=== PATIENT | male | born 1960 | race Caucasian/White ===

== ENCOUNTER 2016-10-20 13:59 | Inpatient (IN) | payer OTHER ==
[~2016-10-20 13:59] MED LIST: ONDANSETRON 4 MG/2 ML VIAL IVP PRN
--- NOTE | 2016-10-20 14:33 | EDPHY ---
H & P Time Seen by Provider: 10/20/16 14:32 HPI/ROS: CHIEF COMPLAINT: Bloating HISTORY OF PRESENT ILLNESS: This 56-year-old man has a long history of alcoholism , he tells me that his last drink was around Thanksgiving. The patient tried to lose weight at that time and lost about 30 lb. However since then he has had decreased oral intake and for the last 2 weeks more significant abdominal bloating. Not associated with diarrhea or melena or red blood per rectum. Not associated with nausea or vomiting but is associated with eating any feels worse if he tries to eat or drink anything. He also has noticed that he has become yellow or jaundiced. Symptoms are moderate. REVIEW OF SYSTEMS: Eye: no change in vision ENT: no sore throat Cardiac: no chest pain or syncope Pulmonary: no cough or SOB Abdomen: See HPI. Musculoskeletal: no back pain Skin: Jaundice. Neuro: no headache Constitutional: no fever : no urinary symptoms A comprehensive 10 point review of systems is otherwise negative aside from elements mentioned in the history of present illness. PAST MEDICAL HISTORY: Alcoholism but negative for surgical or other history. Social history: Alcoholic but last drink Thanksgiving. General Appearance: Alert and conversant, cooperative. Eyes: Scleral icterus. ENT, Mouth: Normal mucous membranes. Respiratory: Normal respiratory effort, breath sounds equal, lungs are clear to auscultation. Cardiovascular: Regular rate and rhythm. Gastrointestinal: Markedly distended but no rebound or guarding, soft periumbilical hernia. Neurological: Alert and oriented x3. Normally conversant. Face symmetric, normal movement and sensation in all extremities. No asterixis. Skin: Jaundice Musculoskeletal: No peripheral edema and no joint swelling. Psychiatric: Not agitated. Emergency Department course/MDM: Heart rate noted to be 120. Plan for EKG i-STAT and labs to include liver function tests and protime. CT scan, ultrasound, admission with GI consultation. 1632: Results discussed in detail with patient and his . Smoking Status: Never smoked Constitutional: Initial Vital Signs Temperature (C) 36.9 C 10/20/16 14:13 Heart Rate 120 H 10/20/16 14:13 Respiratory Rate 20 10/20/16 14:13 Blood Pressure 148/93 H 10/20/16 14:13 O2 Sat (%) 95 10/20/16 14:13 O2 Delivery Mode Room Air Allergies/Adverse Reactions: No Known Allergies Allergy (Unverified 10/20/16 14:13) Home Medications: Medication Instructions Recorded NK [No Known Home Meds] 10/20/16 Medical Decision Making - Diagnostics EKG Interpretation: 12-lead EKG interpreted by me; official reading is in trace master. My interpretation is sinus tachycardia with nonspecific diffuse T-wave abnormalities. Imaging: CT scan interpreted by myself and Dr. Villagomez radiologist report reviewed. Probable distal esophageal cancer with hepatic metastases. Consult/Admit Bed Type: [facility] 1642, [facility] 1645 - Data Points Laboratory Results: Laboratory Results 10/20/16 14:52 10/20/16 14:52 10/20/16 10/20/16 14:52 14:51 WBC 10.13 H 10^3/uL (3.80-9.50) RBC 3.38 L 10^6/uL (4.40-6.38) Hgb 9.6 L g/dL (13.7-17.5) POC Hgb 12.2 L gm/dL (14.5-17.3) Hct 28.4 L % (40.0-51.0) POC Hct 36 L % (42.8-50.6) MCV 84.0 fL (81.5-99.8) MCH 28.4 pg (27.9-34.1) MCHC 33.8 g/dL (32.4-36.7) RDW 19.3 H % (11.5-15.2) Plt Count 400 10^3/uL (150-400) MPV 10.3 fL (8.7-11.7) Neut % (Auto) 71.8 % (39.3-74.2) Lymph % (Auto) 17.9 % (15.0-45.0) [place] % (Auto) 7.6 % (4.5-13.0) Eos % (Auto) 1.3 % (0.6-7.6) Baso % (Auto) 0.5 % (0.3-1.7) Nucleat RBC Rel Count 0.0 % (0.0-0.2) Absolute Neuts (auto) 7.28 H 10^3/uL (1.70-6.50) Absolute Lymphs (auto) 1.81 10^3/uL (1.00-3.00) Absolute Monos (auto) 0.77 10^3/uL (0.30-0.80) Absolute Eos (auto) 0.13 10^3/uL (0.03-0.40) Absolute Basos (auto) 0.05 10^3/uL (0.02-0.10) Absolute Nucleated RBC 0.00 10^3/uL (0-0.01) Immature Gran % 0.9 % (0.0-1.1) Immature Gran # 0.09 10^3/uL (0.00-0.10) PT 13.8 SEC (12.0-15.0) INR 1.07 (0.83-1.16) APTT 21.2 L SEC (23.0-38.0) POC Sodium 132 L mEq/L (134-144) Sodium 130 L mEq/L (134-144) POC Potassium 3.9 mEq/L (3.3-5.0) Potassium 4.2 mEq/L (3.5-5.2) POC Chloride 91 L mEq/L (96-108) Chloride 92 L mEq/L (97-110) Carbon Dioxide 28 mEq/l (22-31) Anion Gap 10 mEq/L (8-16) POC BUN 23 mg/dL (7-23) BUN 23 mg/dL (7-23) Creatinine 1.0 mg/dL (0.7-1.3) POC Creatinine 1.0 mg/dL (0.8-1.5) Estimated GFR > 60 Glucose 91 mg/dL (70-100) POC Glucose 94 mg/dL (70-100) Calcium 8.3 L mg/dL (8.5-10.4) Total Bilirubin 5.7 H mg/dL (0.1-1.4) Conjugated Bilirubin 4.8 H mg/dL (0.0-0.5) Unconjugated Bilirubin 0.9 mg/dL (0.0-1.1) AST 746 H IU/L (17-59) ALT 247 H IU/L (21-72) Alkaline Phosphatase 796 H IU/L (38-126) Total Protein 6.2 L g/dL (6.3-8.2) Albumin 2.7 L g/dL (3.5-5.0) Lipase 412.0 H IU/L (23-300) Medications Given: Discontinued Medications Sodium Chloride (Ns) 1,000 mls @ 0 mls/hr IV ONCE ONE PRN Reason: Wide Open Stop: 10/20/16 14:46 Last Admin: 10/20/16 15:01 Dose: 1,000 mls Point of Care Test Results: 10/20/16 14:51 POC Sodium 132 L POC Potassium 3.9 POC Chloride 91 L POC BUN 23 POC Creatinine 1.0 POC Glucose 94 Departure - Departure Disposition: [facility] Inpatient Acute Clinical Impression: esophageal cancer, probable Condition: Fair Referrals: NONE *PRIMARY CARE P,. [Primary Care Provider] - As per Instructions
[2016-10-20] MEDS ORDERED: NS 1,000 ML IV ONE (14:45)
--- NOTE | 2016-10-20 14:59 | CPEKG ---
Heart Rate: 112 RR Interval: 536 P-R Interval: 140 QRSD Interval: 82 QT Interval: 296 QTC Interval: 404 P [place]: 39 QRS [place]: 69 EKG Severity - ABNORMAL ECG - EKG Impression: SINUS TACHYCARDIA EKG Impression: NONSPECIFIC T ABNORMALITIES, DIFFUSE LEADS Electronically Signed By: Barrera Acosta 20-Oct-2016 15:12:02
[2016-10-20 15:02] LABS: % IMMATURE GRANULYOCYTES 0.9 % (0.0-1.1); ABSOLUTE IMMATURE GRANULOCYTES 0.09 10^3/uL (0.00-0.10); ADD DIFF? NO; ADD MORPH? NO; ADD SCAN? NO; ATYPICAL LYMPHOCYTE FLAG 0 (0-99); FRAGMENT RBC FLAG 20 (0-99); HEMATOCRIT 28.4 % (40.0-51.0); HEMOGLOBIN 9.6 g/dL (13.7-17.5); LEFT SHIFT FLG 0 (0-99); LIPEMIA HEMOLYSIS FLAG 90 (0-99); MEAN CELL HEMOGLOBIN 28.4 pg (27.9-34.1); MEAN CELL HEMOGLOBIN CONCENTR. 33.8 g/dL (32.4-36.7); MEAN PLATELET VOLUME 10.3 fL (8.7-11.7); PLATELET CLUMPS FLAG 0 (0-99); PLATELET COUNT 400 10^3/uL (150-400); RED BLOOD CELL COUNT 3.38 10^6/uL (4.40-6.38); RED CELL DISTRIBUTION WIDTH 19.3 % (11.5-15.2)
[2016-10-20 15:11] LABS: INR 1.07 (0.83-1.16); PROTIME(PATIENT) 13.8 SEC (12.0-15.0)
[2016-10-20] MEDS ORDERED: IOPAMIDOL (ISOVUE-300) 100 ML BTL IV ONE (15:12)
[2016-10-20 15:17] LABS: APTT 21.2 SEC (23.0-38.0)
[2016-10-20 15:23] LABS: ALANINE AMINOTRANSFERASE 247 IU/L (21-72); ALBUMIN 2.7 g/dL (3.5-5.0); ALKALINE PHOSPHATASE 796 IU/L (38-126); ANION GAP 10 mEq/L (8-16); ASPARTATE AMINOTRANSFERASE 746 IU/L (17-59); BILIRUBIN,TOTAL 5.7 mg/dL (0.1-1.4); BILIRUBIN-CONJUGATED 4.8 mg/dL (0.0-0.5); BILIRUBIN-UNCONJUGATED 0.9 mg/dL (0.0-1.1); CALCIUM 8.3 mg/dL (8.5-10.4); CARBON DIOXIDE 28 mEq/l (22-31); CHLORIDE 92 mEq/L (97-110); GLOMERULAR FILTRATION RATE > 60; GLUCOSE 91 mg/dL (70-100); POTASSIUM 4.2 mEq/L (3.5-5.2); SODIUM 130 mEq/L (134-144); TOTAL PROTEIN 6.2 g/dL (6.3-8.2)
--- NOTE | 2016-10-20 16:18 | CT ---
CT Abdomen And Pelvis With Contrast Multiphase History: Worsening abdominal distention, painless jaundice, bloating and difficulty eating since Octo alejandro, history of EtOH abuse and appendectomy Technique: All images were obtained utilizing the [address] in a single breath-hold. Intra venous injection of 110 mL of [id number]-300 nonionic contrast utilizing a power injector without complic ation. Images are obtained through the abdomen and pelvis during the portal venous phase and then rep eated through the abdomen after a 5 minute delay to evaluate the excretory phase. Dose reduction tech niques were utilized. Findings: There is severe circumferential thickening of the distal esophagus (2.8 cm mural thickness) with an air-fluid level in the esophagus immediately above this area. This abnormality extends over a 10 cm length. In toto it measures 7 cm in width and 6.4 cm AP. There is an enlarged lymph node inf erior to the esophagogastric junction measuring 2.1 x 2.1 cm. There is a 6 mm noncalcified subpleural pulmonary nodule at the left lung base (image 22 series 3). There is some linear scarring in the rig ht middle lobe. There is no pleural fluid. Heart size is normal without pericardial fluid. There is d ense atherosclerotic coronary artery disease. The liver is enlarged measuring 23.5 cm in length. There is diffuse hepatic metastatic disease. The a nterior liver capsule has a micronodular contour suggesting underlying cirrhosis. The gallbladder is contracted. There is no intra or extrahepatic biliary dilatation. There is shotty retroperitoneal gaby nopathy. There is a large amount of ascites. The pancreas and spleen appear normal. The adrenal gland s and kidneys look normal. There is no renal obstruction on the delayed sequence. There is ascites in the pelvis. There is upper sigmoid diverticulosis without evidence of diverticuli tis. Skeleton: There is a small benign bone island in the left L3 vertebral body. There is no evidence for bony metastatic disease. Impression: 1. Distal esophageal cancer with diffuse hepatic metastatic disease and likely malignant ascites. 2. Indeterminate left lung base pulmonary nodule. 3. Coronary artery disease. Results called to Dr. Acosta. General information for patients regarding this examination can be found at [email or web address]. If you have questions or comments about this report, please contact me at [phone] (hospital) or [phone] (cell).
[2016-10-20 18:28] LABS: COLOR AMBER; LEUKOCYTE ESTERASE,URINE NEGATIVE (NEGATIVE); NITRITE,URINE NEGATIVE (NEGATIVE)
[2016-10-20] MEDS ORDERED: ACETAMINOPHEN 325 MG TAB PO PRN (18:32)
[2016-10-20] MEDS ORDERED: PROMETHAZINE HCL 25 MG/ML INJ IVP PRN (18:32)
[2016-10-20] MEDS ORDERED: LORazepam 0.5 MG TAB PO PRN (18:32)
[2016-10-20] MEDS ORDERED: HYDROmorphONE/DILAUDID 1 MG/ML SYR IVP PRN (18:32)
[2016-10-20] MEDS ORDERED: ONDANSETRON DISINTEGRATING 4 MG TAB PO PRN (18:32)
[2016-10-20] MEDS ORDERED: ONDANSETRON 4 MG/2 ML VIAL IVP PRN (18:32)
--- NOTE | 2016-10-20 19:20 | US ---
Ultrasound Venous Duplex/Doppler Right Leg History: Pain and swelling. Findings: Ultrasound venous duplex and Doppler imaging of the common femoral vein, femoral vein, pop liteal vein, calf veins, greater saphenous vein origin, and contralateral common femoral vein demonst rates normal compressibility, color flow, and Doppler flow without deep venous thrombosis. Impression: No deep venous thrombosis right leg.
--- NOTE | 2016-10-20 22:38 | PDGENHP ---
History and Physical - Chief Complaint abdominal distension/early satiety - History of Present Illness 56 yo M with hx of heavy etoh use until May of this year, presenting with complaints of abdominal distension, early satiety and yellowing of his skin. He notes that he quit drinking in May with a goal of losing weight, he had been drinking 4-6 beers per night prior to that. He states that over the last several months he did lose weight, and lost even more than he intended to. He attributes this to the fact that he developed fairly severe abdominal distension and bloating to the point where he was only able to eat a few bites of food at a time. This has progressed to where he feels he is not eating enough to sustain himself. He lost weight everywhere except his abdomen which was swelling, and his legs, which are also swelling. He also notes his skin yellowing in the last several days. He has never had similar issues in the past. He has not seen a doctor about this prior to coming here. History Information - Allergies/Home Medication List Allergies/Adverse Reactions: No Known Allergies Allergy (Unverified 10/20/16 14:13) Home Medications: NK [No Known Home Meds] 10/20/16 [Last Taken Unknown] I have personally reviewed and updated: family history, medical history, social history, surgical history - Past Medical History no pertinent PMH - Surgical History Reports: no pertinent surgical hx - Social History Smoking Status: Never smoked Alcohol Use: Sober (quit drinking in june of this year) Drug Use: None Review of Systems ROS: 10pt was reviewed & negative except for what was stated in HPI & below Physical Exam Temp Pulse Resp BP Pulse Ox 36.8 C 112 H 17 129/83 H 92 10/20/16 19:29 10/20/16 19:29 10/20/16 19:29 10/20/16 19:29 10/20/16 19:29 Constitutional: chronically ill appearing, uncomfortable Eyes: icteric sclera Ears, Nose, Mouth, Throat: moist mucous membranes, hearing normal, poor dentition Cardiovascular: regular rate and rhythym, no murmur, rub, or gallop Respiratory: no respiratory distress, no rales or rhonchi, reduced air movement (at bases) Gastrointestinal: tenderness, ascites, distension Skin: warm, No normal color Musculoskeletal: full muscle strength, asymmetric calves, muscular tenderness Neurologic: AAOx3, sensation intact bilaterally, No asterixes Psychiatric: interacting appropriately, not anxious, not encephalopathic Lab Data & Imaging Review 10/20/16 14:52 10/20/16 14:52 WBC 10.13 10^3/uL (3.80-9.50) H 10/20/16 14:52 RBC 3.38 10^6/uL (4.40-6.38) L 10/20/16 14:52 Hgb 9.6 g/dL (13.7-17.5) L 10/20/16 14:52 POC Hgb 12.2 gm/dL (14.5-17.3) L 10/20/16 14:51 Hct 28.4 % (40.0-51.0) L 10/20/16 14:52 POC Hct 36 % (42.8-50.6) L 10/20/16 14:51 MCV 84.0 fL (81.5-99.8) 10/20/16 14:52 MCH 28.4 pg (27.9-34.1) 10/20/16 14:52 MCHC 33.8 g/dL (32.4-36.7) 10/20/16 14:52 RDW 19.3 % (11.5-15.2) H 10/20/16 14:52 Plt Count 400 10^3/uL (150-400) 10/20/16 14:52 MPV 10.3 fL (8.7-11.7) 10/20/16 14:52 Neut % (Auto) 71.8 % (39.3-74.2) 10/20/16 14:52 Lymph % (Auto) 17.9 % (15.0-45.0) 10/20/16 14:52 [place] % (Auto) 7.6 % (4.5-13.0) 10/20/16 14:52 Eos % (Auto) 1.3 % (0.6-7.6) 10/20/16 14:52 Baso % (Auto) 0.5 % (0.3-1.7) 10/20/16 14:52 Nucleat RBC Rel Count 0.0 % (0.0-0.2) 10/20/16 14:52 Absolute Neuts (auto) 7.28 10^3/uL (1.70-6.50) H 10/20/16 14:52 Absolute Lymphs (auto) 1.81 10^3/uL (1.00-3.00) 10/20/16 14:52 Absolute Monos (auto) 0.77 10^3/uL (0.30-0.80) 10/20/16 14:52 Absolute Eos (auto) 0.13 10^3/uL (0.03-0.40) 10/20/16 14:52 Absolute Basos (auto) 0.05 10^3/uL (0.02-0.10) 10/20/16 14:52 Absolute Nucleated RBC 0.00 10^3/uL (0-0.01) 10/20/16 14:52 Immature Gran % 0.9 % (0.0-1.1) 10/20/16 14:52 Immature Gran # 0.09 10^3/uL (0.00-0.10) 10/20/16 14:52 PT 13.8 SEC (12.0-15.0) 10/20/16 14:52 INR 1.07 (0.83-1.16) 10/20/16 14:52 APTT 21.2 SEC (23.0-38.0) L 10/20/16 14:52 POC Sodium 132 mEq/L (134-144) L 10/20/16 14:51 Sodium 130 mEq/L (134-144) L 10/20/16 14:52 POC Potassium 3.9 mEq/L (3.3-5.0) 10/20/16 14:51 Potassium 4.2 mEq/L (3.5-5.2) 10/20/16 14:52 POC Chloride 91 mEq/L (96-108) L 10/20/16 14:51 Chloride 92 mEq/L (97-110) L 10/20/16 14:52 Carbon Dioxide 28 mEq/l (22-31) 10/20/16 14:52 Anion Gap 10 mEq/L (8-16) 10/20/16 14:52 POC BUN 23 mg/dL (7-23) 10/20/16 14:51 BUN 23 mg/dL (7-23) 10/20/16 14:52 Creatinine 1.0 mg/dL (0.7-1.3) 10/20/16 14:52 POC Creatinine 1.0 mg/dL (0.8-1.5) 10/20/16 14:51 Estimated GFR > 60 10/20/16 14:52 Glucose 91 mg/dL (70-100) 10/20/16 14:52 POC Glucose 94 mg/dL (70-100) 10/20/16 14:51 Calcium 8.3 mg/dL (8.5-10.4) L 10/20/16 14:52 Total Bilirubin 5.7 mg/dL (0.1-1.4) H 10/20/16 14:52 Conjugated Bilirubin 4.8 mg/dL (0.0-0.5) H 10/20/16 14:52 Unconjugated Bilirubin 0.9 mg/dL (0.0-1.1) 10/20/16 14:52 AST 746 IU/L (17-59) H 10/20/16 14:52 ALT 247 IU/L (21-72) H 10/20/16 14:52 Alkaline Phosphatase 796 IU/L (38-126) H 10/20/16 14:52 Total Protein 6.2 g/dL (6.3-8.2) L 10/20/16 14:52 Albumin 2.7 g/dL (3.5-5.0) L 10/20/16 14:52 Lipase 412.0 IU/L (23-300) H 10/20/16 14:52 Urine Color TRUDY 10/20/16 18:00 Urine Appearance CLEAR 10/20/16 18:00 Urine pH 5.0 (5.0-7.5) 10/20/16 18:00 Ur Specific [place] 1.033 (1.002-1.030) H 10/20/16 18:00 Urine Protein NEGATIVE (NEGATIVE) 10/20/16 18:00 Urine Ketones NEGATIVE (NEGATIVE) 10/20/16 18:00 Urine Blood NEGATIVE (NEGATIVE) 10/20/16 18:00 Urine Nitrate NEGATIVE (NEGATIVE) 10/20/16 18:00 Urine Bilirubin NEGATIVE (NEGATIVE) 10/20/16 18:00 Urine Urobilinogen 4.0 EU (0.2-1.0) H 10/20/16 18:00 Ur Leukocyte Esterase NEGATIVE (NEGATIVE) 10/20/16 18:00 Urine Glucose NEGATIVE (NEGATIVE) 10/20/16 18:00 Visualized and Interpreted imaging results: Yes Interpretation: abd ct with distal esophageal mass and hepatic masses Visualized and Interpreted EKG results: Yes EKG Interpretation: Positive for: normal sinsus rhythm Assessment & Plan Assessment: 56 yo M with pmh of heavy etoh abuse presenting with ascites, jaundice and esophageal mass # jaundice/ascites: with e/o hepatic masses as well as likely underlying cirrhosis. Does have a hx of heavy etoh use but quit several months ago per his report, AST : ALT ratio would be c/w etoh related liver disease however. Will trend LFTs. Given tense ascites with associated early satiety and sob will get paracentesis in am, both therapeutic and diagnostic. # esophageal mass: what appears c/w esophageal cancer and liver mets noted on abdominal imaging, does have difficulty eating as per hpi. GI consulted with plans for egd w/biopsy in am. # hyponatremia: hypervolemic hyponatremia in setting of hepatitis as above, will monitor # anasarca: as problem 1, no diuretics for now given that patient is likely intravascularly dry # etoh abuse: in remission, with likely underlying etoh related cirrhosis as above # IP status, will need > 48 hours stay for eval/mgmt of above Patient new to my care. Old records reviewed and summarized as above. Care plan reviewed with ER doctor and GI including plan for EGD in am. Further hx obtained from patients present at bedside.
[2016-10-21 03:38] LABS: % IMMATURE GRANULYOCYTES 0.6 % (0.0-1.1); ABSOLUTE IMMATURE GRANULOCYTES 0.06 10^3/uL (0.00-0.10); ADD DIFF? NO; ADD MORPH? NO; ADD SCAN? NO; ATYPICAL LYMPHOCYTE FLAG 0 (0-99); FRAGMENT RBC FLAG 20 (0-99); HEMOGLOBIN 8.4 g/dL (13.7-17.5); LEFT SHIFT FLG 10 (0-99); LIPEMIA HEMOLYSIS FLAG 80 (0-99); MEAN CELL HEMOGLOBIN CONCENTR. 33.6 g/dL (32.4-36.7); MEAN CELL VOLUME 86.2 fL (81.5-99.8); MEAN PLATELET VOLUME 10.2 fL (8.7-11.7); PLATELET CLUMPS FLAG 0 (0-99); PLATELET COUNT 307 10^3/uL (150-400); RED CELL DISTRIBUTION WIDTH 19.3 % (11.5-15.2)
[2016-10-21 04:00] LABS: ALANINE AMINOTRANSFERASE 220 IU/L (21-72); ALBUMIN 2.3 g/dL (3.5-5.0); ALKALINE PHOSPHATASE 665 IU/L (38-126); ANION GAP 9 mEq/L (8-16); ASPARTATE AMINOTRANSFERASE 714 IU/L (17-59); BILIRUBIN,TOTAL 5.7 mg/dL (0.1-1.4); CALCIUM 8.1 mg/dL (8.5-10.4); CARBON DIOXIDE 29 mEq/l (22-31); CHLORIDE 94 mEq/L (97-110); GLOMERULAR FILTRATION RATE > 60; GLUCOSE 77 mg/dL (70-100); MAGNESIUM 2.1 mg/dL (1.6-2.3); POTASSIUM 4.7 mEq/L (3.5-5.2); SODIUM 132 mEq/L (134-144); TOTAL PROTEIN 5.6 g/dL (6.3-8.2)
[2016-10-21 04:08] LABS: BILIRUBIN-CONJUGATED 4.8 mg/dL (0.0-0.5); BILIRUBIN-UNCONJUGATED 0.9 mg/dL (0.0-1.1)
[2016-10-21] MEDS ORDERED: ALBUMIN 25% 200 ML IV ONE (07:00)
--- NOTE | 2016-10-21 09:49 | HOSPPROG ---
Hospitalist Progress Note Assessment/Plan: DIAGNOSIS: # SEVERE DYSPHASIA # ESOPHAGEAL MASS, SUSPECT CARCINOMA # METASTATIC DISEASE WITH EXTENSIVE, MULTIPLE LIVER LESIONS # ASCITES IS LIKELY MALIGNANT BUT COULD BE DUE TO PORTAL HYPERTENSION WELL # HYPONATREMIA; SUSPECT THAT THIS IS MORE HYPOVOLEMIC AND LOW BODY SODIUM CONTENT, HOWEVER PRESENCE OF ASCITES SHOULD BE CONSIDERED IT IS POSSIBLE THERE IS SOME HYPERVOLEMIA # ALCOHOL ABUSE PLANS: -EGD is planned for biopsy -Ultrasound-guided paracentesis for cytology will be performed as well -oncology and gastroenterology consults are pending -continue hydration intravenously for the moment SUBJECTIVE: A little bit less bloating in less pain today now that he is not eating No fever symptoms OBJECTIVE Vitals reviewed: Less tachycardic, otherwise stable without fever Exam: alert oriented skin warm dry color ok resps not labored lungs clear BSs heart regular abd distended and tense, nontender, bowel sounds present limbs warm, with pitting edema from the knees down to the feet bilaterally iv site ok Laboratory data: Liver enzymes and bilirubin approximately stable. Objective: Vital Signs Temp Pulse Resp BP Pulse Ox 36.6 C 101 H 16 118/80 96 10/21/16 08:46 10/21/16 08:46 10/21/16 08:46 10/21/16 08:46 10/21/16 08:46 Laboratory Results 10/21/16 03:26 10/21/16 03:26 10/20/16 10/21/16 10/22/16 06:59 06:59 06:59 Intake Total 1400 Balance 1400 PT 13.8 SEC (12.0-15.0) 10/20/16 14:52 INR 1.07 (0.83-1.16) 10/20/16 14:52 ICD10 Worksheet Patient Problems: Problems Problem Status Diagnosed Esophageal mass Acute
--- NOTE | 2016-10-21 11:04 | GCON ---
[f rep st] CONSULTATION ONCOLOGY CONSULTATION. REASON FOR CONSULTATION: Probable metastatic esophageal carcinoma. HISTORY OF PRESENT ILLNESS: The patient is a 56-year-old male who presented to the emergency room yesterday with a new onset ascites and several month history of difficulty swallowing. The patient has not really received any prior medical treatment and does not have a primary care physician. He reports in May he decided to stop drinking and lost 35 pounds by Thanksgiving. He reports that for approximately 3 years, he was drinking on average 6-8 beers a day and drank less heavily 4 years prior to that. He started having abdominal distention a few weeks ago and noted new onset of jaundice in the last few days. The patient also reports increased difficulty swallowing starting in August. He has had to be careful with what he eats. His current diet consists primarily of soft foods such as eggs, soups. He has not had any obvious GI bleeding. He reports some mid epigastric discomfort. Also he notes that he had bilateral lower extremity edema develop about 3 days ago. PAST MEDICAL HISTORY: Unremarkable other than HPI. PAST SURGICAL HISTORY: Prior appendectomy. SOCIAL HISTORY: The patient is . He lives in [place] [place] [facility]. He does not have any children. 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 FAMILY HISTORY: Notable for his mother dying of Maximino-Crutchfeld disease. There is no history of any malignancy. REVIEW OF SYSTEMS: Ten point of review of systems is negative other than per HPI. PHYSICAL EXAMINATION: GENERAL: He is alert, comfortable appearing male with obvious ascites, sitting on the edge of the bed. VITAL SIGNS: Blood pressure 118/80, heart rate 101, O2 sat 96% on 2 L, respiratory rate 16. HEENT: Pupils are equal. Sclerae are icteric. LUNGS: Decreased breaths sounds at the base, but otherwise clear. HEART: Regular rate. ABDOMEN: Tense ascites. EXTREMITIES: Two plus bilateral lower extremity edema. LABORATORY DATA: White count 9.6, hematocrit 25, MCV 86, platelets are 307. Sodium 132, albumin 2.3, alkaline phosphatase 665, ALT 220, AST 714. Total bili 5.7. Abdominal CT shows a circumferential mass with an air fluid level in the distal esophagus, extending over a 10 cm length, and in total 7 cm in width. There is enlarged esophagogastric node measuring 2.1 cm with a 6 mm noncalcified pulmonary nodule. The liver demonstrates marked diffuse hepatic metastatic disease with the contour suggesting underlying micronodular cirrhosis. There is a large amount of ascites. The pancreas appears normal. No evidence of bony metastatic disease. IMPRESSION: This is a 56-year-old male who has not previously had regular medical followup, who now presents with what appears to be widely metastatic esophageal carcinoma. The patient has tense ascites and will be going for a paracentesis today. Fluid will be sent for cytology. He is experiencing dysphagia and will have an EGD today and I suspect this will confirm a diagnosis of esophageal carcinoma. The patient has significant liver dysfunction and any type of systemic treatment would be considered palliative. There will be some limitations in terms of what drugs he may be able to receive based on impaired hepatic clearance. Dysphagia is limiting his po intake. He is not a candidate for a g tube, given the ascites. An esophageal stent would be a consideration. Will continue to follow along with you. /[id number]/MODL MTDD
[2016-10-21] MEDS ORDERED: PROPOFOL/EMULSION 500 MG/50 ML BOTTLE IV ONE (11:32)
--- NOTE | 2016-10-21 11:34 | GCON ---
[f rep st] CONSULTATION DATE OF CONSULTATION: 10/21/2016 CHIEF COMPLAINT: Early satiety. HISTORY OF PRESENT ILLNESS: I am asked to see this patient in consultation by Dr. Gonzalez for the chief complain of early satiety and abnormal CT scan. This patient is a pleasant 56-year-old who in May decided to stop drinking alcohol in order to lose weight. Previously, he had been drinking 4-6 beers a night. He did lose 35 pounds, and around he thought that he was losing too much weight but then started to notice onset of dysphagia. He said on he had difficult y eating the mashed potatoes and Orwell and then this progressed. Sometimes he would have to regurgi brand up food, sometimes he could force it down, and had progressive weight loss. In the last 24-48 h ours, he noted a change in the color of his skin and abdominal distention with difficulty with exerti on. He has never had a history of hepatitis, no issues with alcoholic liver disease that he is aware of. He has had some constipation initially, but now that is improving. He states no blood in his s tools but has noted some dark stools but unsure if this is from his beet supplement. He has never lala d a colonoscopy. There is no family history for esophageal cancer or liver disease. ALLERGIES: No reported allergies. CURRENT MEDICATIONS: The patient reports no home medications. PAST MEDICAL HISTORY: Otherwise negative. REVIEW OF SYSTEM: Review of 10 systems, including general, psych, HEENT, cardiovascular, pulmonary, renal, hematologic, musculoskeletal, derm, and neurologic discussed and otherwise negative except as noted above. PHYSICAL EXAM: VITAL SIGNS: Currently afebrile at 36.6, BP 118/80, pulse 101. HEENT: PERRLA. He does have scleral icterus. Oropharynx is normal. NECK: Supple without lymphadenopathy. No thyrome haley. CARDIAC: Somewhat tachycardiac but no murmurs. PMI in normal location. CHEST: Clear to aus cultation bilaterally. No chest excursion. ABDOMEN: Distended and firm but no rebound. I cannot a ssess for hepatosplenomegaly. EXTREMITIES: Pedal edema. NEUROLOGIC: Nonfocal with no asterixis. There is no spider angiomata noted on the skin. LABORATORY DATA: Hematocrit on admission was 36 and this morning is 25.0 with a hemoglobin of 8.4, w abraham count 9.62, platelets 307. Pro time is normal at 13.8 with an of INR 1.07. Chemistry shows a s odium of 132 with potassium 4.7. BUN and creatinine are 23 and 1.0. Total bilirubin is elevated at 5.7, AST 714, ALT 220, alk phos 665. Albumin low at 2.3. CT scan of the abdomen obtained 10/20/2016 shows a distal esophageal mass with diffuse hepatic metast atic disease, multiple lesions within the liver, concerning for metastatic disease and ascites. Ther e is a left lung base pulmonary nodule. Coronary artery disease is noted. ASSESSMENT: 1. Early satiety with weight loss. 2. Abnormal CT scan with abnormality in the esophagus, concerning for esophageal cancer, with multip le lesions in the liver worrisome for metastatic disease with ascites. The patient does have a histo ry of alcohol use but otherwise does not have stigmata of cirrhosis, including normal pro time and no spider angiomata. I think that most likely his ascites is from tumor burden. PLAN: Recommend upper endoscopy today with biopsy. The patient may be a candidate for an esophageal stent. Further recommendations to follow. Thank you for this consult. /[id number]/MODL
[2016-10-21] MEDS ORDERED: MIDAZOLAM 2 MG/2 ML VIAL ONE (11:47)
--- NOTE | 2016-10-21 12:34 | GPN ---
[f rep st] PROCEDURE NOTE PREPROCEDURE DIAGNOSES: Dysphagia and suspected metastatic esophageal cancer. POSTPROCEDURE DIAGNOSES: Dysphagia and suspected metastatic esophageal cancer. PROCEDURE: Esophagogastroduodenoscopy with biopsies. MEDICATIONS: Monitored anesthesia care. INDICATIONS: Estuardo Queen is a 56-year-old gentleman with history of dysphagia and a new diagnosis of suspected metastatic esophageal cancer. He is here today for upper endoscopy. The risks and benefi ts of the procedure were discussed with the patient. Consent was obtained. Risks include, but are n ot limited to, bleeding, perforation, missed lesions, and sedation. The patient is ASA class 3. DESCRIPTION OF PROCEDURE: The end-viewing endoscope was inserted in the esophagus, into the stomach, and down to the second portion of the duodenum. The esophagus shows a circumferential, ulcerated, f ungating mass extending from 30 cm to 40 cm from the incisors. The mass is oozing blood. The mass e xtends across the GE junction approximately 1 cm. The stomach shows blood secondary to the bleeding esophageal tumor, but otherwise is normal. The duodenum and second portion were normal. Biopsies we re taken of the esophageal mass using cold biopsy forceps and sent to Pathology. IMPRESSION: Circumferential extensive esophageal mass with ulceration and oozing of blood, status po st biopsies. RECOMMENDATIONS: 1. Follow up on the final biopsy results. 2. Discussion with Medical Oncology and with the family to decide next steps regarding care. 3. Consider placement of esophageal stent if desired by the patient and family. 4. Further recommendations per the inpatient team. Thank you for allowing me to participate in the care of your patient. Please do not hesitate to call with questions. /[id number]/MODL
[2016-10-21] MEDS ORDERED: NA BICARBONATE 50 MEQ/50 ML VIAL ONE (14:17)
[2016-10-21] MEDS ORDERED: LIDOCAINE 1% 30 ML SDV ONE (14:17)
--- NOTE | 2016-10-21 16:40 | US ---
Ultrasound-Guided Paracentesis History: Ascites. Crosscutting Measure #226: Current tobacco user: no. Informed consent was obtained. The possibility of infection, bleeding, and bowel injury were discusse d. Technique: A dominant pocket of ascitic fluid was localized in the right lower quadrant. The skin wa s then prepped and draped in sterile fashion. Local and deep anesthesia was applied with 1% lidocaine . A small skin dominique was applied through which the paracentesis catheter was inserted into the ascitic fluid. 6400 mL of fluid were removed using vacuum technique. The fluid was serous. At the end of the procedure, the catheter was removed, a sterile bandage applied, and the patient discharged from the department. A specimen was sent to the Laboratory for requested studies. Impression: Successful 6400 mL paracentesis with ultrasound guidance.
[2016-10-21 17:23] LABS: GLUCOSE, PERITONEAL FLUID 74 mg/dL (55-113)
[2016-10-22 05:26] LABS: % IMMATURE GRANULYOCYTES 0.5 % (0.0-1.1); ABSOLUTE IMMATURE GRANULOCYTES 0.05 10^3/uL (0.00-0.10); ADD DIFF? NO; ADD MORPH? NO; ADD SCAN? NO; ATYPICAL LYMPHOCYTE FLAG 0 (0-99); FRAGMENT RBC FLAG 20 (0-99); HEMATOCRIT 24.6 % (40.0-51.0); HEMOGLOBIN 8.4 g/dL (13.7-17.5); LEFT SHIFT FLG 0 (0-99); LIPEMIA HEMOLYSIS FLAG 90 (0-99); MEAN CELL HEMOGLOBIN 29.5 pg (27.9-34.1); MEAN CELL HEMOGLOBIN CONCENTR. 34.1 g/dL (32.4-36.7); MEAN CELL VOLUME 86.3 fL (81.5-99.8); MEAN PLATELET VOLUME 10.4 fL (8.7-11.7); PLATELET CLUMPS FLAG 0 (0-99); PLATELET COUNT 305 10^3/uL (150-400); RED BLOOD CELL COUNT 2.85 10^6/uL (4.40-6.38)
[2016-10-22 05:41] LABS: ALANINE AMINOTRANSFERASE 190 IU/L (21-72); ALBUMIN 2.6 g/dL (3.5-5.0); ALKALINE PHOSPHATASE 630 IU/L (38-126); ANION GAP 9 mEq/L (8-16); ASPARTATE AMINOTRANSFERASE 610 IU/L (17-59); BILIRUBIN,TOTAL 7.5 mg/dL (0.1-1.4); CALCIUM 8.3 mg/dL (8.5-10.4); CARBON DIOXIDE 28 mEq/l (22-31); CHLORIDE 94 mEq/L (97-110); CREATININE 0.9 mg/dL (0.7-1.3); GLOMERULAR FILTRATION RATE > 60; GLUCOSE 97 mg/dL (70-100); SODIUM 131 mEq/L (134-144); TOTAL PROTEIN 5.8 g/dL (6.3-8.2)
[2016-10-22 06:21] LABS: BILIRUBIN-CONJUGATED 6.5 mg/dL (0.0-0.5)
--- NOTE | 2016-10-22 11:51 | SOAPPROG ---
SOAP Progress Note Assessment/Plan: Assessment: Esophageal cancer with long esophageal tumor path pending. Tolerating liquids Liver mets with ascites s/p tap Plan: Await path from EGD Await path from ascites to assess for malignant vs portal hypertension Candidate for esophageal stent if patient desires Will follow from a distance until path back. Please call if patient desires stent to help arrange 10/22/16 11:47 Subjective: CC dysphagia Tolerating liquids Objective: Vital Signs Temp Pulse Resp BP Pulse Ox 36.8 C 100 16 116/72 98 10/22/16 08:40 10/22/16 08:40 10/22/16 08:40 10/22/16 08:40 10/22/16 08:40 Laboratory Results 10/22/16 05:00 10/22/16 05:00 10/21/16 10/22/16 10/23/16 05:59 05:59 05:59 Intake Total 1400 1400 Balance 1400 1400 PT 13.8 SEC (12.0-15.0) 10/20/16 14:52 INR 1.07 (0.83-1.16) 10/20/16 14:52 Physical Exam - Physical Exam General Appearance: alert, no apparent distress Respiratory: lungs clear, normal breath sounds Cardiac/Chest: regular rate, rhythm, No diastolic murmur Abdomen: non-tender, soft, ascites ICD10 Worksheet Patient Problems: Problems Problem Status Diagnosed Esophageal mass Acute
[2016-10-22] MEDS: PANTOPRAZOLE SODIUM 40 MG TAB PO SCH ×2 (12:05→21:51)
--- NOTE | 2016-10-22 16:23 | CPEKG ---
Heart Rate: 144 RR Interval: 417 QRSD Interval: 86 QT Interval: 296 QTC Interval: 458 QRS [place]: 82 T Wave [place]: -86 EKG Severity - ABNORMAL ECG - EKG Impression: TACHYCARDIA CANNOT RULE OUT AVNRT CONSIDER ADENOSINE FOR DIAGNOSTIC AND EKG Impression: THERAPEUTIC TRIAL Electronically Signed By: Ishaan Nash 23-Oct-2016 19:33:29
--- NOTE | 2016-10-22 17:36 | HOSPPROG ---
Hospitalist Progress Note Assessment/Plan: DIAGNOSIS: # SEVERE DYSPHASIA # ESOPHAGEAL MASS, SUSPECT CARCINOMA, with partial obstruction # METASTATIC DISEASE WITH EXTENSIVE, MULTIPLE LIVER LESIONS # ASCITES IS LIKELY MALIGNANT BUT COULD BE DUE TO PORTAL HYPERTENSION WELL # HYPONATREMIA; SUSPECT THAT THIS IS MORE HYPOVOLEMIC AND LOW BODY SODIUM CONTENT, HOWEVER PRESENCE OF ASCITES SHOULD BE CONSIDERED IT IS POSSIBLE THERE IS SOME HYPERVOLEMIA # SVT # ALCOHOL ABUSE PLANS: -await pathology reports -I met at the bedside with the patient and Dr. Evelia Bryant today and reviewed the patient's diagnoses, differential diagnoses, symptoms and functional abnormalities. It is very likely that a stent would help this patient in order to maintain the ability to eat and drink which would be much more comfortable as well as making it easier to try and diurese him as I suspect some of his ascites is from portal hypertension. -For now symptomatic management here with general supportive care SUBJECTIVE: Feels better today after paracentesis No fever symptoms OBJECTIVE Vitals reviewed: Overall normal without fever, however he did have 1 episode of SVT in the 150s today that were able to break with Valsalva maneuver. Exam: alert oriented skin warm dry color ok resps not labored lungs clear BSs heart regular abd distended and tense, nontender, bowel sounds present limbs warm, with pitting edema from the knees down to the feet bilaterally iv site ok Laboratory data: Liver enzymes and bilirubin approximately stable. Objective: Vital Signs Temp Pulse Resp BP Pulse Ox 36.6 C 156 H 18 103/69 95 10/22/16 16:08 10/22/16 16:08 10/22/16 16:08 10/22/16 16:08 10/22/16 16:08 Laboratory Results 10/22/16 05:00 10/22/16 05:00 10/21/16 10/22/16 10/23/16 06:59 06:59 06:59 Intake Total 1400 1400 1450 Balance 1400 1400 1450 PT 13.8 SEC (12.0-15.0) 10/20/16 14:52 INR 1.07 (0.83-1.16) 10/20/16 14:52 ICD10 Worksheet Patient Problems: Problems Problem Status Diagnosed Esophageal mass Acute
--- NOTE | 2016-10-22 18:40 | SOAPPROG ---
SOAP Progress Note Assessment/Plan: A/P: * Probable metastatic esophageal cancer: path pending. We discussed that tx is palliative in the metastatic setting and not curative. Likely 5FU/fort mcdermitt. No taxane given bili. * Dysphagia: stent vs. chemoRT. I would favor initial stent as he needs systemic chemotherapy (rather than weekly chemo with RT) given the burden of metastatic disease. Can reserve palliative esophageal radiation if stent not helpful, progressive sxs. * Hepatic metastases. * Ascites: may need repeat paracentesis. 10/22/16 18:41 Subjective: S: Feels ascites is reaccumulating. Restless sleep. Pain control not an issue. O: VS reviewed. Gen: jaundiced, NAD, A&O. Lungs: breathing comfortably. Abd: distended. Laboratory Tests 10/22/16 05:00 WBC 9.54 H Hgb 8.4 L Plt Count 305 Sodium 131 L Potassium 4.0 Creatinine 0.9 Total Bilirubin 7.5 H Conjugated Bilirubin 6.5 H Unconjugated Bilirubin 1.0 AST 610 H ALT 190 H Alkaline Phosphatase 630 H Path pending. Objective: Vital Signs Temp Pulse Resp BP Pulse Ox 36.6 C 156 H 18 103/69 95 10/22/16 16:08 10/22/16 16:08 10/22/16 16:08 10/22/16 16:08 10/22/16 16:08 Laboratory Results 10/22/16 05:00 10/22/16 05:00 10/21/16 10/22/16 10/23/16 05:59 05:59 05:59 Intake Total 1400 1400 1450 Balance 1400 1400 1450 PT 13.8 SEC (12.0-15.0) 10/20/16 14:52 INR 1.07 (0.83-1.16) 10/20/16 14:52 ICD10 Worksheet Patient Problems: Problems Problem Status Diagnosed Esophageal mass Acute
[2016-10-23 06:09] LABS: % IMMATURE GRANULYOCYTES 0.5 % (0.0-1.1); ABSOLUTE IMMATURE GRANULOCYTES 0.05 10^3/uL (0.00-0.10); ADD DIFF? NO; ADD MORPH? YES; ADD SCAN? NO; ATYPICAL LYMPHOCYTE FLAG 10 (0-99); FRAGMENT RBC FLAG 20 (0-99); HEMATOCRIT 24.3 % (40.0-51.0); HEMOGLOBIN 8.3 g/dL (13.7-17.5); LEFT SHIFT FLG 0 (0-99); LIPEMIA HEMOLYSIS FLAG 90 (0-99); MEAN CELL HEMOGLOBIN CONCENTR. 34.2 g/dL (32.4-36.7); MEAN PLATELET VOLUME 10.4 fL (8.7-11.7); PLATELET CLUMPS FLAG 0 (0-99); PLATELET COUNT 279 10^3/uL (150-400); RED BLOOD CELL COUNT 2.86 10^6/uL (4.40-6.38)
[2016-10-23 06:13] LABS: RED CELL DISTRIBUTION WIDTH 20.2 % (11.5-15.2)
[2016-10-23 06:34] LABS: HYPOCHROMIA 1+; POLYCHROMASIA 1+
[2016-10-23 06:35] LABS: PLATELET ESTIMATE ADEQUATE (ADEQ); TARGET CELLS 1+
[2016-10-23 06:48] LABS: ALANINE AMINOTRANSFERASE 183 IU/L (21-72); ALBUMIN 2.2 g/dL (3.5-5.0); ALKALINE PHOSPHATASE 582 IU/L (38-126); ANION GAP 6 mEq/L (8-16); ASPARTATE AMINOTRANSFERASE 573 IU/L (17-59); BILIRUBIN,TOTAL 6.7 mg/dL (0.1-1.4); CALCIUM 7.7 mg/dL (8.5-10.4); CARBON DIOXIDE 28 mEq/l (22-31); CHLORIDE 95 mEq/L (97-110); GLOMERULAR FILTRATION RATE > 60; GLUCOSE 81 mg/dL (70-100); POTASSIUM 4.2 mEq/L (3.5-5.2); SODIUM 129 mEq/L (134-144); TOTAL PROTEIN 5.1 g/dL (6.3-8.2)
[2016-10-23 06:54] LABS: BILIRUBIN-CONJUGATED 5.6 mg/dL (0.0-0.5); BILIRUBIN-UNCONJUGATED 1.1 mg/dL (0.0-1.1)
[2016-10-23] MEDS: PANTOPRAZOLE SODIUM 40 MG TAB PO SCH ×2 (09:17→21:28)
--- NOTE | 2016-10-23 10:30 | HOSPPROG ---
Hospitalist Progress Note Assessment/Plan: DIAGNOSIS: # SEVERE DYSPHASIA # ESOPHAGEAL MASS, SUSPECT CARCINOMA, with partial obstruction # METASTATIC DISEASE WITH EXTENSIVE, MULTIPLE LIVER LESIONS # ASCITES IS LIKELY MALIGNANT BUT COULD BE DUE TO PORTAL HYPERTENSION WELL # HYPONATREMIA; SUSPECT THAT THIS IS MORE HYPOVOLEMIC AND LOW BODY SODIUM CONTENT, HOWEVER PRESENCE OF ASCITES SHOULD BE CONSIDERED IT IS POSSIBLE THERE IS SOME HYPERVOLEMIA # SVT # ALCOHOL ABUSE PLANS: -await pathology reports -at this point clearly not tolerating solid foods even as soft as noodles so will change to a full liquid diet and add Ensure and protein shakes -For now symptomatic management here with general supportive care -he does not sound very committal about a stent but will continue discussion with him -will start some diuretic if he keeps fluids in well today Leonel stockings SUBJECTIVE: A bit more Right lower quadrant bloating and discomfort today, suggesting possibly recurrent ascites Did not tolerate eating noodles yesterday but did get clear liquids in [place] No nausea or vomiting OBJECTIVE Vitals reviewed: Normal without fever; no recurrence of SVT so far today Exam: alert oriented skin warm dry mild jaundice resps not labored lungs clear BSs heart regular abd distended and tense, nontender, bowel sounds present limbs warm, with pitting edema from the knees down to the feet bilaterally iv site ok Laboratory data: Hemoglobin stable, liver numbers minimally improved today Pathology report still pending Objective: Vital Signs Temp Pulse Resp BP Pulse Ox 36.7 C 92 16 116/71 94 10/23/16 08:29 10/23/16 08:29 10/23/16 08:29 10/23/16 08:29 10/23/16 08:29 Laboratory Results 10/23/16 05:29 10/23/16 05:29 10/22/16 10/23/16 10/24/16 06:59 06:59 06:59 Intake Total 1400 1900 Balance 1400 1900 PT 13.8 SEC (12.0-15.0) 10/20/16 14:52 INR 1.07 (0.83-1.16) 10/20/16 14:52 ICD10 Worksheet Patient Problems: Problems Problem Status Diagnosed Esophageal mass Acute
[2016-10-23 13:34] LABS: % SATURATION 12 % (20-55); TOTAL IRON BINDING CAPACITY 296 ug/dL (260-490)
--- NOTE | 2016-10-23 16:53 | SOAPPROG ---
SOAP Progress Note Assessment/Plan: Assessment: SOAP Progress Note Assessment/Plan: A/P: * Metastatic esophageal cancer/dysphagia/Extensive liver mets: Path shows moderately differentiated adenocarcinoma. Only able to take liquids. Will discuss stent with GI, but patient leaning strongly against it. Radiation likely most effective for local control, but would delay full dose chemotherapy. I believe his liver disease is life threatening within weeks, if not turned around. * Nutrition-not a candidate for g-tube. Able to take liquids now. Encouraging ensure. ? TPN for a few weeks until response to chemo. Patient not inclined to do esophageal stent. * Ascites: cytology negative, likely secondary to liver dysfunction. Plan: * Needs mediport-Dr. Maciel to see. * Had lengthy discussion with patient, discussing extent of disease, palliative nature of chemo +/- RT. His wasn't present. * I anticipate starting chemo as soon as port is placed. Probably FOLFOX, will clarify with pharmacy if any issues with hepatic clearance. * Her2 pending, if positive, would add herceptin. * Will check hep serologies, but suspect liver dysfunction is related to tumor. 10/23/16 17:02 10/23/16 17:13 Subjective: jaundiced, feels ascites is reaccumulating. Objective: Vital Signs Temp Pulse Resp BP Pulse Ox 36.8 C 100 16 106/65 94 10/23/16 15:17 10/23/16 15:17 10/23/16 15:17 10/23/16 15:17 10/23/16 15:17 Laboratory Results 10/23/16 05:29 10/23/16 05:29 10/22/16 10/23/16 10/24/16 05:59 05:59 05:59 Intake Total 1400 1900 Balance 1400 1900 PT 13.8 SEC (12.0-15.0) 10/20/16 14:52 INR 1.07 (0.83-1.16) 10/20/16 14:52 Physical Exam - Physical Exam General Appearance: alert, no apparent distress Respiratory: lungs clear Cardiac/Chest: regular rate, rhythm Abdomen: non-tender, ascites ICD10 Worksheet Patient Problems: Problems Problem Status Diagnosed Esophageal mass Acute
--- NOTE | 2016-10-23 21:23 | SOAPPROG ---
[facility] Progress Note Assessment/Plan: Assessment: 56MALE WITH METASTATIC ESOPHAGEAL CANCER IN NEED OF PORT FOR CHEMO RISKS AND OPTIONS FULLY DISCUSSED Plan: PORT IN AM 10/23/16 21:21 Objective: Vital Signs Temp Pulse Resp BP Pulse Ox 36.7 C 94 16 96/66 L 94 10/23/16 19:15 10/23/16 19:15 10/23/16 19:15 10/23/16 19:15 10/23/16 19:15 Laboratory Results 10/23/16 05:29 10/23/16 05:29 10/22/16 10/23/16 10/24/16 05:59 05:59 05:59 Intake Total 1400 1900 750 Balance 1400 1900 750 PT 13.8 SEC (12.0-15.0) 10/20/16 14:52 INR 1.07 (0.83-1.16) 10/20/16 14:52 ICD10 Worksheet Patient Problems: Problems Problem Status Diagnosed Esophageal mass Acute
[2016-10-24] MEDS ORDERED: ceFAZolin 2 GM/DEXTROSE 100 ML IV ONE (07:34)
[2016-10-24] MEDS ORDERED: ceFAZolin 2 GM in D5W 100 ML IV ONE (08:00)
[2016-10-24] MEDS: PANTOPRAZOLE SODIUM 40 MG TAB PO SCH ×2 (09:07→20:03)
--- NOTE | 2016-10-24 10:55 | HOSPPROG ---
Hospitalist Progress Note Assessment/Plan: DIAGNOSIS: # SEVERE DYSPHAGIA # ESOPHAGEAL MASS, ADENOCARCINOMA, with partial obstruction # METASTATIC DISEASE WITH EXTENSIVE, MULTIPLE LIVER LESIONS # ASCITES IS LIKELY MALIGNANT BUT COULD BE DUE TO PORTAL HYPERTENSION FROM HUGE TUMOR MASSES WELL, # LIVER DYSFUNCTION FROM MASSIVE TUMOR REPLACEMENT OF LIVER, WITH ELEVATED BILIRUBIN # HYPONATREMIA; SUSPECT THAT THIS IS MORE HYPOVOLEMIC WITH LOW BODY SODIUM CONTENT DUE TO POOR INTAKE OPPOSED TO HYPERVOLEMIA WITH ASCITES, HOWEVER HE DOES HAVE ASCITES AND PERIPHERAL EDEMA FROM PROBABLE PORTAL HYPERTENSION AND THE SODIUM MAY BE HYPERVOLEMIC # SVT # ALCOHOL ABUSE, NO SIGNS OF WITHDRAWAL PLANS: -today he will have a port placed in begin FolFox therapy -continue full liquid diet as he is unable to tolerate any solids -For now symptomatic management here with general supportive care -the Oncology service is looking into whether stents could be used in the setting of potential future radiation therapy -will start some diuretic if he keeps fluids in well -Leonel stockings I reviewed his condition and management in detail today with Dr. Nish Gambino and with our clinical pharmacist SUBJECTIVE: Less pain overall today Tolerating full liquid diet okay No nausea or vomiting OBJECTIVE Vitals reviewed: Normal without fever; no recurrence of SVT Exam: alert oriented skin warm dry mild jaundice resps not labored lungs clear BSs heart regular abd distended and tense, nontender, bowel sounds present limbs warm, with pitting edema from the knees down to the feet bilaterally iv site ok Laboratory data: Ferritin is normal in mid range, with low iron saturation. Suspect his anemia is not iron deficient and is due to cancer and inflammatory disease Pathology report showing adenocarcinoma Objective: Vital Signs Temp Pulse Resp BP Pulse Ox 36.7 C 94 14 109/67 93 10/24/16 07:51 10/24/16 07:51 10/24/16 07:51 10/24/16 05:00 10/24/16 07:51 Laboratory Results 10/23/16 05:29 10/23/16 05:29 10/23/16 10/24/16 10/25/16 06:59 06:59 06:59 Intake Total 1900 1250 Balance 1900 1250 PT 13.8 SEC (12.0-15.0) 10/20/16 14:52 INR 1.07 (0.83-1.16) 10/20/16 14:52 ICD10 Worksheet Patient Problems: Problems Problem Status Diagnosed Esophageal mass Acute
[2016-10-24] MEDS ORDERED: CEFAZOLIN 2 GM/DEXTROSE/100 ML BAG IV ONE (11:53)
[2016-10-24] MEDS ORDERED: LIDOCAINE 1% 5 ML SDV ONE (12:42)
[2016-10-24] MEDS ORDERED: LIDO/EPI 1% **for epidural** 30 ML SDV ONE (12:50)
[2016-10-24] MEDS ORDERED: LIDOCAINE 1% 30 ML SDV ONE (12:50)
[2016-10-24] MEDS ORDERED: BUPIVACAINE 0.5% 30 ML SDV ONE (12:52)
[2016-10-24] MEDS ORDERED: SODIUM BICARBONATE 10 MEQ/10 ML SYR IVP ONE (12:52)
[2016-10-24] MEDS ORDERED: MIDAZOLAM 2 MG/2 ML VIAL ONE (13:06)
--- NOTE | 2016-10-24 13:07 | SOAPPROG ---
SOAP Progress Note Assessment/Plan: A/P: * Metastatic esophageal cancer: moderately differentiated with extensive liver metastases. Plan initiation of systemic tx with FOLFOX (HER2 pending) today due to burden of hepatic mets. If dysphagia worsens, then RT. Oxaliplatin does not require dose reduction, but there is no standard for 5-FU dose reduction in the setting of his degree of hyperbilirubinemia. Will omit bolus and dose at 75% dose reduction. Reviewed chemo, schedule, side effects. He has had chemo teaching with pharmacy. * Hepatic metastases. * Ascites: may need repeat paracentesis. 10/24/16 13:04 Subjective: S: No new complaints. Feels abd distention is unchanged. O: VS reviewed. Gen: jaundiced, NAD. Lungs: CTA. CV: 2+ bilat edema. Laboratory Tests 10/23/16 05:29 WBC 9.18 Hgb 8.3 L Plt Count 279 Creatinine 1.0 Total Bilirubin 6.7 H Conjugated Bilirubin 5.6 H AST 573 H ALT 183 H Alkaline Phosphatase 582 H Objective: Vital Signs Temp Pulse Resp BP Pulse Ox 36.7 C 94 14 104/72 93 10/24/16 07:51 10/24/16 07:51 10/24/16 07:51 10/24/16 07:52 10/24/16 07:51 Laboratory Results 10/23/16 05:29 10/23/16 05:29 10/23/16 10/24/16 10/25/16 05:59 05:59 05:59 Intake Total 1900 1250 Balance 1900 1250 PT 13.8 SEC (12.0-15.0) 10/20/16 14:52 INR 1.07 (0.83-1.16) 10/20/16 14:52 ICD10 Worksheet Patient Problems: Problems Problem Status Diagnosed Esophageal mass Acute
[2016-10-24] MEDS ORDERED: PROPOFOL 200 MG/20 ML VIAL ONE ×2 (13:15→13:30)
[2016-10-24] MEDS ORDERED: fentaNYL 100 MCG/2 ML INJ ONE (13:15)
[2016-10-24] MEDS ORDERED: SKIN ADHESIVE (DERMABOND) 1 EACH TP ONE (14:04)
--- NOTE | 2016-10-24 15:04 | DX ---
Portable Chest 14:33 p.m. History: Port placement, painless jaundice, likely esophageal cancer Comparison: None Findings: A left chest wall implanted port is present with tip of its catheter in the superior vena c harshil. There is no pneumothorax or pleural fluid. There is a thin plate of atelectasis or scar in the r ight lower lung. A rounded soft tissue density in the low posterior mediastinum is likely related to the primary esophageal mass. Impression: Excellent port placement without pneumothorax.
[2016-10-24] MEDS ORDERED: DEXAMETHASONE SOD PHOSPHATE 10 MG in NS 50 ML IV SCH (16:30)
[2016-10-24] MEDS ORDERED: PALONOSETRON HCL 0.25 MG/5 ML VIAL IVP SCH (16:30)
--- NOTE | 2016-10-24 16:33 | DX ---
Fluoroscopy Provided for Port Placement at 1357 Hours Indication: Port placement. Fluoroscopy time: 21 seconds. Dose: 5.47 mGy. Technique: Single intraoperative spot film. Findings: AP spot film of the superior mediastinum reveals a radiopaque line traversing midline and c oursing inferiorly overlying the superior vena cava. Impression: Fluoroscopy provided for port placement.
[2016-10-24] MEDS ORDERED: D5W IV SCH ×3 (17:00→19:00)
[2016-10-24] MEDS ORDERED: OXALIPLATIN IV SCH (17:00)
[2016-10-24] MEDS ORDERED: LEUCOVORIN CALCIUM IV SCH (17:00)
--- NOTE | 2016-10-24 18:24 | SOAPPROG ---
[facility] Progress Note Assessment/Plan: Assessment: 56MALE WITH METASTATIC ESOPHAGEAL CANCER IN NEED OF PORT FOR CHEMO RISKS AND OPTIONS FULLY DISCUSSED Plan: PORT IN AM 10/23/16 21:21 10/24/16 18:24 RISKS AND OPTIONS FULLY DISCUSSED/ PLAN PORT Objective: Vital Signs Temp Pulse Resp BP Pulse Ox 36.6 C 94 14 106/73 94 10/24/16 16:00 10/24/16 16:00 10/24/16 16:00 10/24/16 16:00 10/24/16 16:00 Laboratory Results 10/23/16 05:29 10/23/16 05:29 10/23/16 10/24/16 10/25/16 05:59 05:59 05:59 Intake Total 1900 1250 655 Output Total 15 Balance 1900 1250 640 PT 13.8 SEC (12.0-15.0) 10/20/16 14:52 INR 1.07 (0.83-1.16) 10/20/16 14:52 ICD10 Worksheet Patient Problems: Problems Problem Status Diagnosed Esophageal mass Acute
--- NOTE | 2016-10-24 18:26 | POSTOPPROG ---
Post Op Note Date of Operation: 10/24/16 Surgeon: Foster Maciel Anesthesiologist: ROSA Anesthesia: IV Sedation Pre-op Diagnosis: ESOPHAGEAL CANCER Post-op Diagnosis: SAME Indication: CHEMO ACCESS Procedure: LEFT SUBCLAVIAN PORT WITH FLOURO Findings: GOOD POSITION AND FLOW Inf/Abcess present in the surg proc area at time of surgery?: No Depth: Deep Incisional (Fascial) EBL: Minimal Complications: 0
[2016-10-24] MEDS ORDERED: FLUOROURACIL IV SCH (19:00)
[2016-10-25 05:41] LABS: % IMMATURE GRANULYOCYTES 0.7 % (0.0-1.1); ABSOLUTE IMMATURE GRANULOCYTES 0.08 10^3/uL (0.00-0.10); ADD DIFF? NO; ADD MORPH? YES; ADD SCAN? NO; ATYPICAL LYMPHOCYTE FLAG 0 (0-99); FRAGMENT RBC FLAG 20 (0-99); HEMATOCRIT 26.2 % (40.0-51.0); HEMOGLOBIN 8.9 g/dL (13.7-17.5); LEFT SHIFT FLG 10 (0-99); LIPEMIA HEMOLYSIS FLAG 90 (0-99); MEAN CELL HEMOGLOBIN 28.6 pg (27.9-34.1); MEAN CELL VOLUME 84.2 fL (81.5-99.8); MEAN PLATELET VOLUME 10.7 fL (8.7-11.7); PLATELET CLUMPS FLAG 0 (0-99); PLATELET COUNT 279 10^3/uL (150-400); RED BLOOD CELL COUNT 3.11 10^6/uL (4.40-6.38)
[2016-10-25 05:47] LABS: ANION GAP 9 mEq/L (8-16); CALCIUM 8.3 mg/dL (8.5-10.4); CARBON DIOXIDE 24 mEq/l (22-31); CHLORIDE 96 mEq/L (97-110); CREATININE 1.1 mg/dL (0.7-1.3); GLOMERULAR FILTRATION RATE > 60; GLUCOSE 135 mg/dL (70-100); POTASSIUM 4.8 mEq/L (3.5-5.2); SODIUM 129 mEq/L (134-144)
[2016-10-25 05:58] LABS: RED CELL DISTRIBUTION WIDTH 20.6 % (11.5-15.2)
[2016-10-25 06:23] LABS: HYPOCHROMIA 1+; MICROCYTES 2+; PLATELET ESTIMATE ADEQUATE (ADEQ); POLYCHROMASIA 1+; TARGET CELLS 1+
[2016-10-25] MEDS: ENOXAPARIN 40 MG/0.4 ML SYR SC SCH (10:07)
[2016-10-25] MEDS: PANTOPRAZOLE SODIUM 40 MG TAB PO SCH ×2 (10:07→19:39)
--- NOTE | 2016-10-25 11:54 | SOAPPROG ---
SOAP Progress Note Assessment/Plan: Assessment/Plan: 56 yo gentleman w stage IV moderately differentiated esophageal adenoca admitted w dysphagia and ascites/edema 1. Esophageal ca - CEA >13,000; HER2 pending; C1D2 dose reduced FOLFOX due to hepatic burden of disease. If dysphagia worsens, plan XRT. So far, tolerating regimen well. 2. Liver dysfunction 2/2 Hepatic mets - watching bilirubin, consider checking INR 3. Ascites/edema - due to #2, s/p paracentesis w 6L removed; recommend cautious diuretic to help improve edema; may need repeat paracentesis 4. HypoNa - hypervolemic 2/2 #2; diuretics may help 10/25/16 11:54 Subjective: Reports slight tingling in fingertips Otherwise doing ok w liquids Denies new pain Objective: Vital Signs Temp Pulse Resp BP Pulse Ox 36.2 C 89 18 106/71 96 10/25/16 10:04 10/25/16 10:04 10/25/16 10:04 10/25/16 10:04 10/25/16 10:04 Laboratory Results 10/25/16 04:40 10/25/16 04:40 10/24/16 10/25/16 10/26/16 05:59 05:59 05:59 Intake Total 1250 2459 Output Total 815 Balance 1250 1644 PT 13.8 SEC (12.0-15.0) 10/20/16 14:52 INR 1.07 (0.83-1.16) 10/20/16 14:52 Gen - jaundice, NAD CV - RRR Lungs - CTAB Abd - +ascites Ext - 3+ bilateral LE edema Neuro - nonfocal ICD10 Worksheet Patient Problems: Problems Problem Status Diagnosed Esophageal mass Acute
--- NOTE | 2016-10-25 12:53 | HOSPPROG ---
Hospitalist Progress Note Assessment/Plan: DIAGNOSIS: # SEVERE DYSPHAGIA # ESOPHAGEAL MASS, ADENOCARCINOMA, with partial obstruction # METASTATIC DISEASE WITH EXTENSIVE, MULTIPLE LIVER LESIONS # ASCITES IS LIKELY MALIGNANT BUT COULD BE DUE TO PORTAL HYPERTENSION FROM HUGE TUMOR MASSES WELL, S/P PARACENTESIS # LIVER DYSFUNCTION FROM MASSIVE TUMOR REPLACEMENT OF LIVER, WITH ELEVATED BILIRUBIN, SUSPECT SIGNIFICANT PORTAL HYPERTENSION WELL # HYPONATREMIA, At this point appears in related to hypervolemia from liver issues # SVT # ALCOHOL ABUSE, NO SIGNS OF WITHDRAWAL PLANS: -CONTINUE CHEMOTHERAPY -continue full liquid diet as he is unable to tolerate any solids - will begin low-dose diuretic therapy for his edema and ascites and see how he tolerates this. He has not tolerated Leonel stockings so far -For now symptomatic management here with general supportive care -the Oncology service is looking into whether stents could be used in the setting of potential future radiation therapy -will start some diuretic if he keeps fluids in well -Leonel stockings I reviewed his condition and management in detail today with Dr. Case SUBJECTIVE: little pain overall today Tolerating full liquid diet okay No nausea or vomiting no other chemo side effects noted OBJECTIVE Vitals reviewed: Normal without fever; no recurrence of SVT Exam: alert oriented skin warm dry mild jaundice resps not labored lungs clear BSs heart regular abd distended and tense, nontender, bowel sounds present limbs warm, with pitting edema from the knees down to the feet bilaterally iv site ok Laboratory data: Sodium remains slightly low, in setting of hypervolemia Ferritin is normal in mid range, with low iron saturation. Suspect his anemia is not iron deficient and is due to cancer and inflammatory disease Objective: Vital Signs Temp Pulse Resp BP Pulse Ox 36.2 C 89 18 106/71 96 10/25/16 10:04 10/25/16 10:04 10/25/16 10:04 10/25/16 10:04 10/25/16 10:04 Laboratory Results 10/25/16 04:40 10/25/16 04:40 10/24/16 10/25/16 10/26/16 06:59 06:59 06:59 Intake Total 1250 2459 Output Total 815 Balance 1250 1644 PT 13.8 SEC (12.0-15.0) 10/20/16 14:52 INR 1.07 (0.83-1.16) 10/20/16 14:52 ICD10 Worksheet Patient Problems: Problems Problem Status Diagnosed Esophageal mass Acute
[2016-10-25 15:12] LABS: HEPATITIS Bs Ab QUANT <5.0 mIU/mL (())
[2016-10-25] MEDS ORDERED: D5W IV SCH (18:00)
[2016-10-25] MEDS ORDERED: FLUOROURACIL IV SCH (18:00)
[2016-10-26 05:57] LABS: % IMMATURE GRANULYOCYTES 0.9 % (0.0-1.1); ABSOLUTE IMMATURE GRANULOCYTES 0.14 10^3/uL (0.00-0.10); ADD DIFF? NO; ADD MORPH? YES; ADD SCAN? NO; ATYPICAL LYMPHOCYTE FLAG 0 (0-99); FRAGMENT RBC FLAG 20 (0-99); HEMATOCRIT 25.4 % (40.0-51.0); HEMOGLOBIN 8.9 g/dL (13.7-17.5); LEFT SHIFT FLG 10 (0-99); LIPEMIA HEMOLYSIS FLAG 90 (0-99); MEAN CELL HEMOGLOBIN 29.9 pg (27.9-34.1); MEAN CELL VOLUME 85.2 fL (81.5-99.8); MEAN PLATELET VOLUME 10.8 fL (8.7-11.7); PLATELET CLUMPS FLAG 0 (0-99); PLATELET COUNT 249 10^3/uL (150-400); RED BLOOD CELL COUNT 2.98 10^6/uL (4.40-6.38)
[2016-10-26 06:10] LABS: RED CELL DISTRIBUTION WIDTH 20.6 % (11.5-15.2)
[2016-10-26 06:14] LABS: ANION GAP 7 mEq/L (8-16); CALCIUM 7.7 mg/dL (8.5-10.4); CARBON DIOXIDE 27 mEq/l (22-31); CHLORIDE 93 mEq/L (97-110); GLOMERULAR FILTRATION RATE > 60; GLUCOSE 103 mg/dL (70-100); POTASSIUM 4.6 mEq/L (3.5-5.2); SODIUM 127 mEq/L (134-144)
[2016-10-26 07:25] LABS: PLATELET ESTIMATE ADEQUATE (ADEQ)
[2016-10-26 07:27] LABS: HYPOCHROMIA 1+; MICROCYTES 1+; POLYCHROMASIA 1+; TARGET CELLS 1+
[2016-10-26] MEDS: ENOXAPARIN 40 MG/0.4 ML SYR SC SCH (08:42)
[2016-10-26] MEDS: PANTOPRAZOLE SODIUM 40 MG TAB PO SCH ×2 (08:42→20:16)
--- NOTE | 2016-10-26 10:29 | SOAPPROG ---
SOAP Progress Note Assessment/Plan: Assessment/Plan: 56 yo gentleman w stage IV moderately differentiated esophageal adenoca admitted w dysphagia and ascites/edema 1. Esophageal ca - CEA >13,000; HER2 pending; C1D3 dose reduced FOLFOX due to hepatic burden of disease. If dysphagia worsens, plan XRT. So far, tolerating regimen well. 2. Liver dysfunction 2/2 Hepatic mets - watching bilirubin, consider checking INR will add full liver panel to tomorrow's labs 3. Ascites/edema - due to #2, s/p paracentesis w 6L removed; recommend cautious diuretic to help improve edema; may need repeat paracentesis; will add low dose of lasix today 4. HypoNa - hypervolemic 2/2 #2; diuretics may help 10/26/16 10:25 Subjective: No acute events Does report increase abdominal bloating after water intake and lying down ?abd fluid filling up again Objective: Vital Signs Temp Pulse Resp BP Pulse Ox 36.4 C 87 16 111/74 94 10/26/16 08:33 10/26/16 08:33 10/26/16 08:33 10/26/16 08:33 10/26/16 08:33 Laboratory Results 10/26/16 04:36 10/26/16 04:36 10/25/16 10/26/16 10/27/16 05:59 05:59 05:59 Intake Total 2459 2604 Output Total 815 1025 Balance 1644 1579 PT 13.8 SEC (12.0-15.0) 10/20/16 14:52 INR 1.07 (0.83-1.16) 10/20/16 14:52 Gen - NAD HEENT - mild icterus CV - RRR Chest - CTA Abd - soft but ascited present, BS+ Ext - 3+ edema ICD10 Worksheet Patient Problems: Problems Problem Status Diagnosed Esophageal mass Acute
[2016-10-26] MEDS: FUROSEMIDE 20 MG TAB PO SCH (11:17)
[2016-10-26] MEDS ORDERED: ONDANSETRON DISINTEGRATING 4 MG TAB PO PRN (16:00)
--- NOTE | 2016-10-26 16:53 | HOSPPROG ---
Hospitalist Progress Note Assessment/Plan: This patient is come into the hospital with new diagnosis of distal esophageal adenocarcinoma, presenting with dysphagia. He is started on full Gambino chemotherapy and is tolerating that well. He has extensive liver metastases, and what appears to be probably portal hypertension leading to ascites and peripheral edema has result. DIAGNOSIS: # SEVERE DYSPHAGIA # ESOPHAGEAL MASS, ADENOCARCINOMA, with partial obstruction # METASTATIC DISEASE WITH EXTENSIVE, MULTIPLE LIVER LESIONS # ASCITES IS LIKELY MALIGNANT BUT COULD BE DUE TO PORTAL HYPERTENSION FROM HUGE TUMOR MASSES WELL, S/P PARACENTESIS # LIVER DYSFUNCTION FROM MASSIVE TUMOR REPLACEMENT OF LIVER, WITH ELEVATED BILIRUBIN, SUSPECT SIGNIFICANT PORTAL HYPERTENSION WELL # HYPONATREMIA, At this point appears related to hypervolemia from liver issues # NORMOCYTIC ANEMIA WITH NORMAL FERRITIN, SUSPECT THIS IS DUE TO HIS CANCER BUT NOT LIKELY IRON DEFICIENCY # SVT # ALCOHOL ABUSE, NO SIGNS OF WITHDRAWAL PLANS: -CONTINUE CHEMOTHERAPY Which will finish late tonight -continue full liquid diet as he is unable to tolerate any solids -will begin low-dose diuretic therapy for his edema and ascites and see how he tolerates this. He has not tolerated Leonel stockings so far but using Tomasz wraps -the Oncology service is looking into whether stents could be used in the setting of potential future radiation therapy I reviewed his condition and management in detail today with Dr. Case SUBJECTIVE: little pain overall today; some minor paresthesias in his fingers Tolerating full liquid diet okay No nausea or vomiting no other chemo side effects noted OBJECTIVE Vitals reviewed: Normal without fever; no recurrence of SVT Exam: alert oriented skin warm dry mild jaundice resps not labored lungs clear BSs heart regular abd distended and tense, nontender, bowel sounds present limbs warm, with pitting edema from the knees down to the feet bilaterally iv site ok Objective: Vital Signs Temp Pulse Resp BP Pulse Ox 36.4 C 96 16 103/67 96 10/26/16 11:19 10/26/16 11:19 10/26/16 11:19 10/26/16 11:19 10/26/16 11:19 Laboratory Results 10/26/16 04:36 10/26/16 04:36 10/25/16 10/26/16 10/27/16 06:59 06:59 06:59 Intake Total 2459 2604 500 Output Total 815 1025 Balance 1644 1579 500 PT 13.8 SEC (12.0-15.0) 10/20/16 14:52 INR 1.07 (0.83-1.16) 10/20/16 14:52 ICD10 Worksheet Patient Problems: Problems Problem Status Diagnosed Esophageal mass Acute
[2016-10-27 06:16] LABS: % IMMATURE GRANULYOCYTES 0.6 % (0.0-1.1); ABSOLUTE IMMATURE GRANULOCYTES 0.06 10^3/uL (0.00-0.10); ADD DIFF? NO; ADD MORPH? YES; ADD SCAN? NO; ATYPICAL LYMPHOCYTE FLAG 0 (0-99); FRAGMENT RBC FLAG 20 (0-99); HEMATOCRIT 25.8 % (40.0-51.0); HEMOGLOBIN 8.6 g/dL (13.7-17.5); LEFT SHIFT FLG 10 (0-99); LIPEMIA HEMOLYSIS FLAG 80 (0-99); MEAN CELL HEMOGLOBIN 29.2 pg (27.9-34.1); MEAN CELL HEMOGLOBIN CONCENTR. 33.3 g/dL (32.4-36.7); MEAN CELL VOLUME 87.5 fL (81.5-99.8); PLATELET CLUMPS FLAG 0 (0-99); PLATELET COUNT 240 10^3/uL (150-400); RED BLOOD CELL COUNT 2.95 10^6/uL (4.40-6.38)
[2016-10-27 06:31] LABS: ALANINE AMINOTRANSFERASE 214 IU/L (21-72); ALBUMIN 2.5 g/dL (3.5-5.0); ALKALINE PHOSPHATASE 706 IU/L (38-126); ANION GAP 3 mEq/L (8-16); ASPARTATE AMINOTRANSFERASE 711 IU/L (17-59); BILIRUBIN,TOTAL 7.1 mg/dL (0.1-1.4); CALCIUM 7.9 mg/dL (8.5-10.4); CARBON DIOXIDE 29 mEq/l (22-31); CHLORIDE 94 mEq/L (97-110); GLOMERULAR FILTRATION RATE > 60; GLUCOSE 91 mg/dL (70-100); POTASSIUM 4.8 mEq/L (3.5-5.2); SODIUM 126 mEq/L (134-144); TOTAL PROTEIN 5.8 g/dL (6.3-8.2)
[2016-10-27 06:44] LABS: BILIRUBIN-CONJUGATED 6.1 mg/dL (0.0-0.5)
[2016-10-27 06:58] LABS: MICROCYTES 1+; PLATELET ESTIMATE ADEQUATE (ADEQ); TARGET CELLS 1+
[2016-10-27 06:59] LABS: HYPOCHROMIA 1+
[2016-10-27] MEDS: ENOXAPARIN 40 MG/0.4 ML SYR SC SCH (09:33)
[2016-10-27] MEDS: PANTOPRAZOLE SODIUM 40 MG TAB PO SCH ×2 (09:34→20:04)
[2016-10-27] MEDS: FUROSEMIDE 20 MG TAB PO SCH (09:35)
--- NOTE | 2016-10-27 10:27 | SOAPPROG ---
STEPH Progress Note Assessment/Plan: Assessment: 1) Metastatic esophageal cancer 2) Diffuse liver metastasis with hepatic compromise 3) Malignant ascites 4) Dysphagia secondary to #1 5) Protein calorie malnutrition 6) Anasarca secondary to #5 Plan: Mr. Queen has received his first cycle of palliative FOLFOX chemotherapy with a significant reduction in the 5 FU dose due to hepatic compromise. Thus far he had no adverse treatment effects. His ascites has reaccumulated. We discussed the option of a repeat palliative paracentesis. He would like to do this. I have ordered it for today. I ordered a PT and PTT for the procedure. He would be due for his second cycle of FOLFOX in about 2 weeks. Ideally this would be done as an outpatient. Her 2 nina result will be available by that time , and if positive, Herceptin will be added. If he feels well after paracentesis, and his LFT's remain stable, he could potentially be discharged later this week with outpatient Oncology follow up. He has continued dysphagia to solids, but is still able to take a liquid diet. Ensure shakes have been added. Lasix started yesterday to help with the anasarca. I reviewed the plan with him. His questions were answered. 10/27/16 10:19 Subjective: Patient completed first cycle of palliative FOLFOX. Denies N/V, diarrhea His ascites is reaccumulating Objective: Vital Signs Temp Pulse Resp BP Pulse Ox 36.4 C 102 H 14 104/69 95 10/27/16 03:59 10/27/16 03:59 10/27/16 03:59 10/27/16 03:59 10/27/16 03:59 Laboratory Results 10/27/16 06:00 10/27/16 06:00 10/26/16 10/27/16 10/28/16 05:59 05:59 05:59 Intake Total 2604 2590 Output Total 1025 380 Balance 1579 2210 PT 13.8 SEC (12.0-15.0) 10/20/16 14:52 INR 1.07 (0.83-1.16) 10/20/16 14:52 - Time Spent With Patient Time Spent With Patient: 35 minutes Physical Exam - Physical Exam General Appearance: alert, no apparent distress EENT: other (positive scleral icterus) Abdomen: soft, other (minimal RUQ tenderness. No gaurding or rebound. Moderate ascites) Extremities: other (2 plus lower extremity edema bilaterally) Neuro/Psych: alert, normal mood/affect ICD10 Worksheet Patient Problems: Problems Problem Status Diagnosed Esophageal mass Acute
--- NOTE | 2016-10-27 10:41 | HOSPPROG ---
Hospitalist Progress Note Assessment/Plan: 56 y/o male with newly diagnosed esophageal cancer with liver mets and cirrhosis # SEVERE DYSPHAGIA secondary to esophageal mass # METASTATIC DISEASE WITH EXTENSIVE, MULTIPLE LIVER LESIONS and cirrhosis # ASCITES IS LIKELY MALIGNANT BUT COULD BE DUE TO PORTAL HYPERTENSION FROM HUGE TUMOR MASSES WELL, S/P PARACENTESIS # HYPONATREMIa (worsening) # NORMOCYTIC ANEMIA WITH NORMAL FERRITIN, SUSPECT THIS IS DUE TO HIS CANCER BUT NOT LIKELY IRON DEFICIENCY # SVT # ALCOHOL ABUSE, NO SIGNS OF WITHDRAWAL # Severe protein calorie malnutrition PLANS: -s/p first cycle of FOLFOX -low salt diet -add Aldactone and increase lasix -repeat paracentesis ordered by onc I reviewed his condition and management in detail today with Dr. Ruth as as well as his previous notes from this hospital stay Subjective: reports abd pain. legs continue to swell. not able to tolerate solids Objective: Vital Signs Temp Pulse Resp BP Pulse Ox 36.4 C 102 H 14 104/69 95 10/27/16 03:59 10/27/16 03:59 10/27/16 03:59 10/27/16 03:59 10/27/16 03:59 Laboratory Results 10/27/16 06:00 10/27/16 06:00 10/26/16 10/27/16 10/28/16 05:59 05:59 05:59 Intake Total 2604 2590 Output Total 1025 380 Balance 1579 2210 PT 13.8 SEC (12.0-15.0) 10/20/16 14:52 INR 1.07 (0.83-1.16) 10/20/16 14:52 - Physical Exam Constitutional: no apparent distress, appears nourished, not in pain Eyes: icteric sclera Cardiovascular: regular rate and rhythym, no murmur, rub, or gallop Respiratory: no respiratory distress, no rales or rhonchi, clear to auscultation Gastrointestinal: normoactive bowel sounds, ascites, distension, No guarding, No rebound Genitourinary: no bladder fullness, no bladder tenderness, no renal bruits Skin: no rashes or abrasions, no fluctuance, no induration Neurologic: AAOx3, sensation intact bilaterally Psychiatric: interacting appropriately, not anxious, not encephalopathic, thought process linear ICD10 Worksheet Patient Problems: Problems Problem Status Diagnosed Esophageal mass Acute
[2016-10-27] MEDS: SPIRONOLACTONE 100 MG TAB PO SCH (12:06)
[2016-10-27] MEDS: FUROSEMIDE 40 MG TAB PO SCH (12:06)
[2016-10-27 14:39] LABS: HER2 MANUAL ACCESSION NUMBER HR17-4295 (()); HER2MAN INTERPRETATION See Comments (())
--- NOTE | 2016-10-27 15:54 | US ---
Abdomen Limited Indication: Patient had paracentesis of 6 liters on October 21, 2016. Repeat paracentesis requested. Technique: Limited four quadrant ultrasound was performed. Findings: There is a very little fluid seen on the 4 quadrant ultrasound, much less compared to what was previously seen on the . No paracentesis was done today. I would estimate about 2 liters in t he abdomen today at most. Impression: Much less fluid today, estimating 2 liters at most. No paracentesis was done today.
[2016-10-27 15:59] LABS: INR 1.11 (0.83-1.16); PROTIME(PATIENT) 14.2 SEC (12.0-15.0)
[2016-10-27 16:00] LABS: APTT 27.1 SEC (23.0-38.0)
[2016-10-28 05:14] LABS: % IMMATURE GRANULYOCYTES 0.6 % (0.0-1.1); ABSOLUTE IMMATURE GRANULOCYTES 0.05 10^3/uL (0.00-0.10); ADD DIFF? NO; ADD MORPH? YES; ADD SCAN? NO; ATYPICAL LYMPHOCYTE FLAG 0 (0-99); FRAGMENT RBC FLAG 20 (0-99); HEMATOCRIT 23.9 % (40.0-51.0); HEMOGLOBIN 8.1 g/dL (13.7-17.5); LEFT SHIFT FLG 0 (0-99); LIPEMIA HEMOLYSIS FLAG 90 (0-99); MEAN CELL HEMOGLOBIN CONCENTR. 33.9 g/dL (32.4-36.7); MEAN CELL VOLUME 85.7 fL (81.5-99.8); MEAN PLATELET VOLUME 11.2 fL (8.7-11.7); PLATELET CLUMPS FLAG 0 (0-99); PLATELET COUNT 211 10^3/uL (150-400); RED BLOOD CELL COUNT 2.79 10^6/uL (4.40-6.38)
[2016-10-28 05:18] LABS: ALANINE AMINOTRANSFERASE 186 IU/L (21-72); ALBUMIN 2.1 g/dL (3.5-5.0); ALKALINE PHOSPHATASE 655 IU/L (38-126); ANION GAP 3 mEq/L (8-16); ASPARTATE AMINOTRANSFERASE 519 IU/L (17-59); BILIRUBIN,TOTAL 6.8 mg/dL (0.1-1.4); CALCIUM 7.4 mg/dL (8.5-10.4); CARBON DIOXIDE 30 mEq/l (22-31); CHLORIDE 95 mEq/L (97-110); CREATININE 0.8 mg/dL (0.7-1.3); GLOMERULAR FILTRATION RATE > 60; GLUCOSE 87 mg/dL (70-100); POTASSIUM 4.4 mEq/L (3.5-5.2); SODIUM 128 mEq/L (134-144); TOTAL PROTEIN 5.4 g/dL (6.3-8.2)
[2016-10-28 05:24] LABS: BILIRUBIN-CONJUGATED 5.8 mg/dL (0.0-0.5)
[2016-10-28 05:25] LABS: RED CELL DISTRIBUTION WIDTH 20.5 % (11.5-15.2)
[2016-10-28 06:12] LABS: HYPOCHROMIA 1+; MICROCYTES 1+; PLATELET ESTIMATE ADEQUATE (ADEQ); POLYCHROMASIA 1+; TARGET CELLS 1+
[2016-10-28] MEDS: SPIRONOLACTONE 100 MG TAB PO SCH (08:52)
[2016-10-28] MEDS: FUROSEMIDE 40 MG TAB PO SCH (08:53)
[2016-10-28] MEDS: PANTOPRAZOLE SODIUM 40 MG TAB PO SCH ×2 (08:53→20:15)
[2016-10-28] MEDS: oxyCODONE IR 5 MG TAB PO PRN ×2 (08:53→17:59)
[2016-10-28] MEDS: ENOXAPARIN 40 MG/0.4 ML SYR SC SCH (12:26)
--- NOTE | 2016-10-28 13:39 | SOAPPROG ---
STEPH Progress Note Assessment/Plan: Assessment: 1) Metastatic esophageal cancer 2) Diffuse liver metastasis with hepatic compromise 3) Malignant ascites 4) Dysphagia secondary to #1 5) Protein calorie malnutrition 6) Anasarca secondary to #5 Plan: Mr. Queen has received his first cycle of palliative FOLFOX chemotherapy with a significant reduction in the 5 FU dose due to hepatic compromise. Thus far he had no adverse treatment effects. His LFT's are better suggesting treatment response. I referred him for palliative paracentesis yesterday. There was not enough fluid to tap....so it was not done. He would be due for his second cycle of FOLFOX in about 2 weeks. Ideally this would be done as an outpatient. Her 2 nina result will be available by that time , and if positive, Herceptin will be added. He has continued dysphagia to solids, but is still able to take a liquid diet. Ensure shakes have been added. Lasix and Aldactone started to help with the anasarca. He will likely be discharged tomorrow. Will contact Dr. Angeles to coordinate outpatient Oncology follow up. I reviewed the plan with him. His questions were answered. 10/27/16 10:19 10/28/16 13:35 Subjective: Minimal abdominal pain. Denies nausea Objective: Vital Signs Temp Pulse Resp BP Pulse Ox 36.4 C 99 18 102/64 94 10/28/16 12:33 10/28/16 12:33 10/28/16 12:33 10/28/16 12:33 10/28/16 12:33 Laboratory Results 10/28/16 05:00 10/28/16 05:00 10/27/16 10/28/16 10/29/16 05:59 05:59 05:59 Intake Total 2590 1690 Output Total 380 250 Balance 2210 1440 PT 14.2 SEC (12.0-15.0) 10/27/16 15:30 INR 1.11 (0.83-1.16) 10/27/16 15:30 - Time Spent With Patient Time Spent With Patient: 25 minutes Physical Exam - Physical Exam General Appearance: alert, no apparent distress EENT: normal ENT inspection Respiratory: lungs clear Abdomen: other (moderate distension. Mild RUQ tenderness. No gaurding or rebound ) Neuro/Psych: normal mood/affect ICD10 Worksheet Patient Problems: Problems Problem Status Diagnosed Esophageal mass Acute
--- NOTE | 2016-10-28 13:59 | HOSPPROG ---
Hospitalist Progress Note Assessment/Plan: 56 y/o male with newly diagnosed esophageal cancer with liver mets and cirrhosis # SEVERE DYSPHAGIA secondary to esophageal mass # METASTATIC DISEASE WITH EXTENSIVE, MULTIPLE LIVER LESIONS and cirrhosis # ASCITES IS LIKELY MALIGNANT BUT COULD BE DUE TO PORTAL HYPERTENSION FROM HUGE TUMOR MASSES WELL, S/P PARACENTESIS # HYPONATREMIa (worsening) # NORMOCYTIC ANEMIA WITH NORMAL FERRITIN, SUSPECT THIS IS DUE TO HIS CANCER BUT NOT LIKELY IRON DEFICIENCY # SVT # ALCOHOL ABUSE, NO SIGNS OF WITHDRAWAL # Severe protein calorie malnutrition PLANS: -s/p first cycle of FOLFOX -low salt diet -cont Aldactone and lasix dispo: possible dc 10/29/16 if continues to improve Subjective: continues to have abd pain and bloating. no fever or chills. tolerating liquid diet Objective: Vital Signs Temp Pulse Resp BP Pulse Ox 36.4 C 99 18 102/64 94 10/28/16 12:33 10/28/16 12:33 10/28/16 12:33 10/28/16 12:33 10/28/16 12:33 Laboratory Results 10/28/16 05:00 10/28/16 05:00 10/27/16 10/28/16 10/29/16 05:59 05:59 05:59 Intake Total 2590 1690 Output Total 380 250 Balance 2210 1440 PT 14.2 SEC (12.0-15.0) 10/27/16 15:30 INR 1.11 (0.83-1.16) 10/27/16 15:30 - Physical Exam Constitutional: no apparent distress, appears nourished, not in pain Cardiovascular: regular rate and rhythym, no murmur, rub, or gallop Respiratory: no respiratory distress, no rales or rhonchi, clear to auscultation Gastrointestinal: normoactive bowel sounds, ascites, distension, No guarding, No rebound ICD10 Worksheet Patient Problems: Problems Problem Status Diagnosed Esophageal mass Acute
[2016-10-29] MEDS: oxyCODONE IR 5 MG TAB PO PRN (03:10)
[2016-10-29 06:05] LABS: % IMMATURE GRANULYOCYTES 0.4 % (0.0-1.1); ABSOLUTE IMMATURE GRANULOCYTES 0.04 10^3/uL (0.00-0.10); ABSOLUTE NRBC COUNT 0.03 10^3/uL (0-0.01); ADD DIFF? NO; ADD MORPH? YES; ADD SCAN? NO; ATYPICAL LYMPHOCYTE FLAG 0 (0-99); FRAGMENT RBC FLAG 20 (0-99); HEMATOCRIT 22.2 % (40.0-51.0); HEMOGLOBIN 7.8 g/dL (13.7-17.5); LEFT SHIFT FLG 0 (0-99); LIPEMIA HEMOLYSIS FLAG 90 (0-99); MEAN CELL HEMOGLOBIN 29.7 pg (27.9-34.1); MEAN CELL HEMOGLOBIN CONCENTR. 35.1 g/dL (32.4-36.7); MEAN CELL VOLUME 84.4 fL (81.5-99.8); MEAN PLATELET VOLUME 10.7 fL (8.7-11.7); NRBC-AUTO% 0.3 % (0.0-0.2); PLATELET CLUMPS FLAG 0 (0-99); PLATELET COUNT 195 10^3/uL (150-400); RED BLOOD CELL COUNT 2.63 10^6/uL (4.40-6.38)
[2016-10-29 06:27] LABS: ALANINE AMINOTRANSFERASE 156 IU/L (21-72); ALKALINE PHOSPHATASE 601 IU/L (38-126); ANION GAP 3 mEq/L (8-16); ASPARTATE AMINOTRANSFERASE 409 IU/L (17-59); BILIRUBIN,TOTAL 7.2 mg/dL (0.1-1.4); CALCIUM 7.4 mg/dL (8.5-10.4); CARBON DIOXIDE 32 mEq/l (22-31); CHLORIDE 94 mEq/L (97-110); CREATININE 0.8 mg/dL (0.7-1.3); GLOMERULAR FILTRATION RATE > 60; GLUCOSE 79 mg/dL (70-100); POTASSIUM 4.7 mEq/L (3.5-5.2); SODIUM 129 mEq/L (134-144); TOTAL PROTEIN 5.1 g/dL (6.3-8.2)
[2016-10-29 06:34] LABS: BILIRUBIN-CONJUGATED 6.1 mg/dL (0.0-0.5); BILIRUBIN-UNCONJUGATED 1.1 mg/dL (0.0-1.1)
[2016-10-29 06:40] LABS: MICROCYTES 1+; TARGET CELLS 1+
[2016-10-29 06:41] LABS: PLATELET ESTIMATE ADEQUATE (ADEQ); STOMATOCYTES 1+
[2016-10-29 08:16] VITALS: RESP 16; O2SAT 92
[2016-10-29] MEDS: FUROSEMIDE 40 MG TAB PO SCH (08:36)
[2016-10-29] MEDS: PANTOPRAZOLE SODIUM 40 MG TAB PO SCH (08:36)
[2016-10-29] MEDS: SPIRONOLACTONE 100 MG TAB PO SCH (08:36)
[2016-10-29] MEDS: ENOXAPARIN 40 MG/0.4 ML SYR SC SCH (08:41)
[2016-10-29] MEDS ORDERED: LIDOCAINE 1% 30 ML SDV ONE (09:21)
[2016-10-29] MEDS ORDERED: NA BICARBONATE 50 MEQ/50 ML VIAL ONE (09:21)
[2016-10-29] MEDS ORDERED: oxyCODONE IR 5 MG TAB PO PRN (11:40)
[2016-10-29 12:20] VITALS: BP 103/65; PULSE 91; TEMP 98.8
--- NOTE | 2016-10-29 13:14 | US ---
Ultrasound-guided paracentesis Indication: Patient just had 6 liters removed a week ago. Patient is about to be discharged, and ther e is already some filling of the ascites. Paracentesis requested prior to discharge. Informed consent: Obtained from the patient. Risks and benefits were discussed. Crosscutting Measure: Patient's current list of medications including all known prescriptions, over- the-counters, herbals, and vitamin/mineral/dietary supplements are reviewed. Medications' name, dosa ge, frequency, and route of administration are confirmed. The patient is a non-smoker. Prophylactic Antibiotic: Cefazolin was not ordered and administered for antimicrobial prophylaxis be cause it was not medically necessary. VTE Prophylaxis: There is not an order for VTE prophylaxis to be given within 24 hours of the proced ure end time. VTE prophylaxis was not given because it was not medically necessary. Technique: Patient was placed in supine position. A "timeout" procedure was performed to identify t he correct patient and the correct procedure. 1% Xylocaine was used for local anesthetic. All [place] ents of maximal sterile barrier technique including cap, mask, sterile gown, sterile gloves, large st erile sheet, hand hygiene, and 2% chlorhexidine for cutaneous antisepsis, followed. Ultrasound evaluation of potential access site was performed. A permanent recording was created for t he patient's record. When ultrasound is used, sterile gel and probe covers are used. There are fluid pockets that are the largest at the perihepatic and the deep right lower quadrant. I chose the perihepatic route because it has less amount of tissue that needs to be traversed. 6-E[place] Yueh needle was inserted into the ascites under ultrasound guidance. A total of 3190 mL of t ranslucent, yellowish ascitic fluid were removed. Patient tolerated the procedure well. There is very little amount of fluid remaining in the deep right lower pelvic quadrant at the end of the case. No residual fluid in all other quadrants. Impression: Right upper quadrant paracentesis performed, removing 3190 mL. Incidentally noted are multiple hepatic masses consistent with metastatic disease.
--- NOTE | 2016-10-29 14:13 | SOAPPROG ---
STEPH Progress Note Assessment/Plan: Assessment: 1) Metastatic esophageal cancer 2) Diffuse liver metastasis with hepatic compromise 3) Malignant ascites 4) Dysphagia secondary to #1 5) Protein calorie malnutrition 6) Anasarca secondary to #5 Plan: Mr. Queen has received his first cycle of palliative FOLFOX chemotherapy with a significant reduction in the 5 FU dose due to hepatic compromise. Thus far he had no adverse treatment effects. His LFT's are better suggesting treatment response. He is due for his second cycle of FOLFOX in about 2 weeks. Ideally this would be done as an outpatient. Her 2 nina result will be available by that time, and if positive, Herceptin will be added. I have communicated with Dr. Angeles who will see Don in the office on Thursday of this week ([facility]). He has continued dysphagia to solids, but is still able to take a liquid diet. Ensure shakes have been added. Lasix and Aldactone started to help with the anasarca. He had a 3L paracentesis earlier today. He feels better and wants to go home. Plan for discharge today. We discussed his anemia. It is minimally symptomaric, and thus, no transfusion planned. I reviewed the plan with him. His questions were answered. Case d/w Dr. Choi. Subjective: Patient had 3 L paracentesis today. He wants to go home. Objective: Vital Signs Temp Pulse Resp BP Pulse Ox 37.1 C 91 16 103/65 92 10/29/16 12:18 10/29/16 12:18 10/29/16 12:18 10/29/16 12:18 10/29/16 12:18 Laboratory Results 10/29/16 05:55 10/29/16 05:55 10/28/16 10/29/16 10/30/16 05:59 05:59 05:59 Intake Total 1690 870 Output Total 250 250 Balance 1440 620 PT 14.2 SEC (12.0-15.0) 10/27/16 15:30 INR 1.11 (0.83-1.16) 10/27/16 15:30 - Time Spent With Patient Time Spent With Patient: 25 minutes Physical Exam - Physical Exam General Appearance: alert, no apparent distress EENT: other (Mild icterus) Abdomen: non-tender, soft, other (moderate distension) Extremities: pedal edema Neuro/Psych: alert, normal mood/affect ICD10 Worksheet Patient Problems: Problems Problem Status Diagnosed Esophageal mass Acute
--- NOTE | 2016-10-29 15:19 | GDS ---
[f rep st] DISCHARGE SUMMARY DISCHARGE DIAGNOSES: 1. Esophageal cancer with liver metastases and cirrhosis. 2. Severe dysphagia secondary to above. 3. Ascites, likely malignant. 4. Improving hyponatremia. 5. Stable normocytic anemia. 6. History of supraventricular tachycardia. 7. History of alcohol abuse without signs of withdrawal. 8. Severe protein-calorie malnutrition. CONSULTANTS: 1. [facility]. 2. [facility], Dr. Mir Carlos. HOSPITAL COURSE BY PROBLEM: Esophageal cancer: The patient was admitted to the hospital on 10/20/19 17 reporting abdominal distention and early satiety. The patient was taken for upper endoscopy by Dr Yuridia Carlos on 10/21/2016, at which time he was found to have suspected metastatic esophageal cancer. Biopsy results from the EGD were consistent with adenocarcinoma that was moderately differentiated an d invasive. The patient was seen by Oncology who started him on a course of FOLFOX chemotherapy which the patient completed on 10/27/2016. Since finishing his first cycle of chemotherapy, the patient has been tolerating a liquid diet. He h as had significant swelling with ascites. He has undergone 2 paracentesis procedures, the last of wh ich was done on the day of discharge where 3.5 L of ascites were removed. The patient has also been started on high-dose diuretic therapy with 100 mg of Aldactone and 40 mg of Lasix per day. On day of discharge, the patient states he feels well, would like to go home. He has been seen by On cology who are supportive of this decision. DISCHARGE PHYSICAL EXAM: VITAL SIGNS: Blood pressure 103/65, pulse of 91, respiratory rate 16, O2 s aturation 92% on room air, temperature afebrile. GENERAL: In no acute distress. HEART: S1, S2. L UNGS: Clear. ABDOMEN: Distended with ascites. There is no guarding or rebound tenderness. PROCEDURES DONE: 1. Esophagogastroduodenoscopy with biopsy done 10/21/2016. 2. Paracentesis done 10/21/2016 and 10/29/2016. DISCHARGE MEDICATIONS: Please refer to discharge medication reconciliation in [facility] for full deta ils. Below is a preliminary list. New medications on hospital discharge: Lasix 40 mg daily, Aldactone 100 mg daily, Pantoprazole 40 mg p.o. b.i.d. DISCHARGE INSTRUCTIONS: 1. The patient will be discharged from the hospital where he plans to follow up at [facility] next week to further evaluate and plan for further chemotherapy. 2. He should have a repeat metabolic panel done next week to ensure he is tolerating diuretics. TIME SPENT: Greater than 30 minutes were spent on the discharge of this patient. /[id number]/MODL
--- NOTE | 2016-11-12 20:42 | GOP ---
[f rep st] OPERATIVE REPORT DATE OF OPERATION: SURGEON: Foster Maciel MD ANESTHESIA: IV sedation. ANESTHESIOLOGIST: Dr. Diallo PREOPERATIVE DIAGNOSIS: Esophageal cancer. POSTOPERATIVE DIAGNOSIS: Esophageal cancer. PROCEDURE PERFORMED: Left subclavian port placement with fluoroscopic guidance for chemotherapy acc ess. FINDINGS: ESTIMATED BLOOD LOSS: Less than 5 cc. DESCRIPTION OF PROCEDURE: Patient was taken to the operating room, where he received satisfactory I V sedation by Dr. Diallo. He was placed in the supine position, and prepped and draped in the usual sterile fashion. A single stick was made into the left subclavian vein using 1% local Xylocaine local infiltration. A guidewire was passed into the atrium, and position was confirmed with fluoroscopy. A subcu pocket was made at the 2nd intercostal space. Port tubing was passed from that pocket to the subclavian i nsertion site and trimmed to the appropriate length. Using fluoroscopic guidance, it was then intro duced via the introducer sheath into the right atrium. Good backflow was demonstrated. The cathete r was flushed with heparin and saline. The port was secured to the fascia with 3-0 Vicryl interrupted sutures. The pocket was closed with 3-0 Vicryl for the subcu and a 4-0 Prolene subcuticular stitch for the skin. The entrance site was closed with a Prolene mattress suture. All layers were infiltrated with 0.5% Marcaine. The patient was taken out of Trendelenburg. He tolerated the procedure well. There were no complications. Bj kenrick to the recovery room in good condition. /[id number]/MODL
== END 2016-10-29 15:58 | disposition home or self-care (01) | DRG 374 ==
LOC: F1N 17:20
PROVIDERS: ADMIT Internal Medicine; ATTEND Internal Medicine
DX: C15.9 Malignant neoplasm of esophagus, unspecified (principal); E43 Unspecified severe protein-calorie malnutrition; C78.7 Secondary malignant neoplasm of liver and intrahepatic bile duct; R18.8 Other ascites; E87.1 Hypo-osmolality and hyponatremia; I47.1 Supraventricular tachycardia; D64.9 Anemia, unspecified; K74.69 Other cirrhosis of liver
CPT/HCPCS: 82947-QW; C1788; G0472; J0640; J0690; J1650; J2250; J2469; J2704; J3010; J9190; J9263; P9047; Q9967

== ENCOUNTER 2016-12-09 22:21 | Inpatient (IN) | payer OTHER ==
--- NOTE | 2016-12-09 22:34 | CPEKG ---
Heart Rate: 141 RR Interval: 426 QRSD Interval: 110 QT Interval: 336 QTC Interval: 515 QRS [place]: 95 T Wave [place]: -62 EKG Severity - ABNORMAL ECG - EKG Impression: JUNCTIONAL TACHYCARDIA EKG Impression: NONSPECIFIC INTRAVENTRICULAR CONDUCTION DELAY EKG Impression: ST DEPRESSION, CONSIDER ISCHEMIA, ANT-LAT LDS Electronically Signed By: Ronald Watkins 10-Dec-2016 00:15:43
[2016-12-09] MEDS ORDERED: NS 1,000 ML IV ONE ×2 (22:44→22:49)
--- NOTE | 2016-12-09 22:48 | EDPHY ---
H & P Time Seen by Provider: 12/09/16 22:24 HPI/ROS: Chief complaint. Syncope HPI. 56-year-old male with history of esophageal cancer presents by EMS after for syncopal episodes at home. He just finished home chemotherapy 2 days ago. He was feeling generally weak which was typical as this is his 4th round of chemotherapy. This evening he became lightheaded and felt that he was going to pass out. He did pass out and was aroused by his and then when he tried to sit up passed out again and passed out 4 times per . Denies chest pain, shortness of breath, abdominal pain, vomiting or diarrhea, no blood in stool or black tarry stools. His only past medical history is esophageal cancer ROS Constitutional. no fever/chills, no weakness Eyes. no problems with vision ENT. no sore throat, no nasal drainage Cardiovascular. no chest pain Respiratory. no shortness of breath, no cough Abdominal. no abdominal pain, no nausea/vomiting, no diarrhea . no problems urinating MS. no calf pain/swelling, no neck/back pain, no joint pain Skin. no rash Lymph. no swollen glands Neuro. Syncope Past Medical/Surgical History: Esophageal cancer Social History: , nonsmoker, no alcohol Smoking Status: Never smoked Physical Exam: General Appearance: Alert well-developed male pale in appearance moderate distress vital signs show a heart rate of about 140 and initial blood pressure about 75/50 Eyes: Pupils equal and round no pallor or injection. ENT, Mouth: Mucous membranes are moist. Respiratory: There are no retractions, lungs are clear to auscultation. Cardiovascular: Regular rate and rhythm. Tachycardia Gastrointestinal: Abdomen is soft and nontender, no masses, bowel sounds normal. Neurological: Awake and alert, sensory and motor exams grossly normal. Skin: Pale Musculoskeletal: Neck is supple nontender. Extremities symmetrical, full range of motion. Psychiatric: Patient is oriented X 3, there is no agitation. Constitutional: Initial Vital Signs Temperature (C) 36.4 C 12/09/16 22:21 Heart Rate 144 H 12/09/16 22:21 Respiratory Rate 20 12/09/16 22:21 Blood Pressure 72/50 L 12/09/16 22:21 O2 Sat (%) 89 L 12/09/16 22:21 O2 Delivery Mode Nasal Cannula O2 (L/minute) 2 Allergies/Adverse Reactions: No Known Allergies Allergy (Unverified 12/09/16 23:08) Home Medications: Medication Instructions Recorded Furosemide [Lasix 40 MG (*)] 40 mg PO DAILY #30 tab 10/29/16 Pantoprazole Sodium [Protonix 40mg 40 mg PO BID #60 tab 10/29/16 (*)] Spironolactone [Aldactone 100 MG 100 mg PO DAILY #30 tab 10/29/16 (*)] oxyCODONE IR [Oxycodone Ir (*)] 5 - 10 mg PO Q3HRS PRN #14 tab 10/29/16 Medical Decision Making - Diagnostics EKG Interpretation: EKG interpreted by me shows junctional tachycardia with normal axis. There is diffuse ST depression. No arrhythmia. The rate is 141 Imaging: Chest x-ray interpreted by me shows left lower lobe pneumonia Procedures: 2 IVs are established patient is given 2 L of saline initially. I-STAT is obtained and significant only for hematocrit to be 33 ED Course/Re-evaluation: Patient is given been given 3 L of saline and still remains hypotensive in the upper 7 days and tachycardic at about 140. He is moved to resuscitation area and he is given 6 mg of adenosine IV and then 12 mg of adenosine which blocks him down and slows the heart rate to approximately 112. Patient is still hypotensive but improved I have consulted and discussed case with Dr. Chavez who sees the patient in the emergency Sepsis workup is performed. Lactate is elevated. He has had 30 milliliters/ kilogram of saline and his blood pressure systolic is 89. Septic shock is declared. He is started on Zosyn and Levophed. Differential Diagnosis: Consider arrhythmia of unclear etiology initially I thought this might be atrial fibrillation. It does appear to be a junctional tachycardia. Somewhat amenable to adenosine. He remains hypotensive. Initial I-STAT was showing hematocrit 33 and now given the patient 3 L of saline will repeat hematocrit as we draw blood cultures and serum lactate. Considered sepsis and acute coronary syndrome. Patient is neutropenic following chemotherapy. I think he has pneumonia and is septic and that this is septic shock Critical Care Time: Critical care time exclusive procedures 45 minutes - Data Points Laboratory Results: Laboratory Results 12/09/16 22:15 12/09/16 22:15 12/09/16 12/09/16 12/09/16 23:45 22:29 22:15 WBC RBC Hgb POC Hgb 11.2 gm/dL L gm/dL (14.5-17.3) Hct POC Hct 33 % L % (42.8-50.6) MCV MCH MCHC RDW Plt Count MPV Neut % (Auto) Lymph % (Auto) [place] % (Auto) Eos % (Auto) Baso % (Auto) Nucleat RBC Rel Count Absolute Neuts (auto) Absolute Lymphs (auto) Absolute Monos (auto) Absolute Eos (auto) Absolute Basos (auto) Absolute Nucleated RBC Immature Gran % Immature Gran # PT INR APTT VBG Lactic Acid 3.6 mmol/L H mmol/L (0.7-2.1) POC Sodium 139 mEq/L mEq/L (134-144) Sodium POC Potassium 3.9 mEq/L mEq/L (3.3-5.0) Potassium POC Chloride 103 mEq/L mEq/L (96-108) Chloride Carbon Dioxide Anion Gap POC BUN 17 mg/dL mg/dL (7-23) BUN Creatinine POC Creatinine 0.7 mg/dL L mg/dL (0.8-1.5) Estimated GFR Glucose POC Glucose 104 mg/dL H mg/dL (70-100) Calcium Magnesium Total Bilirubin Conjugated Bilirubin Unconjugated Bilirubin AST ALT Alkaline Phosphatase Troponin I NT-Pro-B Natriuret Pep Pending Total Protein Albumin Patient ABO/Rh Antibody Screen 12/09/16 12/09/16 12/09/16 22:15 22:15 22:15 WBC RBC Hgb POC Hgb Hct POC Hct MCV MCH MCHC RDW Plt Count MPV Neut % (Auto) Lymph % (Auto) [place] % (Auto) Eos % (Auto) Baso % (Auto) Nucleat RBC Rel Count Absolute Neuts (auto) Absolute Lymphs (auto) Absolute Monos (auto) Absolute Eos (auto) Absolute Basos (auto) Absolute Nucleated RBC Immature Gran % Immature Gran # PT 14.0 SEC SEC (12.0-15.0) INR 1.09 (0.83-1.16) APTT 24.4 SEC SEC (23.0-38.0) VBG Lactic Acid POC Sodium Sodium 137 mEq/L mEq/L (134-144) POC Potassium Potassium 4.2 mEq/L mEq/L (3.5-5.2) POC Chloride Chloride 102 mEq/L mEq/L (97-110) Carbon Dioxide 21 mEq/l L mEq/l (22-31) Anion Gap 14 mEq/L mEq/L (8-16) POC BUN BUN 17 mg/dL mg/dL (7-23) Creatinine 0.8 mg/dL mg/dL (0.7-1.3) POC Creatinine Estimated GFR > 60 Glucose 103 mg/dL H mg/dL (70-100) POC Glucose Calcium 9.1 mg/dL mg/dL (8.5-10.4) Magnesium 2.1 mg/dL mg/dL (1.6-2.3) Total Bilirubin 1.5 mg/dL H mg/dL (0.1-1.4) Conjugated Bilirubin 1.1 mg/dL H mg/dL (0.0-0.5) Unconjugated Bilirubin 0.4 mg/dL mg/dL (0.0-1.1) AST 79 IU/L H IU/L (17-59) ALT 75 IU/L H IU/L (21-72) Alkaline Phosphatase 186 IU/L H IU/L (38-126) Troponin I 0.013 ng/mL ng/mL (0-0.034) NT-Pro-B Natriuret Pep Total Protein 7.1 g/dL g/dL (6.3-8.2) Albumin 3.5 g/dL g/dL (3.5-5.0) Patient ABO/Rh A POSITIVE Antibody Screen NEGATIVE 12/09/16 22:15 WBC 4.15 10^3/uL 10^3/uL (3.80-9.50) RBC 3.56 10^6/uL L 10^6/uL (4.40-6.38) Hgb 9.9 g/dL L g/dL (13.7-17.5) POC Hgb Hct 31.5 % L % (40.0-51.0) POC Hct MCV 88.5 fL fL (81.5-99.8) MCH 27.8 pg L pg (27.9-34.1) MCHC 31.4 g/dL L g/dL (32.4-36.7) RDW 18.7 % H % (11.5-15.2) Plt Count 149 10^3/uL L 10^3/uL (150-400) MPV 11.1 fL fL (8.7-11.7) Neut % (Auto) 40.8 % % (39.3-74.2) Lymph % (Auto) 49.6 % H % (15.0-45.0) Johnson % (Auto) 7.0 % % (4.5-13.0) Eos % (Auto) 1.9 % % (0.6-7.6) Baso % (Auto) 0.5 % % (0.3-1.7) Nucleat RBC Rel Count 0.0 % % (0.0-0.2) Absolute Neuts (auto) 1.69 10^3/uL L 10^3/uL (1.70-6.50) Absolute Lymphs (auto) 2.06 10^3/uL 10^3/uL (1.00-3.00) Absolute Monos (auto) 0.29 10^3/uL L 10^3/uL (0.30-0.80) Absolute Eos (auto) 0.08 10^3/uL 10^3/uL (0.03-0.40) Absolute Basos (auto) 0.02 10^3/uL 10^3/uL (0.02-0.10) Absolute Nucleated RBC 0.00 10^3/uL 10^3/uL (0-0.01) Immature Gran % 0.2 % % (0.0-1.1) Immature Gran # 0.01 10^3/uL 10^3/uL (0.00-0.10) PT INR APTT VBG Lactic Acid POC Sodium Sodium POC Potassium Potassium POC Chloride Chloride Carbon Dioxide Anion Gap POC BUN BUN Creatinine POC Creatinine Estimated GFR Glucose POC Glucose Calcium Magnesium Total Bilirubin Conjugated Bilirubin Unconjugated Bilirubin AST ALT Alkaline Phosphatase Troponin I NT-Pro-B Natriuret Pep Total Protein Albumin Patient ABO/Rh Antibody Screen Medications Given: Discontinued Medications Sodium Chloride (Ns) 1,000 mls @ 0 mls/hr IV ONCE ONE PRN Reason: Wide Open Stop: 12/09/16 22:45 Last Admin: 12/09/16 22:25 Dose: 1,000 mls Sodium Chloride (Ns) 1,000 mls @ 0 mls/hr IV ONCE ONE PRN Reason: Wide Open Stop: 12/09/16 22:50 Last Admin: 12/09/16 22:45 Dose: 1,000 mls Sodium Chloride (Ns) 1,000 mls @ 0 mls/hr IV ONCE ONE PRN Reason: Wide Open Stop: 12/10/16 00:01 Last Admin: 12/09/16 23:30 Dose: 1,000 mls Point of Care Test Results: 12/09/16 22:29 POC Sodium 139 POC Potassium 3.9 POC Chloride 103 POC BUN 17 POC Creatinine 0.7 L POC Glucose 104 H Departure - Departure Disposition: [facility] Inpatient Acute Clinical Impression: Syncope Qualifiers: Syncope type: unspecified Qualified Code(s): R55 - Syncope and collapse Hypotension Qualifiers: Hypotension type: unspecified hypotension type Qualified Code(s): I95.9 - Hypotension, unspecified Sepsis Qualifiers: Sepsis type: sepsis due to unspecified organism Qualified Code(s): A41.9 - Sepsis, unspecified organism Condition: Fair Referrals: Patient,NotPresent [Unknown] - As per Instructions
[2016-12-09 22:54] LABS: % IMMATURE GRANULYOCYTES 0.2 % (0.0-1.1); ABSOLUTE IMMATURE GRANULOCYTES 0.01 10^3/uL (0.00-0.10); ADD DIFF? NO; ADD MORPH? NO; ADD SCAN? NO; ATYPICAL LYMPHOCYTE FLAG 0 (0-99); FRAGMENT RBC FLAG 20 (0-99); HEMATOCRIT 31.5 % (40.0-51.0); HEMOGLOBIN 9.9 g/dL (13.7-17.5); LEFT SHIFT FLG 0 (0-99); LIPEMIA HEMOLYSIS FLAG 80 (0-99); MEAN CELL HEMOGLOBIN 27.8 pg (27.9-34.1); MEAN CELL HEMOGLOBIN CONCENTR. 31.4 g/dL (32.4-36.7); MEAN CELL VOLUME 88.5 fL (81.5-99.8); MEAN PLATELET VOLUME 11.1 fL (8.7-11.7); PLATELET CLUMPS FLAG 20 (0-99); PLATELET COUNT 149 10^3/uL (150-400); RED BLOOD CELL COUNT 3.56 10^6/uL (4.40-6.38); RED CELL DISTRIBUTION WIDTH 18.7 % (11.5-15.2)
[2016-12-09 23:00] LABS: ANION GAP 14 mEq/L (8-16); CALCIUM 9.1 mg/dL (8.5-10.4); CARBON DIOXIDE 21 mEq/l (22-31); CHLORIDE 102 mEq/L (97-110); CREATININE 0.8 mg/dL (0.7-1.3); GLOMERULAR FILTRATION RATE > 60; GLUCOSE 103 mg/dL (70-100); POTASSIUM 4.2 mEq/L (3.5-5.2); SODIUM 137 mEq/L (134-144)
[2016-12-09 23:10] LABS: APTT 24.4 SEC (23.0-38.0); INR 1.09 (0.83-1.16)
[2016-12-09 23:11] LABS: TROPONIN I 0.013 ng/mL (0-0.034)
[2016-12-09 23:19] LABS: BILIRUBIN,TOTAL 1.5 mg/dL (0.1-1.4)
[2016-12-09] MEDS ORDERED: ADENOSINE 6 MG/2 ML VIAL ONE (23:24)
[2016-12-09] MEDS ORDERED: ADENOSINE 6 MG/2 ML VIAL IVP ONE ×2 (23:30→23:40)
[2016-12-09 23:32] LABS: ALANINE AMINOTRANSFERASE 75 IU/L (21-72); ALBUMIN 3.5 g/dL (3.5-5.0); ALKALINE PHOSPHATASE 186 IU/L (38-126); ASPARTATE AMINOTRANSFERASE 79 IU/L (17-59); BILIRUBIN-CONJUGATED 1.1 mg/dL (0.0-0.5); BILIRUBIN-UNCONJUGATED 0.4 mg/dL (0.0-1.1); MAGNESIUM 2.1 mg/dL (1.6-2.3); TOTAL PROTEIN 7.1 g/dL (6.3-8.2)
[2016-12-09] MEDS ORDERED: ETOMIDATE 40 MG/20 ML INJ ONE (23:33)
[2016-12-09] MEDS ORDERED: ONDANSETRON 4 MG/2 ML VIAL IVP PRN (23:44)
[2016-12-09] MEDS ORDERED: ACETAMINOPHEN 325 MG TAB PO PRN (23:44)
[2016-12-09] MEDS ORDERED: ONDANSETRON DISINTEGRATING 4 MG TAB PO PRN (23:44)
--- NOTE | 2016-12-09 23:45 | CPEKG ---
Heart Rate: 113 RR Interval: 531 P-R Interval: 140 QRSD Interval: 102 QT Interval: 364 QTC Interval: 500 P [place]: 73 QRS [place]: 94 T Wave [place]: -27 EKG Severity - ABNORMAL ECG - EKG Impression: SINUS TACHYCARDIA EKG Impression: MULTIPLE VENTRICULAR PREMATURE COMPLEXES EKG Impression: BORDERLINE RIGHT AXIS DEVIATION EKG Impression: BORDERLINE T ABNORMALITIES, INFERIOR LEADS EKG Impression: BORDERLINE PROLONGED QT INTERVAL Electronically Signed By: Ronald Watkins 10-Dec-2016 00:15:00
[2016-12-10] MEDS ORDERED: PIPERACILLIN/TAZO 4.5 GM/DEX 100 ML IV ONE
[2016-12-10] MEDS ORDERED: NOREPINEPHRINE BITARTRATE 4 MG in D5W 500 ML IV ONE
[2016-12-10] MEDS ORDERED: NS 1,000 ML BAG *FOR SEPSIS ORDER SET ONLY IV ONE
[2016-12-10] MEDS ORDERED: NS 1,000 ML IV ONE
[2016-12-10] MEDS ORDERED: NOREPINEPHRINE BITARTRATE 4 MG in D5W 500 ML IV SCH (00:30)
[2016-12-10 00:51] LABS: LACGHOST ORDER
[2016-12-10 00:52] LABS: % IMMATURE GRANULYOCYTES 0.4 % (0.0-1.1); ABSOLUTE IMMATURE GRANULOCYTES 0.02 10^3/uL (0.00-0.10); ADD DIFF? NO; ADD MORPH? NO; ADD SCAN? NO; ATYPICAL LYMPHOCYTE FLAG 0 (0-99); FRAGMENT RBC FLAG 20 (0-99); HEMATOCRIT 27.4 % (40.0-51.0); HEMOGLOBIN 8.6 g/dL (13.7-17.5); LEFT SHIFT FLG 10 (0-99); LIPEMIA HEMOLYSIS FLAG 80 (0-99); MEAN CELL HEMOGLOBIN 28.6 pg (27.9-34.1); MEAN CELL HEMOGLOBIN CONCENTR. 31.4 g/dL (32.4-36.7); MEAN PLATELET VOLUME 11.2 fL (8.7-11.7); PLATELET CLUMPS FLAG 0 (0-99); PLATELET COUNT 120 10^3/uL (150-400); RED BLOOD CELL COUNT 3.01 10^6/uL (4.40-6.38)
[2016-12-10] MEDS ORDERED: IOPAMIDOL (ISOVUE-300) 100 ML BTL IV ONE ×2 (02:19→05:47)
--- NOTE | 2016-12-10 02:24 | PDGENHP ---
History and Physical - Chief Complaint dizzy, palpitations, syncope - History of Present Illness Patient is a 56-year-old male with a history of metastatic esophageal cancer, diagnosed in 09/2016 admission to [facility], initiated on FOLFOX chemo regimen on 10/27, is currently s/p 4th cycle completed 12/07. Since his chemotherapy, reports feeling generally weak which is typical after his infusions. However this evening after dinner while sitting in bed he felt sudden onset palpitations, associated with significant dizziness and briefly lost consciousness. He aroused spontaneously within seconds with full cognition , but he tried to sit up he again briefly blacked out. This occurred 2 additional times, all witnessed by his . She reports no obvious jerking movements, gaze preference or incontinence and he regained full cognition with each episode. EMS was then called and he was transported to the [facility] ED for further evaluation. Patient denies any recent fevers, chills, headache, cough, chest pain, shortness of breath, nausea, vomiting, diarrhea or urinary symptoms. On arrival to the ED, patient was noted to be tachycardic to the 140 range and hypotensive to sbp 70s. EKG revealed SVT. Labs revealed no leukocytosis, normal coags, normal BMP and Mg and LFTs at his previous baseline. Lactic acid was noted to be elevated. For his SVT with associated hypotension, vagal maneuvers were attempted without success, so he was given Adenosine 6 mg then 12 mg with conversion to sinus tachycardia in the 110 range. However, he continued to be hypotensive despite receiving > 3L NS boluses. CXR was then obtained and revealed possible early LLL infiltrate, so he was declared to be in septic shock, was cultured, started on broad spectrum antibiotics and initiated on pressor support via his Mediport. BP stabilized with levophed and patient was admitted to the hospitalist service for further management. CT angio was then obtained to evaluate for pulmonary embolism. This revealed no pneumonia/infiltrate, but bilateral extensive PE with R main PA involvement. He was initiated on a heparin drip, stat TTE was ordered and IR was consulted regarding evaluation for catheter-directed lysis of clot. History Information - Allergies/Home Medication List Allergies/Adverse Reactions: No Known Allergies Allergy (Unverified 12/09/16 23:08) I have personally reviewed and updated: family history, medical history, social history, surgical history - Past Medical History Additional medical history: metastatic esophageal cancer (dx 09/2016, s/p 4th cycle of FOLFOX 12/07/2016). h/o ETOH abuse - Surgical History Reports: no pertinent surgical hx - Family History Positive for: non-pertinent - Social History Smoking Status: Never smoked Alcohol Use: Sober (stopped in 06/2016) Drug Use: None Additional social history: Lives with , independent in ADLs. Review of Systems ROS: 10pt was reviewed & negative except for what was stated in HPI & below Physical Exam Temp Pulse Resp BP Pulse Ox 36.8 C 115 H 18 100/76 94 12/10/16 02:00 12/10/16 02:00 12/10/16 02:00 12/10/16 02:00 12/10/16 02:00 O2 (L/minute) 3 Constitutional: uncomfortable, other (pale) Eyes: PERRL, anicteric sclera, EOMI Ears, Nose, Mouth, Throat: moist mucous membranes, hearing normal, ears appear normal, no oral mucosal ulcers Cardiovascular: no murmur, rub, or gallop, tachycardia, No JVD, No edema Peripheral Pulses: 2+: dorsalis-pedis (R), dorsalis-pedis (L) Respiratory: no respiratory distress, no rales or rhonchi, clear to auscultation Gastrointestinal: normoactive bowel sounds, soft, non-tender abdomen, no palpable masses, No guarding, No rebound, No distension Genitourinary: no bladder fullness, no bladder tenderness Skin: warm, normal color, no rashes or abrasions, no fluctuance, No mottled Musculoskeletal: full muscle strength, no muscle tenderness, normal joint ROM, no joint effusions Neurologic: AAOx3, sensation intact bilaterally, CN II-XII Intact, No weakness, No numbness, No facial droop Psychiatric: interacting appropriately, not anxious, not encephalopathic, thought process linear Lab Data & Imaging Review 12/09/16 23:45 12/09/16 22:15 WBC 4.88 10^3/uL (3.80-9.50) 12/09/16 23:45 RBC 3.01 10^6/uL (4.40-6.38) L 12/09/16 23:45 Hgb 8.6 g/dL (13.7-17.5) L 12/09/16 23:45 POC Hgb 8.8 gm/dL (14.5-17.3) L 12/09/16 23:57 Hct 27.4 % (40.0-51.0) L 12/09/16 23:45 POC Hct 26 % (42.8-50.6) L 12/09/16 23:57 MCV 91.0 fL (81.5-99.8) 12/09/16 23:45 MCH 28.6 pg (27.9-34.1) 12/09/16 23:45 MCHC 31.4 g/dL (32.4-36.7) L 12/09/16 23:45 RDW 19.0 % (11.5-15.2) H 12/09/16 23:45 Plt Count 120 10^3/uL (150-400) L 12/09/16 23:45 MPV 11.2 fL (8.7-11.7) 12/09/16 23:45 Neut % (Auto) 69.1 % (39.3-74.2) 12/09/16 23:45 Lymph % (Auto) 24.6 % (15.0-45.0) 12/09/16 23:45 [place] % (Auto) 4.7 % (4.5-13.0) 12/09/16 23:45 Eos % (Auto) 0.8 % (0.6-7.6) 12/09/16 23:45 Baso % (Auto) 0.4 % (0.3-1.7) 12/09/16 23:45 Nucleat RBC Rel Count 0.0 % (0.0-0.2) 12/09/16 23:45 Absolute Neuts (auto) 3.37 10^3/uL (1.70-6.50) 12/09/16 23:45 Absolute Lymphs (auto) 1.20 10^3/uL (1.00-3.00) 12/09/16 23:45 Absolute Monos (auto) 0.23 10^3/uL (0.30-0.80) L 12/09/16 23:45 Absolute Eos (auto) 0.04 10^3/uL (0.03-0.40) 12/09/16 23:45 Absolute Basos (auto) 0.02 10^3/uL (0.02-0.10) 12/09/16 23:45 Absolute Nucleated RBC 0.00 10^3/uL (0-0.01) 12/09/16 23:45 Immature Gran % 0.4 % (0.0-1.1) 12/09/16 23:45 Immature Gran # 0.02 10^3/uL (0.00-0.10) 12/09/16 23:45 PT 14.0 SEC (12.0-15.0) 12/09/16 22:15 INR 1.09 (0.83-1.16) 12/09/16 22:15 APTT 24.4 SEC (23.0-38.0) 12/09/16 22:15 D-Dimer > 20.00 ug/mLFEU (0.00-0.50) H 12/09/16 22:15 VBG Lactic Acid 3.6 mmol/L (0.7-2.1) H 12/10/16 00:00 POC Sodium 139 mEq/L (134-144) 12/09/16 23:57 Sodium 137 mEq/L (134-144) 12/09/16 22:15 POC Potassium 4.3 mEq/L (3.3-5.0) 12/09/16 23:57 Potassium 4.2 mEq/L (3.5-5.2) 12/09/16 22:15 POC Chloride 107 mEq/L (96-108) 12/09/16 23:57 Chloride 102 mEq/L (97-110) 12/09/16 22:15 Carbon Dioxide 21 mEq/l (22-31) L 12/09/16 22:15 Anion Gap 14 mEq/L (8-16) 12/09/16 22:15 POC BUN 18 mg/dL (7-23) 12/09/16 23:57 BUN 17 mg/dL (7-23) 12/09/16 22:15 Creatinine 0.8 mg/dL (0.7-1.3) 12/09/16 22:15 POC Creatinine 0.7 mg/dL (0.8-1.5) L 12/09/16 23:57 Estimated GFR > 60 12/09/16 22:15 Glucose 103 mg/dL (70-100) H 12/09/16 22:15 POC Glucose 106 mg/dL (70-100) H 12/09/16 23:57 Calcium 9.1 mg/dL (8.5-10.4) 12/09/16 22:15 Magnesium 2.1 mg/dL (1.6-2.3) 12/09/16 22:15 Total Bilirubin 1.5 mg/dL (0.1-1.4) H 12/09/16 22:15 Conjugated Bilirubin 1.1 mg/dL (0.0-0.5) H 12/09/16 22:15 Unconjugated Bilirubin 0.4 mg/dL (0.0-1.1) 12/09/16 22:15 AST 79 IU/L (17-59) H 12/09/16 22:15 ALT 75 IU/L (21-72) H 12/09/16 22:15 Alkaline Phosphatase 186 IU/L (38-126) H 12/09/16 22:15 Troponin I 0.013 ng/mL (0-0.034) 12/09/16 22:15 NT-Pro-B Natriuret Pep 191 pg/mL (0-125) H 12/09/16 22:15 Total Protein 7.1 g/dL (6.3-8.2) 12/09/16 22:15 Albumin 3.5 g/dL (3.5-5.0) 12/09/16 22:15 Patient ABO/Rh A POSITIVE 12/09/16 22:15 Antibody Screen NEGATIVE 12/09/16 22:15 Visualized and Interpreted Chest x-ray results: Yes Chest X-Ray results: other (streaky LLL infiltrate) Visualized and Interpreted imaging results: Yes Interpretation: CT angio chest: acute bilateral pulmonary emboli, R main pulm a , lower left lobes; no infiltrate or effusion. RV dilation Visualized and Interpreted EKG results: Yes EKG additional interpertation: regular narrow complex tachycardia with ST depressions in V4-V6. repeat: sinus tachycardia, normalization of ST depressions Assessment & Plan Assessment: Patient is a 56/M with recently diagnosed esophageal ca currently s/p 4 cycles of FOLFOX who presents to the ED with palpitations and syncope. ED evaluation revealed tachycardia, hypotension, elevated lactic acid. CT angio has revealed massive bilateral pulmonary embolism. Plan: # shock On presentation, patient was tachycardic, hypotensive and had elevated lactic acid. He did not have leukocytosis or fever, however, given immunocompromised state and ? infiltrate on CXR, initial concern was for septic shock. BP did not respond to appropriate fluid bolus and he was initiated on pressor support via his mediport. In addition to sepsis, differential includes hypovolemic or cardiogenic (arrhythmia or PE) etiology of shock. D-dimer was checked, was markedly positive so CT chest was obtained. CT revealed acute bilateral PE with significant clot burden bilaterally and R main PA - cont pressor support with levophed, add epi if needed - f/u TTE report - trend lactic acid # massive pulm embolism Patient is at high risk given his underlying malignancy. CT reveals significant clot burden and enlarged RV. TTE pending. IR consulted for evaluation for catheter-directed clot retrieval vs lysis. Heparin drip initiated. Will also check lower extremity dopplers. - f/u IR recommendations # acute hypoxic respiratory failure Due to above. Saturating well on nasal cannula. Cont to monitor # SVT Initial EKG does show SVT, which responded to adenosine and converted to sinus tachycardia. Will cont to monitor HR and serial EKGs. SVT likely provoked by massive pe. Will also trend troponins and f/u TTE. # metastatic esophageal ca Stable, LFTs appear improved from previous levels. # dispo: admit to ICU # gen: NPO DVT Ppx: on heparin gtt Full code
[2016-12-10] MEDS ORDERED: HEPARIN 10,000 UNIT/10 ML MDV IVP ONE (02:36)
[2016-12-10] MEDS ORDERED: HEPARIN 10,000 UNIT/10 ML MDV IVP PRN (02:36)
[2016-12-10] MEDS ORDERED: HEPARIN/DEXTROSE 25,000 UNIT/500 ML BAG IV ONE (02:41)
[2016-12-10] MEDS ORDERED: HEPARIN 10,000 UNIT/10 ML MDV ONE (02:42)
[2016-12-10] MEDS ORDERED: HEPARIN/DEXTROSE 500 ML IV SCH ×2 (03:00→07:30)
[2016-12-10 03:34] LABS: COLOR YELLOW; LEUKOCYTE ESTERASE,URINE NEGATIVE (NEGATIVE); NITRITE,URINE NEGATIVE (NEGATIVE)
[2016-12-10 03:36] LABS: BACTERIA TRACE /hpf (NONE SEEN); MUCUS TRACE /lpf (NONE-1+)
[2016-12-10] MEDS ORDERED: NS 500 ML IV ONE (04:18)
--- NOTE | 2016-12-10 05:16 | CPEKG ---
Heart Rate: 136 RR Interval: 441 QRSD Interval: 98 QT Interval: 320 QTC Interval: 482 QRS [place]: 87 T Wave [place]: -35 EKG Severity - ABNORMAL ECG - EKG Impression: JUNCTIONAL TACHYCARDIA EKG Impression: BORDERLINE PROLONGED QT INTERVAL EKG Impression: QRS MORPHOLOGY IS VERY SIMILAR TO PRIOR ECG (WITH "P" WAVES NOTED). Electronically Signed By: Nish Ramsey 12-Dec-2016 09:08:25
[2016-12-10 05:44] LABS: % IMMATURE GRANULYOCYTES 0.2 % (0.0-1.1); ABSOLUTE IMMATURE GRANULOCYTES 0.01 10^3/uL (0.00-0.10); ABSOLUTE NRBC COUNT 0.02 10^3/uL (0-0.01); ADD DIFF? NO; ADD MORPH? NO; ADD SCAN? NO; ATYPICAL LYMPHOCYTE FLAG 0 (0-99); FRAGMENT RBC FLAG 0 (0-99); LEFT SHIFT FLG 0 (0-99); LIPEMIA HEMOLYSIS FLAG 80 (0-99); MEAN CELL HEMOGLOBIN 28.1 pg (27.9-34.1); MEAN CELL VOLUME 90.6 fL (81.5-99.8); MEAN PLATELET VOLUME 10.5 fL (8.7-11.7); NRBC-AUTO% 0.4 % (0.0-0.2); PLATELET CLUMPS FLAG 0 (0-99); PLATELET COUNT 157 10^3/uL (150-400); RED CELL DISTRIBUTION WIDTH 19.1 % (11.5-15.2)
[2016-12-10] MEDS ORDERED: fentaNYL 100 MCG/2 ML INJ ONE (05:53)
[2016-12-10] MEDS ORDERED: MIDAZOLAM 2 MG/2 ML VIAL ONE (05:53)
[2016-12-10 05:54] LABS: INR 1.25 (0.83-1.16); PROTIME(PATIENT) 15.7 SEC (12.0-15.0)
[2016-12-10 05:56] LABS: APTT 100.6 SEC (23.0-38.0)
[2016-12-10] MEDS ORDERED: PIPERACILLIN/TAZO 4.5 GM/DEX 100 ML IV SCH (06:00)
[2016-12-10 06:07] LABS: ALANINE AMINOTRANSFERASE 79 IU/L (21-72); ALKALINE PHOSPHATASE 188 IU/L (38-126); ANION GAP 10 mEq/L (8-16); ASPARTATE AMINOTRANSFERASE 91 IU/L (17-59); CALCIUM 8.7 mg/dL (8.5-10.4); CARBON DIOXIDE 20 mEq/l (22-31); CHLORIDE 108 mEq/L (97-110); CREATININE 0.8 mg/dL (0.7-1.3); GLOMERULAR FILTRATION RATE > 60; GLUCOSE 159 mg/dL (70-100); MAGNESIUM 1.9 mg/dL (1.6-2.3); POTASSIUM 5.1 mEq/L (3.5-5.2); SODIUM 138 mEq/L (134-144); TOTAL PROTEIN 6.4 g/dL (6.3-8.2)
[2016-12-10 06:12] LABS: BILIRUBIN,TOTAL 1.5 mg/dL (0.1-1.4)
--- NOTE | 2016-12-10 07:23 | POSTOPPROG ---
Post Op Note Date of Operation: 12/10/16 Surgeon: Foster Michelle Anesthesia: Other (Specify) (IV fentanyl.) Pre-op Diagnosis: Pulmonary embolism. DVT right leg Post-op Diagnosis: Same Indication: Tachycardia, hypotension Procedure: Catheter directed pulmonary arterial thrombolysis Findings: Selective infusion of large right PE begun using EKOS device. Inf/Abcess present in the surg proc area at time of surgery?: No EBL: 50-100 Complications: 0
[2016-12-10] MEDS ORDERED: LORazepam 1 MG TAB PO PRN (07:29)
[2016-12-10] MEDS ORDERED: ALTEPLASE 5 MG in NS 100 ML IVP SCH (07:30)
[2016-12-10] MEDS ORDERED: ENOXAPARIN 40 MG/0.4 ML SYR SC SCH (09:00)
--- NOTE | 2016-12-10 09:23 | ECHO ---
[id number] + + [address] : : [place] [address] : : [phone] + + Adult Echocardiographic Report + ----+ :Name: SHAI SERRANO Date: 12/10/2016 03:45 AM : : Hospital Admission Number: [id number] Location: ER3: :: 1960 Gender: Male Height: 71 in : :Age: 56 yrs Race: WH Weight: 200 lb : :Reason For Study: Eval RV Fx : : BSA: 2.1 meters2 : :History: PE : + ----+ MMode/2D Measurements \T\ Calculations IVSd: 0.90 cm RVDd: 4.9 cm FS: 32.1 % Ao root diam: 3.0 cm LVPWd: 0.96 cm LVIDd: 3.0 cm EDV(Teich): 33.9 ml ACS: 1.6 cm LVIDs: 2.0 cm ESV(Teich): 12.9 ml EF(Teich): 61.9 % Normal Measurement Values: + + :LVIDd (3.5-5.7cm) IVSd (0.6-1.1cm) LVPWd (0.6-1.1cm) Aortic Root (2.0-3.7cm)Left Atrium (1.5-4.0cm): :LV Vol(d) (76-115ml) LV Vol(s) (29-48ml) Ejec Fraction (50-65%)PV Wing (0.6- 1.2m/s) TV Wing (0.4-1.0m/s) : :MV E Wing (0.8-1.0m/s)MV A Wing (0.3-1.0m/s)LVOT Wing (0.7-1.2m/s) Asc Ao Wing ( 0.9-1.8m/s) : + + Doppler Measurements \T\ Calculations MV E max wing: Ao V2 max: LV V1 max: TR max wing: 65.6 cm/sec 110.0 cm/sec 85.4 cm/sec 293.0 cm/sec Ao max PG: LV V1 max PG: TR max P.8 mmHg 2.9 mmHg 34.3 mmHg RAP systole: 5.0 mmHg RVSP(TR): 39.3 mmHg Left Ventricle The left ventricle is normal in size. There is normal left ventricular wall thickness. The left ventricular ejection fraction is normal. The left ventricle is hyperdynamic. Tachycardia. The left ventricular wall motion is normal. Right Ventricle The right ventricle is severely dilated. The right ventricular systolic function is severely reduced. Atria The left atrial size is normal. Right atrial size is normal. Mitral Valve The mitral valve is normal in structure and function. There is no evidence of mitral valve prolapse. There is no mitral valve stenosis. There is no mitral regurgitation noted. Tricuspid Valve There is mild tricuspid regurgitation. Right ventricular systolic pressure is normal. RVSP most likely underestimated due to poor RV function and tachycardia. Aortic Valve The aortic valve opens well. There is no aortic stenosis. Pulmonic Valve The pulmonic valve is normal in structure and function. Great Vessels The aortic root is normal size. Pericardium/Pleural There is no pericardial effusion. Conclusion A complete two-dimensional transthoracic echocardiogram was performed (2D, M-mode, Doppler and color flow Doppler). The left ventricular ejection fraction is normal. The left ventricle is hyperdynamic. Tachycardia The left ventricular wall motion is normal. The right ventricle is severely dilated. The mitral valve is normal in structure and function. There is mild tricuspid regurgitation. Right ventricular systolic pressure is normal. RVSP most likely underestimated due to poor RV function and tachycardia. The aortic valve opens well. The pulmonic valve is normal in structure and function. There is no pericardial effusion. Final Reading Physician: Debbie Abernathy signed on 12/10/2016 09:22 AM Ordering Physician: Greta Chavez Performed By: Sunny Briggs, CS
--- NOTE | 2016-12-10 09:49 | GCON ---
[f rep st] CONSULTATION DIRECTOR MEETINGS CONSULTATION. REASON FOR ADMISSION: Extensive pulmonary embolus, shock, esophageal cancer. HISTORY OF PRESENT ILLNESS: The patient is an unfortunate 56-year-old white male with a history of metastatic esophageal cancer for which he has been undergoing chemotherapy. He presented to the [facility] room feeling unwell. He was complaining of palpitations, as well as dizziness, and had a diane ef loss of consciousness. He was brought to the emergency room and was in SVT at that time. He was also found to be markedly hypotensive. CT angiogram of the chest was performed which showed extens manas pulmonary embolus. IR was consulted and the patient was given catheter-directed tPA. He was adm itted to the intensive care unit. Currently, he is complaining of some nausea. There is no chest p ain, pleuritic-type chest pain, or angina equivalent. No fever or night sweats. Although sepsis wa s entertained upon admission, he does not appear to be septic at this time. He is currently on supp lemental oxygen. PAST MEDICAL HISTORY: Significant for metastatic esophageal cancer. Also history of alcohol abuse. ALLERGIES: No known allergies to medications. SOCIAL HISTORY: No history of tobacco use. Previous heavy alcohol use. No drug use. He lives wit h his and has excellent family support. PHYSICAL EXAM: VITAL SIGNS: Blood pressure is 89/72, pulse 136, respirations 20, temperature is af ebrile. Oxygen saturation 92% on room air. GENERAL: He is a well-developed 56-year-old white male who is currently complaining of nausea. HEENT: Eyes: PERRL. EOMI. Throat shows no erythema or tonsillar hypertrophy. NECK: Supple. No cervical adenopathy. HEART: Regular rate and rhythm wit hout murmurs, rubs, or gallops. LUNGS: Clear to auscultation. No wheeze or rhonchi. ABDOMEN: So ft, nontender. Bowel sounds are present in all 4 quadrants. EXTREMITIES: There is no clubbing, cy anosis, or edema. LABORATORY DATA: White count 5.4, hemoglobin 9, hematocrit 29, platelet count 157, INR is 1.25, sod ium 138, potassium 5.1, chloride 108, CO2 is 20, BUN 18, creatinine 0.8, glucose is 159. Troponins are elevated. ALT is elevated at 91, AST at 79. Urinalysis is negative. IMAGING: CT angiogram of the chest shows extensive pulmonary embolism involving the right main pulm onary artery. He has thickening of the distal esophagus. Hilum and mediastinum appear normal. Duplex ultrasound of the lower extremities showed a deep venous thrombosis in the right leg. IMPRESSION: 1. Extensive pulmonary embolism, currently on EKOS catheter-directed tPA system. 2. Extensive deep venous thrombosis. 3. History of metastatic esophageal cancer. 4. Nausea and vomiting. 5. Pain, currently well controlled. RECOMMENDATIONS: 1. We will continue EKOS for now. 2. Continue IV fluids. 3. Continue IV pressors. 4. Adequate pain control. /[id number]/MODL
--- NOTE | 2016-12-10 12:11 | GCON ---
[f rep st] CONSULTATION REFERRING PHYSICIAN: Charles Cortes DO REASON FOR CONSULTATION: Patient well known to Dr. Mirna Angeles. Has a history of stage IV metastatic esophageal cancer on chemotherapy. HISTORY OF PRESENT ILLNESS: The patient is a 56-year-old gentleman with a history of metastatic esophageal cancer diagnosed 09/2016, who came in with dizziness and syncope. The patient has been on FOLFOX therapy (HER2-) and recently completed 4 cycles of full-dose FOLFOX on 12/07/2016. He has been tolerating chemotherapy relatively well and, per tumor markers, has had a good response. He has also been swallowing and eating better. He has not had restaging scans. Yesterday evening he felt sudden onset of palpitations associated with significant dizziness and brief loss of consciousness. EMS was called. He was transferred to [facility] ED for evaluation. He denies any recent fevers, chills, headache, cough, chest pain, shortness of breath, nausea, vomiting, diarrhea, or urinary symptoms. On arrival to the ED, he was tachycardic and hypotensive. He was discovered to have a large PE by CT angiogram with right main pulmonary artery involvement and RV strain. He was initiated on a heparin drip. TTE was ordered and IR was consulted. They do not do thrombolysis but local therapy directed tPA. The patient currently remains in the ICU still tachycardic and hypotensive regarding pressures. He continues to be nauseous and feeling somewhat dizzy but his shortness of breath has slightly improved. REVIEW OF SYSTEMS: As per HPI. Otherwise, 14-point review of systems is negative. PAST MEDICAL HISTORY: Esophageal cancer, status post 4 cycles FOLFOX 2016. No history of alcohol abuse. No other significant medical history. FAMILY HISTORY: Not pertinent. SOCIAL HISTORY: Nonsmoking. No current alcohol use. No drug abuse. Lives with . Independent ADLs. PHYSICAL EXAM: VITAL SIGNS: Blood pressure of 89/72, pulse of 136, respiration rate 20, O2 sat 93% on 3 L nasal cannula. GENERAL: Middle-aged gentleman. Alert and oriented but in moderate distress due to nausea and tachycardia. HEENT: Anicteric sclera. HEART: Tachycardia. LUNGS: Clear anteriorly. ABDOMEN: Soft. Bowel sounds positive. EXTREMITIES: He has right lower extremity venous stasis changes and mild edema bilaterally. His extremities are somewhat cold and clammy. LABORATORY DATA: Labs today show a white blood cell count of 5.4, hemoglobin 9 , hematocrit 29, platelet count of 157. INR 1.25. Fibrinogen 409. Lactic acid 3.7, sodium 138, potassium 5.1, carbon dioxide 20, anion gap 10, creatinine 0.8, glucose 159, calcium 8.7, phos 3.4, magnesium 1.9. Total bili 1.5. AST 91, ALT 79, alk phos 188. Notably, these have remarkably improved since his initial presentation. Troponin has gone from 0.013 to 1.7 to 2.43. Albumin is 3.0. UA showed 1+ protein and trace bacteria. His echocardiogram today showed LV ejection fraction normal. Tachycardia. Mild tricuspid regurg. Right ventricular systolic pressure with normal RVSP, most likely underestimated due to poor RV function and tachycardia. No pericardial effusions. CTA of chest shows extensive pulmonary embolic disease, predominantly involving right side with significant decrease in pulmonary artery flow to the right lung. No enlarged lymph nodes were seen. No pulmonary nodules were identified. CURRENT MEDICATIONS: Include heparin and tPA as well as vasopressin and p.r.n. Zofran. IMPRESSION: 56-year-old gentleman with metastatic esophageal cancer, currently on palliative treatment, who presents with massive pulmonary embolism and cardiovascular compromise. 1. Massive pulmonary embolism, high risk given underlying malignancy. CT revealed significant clot burden, enlarged right ventricular. TTE did not show any atrial thrombus. It showed some right ventricular strain but difficult to interpret given tachycardia. IR performed local tPA but not thrombolysis. He is on a heparin drip. Notably, lower extremity venous Dopplers showed deep venous thromboses in right leg, presumably the source of demonstrated pulmonary embolism. Patient remains cardiovascularly tenuous at this time with hypotension on pressors. He is uncomfortable and does not wish to discuss intubation or resuscitation wishes at this time due to anxiety. Appreciate associate principal and recommendations. 2. Metastatic esophageal cancer. HER2 negative, and has been responding well to FOLFOX, status post cycle 4, 3 days ago. Apparently his tumor markers have been dropping, and he is pending restaging scans. He has not required local radiation. 3. Nausea and vomiting due to extensive pulmonary embolisms as well as medication effect. Trial of antiemetics. Will continue to monitor this patient along with you. More than 30 minutes was spent with the patient, more than 50% of the time counseling and coordinating care. /[id number]/MODL MTDD
[2016-12-10] MEDS ORDERED: PROCHLORPERAZINE MALEATE 25 MG SUPPR PR PRN (13:27)
--- NOTE | 2016-12-10 16:09 | SOAPPROG ---
SOAP Progress Note Assessment/Plan: Assessment: Slight improvement in symptoms and signs of severe pulmonary embolism. Plan: Portable CXR to check catheter position before continuing infusion overnight. We are not planning to place IVC filter at this time. Reviewed with Dr. Cortes. 12/10/16 16:05 12/10/16 16:09 Subjective: Breathing easier. Nauseous. No oral intake. Objective: Tachycardia improved from 136 down to 111 currently. Lungs clear to auscultation. No murmur. Right groin dry; no hematoma. Catheters appear unchanged, externally. Vital Signs Temp Pulse Resp BP Pulse Ox 36.8 C 113 H 21 H 88/61 L 96 12/10/16 02:00 12/10/16 15:00 12/10/16 15:00 12/10/16 15:00 12/10/16 15:00 Laboratory Results 12/10/16 05:32 12/10/16 05:32 12/09/16 12/10/16 12/11/16 05:59 05:59 05:59 Intake Total 3500 Output Total 100 250 Balance 3400 -250 PT 15.7 SEC (12.0-15.0) H 12/10/16 05:32 INR 1.25 (0.83-1.16) H 12/10/16 05:32 ICD10 Worksheet Patient Problems: Problems Problem Status Onset Hypotension Acute Sepsis Acute Syncope Acute Esophageal mass Acute
--- NOTE | 2016-12-10 17:16 | HOSPPROG ---
Hospitalist Progress Note Assessment/Plan: 56 yo M admitted with shock in setting of massive PE # shock--likely cardiogenic in setting of massive PE as next, continued on pressors # massive pulm embolism Patient is at high risk given his underlying malignancy. CT reveals significant clot burden and enlarged RV. IR performed catheter-directed clot retrieval # acute hypoxic respiratory failure Due to above. Saturating well on nasal cannula. Cont to monitor # SVT Initial EKG does show SVT, which responded to adenosine and converted to sinus tachycardia. Remains in ST # metastatic esophageal ca Stable, LFTs appear improved from previous levels. Onc consulted # dispo: admit to ICU # gen: NPO DVT Ppx: on heparin gtt Full code Objective: Vital Signs Temp Pulse Resp BP Pulse Ox 36.8 C 109 H 19 94/73 L 95 12/10/16 02:00 12/10/16 16:00 12/10/16 16:00 12/10/16 16:00 12/10/16 16:00 Laboratory Results 12/10/16 05:32 12/10/16 05:32 12/09/16 12/10/16 12/11/16 05:59 05:59 05:59 Intake Total 3500 Output Total 100 250 Balance 3400 -250 PT 15.7 SEC (12.0-15.0) H 12/10/16 05:32 INR 1.25 (0.83-1.16) H 12/10/16 05:32 ICD10 Worksheet Patient Problems: Problems Problem Status Onset Esophageal mass Acute Syncope Acute Hypotension Acute Sepsis Acute
[2016-12-10 20:17] LABS: APTT 42.3 SEC (23.0-38.0)
[2016-12-10] MEDS: ALTEPLASE 5 MG in NS 100 ML IV SCH (21:07)
[2016-12-11 03:08] LABS: % IMMATURE GRANULYOCYTES 0.6 % (0.0-1.1); ABSOLUTE IMMATURE GRANULOCYTES 0.03 10^3/uL (0.00-0.10); ABSOLUTE NRBC COUNT 0.03 10^3/uL (0-0.01); ADD DIFF? NO; ADD MORPH? NO; ADD SCAN? NO; ATYPICAL LYMPHOCYTE FLAG 0 (0-99); FRAGMENT RBC FLAG 20 (0-99); HEMATOCRIT 25.3 % (40.0-51.0); LEFT SHIFT FLG 0 (0-99); LIPEMIA HEMOLYSIS FLAG 80 (0-99); MEAN CELL HEMOGLOBIN CONCENTR. 31.6 g/dL (32.4-36.7); MEAN CELL VOLUME 88.5 fL (81.5-99.8); MEAN PLATELET VOLUME 10.6 fL (8.7-11.7); NRBC-AUTO% 0.6 % (0.0-0.2); PLATELET CLUMPS FLAG 0 (0-99); PLATELET COUNT 99 10^3/uL (150-400); RED BLOOD CELL COUNT 2.86 10^6/uL (4.40-6.38); RED CELL DISTRIBUTION WIDTH 19.2 % (11.5-15.2)
[2016-12-11 03:16] LABS: APTT 38.5 SEC (23.0-38.0)
[2016-12-11 03:22] LABS: ALANINE AMINOTRANSFERASE 860 IU/L (21-72); ALBUMIN 2.9 g/dL (3.5-5.0); ALKALINE PHOSPHATASE 173 IU/L (38-126); ANION GAP 8 mEq/L (8-16); BILIRUBIN,TOTAL 1.6 mg/dL (0.1-1.4); CALCIUM 8.3 mg/dL (8.5-10.4); CARBON DIOXIDE 18 mEq/l (22-31); CHLORIDE 108 mEq/L (97-110); CREATININE 0.7 mg/dL (0.7-1.3); GLOMERULAR FILTRATION RATE > 60; GLUCOSE 111 mg/dL (70-100); POTASSIUM 4.9 mEq/L (3.5-5.2); SODIUM 134 mEq/L (134-144); TOTAL PROTEIN 6.3 g/dL (6.3-8.2)
[2016-12-11 03:33] LABS: ASPARTATE AMINOTRANSFERASE 1114 IU/L (17-59)
[2016-12-11] MEDS: ALTEPLASE 5 MG in NS 100 ML IV SCH (06:17)
--- NOTE | 2016-12-11 08:49 | PDINTPN ---
Railroad Repairer Progress Note Assessment/Plan: Assessment: * Large volume PE * S/P EKOS * DVT * Metastatic esophageal CA * Shock-improved Plan: BALANCE TRUING INSPECTOR Subjective: Awake and alert. Comfortable. Objective: Vital Signs Temp Pulse Resp BP Pulse Ox 36.4 C 98 15 94/67 L 95 12/10/16 20:00 12/11/16 06:00 12/11/16 06:00 12/11/16 06:00 12/11/16 06:00 Laboratory Results 12/11/16 02:40 12/11/16 02:40 12/10/16 12/11/16 12/12/16 05:59 05:59 05:59 Intake Total 3500 3752.2 Output Total 100 820 Balance 3400 2932.2 PT 15.7 SEC (12.0-15.0) H 12/10/16 05:32 INR 1.25 (0.83-1.16) H 12/10/16 05:32 Laboratory Results 12/11/16 02:40 12/11/16 02:40 12/11/16 12/11/16 12/11/16 07:30 02:40 02:40 APTT 39.8 SEC H SEC (23.0 - 38.0) Fibrinogen 346 mg/dL mg/dL (214 - 456) Calcium 8.3 mg/dL L mg/dL (8.5 - 10.4) Phosphorus 2.5 mg/dL D mg/dL (2.5 - 4.5) Magnesium 2.0 mg/dL mg/dL (1.6 - 2.3) Total Bilirubin 1.6 mg/dL H mg/dL (0.1 - 1.4) AST 1114 IU/L H IU/L (17 - 59) ALT 860 IU/L H IU/L (21 - 72) Alkaline Phosphatase 173 IU/L H IU/L (38 - 126) Total Protein 6.3 g/dL g/dL (6.3 - 8.2) Albumin 2.9 g/dL L g/dL (3.5 - 5.0) Physical Exam - Physical Exam General Appearance: WD/WN, alert, no apparent distress EENT: PERRL/EOMI, normal ENT inspection Neck: non-tender, full range of motion, supple Respiratory: chest non-tender, lungs clear, normal breath sounds Peripheral Pulses: 2+: carotid (R), carotid (L), femoral (R), femoral (L), dorsalis-pedis (R), dorsalis-pedis (L) Abdomen: normal bowel sounds, non-tender, soft Male Genitalia: deferred Rectal: deferred Skin: normal color, warm/dry Extremities: normal range of motion, non-tender, normal inspection, normal capillary refill ICD10 Worksheet Patient Problems: Problems Problem Status Onset Hypotension Acute Sepsis Acute Syncope Acute Esophageal mass Acute
--- NOTE | 2016-12-11 10:37 | SOAPPROG ---
SOAP Progress Note Assessment/Plan: Assessment: Improvement after 26 hours of selective catheter directed TPA. Infusion ceased, catheter and sheath removed. Plan: Systemic anticoagulation. 12/10/16 16:05 12/10/16 16:09 12/11/16 10:32 12/11/16 10:37 Subjective: Nausea gone. Drinking fluids OK. No dyspnea, no chest pain. Objective: Tachycardia resolved. Systolic BP up to 100. Right groin dry; no hematoma. I removed transfemoral infusion catheter and sheath without incident. Vital Signs Temp Pulse Resp BP Pulse Ox 36.4 C 98 16 94/66 L 93 12/10/16 20:00 12/11/16 08:00 12/11/16 08:00 12/11/16 08:00 12/11/16 08:00 Laboratory Results 12/11/16 02:40 12/11/16 02:40 12/10/16 12/11/16 12/12/16 05:59 05:59 05:59 Intake Total 3500 3752.2 Output Total 100 820 Balance 3400 2932.2 PT 15.7 SEC (12.0-15.0) H 12/10/16 05:32 INR 1.25 (0.83-1.16) H 12/10/16 05:32 ICD10 Worksheet Patient Problems: Problems Problem Status Onset Hypotension Acute Sepsis Acute Syncope Acute Esophageal mass Acute
--- NOTE | 2016-12-11 13:23 | SOAPPROG ---
SOAP Progress Note Assessment/Plan: Assessment/Plan: 56 yo man w Stage IV esophageal ca who p/w massive PE/cardiovascular collapse 1. PE - s/p tPA but no direct thrombolysis Pt now on heparin Still on pressors but heart rate improved and feeling better RLE US w DVT and pt hign risk for clot given malignancy Echo noted 2. Stage IV esophageal ca - completed 4 cycles of FOLFOX Tumor markers falling Due for re-staging scans soon No dysphagia 3. Thrombocytopenia - likely consumptive and can see mild drop w heparin/tPA will monitor Will follow along 12/11/16 13:20 Subjective: No acute events Feeling better but still on pressors Lying flat Objective: Vital Signs Temp Pulse Resp BP Pulse Ox 36.4 C 92 13 101/67 97 12/10/16 20:00 12/11/16 11:33 12/11/16 11:33 12/11/16 11:33 12/11/16 11:33 Laboratory Results 12/11/16 02:40 12/11/16 02:40 12/10/16 12/11/16 12/12/16 05:59 05:59 05:59 Intake Total 3500 3752.2 Output Total 100 820 Balance 3400 2932.2 PT 15.7 SEC (12.0-15.0) H 12/10/16 05:32 INR 1.25 (0.83-1.16) H 12/10/16 05:32 Gen - NAD HEENT - anicteric CV -RRR Chest - CTA bilat Abd - soft, BS+ Ext - RLE edema no bleeding from cath site ICD10 Worksheet Patient Problems: Problems Problem Status Onset Hypotension Acute Sepsis Acute Syncope Acute Esophageal mass Acute
--- NOTE | 2016-12-11 15:05 | HOSPPROG ---
Hospitalist Progress Note Assessment/Plan: 56 yo M admitted with shock in setting of massive PE with underlying metastatic esophageal cancer # shock--likely cardiogenic in setting of massive PE as next, continued on pressors, weaning as above # massive pulm embolism Patient is at high risk given his underlying malignancy. Now s/p IR EKOS which he appears to have tolerated well. # transaminitis: LFTs significantly elevated overnight, does have known diffuse metastasis to the liver and LFTs chronically mildly elevated. ? a component of shock liver given above, he has a prior hx of heavy etoh use but states he has been sober for nearly 1 year. Continue to trend. Will get RUQ US with dopplers given overnight jump in TA level # acute hypoxic respiratory failure Due to above. Saturating well on nasal cannula. Cont to monitor # SVT Initial EKG does show SVT, which responded to adenosine and converted to sinus tachycardia. On personal review of tele now in SR # anemia/thrombocytopenia: both trended slightly down since admission but likely in part dilutional and not far from usual baseline, continue to trend on hep gt # metastatic esophageal ca with significant hepatic mets and LFTs now increased as above, onc following, he is s/p 4 cycles of FOLFOX with improved tumor markers. # dispo: continue ICU Advancing diet DVT Ppx: on heparin gtt Full code Subjective: no significant overnight events, patient is feeling a bit better today, he is sleepy, no abd pain, slight nausea on occasion Objective: Vital Signs Temp Pulse Resp BP Pulse Ox 36.4 C 95 15 96/70 L 95 12/10/16 20:00 12/11/16 14:00 12/11/16 14:00 12/11/16 14:00 12/11/16 14:00 Laboratory Results 12/11/16 02:40 12/11/16 02:40 12/10/16 12/11/16 12/12/16 05:59 05:59 05:59 Intake Total 3500 3752.2 Output Total 100 820 Balance 3400 2932.2 PT 15.7 SEC (12.0-15.0) H 12/10/16 05:32 INR 1.25 (0.83-1.16) H 12/10/16 05:32 awake alert anicteric op clear rrr no mrg cta b to ant exam obese soft nt nd trace ble edema warm pale well perfused oriented appropriate ICD10 Worksheet Patient Problems: Problems Problem Status Onset Hypotension Acute Sepsis Acute Syncope Acute Esophageal mass Acute
[2016-12-11] MEDS ORDERED: NS 1,000 ML IV SCH (18:00)
[2016-12-11] MEDS ORDERED: NS 500 ML IV ONE (18:00)
[2016-12-11] MEDS ORDERED: HEPARIN 10,000 UNIT/10 ML MDV ONE (18:26)
[2016-12-12 01:40] LABS: ALANINE AMINOTRANSFERASE 895 IU/L (21-72); ALKALINE PHOSPHATASE 163 IU/L (38-126); ANION GAP 5 mEq/L (8-16); BILIRUBIN,TOTAL 1.5 mg/dL (0.1-1.4); BILIRUBIN-UNCONJUGATED 0.5 mg/dL (0.0-1.1); CALCIUM 8.4 mg/dL (8.5-10.4); CARBON DIOXIDE 23 mEq/l (22-31); CHLORIDE 105 mEq/L (97-110); CREATININE 0.5 mg/dL (0.7-1.3); GLOMERULAR FILTRATION RATE > 60; GLUCOSE 91 mg/dL (70-100); POTASSIUM 4.3 mEq/L (3.5-5.2); SODIUM 133 mEq/L (134-144); TOTAL PROTEIN 6.2 g/dL (6.3-8.2)
[2016-12-12 01:48] LABS: ASPARTATE AMINOTRANSFERASE 1015 IU/L (17-59)
[2016-12-12 05:07] LABS: % IMMATURE GRANULYOCYTES 0.2 % (0.0-1.1); ABSOLUTE IMMATURE GRANULOCYTES 0.01 10^3/uL (0.00-0.10); ABSOLUTE NRBC COUNT 0.02 10^3/uL (0-0.01); ADD DIFF? NO; ADD MORPH? NO; ADD SCAN? NO; ATYPICAL LYMPHOCYTE FLAG 0 (0-99); FRAGMENT RBC FLAG 70 (0-99); HEMATOCRIT 24.4 % (40.0-51.0); HEMOGLOBIN 7.7 g/dL (13.7-17.5); LEFT SHIFT FLG 0 (0-99); LIPEMIA HEMOLYSIS FLAG 80 (0-99); MEAN CELL HEMOGLOBIN 28.6 pg (27.9-34.1); MEAN CELL HEMOGLOBIN CONCENTR. 31.6 g/dL (32.4-36.7); MEAN CELL VOLUME 90.7 fL (81.5-99.8); MEAN PLATELET VOLUME 11.6 fL (8.7-11.7); NRBC-AUTO% 0.4 % (0.0-0.2); PLATELET CLUMPS FLAG 10 (0-99); PLATELET COUNT 91 10^3/uL (150-400); RED BLOOD CELL COUNT 2.69 10^6/uL (4.40-6.38); RED CELL DISTRIBUTION WIDTH 19.5 % (11.5-15.2)
[2016-12-12] MEDS ORDERED: ALBUMIN 25% 100 ML IV ONE (09:13)
--- NOTE | 2016-12-12 09:13 | PDINTPN ---
C S S Representative Progress Note Assessment/Plan: Assessment: * Large volume PE * S/P EKOS * DVT * Metastatic esophageal CA * Shock-improved, but still on low dose pressor Plan: add albumin wean pressors Subjective: Comfortable. Objective: Vital Signs Temp Pulse Resp BP Pulse Ox 36.4 C 98 15 97/66 L 97 12/12/16 08:00 12/12/16 08:00 12/12/16 08:00 12/12/16 09:00 12/12/16 08:00 Laboratory Results 12/12/16 04:45 12/12/16 01:15 12/11/16 12/12/16 12/13/16 05:59 05:59 05:59 Intake Total 3752.2 5485 Output Total 820 650 Balance 2932.2 4835 PT 15.7 SEC (12.0-15.0) H 12/10/16 05:32 INR 1.25 (0.83-1.16) H 12/10/16 05:32 Physical Exam - Physical Exam General Appearance: alert, no apparent distress EENT: PERRL/EOMI, normal ENT inspection, pharynx normal, TMs normal Neck: non-tender Respiratory: chest non-tender, lungs clear, normal breath sounds Cardiac/Chest: normal peripheral pulses, regular rate, rhythm Peripheral Pulses: 2+: carotid (R), carotid (L), femoral (R), femoral (L), dorsalis-pedis (R), dorsalis-pedis (L) Abdomen: normal bowel sounds, non-tender, soft Male Genitalia: deferred Rectal: deferred Skin: normal color, warm/dry Extremities: normal range of motion, non-tender, normal inspection, normal capillary refill ICD10 Worksheet Patient Problems: Problems Problem Status Onset Hypotension Acute Sepsis Acute Syncope Acute Esophageal mass Acute
--- NOTE | 2016-12-12 16:25 | HOSPPROG ---
Hospitalist Progress Note Assessment/Plan: 56 yo M admitted with shock in setting of massive PE with underlying metastatic esophageal cancer # shock--likely cardiogenic in setting of massive PE as next, continued on pressors, weaning as we are able # massive pulm embolism Patient is at high risk given his underlying malignancy. Now s/p IR EKOS which he appears to have tolerated well. Heparin gtt for now. # transaminitis: LFTs significantly elevated in last couple of days, has chronically elevated lfts but now slightly higher than baseline, is in the setting of known liver mets and now shock liver. No abdominal pain, continue monitoring. # acute hypoxic respiratory failure Due to above. Saturating well on nasal cannula. Cont to monitor # SVT Initial EKG does show SVT, which responded to adenosine and converted to sinus tachycardia. On personal review of tele now with sinus tach # anemia/thrombocytopenia: both trended slightly down since admission but likely in part dilutional and not far from usual baseline, continue to trend on hep gt # metastatic esophageal ca with significant hepatic mets and LFTs now increased as above, onc following, he is s/p 4 cycles of FOLFOX with improved tumor markers. # dispo: continue ICU Advancing diet DVT Ppx: on heparin gtt Full code Subjective: no significant overnight events, patient feeling a bit better though still somnolent Objective: Vital Signs Temp Pulse Resp BP Pulse Ox 36.6 C 107 H 16 96/64 L 98 12/12/16 16:00 12/12/16 16:00 12/12/16 16:00 12/12/16 16:00 12/12/16 16:00 Laboratory Results 12/12/16 04:45 12/12/16 01:15 12/11/16 12/12/16 12/13/16 05:59 05:59 05:59 Intake Total 3752.2 5485 Output Total 820 650 Balance 2932.2 4835 PT 15.7 SEC (12.0-15.0) H 12/10/16 05:32 INR 1.25 (0.83-1.16) H 12/10/16 05:32 awake alert anicteric op clear rrr no mrg cta b to ant exam obese soft nt nd trace ble edema warm pale well perfused oriented appropriate ICD10 Worksheet Patient Problems: Problems Problem Status Onset Hypotension Acute Sepsis Acute Syncope Acute Esophageal mass Acute
[2016-12-12] MEDS: PANTOPRAZOLE SODIUM 40 MG TAB PO SCH (17:15)
[2016-12-13] MEDS ORDERED: SODIUM CL NASAL 45 ML BTL EACHNARE PRN (03:45)
[2016-12-13 05:22] LABS: % IMMATURE GRANULYOCYTES 0.4 % (0.0-1.1); ABSOLUTE IMMATURE GRANULOCYTES 0.02 10^3/uL (0.00-0.10); ABSOLUTE NRBC COUNT 0.06 10^3/uL (0-0.01); ADD DIFF? NO; ADD MORPH? YES; ADD SCAN? NO; ATYPICAL LYMPHOCYTE FLAG 0 (0-99); FRAGMENT RBC FLAG 20 (0-99); HEMATOCRIT 22.2 % (40.0-51.0); LEFT SHIFT FLG 0 (0-99); LIPEMIA HEMOLYSIS FLAG 80 (0-99); MEAN CELL HEMOGLOBIN 27.9 pg (27.9-34.1); MEAN CELL HEMOGLOBIN CONCENTR. 31.5 g/dL (32.4-36.7); MEAN CELL VOLUME 88.4 fL (81.5-99.8); MEAN PLATELET VOLUME 10.7 fL (8.7-11.7); PLATELET CLUMPS FLAG 0 (0-99); PLATELET COUNT 73 10^3/uL (150-400); RED BLOOD CELL COUNT 2.51 10^6/uL (4.40-6.38); RED CELL DISTRIBUTION WIDTH 19.7 % (11.5-15.2)
[2016-12-13 05:24] LABS: NRBC-AUTO% 1.1 % (0.0-0.2)
[2016-12-13 05:44] LABS: HYPOCHROMIA 1+; MACROCYTES 1+; MICROCYTES 1+; PLATELET ESTIMATE DECREASED (ADEQ); POLYCHROMASIA 1+
[2016-12-13 05:45] LABS: ALANINE AMINOTRANSFERASE 825 IU/L (21-72); ALBUMIN 2.6 g/dL (3.5-5.0); ALKALINE PHOSPHATASE 175 IU/L (38-126); ANION GAP 9 mEq/L (8-16); BILIRUBIN,TOTAL 1.4 mg/dL (0.1-1.4); BILIRUBIN-CONJUGATED 1.1 mg/dL (0.0-0.5); BILIRUBIN-UNCONJUGATED 0.3 mg/dL (0.0-1.1); CALCIUM 8.2 mg/dL (8.5-10.4); CARBON DIOXIDE 18 mEq/l (22-31); CHLORIDE 107 mEq/L (97-110); CREATININE 0.5 mg/dL (0.7-1.3); GLOMERULAR FILTRATION RATE > 60; GLUCOSE 98 mg/dL (70-100); POTASSIUM 4.4 mEq/L (3.5-5.2); SODIUM 134 mEq/L (134-144); TOTAL PROTEIN 5.8 g/dL (6.3-8.2)
[2016-12-13 05:55] LABS: ASPARTATE AMINOTRANSFERASE 801 IU/L (17-59)
[2016-12-13] MEDS: PANTOPRAZOLE SODIUM 40 MG TAB PO SCH (08:25)
--- NOTE | 2016-12-13 08:39 | PDINTPN ---
Wrapping Machine Operator Progress Note Assessment/Plan: Assessment/Plan: * Large volume PE * S/P EKOS * DVT * Metastatic esophageal CA * Shock-resolved. Off pressors * Anemia-drop in H/H over last several days -check stools -transfuse * Dispo-to floor today Subjective: Looks and feels much better. Objective: Vital Signs Temp Pulse Resp BP Pulse Ox 36.7 C 119 H 20 97/59 L 90 L 12/13/16 08:00 12/13/16 08:00 12/13/16 08:00 12/13/16 08:00 12/13/16 08:00 Laboratory Results 12/13/16 04:50 12/13/16 04:50 12/12/16 12/13/16 12/14/16 05:59 05:59 05:59 Intake Total 5485 4596 Output Total 650 600 Balance 4835 3996 PT 15.7 SEC (12.0-15.0) H 12/10/16 05:32 INR 1.25 (0.83-1.16) H 12/10/16 05:32 Physical Exam - Physical Exam General Appearance: alert, no apparent distress EENT: PERRL/EOMI, normal ENT inspection, pharynx normal, TMs normal Neck: non-tender, full range of motion, supple, normal inspection Respiratory: chest non-tender, lungs clear, normal breath sounds Cardiac/Chest: normal peripheral pulses, regular rate, rhythm Peripheral Pulses: 2+: carotid (R), carotid (L), femoral (R), femoral (L), dorsalis-pedis (R), dorsalis-pedis (L) Abdomen: normal bowel sounds, non-tender, soft Male Genitalia: deferred Rectal: deferred Skin: normal color, warm/dry Extremities: normal range of motion, non-tender, normal inspection, normal capillary refill Neuro/Psych: no motor/sensory deficits, alert, normal mood/affect, oriented x 3 ICD10 Worksheet Patient Problems: Problems Problem Status Onset Hypotension Acute Sepsis Acute Syncope Acute Esophageal mass Acute
[2016-12-13] MEDS ORDERED: ENOXAPARIN 100 MG/ML SYR SC SCH (10:30)
[2016-12-13] MEDS: ENOXAPARIN 100 MG/ML SYR SC SCH ×2 (11:35→20:57)
--- NOTE | 2016-12-13 13:30 | HOSPPROG ---
Hospitalist Progress Note Assessment/Plan: 56 yo M admitted with shock in setting of massive PE with underlying metastatic esophageal cancer # shock--likely cardiogenic in setting of massive PE as next, off pressors now and doing well # massive pulm embolism: Patient is at high risk given his underlying malignancy. Now s/p IR EKOS which he appears to have tolerated well. Transitioned to lovenox # transaminitis: LFTs significantly elevated in last couple of days, has chronically elevated lfts but now slightly higher than baseline, is in the setting of known liver mets and now shock liver. No abdominal pain, continue monitoring. # acute hypoxic respiratory failure: now resolved and doing well on room air # SVT: Initial EKG does show SVT, which responded to adenosine and converted to sinus tachycardia. On personal review of tele now with sinus tach # anemia/thrombocytopenia: both have continued to trend down and transfusing 2 units prbcs today # metastatic esophageal ca: with significant hepatic mets and LFTs now increased as above, onc following, he is s/p 4 cycles of FOLFOX with improved tumor markers. # dispo: continue ICU Advancing diet DVT Ppx: tx dose heparin and coumadin Full code Subjective: no significant overnight events, doing well now off of pressors, on RA, eating, sitting up, getting PRBCs Objective: Vital Signs Temp Pulse Resp BP Pulse Ox 36.4 C 113 H 25 H 91/55 L 96 12/13/16 12:00 12/13/16 12:00 12/13/16 12:00 12/13/16 12:00 12/13/16 12:00 Laboratory Results 12/13/16 04:50 12/13/16 04:50 12/12/16 12/13/16 12/14/16 05:59 05:59 05:59 Intake Total 5485 4596 1097 Output Total 650 600 Balance 4835 3996 1097 PT 15.7 SEC (12.0-15.0) H 12/10/16 05:32 INR 1.25 (0.83-1.16) H 12/10/16 05:32 awake alert anicteric op clear rrr no mrg cta b to ant exam obese soft nt nd trace ble edema warm pale well perfused oriented appropriate ICD10 Worksheet Patient Problems: Problems Problem Status Onset Hypotension Acute Sepsis Acute Syncope Acute Esophageal mass Acute
--- NOTE | 2016-12-13 14:02 | SOAPPROG ---
SOAP Progress Note Assessment/Plan: A/P: * Massive PE with shock: improved after catheter-directed tPA. Moving to floor today. Given erratic liver function, would not initiate Coumadin but tx with Lovenox. Dr. Angeles will follow and change to an oral agent if appropriate. * Abnormal LFTs: had been improving with chemotherapy (liver mets), now increased due to right heart dysfunction. * Anemia: being transfused. * Thrombocytopenia: chemo, consumption. * St. IV esophageal cancer: s/p 4 cycles FOLFOX (C4 12/05/16). Evidence of response by LFTs and CEA. 12/13/16 14:02 Subjective: Still very fatigued, but has been walking around the room. PE: VS reviewed. Gen: pale, fatigued. Lungs: breathing comfortably. CV: bilat LE edema, hyperpigmentation. Laboratory Tests 12/13/16 12/13/16 12/13/16 04:50 04:50 04:50 WBC 5.23 Hgb 7.0 L Plt Count 73 L Heparin Anti-Xa, Unfract 0.40 Sodium 134 Potassium 4.4 Chloride 107 Carbon Dioxide 18 L BUN 14 Glucose 98 Total Bilirubin 1.4 Conjugated Bilirubin 1.1 H Unconjugated Bilirubin 0.3 AST 801 H ALT 825 H Alkaline Phosphatase 175 H Objective: Vital Signs Temp Pulse Resp BP Pulse Ox 36.4 C 113 H 25 H 91/55 L 96 12/13/16 12:00 12/13/16 12:00 12/13/16 12:00 12/13/16 12:00 12/13/16 12:00 Laboratory Results 12/13/16 04:50 12/13/16 04:50 12/12/16 12/13/16 12/14/16 05:59 05:59 05:59 Intake Total 5468 4596 1853 Output Total 650 600 Balance 4835 3996 1853 PT 15.7 SEC (12.0-15.0) H 12/10/16 05:32 INR 1.25 (0.83-1.16) H 12/10/16 05:32 ICD10 Worksheet Patient Problems: Problems Problem Status Onset Hypotension Acute Sepsis Acute Syncope Acute Esophageal mass Acute
[2016-12-13] MEDS ORDERED: WARFARIN SODIUM 5 MG TAB PO SCH (16:00)
[2016-12-14 06:10] LABS: % IMMATURE GRANULYOCYTES 0.3 % (0.0-1.1); ABSOLUTE IMMATURE GRANULOCYTES 0.02 10^3/uL (0.00-0.10); ABSOLUTE NRBC COUNT 0.08 10^3/uL (0-0.01); ADD DIFF? NO; ADD MORPH? YES; ADD SCAN? NO; ATYPICAL LYMPHOCYTE FLAG 0 (0-99); FRAGMENT RBC FLAG 20 (0-99); HEMATOCRIT 27.6 % (40.0-51.0); HEMOGLOBIN 9.2 g/dL (13.7-17.5); LEFT SHIFT FLG 0 (0-99); LIPEMIA HEMOLYSIS FLAG 80 (0-99); MEAN CELL HEMOGLOBIN 29.3 pg (27.9-34.1); MEAN CELL HEMOGLOBIN CONCENTR. 33.3 g/dL (32.4-36.7); MEAN CELL VOLUME 87.9 fL (81.5-99.8); MEAN PLATELET VOLUME 11.7 fL (8.7-11.7); PLATELET CLUMPS FLAG 0 (0-99); PLATELET COUNT 97 10^3/uL (150-400); RED BLOOD CELL COUNT 3.14 10^6/uL (4.40-6.38); RED CELL DISTRIBUTION WIDTH 19.5 % (11.5-15.2)
[2016-12-14 06:17] LABS: INR 1.21 (0.83-1.16); PROTIME(PATIENT) 15.3 SEC (12.0-15.0)
[2016-12-14 06:23] LABS: ALBUMIN 2.8 g/dL (3.5-5.0); BILIRUBIN,TOTAL 2.1 mg/dL (0.1-1.4); BILIRUBIN-CONJUGATED 1.4 mg/dL (0.0-0.5); BILIRUBIN-UNCONJUGATED 0.7 mg/dL (0.0-1.1)
[2016-12-14 06:25] LABS: NRBC-AUTO% 1.2 % (0.0-0.2)
[2016-12-14 06:55] LABS: HYPOCHROMIA 1+; MACROCYTES 1+; MICROCYTES 1+; POLYCHROMASIA 2+
[2016-12-14 06:56] LABS: PLATELET ESTIMATE DECREASED (ADEQ)
[2016-12-14] MEDS: PANTOPRAZOLE SODIUM 40 MG TAB PO SCH (08:34)
[2016-12-14] MEDS: ENOXAPARIN 100 MG/ML SYR SC SCH ×2 (08:35→21:16)
--- NOTE | 2016-12-14 10:47 | SOAPPROG ---
SOAP Progress Note Assessment/Plan: A/P: * Massive PE with shock: improved after catheter-directed tPA. Given erratic liver function, would not initiate Coumadin but tx with Lovenox. Dr. Angeles will follow and change to an oral agent if appropriate. * Abnormal LFTs: had been improving with chemotherapy (liver mets), now increased due to right heart dysfunction but improving. * Anemia: transfused yesterday. * Thrombocytopenia: chemo, consumption. * St. IV esophageal cancer: s/p 4 cycles FOLFOX (C4 12/05/16). Evidence of response by LFTs and CEA. 12/14/16 10:46 Subjective: present. Fatigue. Improving. PE: BP improved, still mild tachycardia, on RA. Gen: pale, NAD. Lungs: breathing comfortably. Laboratory Tests 12/14/16 12/14/16 05:55 05:55 WBC 6.56 Hgb 9.2 L Plt Count 97 L Total Bilirubin 2.1 H Conjugated Bilirubin 1.4 H AST 617 H ALT 735 H Alkaline Phosphatase 200 H Objective: Vital Signs Temp Pulse Resp BP Pulse Ox 36.2 C 115 H 16 102/65 92 12/14/16 08:55 12/14/16 08:55 12/14/16 08:55 12/14/16 08:55 12/14/16 08:55 Laboratory Results 12/14/16 05:55 12/13/16 04:50 12/13/16 12/14/16 12/15/16 05:59 05:59 05:59 Intake Total 4596 2553 Output Total 600 Balance 3996 2553 PT 15.3 SEC (12.0-15.0) H 12/14/16 05:55 INR 1.21 (0.83-1.16) H 12/14/16 05:55 ICD10 Worksheet Patient Problems: Problems Problem Status Onset Hypotension Acute Sepsis Acute Syncope Acute Esophageal mass Acute
--- NOTE | 2016-12-14 12:12 | HOSPPROG ---
Hospitalist Progress Note Assessment/Plan: 56 yo M admitted with shock in setting of massive PE with underlying metastatic esophageal cancer # shock--likely cardiogenic in setting of massive PE as next, off pressors now and doing well # massive pulm embolism: Patient is at high risk given his underlying malignancy. Now s/p IR EKOS which he appears to have tolerated well. Transitioned to lovenox and will dc home on lovenox # transaminitis: LFTs significantly elevated in last couple of days, has chronically elevated lfts but now slightly higher than baseline, is in the setting of known liver mets and now shock liver as well as congestion/right sided heart failure from above. # acute hypoxic respiratory failure: now resolved and doing well on room air # SVT: in setting of PE, now resolved though still with ST when abmulating # anemia/thrombocytopenia: both have continued to trend down and transfusing 2 units prbcs today # metastatic esophageal ca: with significant hepatic mets and LFTs now increased as above, onc following, he is s/p 4 cycles of FOLFOX with improved tumor markers. # diarrhea: began overnight, RF for c diff given hospitalization etc and will check, if no c diff will start immodium # dispo: likely dc in next 1-2 days if continues to get stronger and diarrhea resolving Reviewed care plan with Dr. Gambino and Sebastian as well as patient's present at bedside DVT Ppx: Tx dose lovenox Full code Subjective: no significant overnight events, has been having copious BM in the last 24 hours, still quite weak and sob with ambulation Objective: Vital Signs Temp Pulse Resp BP Pulse Ox 36.5 C 109 H 17 110/77 91 L 12/14/16 11:44 12/14/16 11:44 12/14/16 11:44 12/14/16 11:44 12/14/16 11:44 Laboratory Results 12/14/16 05:55 12/13/16 04:50 12/13/16 12/14/16 12/15/16 05:59 05:59 05:59 Intake Total 4596 2553 Output Total 600 Balance 3996 2553 PT 15.3 SEC (12.0-15.0) H 12/14/16 05:55 INR 1.21 (0.83-1.16) H 12/14/16 05:55 awake alert anicteric op clear rrr no mrg cta b to ant exam obese soft nt nd trace ble edema warm pale well perfused oriented appropriate - Time Spent With Patient Time Spent with Patient: greater than 35 minutes Time Spent with Patient: Greater than 35 minutes spent on this patients care, greater than 50% of time spent counseling, educating, and coordinating care regarding the above mentioned plan. ICD10 Worksheet Patient Problems: Problems Problem Status Onset Hypotension Acute Sepsis Acute Syncope Acute Esophageal mass Acute
--- NOTE | 2016-12-14 12:31 | PDINTPN ---
Chro Progress Note Assessment/Plan: Assessment/Plan: * Large volume PE-on lovenox * S/P EKOS * DVT * Metastatic esophageal CA * Shock-resolved. Off pressors * Anemia-stable * Dispo-home soon Subjective: Comfortable. Objective: Vital Signs Temp Pulse Resp BP Pulse Ox 36.5 C 109 H 17 110/77 91 L 12/14/16 11:44 12/14/16 11:44 12/14/16 11:44 12/14/16 11:44 12/14/16 11:44 Laboratory Results 12/14/16 05:55 12/13/16 04:50 12/13/16 12/14/16 12/15/16 05:59 05:59 05:59 Intake Total 4596 2553 Output Total 600 Balance 3996 2553 PT 15.3 SEC (12.0-15.0) H 12/14/16 05:55 INR 1.21 (0.83-1.16) H 12/14/16 05:55 Physical Exam - Physical Exam General Appearance: alert, no apparent distress EENT: PERRL/EOMI, normal ENT inspection Neck: non-tender, full range of motion, supple, normal inspection Respiratory: chest non-tender, lungs clear, normal breath sounds Cardiac/Chest: normal peripheral pulses, regular rate, rhythm Peripheral Pulses: 2+: carotid (R), carotid (L), femoral (R), femoral (L), dorsalis-pedis (R), dorsalis-pedis (L) Abdomen: normal bowel sounds, non-tender, soft Male Genitalia: deferred Rectal: deferred ICD10 Worksheet Patient Problems: Problems Problem Status Onset Hypotension Acute Sepsis Acute Syncope Acute Esophageal mass Acute
[2016-12-15] MEDS: ENOXAPARIN 100 MG/ML SYR SC SCH ×2 (08:23→20:33)
[2016-12-15] MEDS: PANTOPRAZOLE SODIUM 40 MG TAB PO SCH ×2 (08:23→08:53)
[2016-12-15] MEDS ORDERED: FUROSEMIDE 20 MG/2 ML VIAL IVP ONE ×2 (09:01→15:22)
[2016-12-15 09:36] LABS: % IMMATURE GRANULYOCYTES 0.3 % (0.0-1.1); ABSOLUTE IMMATURE GRANULOCYTES 0.02 10^3/uL (0.00-0.10); ABSOLUTE NRBC COUNT 0.02 10^3/uL (0-0.01); ADD DIFF? NO; ADD MORPH? NO; ADD SCAN? NO; ATYPICAL LYMPHOCYTE FLAG 50 (0-99); FRAGMENT RBC FLAG 20 (0-99); HEMATOCRIT 26.5 % (40.0-51.0); HEMOGLOBIN 8.6 g/dL (13.7-17.5); LEFT SHIFT FLG 0 (0-99); LIPEMIA HEMOLYSIS FLAG 80 (0-99); MEAN CELL HEMOGLOBIN 28.6 pg (27.9-34.1); MEAN CELL HEMOGLOBIN CONCENTR. 32.5 g/dL (32.4-36.7); MEAN PLATELET VOLUME 12.2 fL (8.7-11.7); NRBC-AUTO% 0.3 % (0.0-0.2); PLATELET CLUMPS FLAG 10 (0-99); PLATELET COUNT 87 10^3/uL (150-400); RED BLOOD CELL COUNT 3.01 10^6/uL (4.40-6.38); RED CELL DISTRIBUTION WIDTH 19.8 % (11.5-15.2)
[2016-12-15 09:53] LABS: ALANINE AMINOTRANSFERASE 533 IU/L (21-72); ALBUMIN 2.7 g/dL (3.5-5.0); ALKALINE PHOSPHATASE 167 IU/L (38-126); ANION GAP 9 mEq/L (8-16); ASPARTATE AMINOTRANSFERASE 339 IU/L (17-59); BILIRUBIN,TOTAL 2.1 mg/dL (0.1-1.4); BILIRUBIN-CONJUGATED 1.2 mg/dL (0.0-0.5); BILIRUBIN-UNCONJUGATED 0.9 mg/dL (0.0-1.1); CALCIUM 8.1 mg/dL (8.5-10.4); CARBON DIOXIDE 18 mEq/l (22-31); CHLORIDE 106 mEq/L (97-110); CREATININE 0.6 mg/dL (0.7-1.3); GLOMERULAR FILTRATION RATE > 60; GLUCOSE 102 mg/dL (70-100); POTASSIUM 4.2 mEq/L (3.5-5.2); SODIUM 133 mEq/L (134-144); TOTAL PROTEIN 5.9 g/dL (6.3-8.2)
[2016-12-15 10:00] LABS: TROPONIN I 0.124 ng/mL (0-0.034)
--- NOTE | 2016-12-15 15:19 | HOSPPROG ---
Hospitalist Progress Note Assessment/Plan: * Massive PE with hemodynamic instability s/p catheter directed tpa/lytics -discharge on Lovenox given variable hepatic function * Cardiogenic shock due to massive PE s/p pressors -blood pressure low but stable * Right heart failure with volume overload -tolerated low dose IV lasix this am -try to resume diuretics and monitor * Acute respiratory failure - improved * Metastatic esophageal cancer with extensive liver mets * Increased LFT - liver mets + shock liver + hepatic congestion * SVT - tachycardia improving * Anemia/thrombocytopenia - follow closely Subjective: Getting more swollen every day. Otherwise feeling pretty good. Objective: Vital Signs Temp Pulse Resp BP Pulse Ox 36.3 C 98 20 100/67 95 12/15/16 12:00 12/15/16 12:00 12/15/16 12:00 12/15/16 12:00 12/15/16 12:00 Microbiology 12/09/16 23:55 Blood Culture - Final Blood 12/09/16 23:45 Blood Culture - Final Blood Laboratory Results 12/15/16 09:15 12/15/16 09:15 12/14/16 12/15/16 12/16/16 05:59 05:59 05:59 Intake Total 2553 1650 350 Output Total 1575 Balance 2553 1650 -1225 PT 15.3 SEC (12.0-15.0) H 12/14/16 05:55 INR 1.21 (0.83-1.16) H 12/14/16 05:55 tele reviewed: mild sinus tachy - Physical Exam Constitutional: no apparent distress, appears nourished, not in pain Cardiovascular: regular rate and rhythym, no murmur, rub, or gallop, edema (4+) Respiratory: no respiratory distress, no rales or rhonchi, clear to auscultation Gastrointestinal: normoactive bowel sounds, soft, non-tender abdomen, no palpable masses Skin: no rashes or abrasions, no fluctuance, no induration Neurologic: AAOx3, sensation intact bilaterally Psychiatric: interacting appropriately, not anxious, not encephalopathic, thought process linear ICD10 Worksheet Patient Problems: Problems Problem Status Onset Hypotension Acute Sepsis Acute Syncope Acute Esophageal mass Acute
[2016-12-15] MEDS: FLUTICASONE NASAL 120 SPRAYS/16 GM MDI EACHNARE SCH (16:08)
[2016-12-16 05:23] LABS: % IMMATURE GRANULYOCYTES 0.2 % (0.0-1.1); ABSOLUTE IMMATURE GRANULOCYTES 0.01 10^3/uL (0.00-0.10); ABSOLUTE NRBC COUNT 0.02 10^3/uL (0-0.01); ADD DIFF? NO; ADD MORPH? NO; ADD SCAN? NO; ATYPICAL LYMPHOCYTE FLAG 60 (0-99); FRAGMENT RBC FLAG 0 (0-99); HEMATOCRIT 27.1 % (40.0-51.0); HEMOGLOBIN 9.2 g/dL (13.7-17.5); LEFT SHIFT FLG 0 (0-99); LIPEMIA HEMOLYSIS FLAG 90 (0-99); MEAN CELL HEMOGLOBIN 29.5 pg (27.9-34.1); MEAN CELL HEMOGLOBIN CONCENTR. 33.9 g/dL (32.4-36.7); MEAN CELL VOLUME 86.9 fL (81.5-99.8); MEAN PLATELET VOLUME 11.2 fL (8.7-11.7); NRBC-AUTO% 0.3 % (0.0-0.2); PLATELET CLUMPS FLAG 10 (0-99); PLATELET COUNT 79 10^3/uL (150-400); RED BLOOD CELL COUNT 3.12 10^6/uL (4.40-6.38); RED CELL DISTRIBUTION WIDTH 19.4 % (11.5-15.2)
[2016-12-16 05:36] LABS: ALANINE AMINOTRANSFERASE 417 IU/L (21-72); ALBUMIN 2.6 g/dL (3.5-5.0); ALKALINE PHOSPHATASE 164 IU/L (38-126); ANION GAP 6 mEq/L (8-16); ASPARTATE AMINOTRANSFERASE 220 IU/L (17-59); BILIRUBIN,TOTAL 2.1 mg/dL (0.1-1.4); BILIRUBIN-CONJUGATED 1.2 mg/dL (0.0-0.5); BILIRUBIN-UNCONJUGATED 0.9 mg/dL (0.0-1.1); CARBON DIOXIDE 22 mEq/l (22-31); CHLORIDE 105 mEq/L (97-110); CREATININE 0.6 mg/dL (0.7-1.3); GLOMERULAR FILTRATION RATE > 60; GLUCOSE 74 mg/dL (70-100); POTASSIUM 4.2 mEq/L (3.5-5.2); SODIUM 133 mEq/L (134-144); TOTAL PROTEIN 5.6 g/dL (6.3-8.2)
[2016-12-16] MEDS ORDERED: FUROSEMIDE 20 MG TAB PO SCH (09:00)
[2016-12-16] MEDS: FUROSEMIDE 20 MG/2 ML VIAL IVP SCH ×2 (09:33→15:01)
[2016-12-16] MEDS: SPIRONOLACTONE 25 MG TAB PO SCH (09:33)
[2016-12-16] MEDS: ENOXAPARIN 100 MG/ML SYR SC SCH ×2 (09:33→21:22)
[2016-12-16] MEDS: FLUTICASONE NASAL 120 SPRAYS/16 GM MDI EACHNARE SCH (09:33)
[2016-12-16] MEDS: PANTOPRAZOLE SODIUM 40 MG TAB PO SCH (09:33)
--- NOTE | 2016-12-16 13:39 | SOAPPROG ---
SOAP Progress Note Assessment/Plan: Assessment: 1) Stage 4 colon cancer with hepatic metastasis. Responding to FOLFOX. S/P 4 cycles. 2) Massive bilateral PE 3) Transaminitis secondary to Right heart strain from #2 (improving) 4) LE edema and ascites Plan: Overall doing well. He will continue on Lovenox indefinitely. LFT's are improving. He has been started on diuretic therapy for the edema. Possible d/c tomorrow. He will go home on Lovenox 100 mg BID. He has a f/u appt. at [facility] Thursday, and will likely proceed with 5th cycle of FOLFOX at that time. Patient's questions answered. 12/16/16 13:34 Subjective: Patient has been started on Lasix for increased LE edema. Denies CP or dyspnea. Ambulated in hallway today. Objective: Vital Signs Temp Pulse Resp BP Pulse Ox 36.6 C 102 H 20 112/68 96 12/16/16 11:33 12/16/16 11:33 12/16/16 11:33 12/16/16 11:33 12/16/16 11:33 Laboratory Results 12/16/16 05:05 12/16/16 05:05 12/15/16 12/16/16 12/17/16 05:59 05:59 05:59 Intake Total 1650 800 350 Output Total 3000 975 Balance 1650 -2200 -625 PT 15.3 SEC (12.0-15.0) H 12/14/16 05:55 INR 1.21 (0.83-1.16) H 12/14/16 05:55 - Time Spent With Patient Time Spent With Patient: 25 minutes Physical Exam - Physical Exam General Appearance: alert, no apparent distress Respiratory: lungs clear Cardiac/Chest: regular rate, rhythm Abdomen: other (Mild to moderate ascites. No tenderness) Extremities: other (2 plus LE edema bilaterally.) Neuro/Psych: normal mood/affect ICD10 Worksheet Patient Problems: Problems Problem Status Onset Hypotension Acute Sepsis Acute Syncope Acute Esophageal mass Acute
--- NOTE | 2016-12-16 19:12 | HOSPPROG ---
Hospitalist Progress Note Assessment/Plan: * Massive PE with hemodynamic instability s/p catheter directed tpa/lytics -discharge on Lovenox given variable hepatic function * Cardiogenic shock due to massive PE s/p pressors -blood pressure low but stable * Right heart failure with volume overload -continue IV lasix * Acute respiratory failure - improved * Metastatic esophageal cancer with extensive liver mets * Increased LFT - liver mets + shock liver + hepatic congestion * SVT - tachycardia improving * Anemia/thrombocytopenia - follow closely Subjective: good output with urine yesterday. no low BP, feeling well Objective: Vital Signs Temp Pulse Resp BP Pulse Ox 36.6 C 90 20 98/70 L 95 12/16/16 15:56 12/16/16 15:56 12/16/16 15:56 12/16/16 15:56 12/16/16 15:56 Laboratory Results 12/16/16 05:05 12/16/16 05:05 12/15/16 12/16/16 12/17/16 05:59 05:59 05:59 Intake Total 4247 469 2532 Output Total 3000 2925 Balance 1650 -2200 -1625 PT 15.3 SEC (12.0-15.0) H 12/14/16 05:55 INR 1.21 (0.83-1.16) H 12/14/16 05:55 - Physical Exam Constitutional: no apparent distress, appears nourished, not in pain Cardiovascular: regular rate and rhythym, no murmur, rub, or gallop, edema (3+) Respiratory: no respiratory distress, no rales or rhonchi, clear to auscultation Gastrointestinal: normoactive bowel sounds, soft, non-tender abdomen, no palpable masses Skin: no rashes or abrasions, no fluctuance, no induration Neurologic: AAOx3, sensation intact bilaterally Psychiatric: interacting appropriately, not anxious, not encephalopathic, thought process linear ICD10 Worksheet Patient Problems: Problems Problem Status Onset Hypotension Acute Sepsis Acute Syncope Acute Esophageal mass Acute
[2016-12-16 23:40] VITALS: O2SAT 91
[2016-12-17 06:14] LABS: % IMMATURE GRANULYOCYTES 0.5 % (0.0-1.1); ABSOLUTE IMMATURE GRANULOCYTES 0.03 10^3/uL (0.00-0.10); ADD DIFF? NO; ADD MORPH? NO; ADD SCAN? NO; ATYPICAL LYMPHOCYTE FLAG 50 (0-99); FRAGMENT RBC FLAG 0 (0-99); HEMATOCRIT 26.1 % (40.0-51.0); HEMOGLOBIN 8.9 g/dL (13.7-17.5); LEFT SHIFT FLG 0 (0-99); LIPEMIA HEMOLYSIS FLAG 90 (0-99); MEAN CELL HEMOGLOBIN 29.2 pg (27.9-34.1); MEAN CELL HEMOGLOBIN CONCENTR. 34.1 g/dL (32.4-36.7); MEAN CELL VOLUME 85.6 fL (81.5-99.8); MEAN PLATELET VOLUME 11.4 fL (8.7-11.7); PLATELET CLUMPS FLAG 0 (0-99); PLATELET COUNT 88 10^3/uL (150-400); RED BLOOD CELL COUNT 3.05 10^6/uL (4.40-6.38); RED CELL DISTRIBUTION WIDTH 19.3 % (11.5-15.2)
[2016-12-17 06:42] LABS: ANION GAP 9 mEq/L (8-16); CALCIUM 7.8 mg/dL (8.5-10.4); CARBON DIOXIDE 20 mEq/l (22-31); CHLORIDE 103 mEq/L (97-110); CREATININE 0.5 mg/dL (0.7-1.3); GLOMERULAR FILTRATION RATE > 60; GLUCOSE 104 mg/dL (70-100); SODIUM 132 mEq/L (134-144)
[2016-12-17 08:43] VITALS: RESP 16
[2016-12-17] MEDS: SPIRONOLACTONE 25 MG TAB PO SCH (08:45)
[2016-12-17] MEDS: PANTOPRAZOLE SODIUM 40 MG TAB PO SCH (08:45)
[2016-12-17] MEDS: ENOXAPARIN 100 MG/ML SYR SC SCH (08:48)
[2016-12-17] MEDS: FLUTICASONE NASAL 120 SPRAYS/16 GM MDI EACHNARE SCH (08:50)
[2016-12-17] MEDS: FUROSEMIDE 20 MG/2 ML VIAL IVP SCH (09:00)
[2016-12-17] MEDS ORDERED: FUROSEMIDE 20 MG TAB PO ONE (09:41)
--- NOTE | 2016-12-17 09:45 | PDIAF ---
- Diagnosis Diagnosis: acute massive PE Code Status: Full Code - Medication Management Discharge Medications: Medications to Continue on Transfer Furosemide [Lasix 20 MG (*)] 20 mg PO DAILY 12/10/16 [Last Taken 12/10/16] Pantoprazole Sodium [Protonix 40mg (*)] 40 mg PO DAILY 12/10/16 [Last Taken ] Spironolactone [Aldactone 25 MG (*)] 50 mg PO DAILY 12/10/16 [Last Taken ] Enoxaparin [Lovenox 100 MG (*)] 100 mg SC BID #28 syr 12/17/16 [Last Taken Unknown] Discharge Medications: Refer to the Discharge Home Medication list for PRN reason. - Orders Services needed: Home Care, Physical Therapy, Occupational Therapy Home Care Face to Face: I certify that this patient was under my care and that I had the required [id number] encounter meeting the encounter requirements on the discharge day. My findings support the fact that the patient is homebound as defined in CMS Chapter 7 Medicare Benefits Manual 30.1.1, The condition of the patient is such that there exists a normal inability to leave home and consequently, leaving home would require a considerable and taxing effort. Diet Recommendation: no restrictions on diet Weigh Patient: daily - Labs/Radiology BMP Date: 12/19/16 CBC Date: 12/19/16 - Follow Up Care Current Providers and Referrals: Patient,NotPresent [Unknown] - As per Instructions
[2016-12-17 11:48] VITALS: BP 97/64; TEMP 97.8
--- NOTE | 2016-12-17 17:21 | GDS ---
[f rep st] DISCHARGE SUMMARY DISCHARGE DIAGNOSES: 1. Massive pulmonary embolus with hemodynamic instability status post catheter directed tPA and lyt ics. 2. Cardiogenic shock due to massive pulmonary embolus requiring pressors. 3. Right heart failure with volume overload. 4. Acute respiratory failure. 5. Metastatic esophageal cancer with extensive liver metastases. 6. Increased LFTs due to liver metastases, shock liver and hepatic congestion. 7. Supraventricular tachycardia. 8. Anemia and thrombocytopenia. HISTORY: The patient is a 56-year-old male, with known esophageal cancer and liver metastases. He presented with a massive pulmonary embolus and was hemodynamically unstable and in cardiogenic shock requiring pressors in the ICU. He went to IR and had catheter-directed tPA with lytics. After suzan t he was started on Lovenox. His LFTs were very high, probably due to a combination of shock liver and hepatic congestion on top of liver metastases. Given his variable hepatic function, Oncology re commended indefinite Lovenox. They felt this was okay despite his low platelets as it was felt to b e consumptive and hopefully will improve. He did not have any bleeding complications. His echo ryan wed right heart failure, and he became massively volume overloaded. Initially, he was too hypotensi ve to do anything about that but as he did stabilize, we did initiate a little bit of IV Lasix and h e got a good diuresis prior to discharge. He was weaned off oxygen. Blood pressure was stable at d ischarge. His tachycardia was improved. LFTs are improving. He continues to have significant thro mbocytopenia with discharge platelets of 88, and this should be followed closely as an outpatient. DISCHARGE MEDICATIONS: Please see computer record for full detailed list. New medications: Loveno x 100 mg subcu b.i.d. ADDITIONAL DISCHARGE INSTRUCTIONS: 1. Repeat CBC and basic metabolic panel on ThursdayDecember 19. 2. Appointment at [facility] scheduled on that day. 3. Home health PT/OT arranged. Greater than 30 minutes' time was spent arranging this discharge. Patient seen and examined by me randee tran the day of discharge. /[id number]/MODL
[2016-12-17 19:16] VITALS: PULSE 100
== END 2016-12-17 14:05 | disposition home health service (06) | DRG 175 ==
LOC: EDUNIT# → F2N 12-10 08:37 → F2W 12-13 13:45
PROVIDERS: ADMIT Internal Medicine; ATTEND Internal Medicine
PROC: 02H Heart and Great Vessels, Insertion (ICD-10-PCS; principal; 2016-12-10)
PROC: 3E06317 Introduction of Other Thrombolytic into Central Artery, Percutaneous Approach (ICD-10-PCS; principal; 2016-12-10)
PROC: B31S1ZZ Fluoroscopy of Right Pulmonary Artery using Low Osmolar Contrast (ICD-10-PCS; principal; 2016-12-10)
PROC: 30243N1 Transfusion of Nonautologous Red Blood Cells into Central Vein, Percutaneous Approach (ICD-10-PCS; 2016-12-13)
DX: I26.99 Other pulmonary embolism without acute cor pulmonale (principal); R57.0 Cardiogenic shock; J96.01 Acute respiratory failure with hypoxia; K72.00 Acute and subacute hepatic failure without coma; I82.411 Acute embolism and thrombosis of right femoral vein; I82.431 Acute embolism and thrombosis of right popliteal vein; I82.441 Acute embolism and thrombosis of right tibial vein; I82.491 Acute embolism and thrombosis of other specified deep vein of right lower extremity; C15.9 Malignant neoplasm of esophagus, unspecified; C78.7 Secondary malignant neoplasm of liver and intrahepatic bile duct; I47.1 Supraventricular tachycardia; R18.8 Other ascites; D69.6 Thrombocytopenia, unspecified; D64.9 Anemia, unspecified; R19.7 Diarrhea, unspecified; I50.9 Heart failure, unspecified
CPT/HCPCS: 82947-QW; 85520-90; 96374; 97110-GP; 97116-GP; 97161-GP; 97166-GO; 97530-GO; 97535-GO; C1757; C1769; C1892; J0153; J1644; J1650; J2250; J2405; J2543; J2997; J3010; P9016; P9047; Q9967

== ENCOUNTER 2017-04-17 06:45 | Day surgery (SDC) | payer OTHER ==
[2017-04-17] MEDS ORDERED: ceFAZolin 2 GM/DEXTROSE 100 ML IV ONE (06:57)
--- NOTE | 2017-04-17 07:00 | PDHPUP ---
History & Physical Update H&P update statement: This history and physical update is based on an assessment of the patient which was completed after admission or registration (within 24 hours), but prior to the surgery/procedure. H&P update: H&P reviewed & patient examined, no change in patient's condition since H&P completed
[2017-04-17] MEDS ORDERED: LIDOCAINE 1% 2 ML INJ ID PRN (07:05)
[2017-04-17] MEDS ORDERED: LR 1,000 ML IV ONE (07:05)
[2017-04-17] MEDS ORDERED: BUPIVACAINE 0.5% 30 ML SDV ONE (07:45)
--- NOTE | 2017-04-17 08:05 | PDANEPAE ---
ANE History of Present Illness umb hernia ANE Past Medical History - Cardiovascular History Hx Hypertension: No Hx Arrhythmias: Yes Hx Chest Pain: No Hx Coronary Artery / Peripheral Vascular Disease: No Hx CHF / Valvular Disease: Yes Hx Palpitations: No Cardiovascular History Comment: CHF 11/2016. RARE IRREGULAR HEART BEAT - Pulmonary History Hx COPD: No Hx Asthma/Reactive Airway Disease: No Hx Recent Upper Respiratory Infection: No Hx Oxygen in Use at Home: No Hx Sleep Apnea: No Sleep Apnea Screening Result - Last Documented: Negative Pulmonary History Comment: PULMONARY EMBOLI - 11/2016 - Neurologic History Hx Cerebrovascular Accident: No Hx Seizures: No Hx Dementia: No - Endocrine History Hx Diabetes: No - Renal History Hx Renal Disorders: No - Liver History Hx Hepatic Disorders: Yes Hepatic History Comment: ESOPHAGEAL CA W/. METASTISIS TO LIVER - Neurological & Psychiatric Hx Hx Neurological and Psychiatric Disorders: No - Cancer History Hx Cancer: Yes Cancer History Comment: ESOPHAGEAL W/METS TO LIVER - Congenital Disorder History Hx Congenital Disorders: No - GI History Hx Gastrointestinal Disorders: Yes Gastrointestinal History Comment: TAKES PANTOPRAZOLE TO SETTLE STOMACH - Other Health History Other Health History: CHEMOTHERAPY TX 04/03/2017 - Chronic Pain History Chronic Pain: No - Surgical History Prior Surgeries: APPENDECTOMY. PORT PLACEMENT 09/2016. BX ESOPHAGEAL TUMOR ANE Review of Systems - Exercise capacity METS (RN): 4 METS ANE Patient History - Allergies Allergies/Adverse Reactions: No Known Allergies Allergy (Unverified 12/09/16 23:08) - Home Medications Home Medications: Pantoprazole Sodium [Protonix 40mg (*)] 40 mg PO DAILY 12/10/16 [Last Taken 05:00] Herbals/Supplements -Info Only 04/16/17 [Last Taken 04/16/17 06:00] - NPO status NPO Since - Liquids (Date): 04/16/17 NPO Since - Liquids (Time): 22:30 NPO Since - Solids (Date): 04/16/17 NPO Since - Solids (Time): 22:30 - Anes Hx Anes Hx: no prior problems - Smoking Hx Smoking Status: Never smoked ANE Labs/Vital Signs - Vital Signs Blood Pressure: 113/77 Heart Rate: 90 Respiratory Rate: 20 O2 Sat (%): 94 Height: 180.34 cm Weight: 99.79 kg ANE Physical Exam - Airway Mallampati Score: Class 2 Mouth exam: normal dental/mouth exam - Pulmonary Pulmonary: no respiratory distress - Cardiovascular Cardiovascular: regular rate and rhythym - ASA Status ASA Status: II ANE Anesthesia Plan Anesthesia Plan: GA w LMA
[2017-04-17] MEDS ORDERED: MIDAZOLAM 2 MG/2 ML VIAL IVP ONE (08:06)
[2017-04-17] MEDS ORDERED: ONDANSETRON 4 MG/2 ML VIAL ONE (08:10)
[2017-04-17] MEDS ORDERED: KETOROLAC 30 MG/1 ML SDV ONE (08:10)
[2017-04-17] MEDS ORDERED: fentaNYL 100 MCG/2 ML INJ ONE (08:10)
[2017-04-17] MEDS ORDERED: DEXAMETHASONE 4 MG/ML VIAL ONE (08:10)
[2017-04-17] MEDS ORDERED: PROPOFOL 200 MG/20 ML VIAL ONE (08:11)
[2017-04-17] MEDS ORDERED: LIDOCAINE 2% 5 ML SDV ONE (08:11)
[2017-04-17] MEDS ORDERED: fentaNYL 100 MCG/2 ML INJ IVP PRN (08:33)
[2017-04-17] MEDS ORDERED: MEPERIDINE 25 MG/ML SYR IVP PRN (08:33)
[2017-04-17] MEDS ORDERED: ONDANSETRON 4 MG/2 ML VIAL IVP PRN (08:33)
[2017-04-17] MEDS ORDERED: NALOXONE HCL 0.4 MG/ML INJ IVP PRN (08:33)
[2017-04-17] MEDS ORDERED: LR 500 ML IV PRN (08:33)
[2017-04-17] MEDS ORDERED: HYDROmorphONE/DILAUDID 1 MG/ML SYR IVP PRN (08:33)
--- NOTE | 2017-04-17 09:05 | POSTANESTH ---
Post Anesthetic Evaluation Cardiovascular Status: Normal, Stable Respiratory Status: Normal, Stable Level of Consciousness/Mental Status: Can Participate in Eval Pain Control: Adequate, Prn Tx Ordered Nausea/Vomiting Control: Adequate, Prn Tx Ordered Complications Possibly Related to Anesthesia: None Noted
--- NOTE | 2017-04-17 09:09 | POSTOPPROG ---
Post Op Note Date of Operation: 04/17/17 Surgeon: Alanna Rojo Bevel Gear Generator Operator: mayank Anesthesiologist: latesha Anesthesia: GET(General Endotracheal) Pre-op Diagnosis: umbilical hernia Post-op Diagnosis: same Indication: 56yo M with symptomatic umbilical hernia Procedure: open umbilical hernia repair with mesh Findings: omentum-containing umbilical hernia Inf/Abcess present in the surg proc area at time of surgery?: No Depth: Deep Incisional (Fascial) EBL: Minimal Complications: none immediately postoperatively Specimen(s): hernia sac
[2017-04-17] MEDS ORDERED: HYDROCODONE/APAP 5/325 TAB PO ONE ×2 (09:39→11:01)
[2017-04-17 09:43] VITALS: PULSE 75; RESP 16
[2017-04-17 11:14] VITALS: BP 120/74; TEMP 97.9; O2SAT 94
--- NOTE | 2017-04-17 19:12 | GOP ---
[f rep st] OPERATIVE REPORT DATE OF OPERATION: SURGEON: Foster Maciel MD CHRONOGRAPH OPERATOR: Alanna Rojo PA-C ANESTHESIOLOGIST: Romero Lanza MD PREOPERATIVE DIAGNOSIS: Symptomatic umbilical hernia. POSTOPERATIVE DIAGNOSIS: Symptomatic umbilical hernia. PROCEDURE PERFORMED: UMBILICAL HERNIA REPAIR WITH MESH FINDINGS: Patient was found to have a 3 cm umbilical defect. DESCRIPTION OF PROCEDURE: Patient was taken to the operating room where he received satisfactory general endotracheal anesthesia by Dr. Lanza. He was placed in supine position and prepped and draped in the usual sterile fashion. A periumbilical incision was made and carried down to the fascia. Umbilical hernia was dissected free from surrounding subcutaneous tissue. The sac was opened, and its contents were reduced. The sac was suture ligated and amputated. A subfascial tunnel was created and a Marlex mesh patch was placed subfascially and anchored with 0 Ethibond mattress sutures. The wound was then closed directly with 0 Ethibond [id number] sutures. The wound was infiltrated with % Marcaine. Subcu was closed with 3-0 Vicryl and skin was closed with 4-0 Monocryl subcuticular stitch. He tolerated procedure well and taken to recovery room in good condition. PROCEDURE: Umbilical hernia repair with mesh. COMPLICATIONS: None. /[id number]/MODL MTDD
== END 2017-04-17 11:17 | disposition home or self-care (01) ==
LOC: FSGY 06:45
PROVIDERS: ATTEND Surgery
PROC: 0WUF0JZ Supplement Abdominal Wall with Synthetic Substitute, Open Approach (ICD-10-PCS; principal; 2017-04-17 08:45)
DX: K42.9 Umbilical hernia without obstruction or gangrene (principal); C15.9 Malignant neoplasm of esophagus, unspecified; I50.9 Heart failure, unspecified; Z86.711 Personal history of pulmonary embolism
CPT/HCPCS: C1781; J0690; J1100; J1885; J2250; J2405; J2704; J3010

== ENCOUNTER 2017-06-22 00:24 | Inpatient (IN) | payer OTHER ==
--- NOTE | 2017-06-22 00:30 | EDPHY ---
H & P Time Seen by Provider: 06/22/17 00:29 HPI/ROS: Chief Complaint: Syncope HPI: 56-year-old male with a history of metastatic esophageal cancer and pulmonary embolus, currently on Lovenox twice a day woke up tonight and set up at the edge of his bed to go to the bathroom get a drink. After sitting up, before standing, he became lightheaded and had a syncopal episode, falling back onto the bed. Did not hit his head or sustain any other injuries. His fall woke his up. She states that he was unresponsive for a few seconds. Patient denies any new chest pain or shortness of breath. He is currently on chemotherapy and had 5 FU 8 days ago. He was noted to be thrombocytopenic at that time. Denies any cough. No urinary symptoms. No fevers or chills. Patient denies any melena or hematochezia. ROS: 10 point Review of Systems is negative except as noted in the HPI. PMH: Metastatic esophageal cancer, PE Social History: No smoking, no alcohol, no recreational drug use Family History: non-contributory Physical Exam: Gen: Awake, Alert, No Distress HEENT: Nose: no rhinorrhea Eyes: PERRLA, EOMI Mouth: Moist mucosa Neck: Supple, no JVD Chest: nontender, lungs clear to auscultation Heart: S1, S2 normal, no murmur Abd: Soft, non-tender, no guarding Back: no CVA tenderness, no midline tenderness Ext: no edema, non-tender Skin: no rash Neuro: CN II-XII intact, Sensation grossly intact, Strength 5/5 in bilateral upper and lower extremities - Medical/Surgical History Hx Asthma: No Hx Chronic Respiratory Disease: No Hx Diabetes: No Hx Cardiac Disease: No Hx Renal Disease: No Hx Cirrhosis: No Hx Alcoholism: No Hx HIV/AIDS: No Hx Splenectomy or Spleen Trauma: No Other PMH: APPY 35 YEARS AGO, esophageal CA - Social History Smoking Status: Never smoked Constitutional: Initial Vital Signs Temperature (C) 37.1 C 06/22/17 00:24 Heart Rate 98 06/22/17 00:24 Respiratory Rate 13 06/22/17 00:24 Blood Pressure 114/78 06/22/17 00:24 O2 Sat (%) 98 06/22/17 00:24 O2 Delivery Mode Room Air Allergies/Adverse Reactions: No Known Allergies Allergy (Verified 06/22/17 00:34) Home Medications: Medication Instructions Recorded Pantoprazole Sodium [Protonix 40mg 40 mg PO DAILY 12/10/16 (*)] Enoxaparin [Lovenox 100 MG (*)] 100 mg SC BID #28 syr 12/17/16 Herbals/Supplements -Info Only 04/16/17 Medical Decision Making - Diagnostics EKG Interpretation: ECG time 12:29 zero twenty nine a.m.. Sinus rhythm with a rate of 95, normal axis, normal intervals, nonspecific T-wave abnormalities the inferior leads. Imaging Results: Chest x-ray: No acute abnormalities per my interpretation. Imaging: I viewed and interpreted images myself ED Course/Re-evaluation: 56-year-old male with a history of PEs and esophageal cancer with metastasis had a syncopal episode tonight. He is compliant with his Lovenox in anticoagulated. His not hypotensive. He is mildly tachycardic here. He is somewhat clinically dehydrated. ECG shows no acute ischemia. CBC shows some mild pancytopenia which would be expected post chemo. He is not febrile. Urine is concentrated. Chest x-ray is negative. I have ordered IV fluids for him here. Given his multiple risk factors who will continue the monitored. I have discussed with Dr. mckenna, hospitalist. Will admit to the PCU for further care. - Data Points Laboratory Results: Laboratory Results 06/22/17 00:30 06/22/17 00:30 06/22/17 06/22/17 06/22/17 01:52 00:30 00:30 WBC 3.25 10^3/uL L 10^3/uL (3.80-9.50) RBC 3.14 10^6/uL L 10^6/uL (4.40-6.38) Hgb 10.4 g/dL L g/dL (13.7-17.5) Hct 30.8 % L % (40.0-51.0) MCV 98.1 fL fL (81.5-99.8) MCH 33.1 pg pg (27.9-34.1) MCHC 33.8 g/dL g/dL (32.4-36.7) RDW 14.7 % % (11.5-15.2) Plt Count 92 10^3/uL L 10^3/uL (150-400) MPV 10.7 fL fL (8.7-11.7) Neut % (Auto) 64.5 % % (39.3-74.2) Lymph % (Auto) 18.2 % % (15.0-45.0) [place] % (Auto) 14.2 % H % (4.5-13.0) Eos % (Auto) 2.2 % % (0.6-7.6) Baso % (Auto) 0.6 % % (0.3-1.7) Nucleat RBC Rel Count 0.0 % % (0.0-0.2) Absolute Neuts (auto) 2.10 10^3/uL 10^3/uL (1.70-6.50) Absolute Lymphs (auto) 0.59 10^3/uL L 10^3/uL (1.00-3.00) Absolute Monos (auto) 0.46 10^3/uL 10^3/uL (0.30-0.80) Absolute Eos (auto) 0.07 10^3/uL 10^3/uL (0.03-0.40) Absolute Basos (auto) 0.02 10^3/uL 10^3/uL (0.02-0.10) Absolute Nucleated RBC 0.00 10^3/uL 10^3/uL (0-0.01) Immature Gran % 0.3 % % (0.0-1.1) Immature Gran # 0.01 10^3/uL 10^3/uL (0.00-0.10) Sodium 138 mEq/L mEq/L (134-144) Potassium 4.0 mEq/L mEq/L (3.5-5.2) Chloride 106 mEq/L mEq/L (97-110) Carbon Dioxide 23 mEq/l mEq/l (22-31) Anion Gap 9 mEq/L mEq/L (8-16) BUN 15 mg/dL mg/dL (7-23) Creatinine 0.8 mg/dL mg/dL (0.7-1.3) Estimated GFR > 60 Glucose 96 mg/dL mg/dL (70-100) Calcium 8.9 mg/dL mg/dL (8.5-10.4) Troponin I < 0.012 ng/mL ng/mL (0.000-0.034) Urine Color Pending Urine Appearance Pending Urine pH Pending Ur Specific [place] Pending Urine Protein Pending Urine Ketones Pending Urine Blood Pending Urine Nitrate Pending Urine Bilirubin Pending Urine Urobilinogen Pending Ur Leukocyte Esterase Pending Urine Glucose Pending Medications Given: Discontinued Medications Sodium Chloride (Ns) 1,000 mls @ 0 mls/hr IV ONCE ONE PRN Reason: Wide Open Stop: 06/22/17 02:02 Last Admin: 06/22/17 02:02 Dose: 1,000 mls Departure - Departure Disposition: [facility] Inpatient Acute Clinical Impression: Syncope, Dehydration Condition: Fair Referrals: Patient,NotPresent [Unknown] - As per Instructions
--- NOTE | 2017-06-22 00:30 | CPEKG ---
Heart Rate: 95 RR Interval: 632 P-R Interval: 160 QRSD Interval: 84 QT Interval: 352 QTC Interval: 443 P Art: 13 QRS Art: 76 T Wave Art: -12 EKG Severity - BORDERLINE ECG - EKG Impression: SINUS RHYTHM EKG Impression: CONSIDER RVH OR POSTERIOR INFARCT EKG Impression: BORDERLINE T ABNORMALITIES, INFERIOR LEADS Electronically Signed By: Jonny Snell 23-Jun-2017 05:39:08
[2017-06-22 00:51] LABS: % IMMATURE GRANULYOCYTES 0.3 % (0.0-1.1); ABSOLUTE IMMATURE GRANULOCYTES 0.01 10^3/uL (0.00-0.10); ADD DIFF? NO; ADD MORPH? NO; ADD SCAN? NO; ATYPICAL LYMPHOCYTE FLAG 20 (0-99); FRAGMENT RBC FLAG 0 (0-99); HEMATOCRIT 30.8 % (40.0-51.0); HEMOGLOBIN 10.4 g/dL (13.7-17.5); LEFT SHIFT FLG 0 (0-99); LIPEMIA HEMOLYSIS FLAG 90 (0-99); MEAN CELL HEMOGLOBIN 33.1 pg (27.9-34.1); MEAN CELL HEMOGLOBIN CONCENTR. 33.8 g/dL (32.4-36.7); MEAN CELL VOLUME 98.1 fL (81.5-99.8); MEAN PLATELET VOLUME 10.7 fL (8.7-11.7); PLATELET CLUMPS FLAG 0 (0-99); PLATELET COUNT 92 10^3/uL (150-400); RED BLOOD CELL COUNT 3.14 10^6/uL (4.40-6.38); RED CELL DISTRIBUTION WIDTH 14.7 % (11.5-15.2)
[2017-06-22 00:55] LABS: ANION GAP 9 mEq/L (8-16); CALCIUM 8.9 mg/dL (8.5-10.4); CARBON DIOXIDE 23 mEq/l (22-31); CHLORIDE 106 mEq/L (97-110); CREATININE 0.8 mg/dL (0.7-1.3); GLOMERULAR FILTRATION RATE > 60; GLUCOSE 96 mg/dL (70-100); SODIUM 138 mEq/L (134-144)
[2017-06-22 01:14] LABS: TROPONIN I < 0.012 ng/mL (0.000-0.034)
[2017-06-22] MEDS ORDERED: NS 1,000 ML IV ONE ×3 (02:01→13:51)
[2017-06-22 02:04] LABS: COLOR YELLOW; LEUKOCYTE ESTERASE,URINE NEGATIVE (NEGATIVE); NITRITE,URINE NEGATIVE (NEGATIVE)
[2017-06-22] MEDS ORDERED: ONDANSETRON 4 MG/2 ML VIAL IVP PRN (04:06)
[2017-06-22] MEDS ORDERED: ONDANSETRON DISINTEGRATING 4 MG TAB PO PRN (04:06)
[2017-06-22] MEDS ORDERED: ACETAMINOPHEN 325 MG TAB PO PRN (04:06)
[2017-06-22] MEDS: NS 1,000 ML IV SCH ×2 (04:22→06:40)
[2017-06-22] MEDS ORDERED: NS 500 ML IV ONE (04:39)
--- NOTE | 2017-06-22 04:48 | PDGENHP ---
History and Physical - Chief Complaint syncope - History of Present Illness 56 yo male with h/o metastatic esophageal cancer diagnosed in 09/2016 and massive PE in 11/2016 requiring intra-arterial thrombolytics presents to ED with syncope. He reports lying in bed last night. He sat up in bed to get out of bed, but he lost consciousness while sitting up. He endorsed pre-syncopal lightheadedness. He notes he occasionally notes feeling lightheaded or dizzy at work. He drinks 1-2 cups of coffee in the morning and usually a couple glasses of water during the day. He tolerates a full diet. He denies fevers/ chills, CP or SOB. He notes peripheral neuropathy has been a side effect of chemotherapy, in addition to low blood counts. He is followed by Dr. Angeles for his cancer and his last dose of 5-FU was 8 days ago. In November of this year, he presented with hypotension and SVT and was diagnosed with massive PE at that time. He has been compliant with his twice daily Lovenox doses. He has had no further palpitations or SVT. In the ED, he was orthostatic by heart rate and noted feeling dizzy during the test. He received 1 L NS and is admitted to the hospital for further management. History Information - Allergies/Home Medication List Allergies/Adverse Reactions: No Known Allergies Allergy (Verified 06/22/17 00:34) Home Medications: Pantoprazole Sodium [Protonix 40mg (*)] 40 mg PO DAILY 12/10/16 [Last Taken 05:00] Herbals/Supplements -Info Only 04/16/17 [Last Taken 04/16/17 06:00] I have personally reviewed and updated: family history, medical history, social history, surgical history - Past Medical History no pertinent PMH Additional medical history: metastatic esophageal cancer (dx 09/2016, s/p FOLFOX , now on 5-FU). h/o ETOH abuse, massive PE 11/2016 requiring intra-arterial thrombolytics - Surgical History Reports: no pertinent surgical hx - Family History Positive for: non-pertinent - Social History Smoking Status: Never smoked Additional social history: Lives with , independent in [place]. Review of Systems Review of Systems: ROS: 10pt was reviewed & negative except for what was stated in HPI & below Physical Exam Physical Exam: Temp Pulse Resp BP Pulse Ox 36.8 C 102 H 13 104/68 93 06/22/17 02:53 06/22/17 02:53 06/22/17 02:53 06/22/17 02:53 06/22/17 02:53 Constitutional: no apparent distress Eyes: PERRL Ears, Nose, Mouth, Throat: dry mucous membranes Cardiovascular: regular rate and rhythym, no murmur, rub, or gallop Respiratory: no respiratory distress, clear to auscultation Gastrointestinal: normoactive bowel sounds, soft, non-tender abdomen Skin: warm, other (delayed cap refill) Musculoskeletal: full muscle strength Neurologic: AAOx3 Psychiatric: interacting appropriately Lab Data & Imaging Review 06/22/17 00:30 06/22/17 00:30 WBC 3.25 10^3/uL (3.80-9.50) L 06/22/17 00:30 RBC 3.14 10^6/uL (4.40-6.38) L 06/22/17 00:30 Hgb 10.4 g/dL (13.7-17.5) L 06/22/17 00:30 Hct 30.8 % (40.0-51.0) L 06/22/17 00:30 MCV 98.1 fL (81.5-99.8) 06/22/17 00:30 MCH 33.1 pg (27.9-34.1) 06/22/17 00:30 MCHC 33.8 g/dL (32.4-36.7) 06/22/17 00:30 RDW 14.7 % (11.5-15.2) 06/22/17 00:30 Plt Count 92 10^3/uL (150-400) L 06/22/17 00:30 MPV 10.7 fL (8.7-11.7) 06/22/17 00:30 Neut % (Auto) 64.5 % (39.3-74.2) 06/22/17 00:30 Lymph % (Auto) 18.2 % (15.0-45.0) 06/22/17 00:30 [place] % (Auto) 14.2 % (4.5-13.0) H 06/22/17 00:30 Eos % (Auto) 2.2 % (0.6-7.6) 06/22/17 00:30 Baso % (Auto) 0.6 % (0.3-1.7) 06/22/17 00:30 Nucleat RBC Rel Count 0.0 % (0.0-0.2) 06/22/17 00:30 Absolute Neuts (auto) 2.10 10^3/uL (1.70-6.50) 06/22/17 00:30 Absolute Lymphs (auto) 0.59 10^3/uL (1.00-3.00) L 06/22/17 00:30 Absolute Monos (auto) 0.46 10^3/uL (0.30-0.80) 06/22/17 00:30 Absolute Eos (auto) 0.07 10^3/uL (0.03-0.40) 06/22/17 00:30 Absolute Basos (auto) 0.02 10^3/uL (0.02-0.10) 06/22/17 00:30 Absolute Nucleated RBC 0.00 10^3/uL (0-0.01) 06/22/17 00:30 Immature Gran % 0.3 % (0.0-1.1) 06/22/17 00:30 Immature Gran # 0.01 10^3/uL (0.00-0.10) 06/22/17 00:30 Sodium 138 mEq/L (134-144) 06/22/17 00:30 Potassium 4.0 mEq/L (3.5-5.2) 06/22/17 00:30 Chloride 106 mEq/L (97-110) 06/22/17 00:30 Carbon Dioxide 23 mEq/l (22-31) 06/22/17 00:30 Anion Gap 9 mEq/L (8-16) 06/22/17 00:30 BUN 15 mg/dL (7-23) 06/22/17 00:30 Creatinine 0.8 mg/dL (0.7-1.3) 06/22/17 00:30 Estimated GFR > 60 06/22/17 00:30 Glucose 96 mg/dL (70-100) 06/22/17 00:30 Calcium 8.9 mg/dL (8.5-10.4) 06/22/17 00:30 Troponin I < 0.012 ng/mL (0.000-0.034) 06/22/17 00:30 Urine Color YELLOW 06/22/17 01:52 Urine Appearance HAZY 06/22/17 01:52 Urine pH 6.0 (5.0-7.5) 06/22/17 01:52 Ur Specific [place] 1.020 (1.002-1.030) 06/22/17 01:52 Urine Protein NEGATIVE (NEGATIVE) 06/22/17 01:52 Urine Ketones NEGATIVE (NEGATIVE) 06/22/17 01:52 Urine Blood NEGATIVE (NEGATIVE) 06/22/17 01:52 Urine Nitrate NEGATIVE (NEGATIVE) 06/22/17 01:52 Urine Bilirubin NEGATIVE (NEGATIVE) 06/22/17 01:52 Urine Urobilinogen 4.0 EU (0.2-1.0) H 06/22/17 01:52 Ur Leukocyte Esterase NEGATIVE (NEGATIVE) 06/22/17 01:52 Urine Glucose NEGATIVE (NEGATIVE) 06/22/17 01:52 Visualized and Interpreted Chest x-ray results: Yes Chest X-Ray results: no infiltrate Visualized and Interpreted EKG results: Yes EKG Interpretation: Positive for: normal sinsus rhythm Assessment & Plan Assessment: Syncope - likely secondary to orthostasis. He has received 1 L NS bolus in ED, will repeat 1L bolus now and continue maintenance fluids. Recheck orthostatics in am. Monitor on telemetry given h/o SVT. Pt encouraged to increased liquid intake. Metastatic esophageal cancer - Followed by Dr. Angeles at [facility]. Last dose of 5- FU was 8 days ago. Will notify [facility] of his admission. PE - required intra-arterial thrombolytics due to profound hypotension and SVT on presentation. Continue Lovenox 100 mg BID. Full code Dispo - obs
[2017-06-22 08:30] LABS: ANION GAP 7 mEq/L (8-16); CARBON DIOXIDE 21 mEq/l (22-31); CHLORIDE 110 mEq/L (97-110); CREATININE 0.6 mg/dL (0.7-1.3); GLOMERULAR FILTRATION RATE > 60; GLUCOSE 93 mg/dL (70-100); POTASSIUM 4.4 mEq/L (3.5-5.2); SODIUM 138 mEq/L (134-144)
[2017-06-22] MEDS: ENOXAPARIN 100 MG/ML SYR SC SCH (08:58)
[2017-06-22] MEDS ORDERED: COSYNTROPIN 0.25 MG/2 ML SYRINGE IVP ONE ×2 (09:07→10:45)
--- NOTE | 2017-06-22 14:34 | ASMTCMCOM ---
CM Note CM Note Notes: 06/22/2017 Case management Note; Met w/pt. Patient works at [employer]. He reports strong social supports especially his . Pt recieves chemo and radiation through [facility] cancer center. Pt was active prior to admission for syncope. No case management d/c needs identified. Pt in agreement. Case Management d/c poc: Home independent w/ support of family when medically stable. Case Management available if needs change. Date Signed: 06/22/2017 02:33 PM Electronically Signed By:Marcie Carey RN
[2017-06-22 14:38] LABS: % IMMATURE GRANULYOCYTES 0.5 % (0.0-1.1); ABSOLUTE IMMATURE GRANULOCYTES 0.02 10^3/uL (0.00-0.10); ADD DIFF? NO; ADD MORPH? NO; ADD SCAN? NO; ATYPICAL LYMPHOCYTE FLAG 20 (0-99); FRAGMENT RBC FLAG 0 (0-99); HEMATOCRIT 23.1 % (40.0-51.0); HEMOGLOBIN 7.7 g/dL (13.7-17.5); LEFT SHIFT FLG 0 (0-99); LIPEMIA HEMOLYSIS FLAG 80 (0-99); MEAN CELL HEMOGLOBIN CONCENTR. 33.3 g/dL (32.4-36.7); MEAN CELL VOLUME 99.1 fL (81.5-99.8); MEAN PLATELET VOLUME 10.5 fL (8.7-11.7); PLATELET CLUMPS FLAG 0 (0-99); PLATELET COUNT 91 10^3/uL (150-400); RED BLOOD CELL COUNT 2.33 10^6/uL (4.40-6.38); RED CELL DISTRIBUTION WIDTH 15.1 % (11.5-15.2)
[2017-06-22 14:50] LABS: ALANINE AMINOTRANSFERASE 50 IU/L (21-72); ALBUMIN 2.6 g/dL (3.5-5.0); ALKALINE PHOSPHATASE 60 IU/L (38-126); ANION GAP 8 mEq/L (8-16); ASPARTATE AMINOTRANSFERASE 41 IU/L (17-59); BILIRUBIN,TOTAL 0.4 mg/dL (0.1-1.4); CALCIUM 7.9 mg/dL (8.5-10.4); CARBON DIOXIDE 20 mEq/l (22-31); CHLORIDE 110 mEq/L (97-110); CREATININE 0.6 mg/dL (0.7-1.3); GLOMERULAR FILTRATION RATE > 60; GLUCOSE 96 mg/dL (70-100); POTASSIUM 4.1 mEq/L (3.5-5.2); SODIUM 138 mEq/L (134-144); TOTAL PROTEIN 5.5 g/dL (6.3-8.2)
--- NOTE | 2017-06-22 16:52 | HOSPPROG ---
Hospitalist Progress Note Assessment/Plan: Prolonged service in addition to the history and physical originally performed by Dr. Sheri gonzalez, direct patient care, [id number] with patient at bedside , from 1:25 p.m. until 2:00 p.m. (35 mins), addressing the following: -persistently positive orthostatic vital signs, symptomatic, patient vomited blood -physical exam demonstrates mild midepigastric tenderness to palpation, tachycardia with a regular rhythm, lungs clear to auscultation bilaterally, alert awake oriented x3 -hemoglobin rechecked and has fallen from 10.4-7.7, give 1 unit PRBC stat -discussed with Dr. Evelia Bryant, will make the patient NPO at this time, potential upper endoscopy -discussed with Dr. Kathleen Gambino, the 5 FU is unlikely to be a cause of orthostatic hypotension, and is more likely to be secondary to upper GI bleed -repeat hemoglobin level at 8:00 p.m., monitor serially thereafter if declining -cosyntropin stim test results pending, TSH normal -patient's systemic anticoagulation still active in his system, holding tonight' s dose, will be at risk for recurrent PE -Echo results pending Objective: Vital Signs Temp Pulse Resp BP Pulse Ox 37.0 C 108 H 16 99/63 L 93 06/22/17 15:27 06/22/17 15:27 06/22/17 15:27 06/22/17 15:27 06/22/17 15:27 Laboratory Results 06/22/17 14:00 06/22/17 14:00 06/21/17 06/22/17 06/23/17 05:59 05:59 05:59 Intake Total 1500 1400 Output Total 300 Balance 1500 1100 ICD10 Worksheet Patient Problems: Problems Problem Status Onset Esophageal mass Acute Syncope Acute Hypotension Acute Sepsis Acute Dehydration Acute
[2017-06-22] MEDS: PANTOPRAZOLE SODIUM 40 MG in NS 100 ML IV SCH (21:13)
[2017-06-22 22:18] LABS: HEMATOCRIT 22.5 % (40.0-51.0); HEMOGLOBIN 7.5 g/dL (13.7-17.5)
--- NOTE | 2017-06-22 22:21 | GCON ---
[f rep st] CONSULTATION DATE OF CONSULTATION: 06/22/2017 CHIEF COMPLAINT: Hematemesis. HISTORY OF PRESENT ILLNESS: I am asked to see this patient by Dr. Forman for chief complaint of whit temesis. Patient is a pleasant 56-year-old, who was diagnosed with esophageal cancer in September of t his year, underwent an upper endoscopy with Dr. Carlos that showed circumferential mass. Biopsy ryan wed adenocarcinoma. He had metastatic disease and underwent therapy with radiation and chemotherapy with good response to shrinking of his tumors. Unfortunately, in November he developed a pulmonary embo lism requiring anticoagulation and has been maintained on Lovenox. Was well, able to take p.o.'s wit h need to be cautious of chewing, but generally doing fairly well until last night when he had some e pigastric bloaty-type pain. Pound like he had eaten too much. At midnight got up to go the bathroom and had a syncopal episode. Came to the emergency room, was admitted, and found to have a decrease i n his hematocrit, and during hospitalization this afternoon, had 1 episode of bright red blood emesis . Previously, he has had no hematemesis. No history of GI bleeding. No history of peptic ulcer dis ease. Has had normal bowel movements without any melena as of yet. No bright red blood in his stool s. He did have a little recurrent abdominal pain this morning but is now resolved. ALLERGIES: No known allergies. HOME MEDICATIONS: Lovenox, which he takes subcu twice daily, and pantoprazole. He has been getting recently 5-FU infusions for chemotherapy. PAST MEDICAL HISTORY: Notable for metastatic esophageal cancer, pulmonary embolism. SOCIAL HISTORY: Patient does not smoke or use alcohol. FAMILY HISTORY: No family history for esophageal cancer. REVIEW OF SYSTEMS: I reviewed a complete review of systems, which is negative except for the pertine nt positives and negatives as noted in the HPI. PHYSICAL EXAMINATION: VITAL SIGNS: Afebrile at 37 degrees, BP 99/63, pulse 108. CONSTITUTIONAL: H garry is alert and oriented, in no apparent distress. HEENT: Eyes are without scleral icterus. No oral lesions. CARDIOVASCULAR: Regular rate and rhythm. CHEST: Clear to auscultation bilaterally. ABD OMEN: Slightly distended and tympanic but soft. No hepatosplenomegaly. No rebound. NEUROLOGIC: N onfocal, gross. SKIN: No lesions. LABORATORY DATA: Shows a BUN of 23.6. Hemoglobin was 10.6 on admission and 7.7 this afternoon. Hem atocrit went from 30.8 to 23.1. White count 4. ASSESSMENT: Acute upper gastrointestinal bleed, hemodynamically significant with presyncopal symptom s and tachycardia. Patient with a significant decline in his H and H. Worrisome that this is most l ikely bleeding from his tumor, which is problematic as these are very notorious to be very difficult to treat endoscopically and generally not amenable to endoscopic treatment in general. However, it i s possible he may have other source of bleeding. This is also complicated by his anticoagulation wit h Lovenox. I had a thorough discussion with patient about the risks and benefits of an upper endosco py, including the less likely possibility that we would be able to offer endoscopic therapy. The dee fisher is still interested in pursuing for a chance that we may be able to treat something and for diag nostic purposes. Overall, he would be high risk for endoscopy because of his anticoagulation, but I think this could be done safely withholding his Lovenox and careful sedation. PLAN: Patient is to hold his Lovenox tonight. Will keep him n.p.o. Agree with blood transfusion. Plan for upper endoscopy in the morning. Thanks for this consult. /[id number]/MODL
--- NOTE | 2017-06-23 03:27 | GCON ---
[f rep st] CONSULTATION ONCOLOGY CONSULTATION REASON FOR CONSULTATION: Esophageal cancer. HISTORY OF PRESENT ILLNESS: The patient is a 56-year-old man, who was diagnosed with stage IV esophageal cancer (adenocarcinoma grade 2) in September of 2016, when he presented with dysphagia, jaundice, and ascites. He had diffuse hepatic metastatic disease at presentation, and a circumferential ulcerated mass extending from 30 cm to 40 cm from the incisors, HER2 negative ( IHC 0). He had significant LFT abnormalities on presentation. He began chemotherapy with FOLFOX with dose reduction of 5-FU given a degree of hepatic failure beginning 10/24/2016. He had a dramatic response in terms of resolution of ascites and near normalization of his hepatic panel. He received 13 cycles (04/24/2017) with overall partial response. He changed to 5-FU/ leucovorin at that time due to a possible infusion reaction to the oxaliplatin. Most recent chemotherapy (cycle 14) was 06/12/2017. He received 5-FU but had an infusion reaction with the leucovorin, which was stopped early and not completed. This responded quickly to Benadryl. He received palliative radiation to the esophagus 05/12/2017-05/25/2017 (3000 cGy in 10 fractions). He reports having some radiation esophagitis that bothered him with eating but that has been entirely resolved for a few weeks. He was admitted early this morning after a syncopal event. He describes having upper abdominal fullness, feeling like he needed to belch, last evening after having a root beer float. He woke up at about midnight with that same sensation , went to get out of bed but became dizzy, and had a syncopal event while sitting. He had no other acute symptoms. He was able to walk without symptoms upon admission and earlier today. Earlier this afternoon, he had similar symptoms of upper abdominal fullness and dizziness, and then vomited, which he describes as bloody emesis, no coffee grounds. He typically has regular bowel movements but had been a little bit constipated recently. No melena, hematochezia. No chest pain, shortness of breath. No other bleeding or bruising. He self administered his last dose of Lovenox this morning at approximately 6:30 by his report, although the nurses have it documented at 8: 58. On admission, early this morning, hemoglobin 10.4 and on repeat at 1400, 7.7. His hemoglobin 06/12/2017 was 11.5, which has been about his baseline over the last 2 months. PAST MEDICAL HISTORY: 1. Esophageal cancer, as above. 2. Large volume PE, 11/2016, presenting with syncope. He underwent directed thrombolysis and was in the ICU for approximately 1 week on vasopressors. He has been on therapeutic Lovenox 100 mg b.i.d. since that time. PAST SURGICAL HISTORY: 1. Appendectomy. 2. Hernia repair. MEDICATIONS: Reviewed in Symptom[employer]ly. SOCIAL HISTORY: He is to [place] and lives in [place]. 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 No children. FAMILY HISTORY: No history of malignancy. His mother of Maximino- Creutzfeldt disease. REVIEW OF SYSTEMS: CONSTITUTIONAL: No fevers, chills, or night sweats. GI: Per HPI. RESPIRATORY: No pleurisy, cough, dyspnea. CARDIOVASCULAR: No chest pain, palpitations, PND, orthopnea, or lower extremity edema. HEMATOLOGIC: No other bleeding or bruising. NEUROLOGIC: Chemotherapy-induced peripheral neuropathy persists but is overall improved. PHYSICAL EXAMINATION: VITAL SIGNS: Blood pressure 99/63, pulse 108, respirations 16, 93% on room air, afebrile. Earlier this morning supine blood pressure 110/62, heart rate 99; sitting 105/69, heart rate 111; standing 99/77, heart rate 135. GENERAL: A very pleasant gentleman in no acute distress. He is pale. HEENT: No scleral icterus. CARDIOVASCULAR: Regular rate and rhythm , no pretibial edema. LUNGS: Clear to auscultation bilaterally. ABDOMEN: Positive bowel sounds, soft, nontender, nondistended. Well healed periumbilical incision. Aging ecchymosis and palpable hematomas at prior Lovenox injection sites. SKIN: Left upper chest port in place without complications. No petechia or ecchymosis. NEUROLOGIC: Grossly nonfocal. LABORATORY DATA: On admission: WBC 3.25, hemoglobin 10.4, MCV 98.1, platelets 92,000. Platelet count 72,000, 06/12/2017, and has ranged from 87-124 over the last 2 months. CMP today remarkable for BUN 23, creatinine 0.6. Normal electrolytes. Normal LFTs. Venous lactate normal at 1.1. IMPRESSION: 1. Upper gastrointestinal bleed: He had hematemesis today with a significant drop in his hemoglobin. The BUN is not elevated and he has not had melena but I suspect that will develop. Gastroenterology has been consulted. This may be radiation induced esophagitis from his recent therapy versus esophageal ulceration, peptic ulcer disease, progression of disease, etc. Progression of disease would be unlikely given recent completion of radiation therapy. 2. Orthostasis: Secondary to number 1. 3. Large volume pulmonary embolus, 11/2016: Further Lovenox will be held until gastroenterology evaluation and endoscopy. Depending on the findings, he may need a temporary inferior vena cava filter if anticoagulation needs to be held for any significant duration. 4. Metastatic esophageal cancer: Day 10 of chemotherapy (5-FU/leucovorin). 5. Chemotherapy induced neuropathy. /[id number]/MODL MTDD
[2017-06-23 05:35] LABS: % IMMATURE GRANULYOCYTES 0.5 % (0.0-1.1); ABSOLUTE IMMATURE GRANULOCYTES 0.02 10^3/uL (0.00-0.10); ADD DIFF? NO; ADD MORPH? NO; ADD SCAN? NO; ATYPICAL LYMPHOCYTE FLAG 50 (0-99); FRAGMENT RBC FLAG 0 (0-99); HEMATOCRIT 22.2 % (40.0-51.0); HEMOGLOBIN 7.4 g/dL (13.7-17.5); LEFT SHIFT FLG 10 (0-99); LIPEMIA HEMOLYSIS FLAG 80 (0-99); MEAN CELL HEMOGLOBIN 32.3 pg (27.9-34.1); MEAN CELL HEMOGLOBIN CONCENTR. 33.3 g/dL (32.4-36.7); MEAN CELL VOLUME 96.9 fL (81.5-99.8); MEAN PLATELET VOLUME 10.4 fL (8.7-11.7); PLATELET CLUMPS FLAG 0 (0-99); PLATELET COUNT 77 10^3/uL (150-400); RED BLOOD CELL COUNT 2.29 10^6/uL (4.40-6.38); RED CELL DISTRIBUTION WIDTH 17.5 % (11.5-15.2)
[2017-06-23 07:23] LABS: ALANINE AMINOTRANSFERASE 49 IU/L (21-72); ALBUMIN 2.4 g/dL (3.5-5.0); ALKALINE PHOSPHATASE 55 IU/L (38-126); ANION GAP 5 mEq/L (8-16); ASPARTATE AMINOTRANSFERASE 40 IU/L (17-59); BILIRUBIN,TOTAL 0.4 mg/dL (0.1-1.4); CALCIUM 8.3 mg/dL (8.5-10.4); CARBON DIOXIDE 21 mEq/l (22-31); CHLORIDE 111 mEq/L (97-110); CREATININE 0.6 mg/dL (0.7-1.3); GLOMERULAR FILTRATION RATE > 60; GLUCOSE 86 mg/dL (70-100); POTASSIUM 4.4 mEq/L (3.5-5.2); SODIUM 137 mEq/L (134-144); TOTAL PROTEIN 5.3 g/dL (6.3-8.2)
[2017-06-23] MEDS ORDERED: PANTOPRAZOLE SODIUM 40 MG TAB PO SCH (09:00)
--- NOTE | 2017-06-23 09:19 | ECHO ---
[email or web address] [address] Main: [phone] Fax: Transthoracic Echocardiogram Name: SHAI SERRANO MR#: [id number] Study Date: 06/22/2017 Study Time: 09:21 AM Date of : 1960 Age: 56 year(s) Height: 182.9 cm (72 in.) Weight: 97.52 kg (215 lb.) BSA: 2.2 m2 Gender: Male Examination: Echo Indication: Eval for syncope/History of PE and esophageal CA Image Quality: Contrast: Requested by: Nish Forman BP: 99 mmHg/77 mmHg Heart Rate: Rhythm: Indication: Eval for syncope/History of PE and esophageal CA Procedure Staff Ordering Physician: COURTNEY Fur Trimming Machine Operator: Citlalli Hearn Reading Physician: Pedro Le Conclusions: Normal size left ventricle. Global hypercontractility of the left ventricle (EF 72 %). Trivial mitral valve regurgitation. Mild aortic valve regurgitation is present. No pericardial effusion. There are no significant valvular abnormalities. Measurements: Chambers Valvular Assessment AV/MV Valvular Assessment TV/PV Normal Normal Normal Name Value Range Name Value Range Name Value Range Ao Zahraa (MM): 4.2 cm (2.2 cm-3.7 AV meanP mmHg ( - ) TR Vmax: 2.17 mm/s ( - ) cm) MV E Vmax: 0.64 cm/s ( - ) TR PGmax: 19 mmHg ( - ) IVSd (2D): 0.9 cm (0.6 cm-1.1 MV A Vmax: 1.08 cm/s ( - ) syst. PAP: 24 mmHg ( - ) cm) MV E/A: 0.59 ( - ) LVDd (2D): 4.8 cm (4.2 cm-5.9 cm) LVDs (2D): 2.8 cm (2.1 cm-4 cm) LVPWd (2D): 0.8 cm (0.6 cm-1 cm) LVEF (MOD4): 72 % (>=55 %) Continued Measurements: Chambers Valvular Assessment AV/MV Valvular Assessment TV/PV Name Value Name Value Name Value LA Area: 25.4 cm2 MV E' Septal: 0.07 m/s CVP (est.): 5 LA Volume: 81 ml MV E/E' Septal: 9.30 Patient: SHAI SERRANO Study Date: 06/22/2017 Page 1 of 2 09:21 AM LA Volume Index: 36.8 ml/m2 MV E/E' Lateral: 4.40 Additional Vessels Name Value Ao Ascendin.0 cm Findings: Left Ventricle: Normal size left ventricle. Global hypercontractility of the left ventricle (EF 72 %). All scored wall segments are normal. Right Ventricle: Normal size right ventricle. Left Atrium: The left atirum is borderline dilated. Right Atrium: The right atrium is normal in size. Chemo port visualized. Mitral Valve: The mitral valve is normal in appearance. Trivial mitral valve regurgitation. Aortic Valve: The aortic valve is tri-leaflet and functions normally. Mild aortic valve regurgitation is present. Tricuspid Valve: The tricuspid valve appears normal. Mild tricuspid regurgitation is present. The pulmonary artery pressure is normal. Pulmonic Valve: Pulmonary valve not well visualized. Great Vessels: Pericardium: No pericardial effusion. (No Signature Object) Wall Motion Scores Patient: SHAI SERRANO Study Date: 06/22/2017 Page 2 of 2 09:21 AM [id number]
[2017-06-23] MEDS ORDERED: LR 1,000 ML IV ONE (10:03)
--- NOTE | 2017-06-23 10:12 | PDANEPAE ---
ANE History of Present Illness 56 yo with esophageal cancer on chemo. ANE Past Medical History - Cardiovascular History Hx Hypertension: No Hx Arrhythmias: Yes Hx Chest Pain: No Hx Coronary Artery / Peripheral Vascular Disease: No Hx CHF / Valvular Disease: Yes Hx Palpitations: No Cardiovascular History Comment: CHF 11/2016. RARE IRREGULAR HEART BEAT - Pulmonary History Hx COPD: No Hx Asthma/Reactive Airway Disease: No Hx Recent Upper Respiratory Infection: No Hx Oxygen in Use at Home: No Hx Sleep Apnea: No Sleep Apnea Screening Result - Last Documented: Negative Pulmonary History Comment: PULMONARY EMBOLI - 11/2016 - Neurologic History Hx Cerebrovascular Accident: No Hx Seizures: No Hx Dementia: No - Endocrine History Hx Diabetes: No - Renal History Hx Renal Disorders: No - Liver History Hx Hepatic Disorders: Yes Hepatic History Comment: ESOPHAGEAL CA W/. METASTISIS TO LIVER - Neurological & Psychiatric Hx Hx Neurological and Psychiatric Disorders: No - Cancer History Hx Cancer: Yes Cancer History Comment: ESOPHAGEAL W/METS TO LIVER - Congenital Disorder History Hx Congenital Disorders: No - GI History Hx Gastrointestinal Disorders: Yes Gastrointestinal History Comment: TAKES PANTOPRAZOLE TO SETTLE STOMACH - Other Health History Other Health History: CHEMOTHERAPY TX 04/03/2017 - Chronic Pain History Chronic Pain: No - Surgical History Prior Surgeries: APPENDECTOMY. PORT PLACEMENT 09/2016. BX ESOPHAGEAL TUMOR ANE Review of Systems Review of Systems: ANE Patient History - Allergies Allergies/Adverse Reactions: No Known Allergies Allergy (Verified 06/22/17 00:34) - Home Medications Home medications: home medication list seen and reviewed Home Medications: Enoxaparin [Lovenox 100 MG (*)] 100 mg SQ BID 06/22/17 [Last Taken 06/22/17 06: 30] Pantoprazole Sodium [Protonix 40mg (*)] 40 mg PO DAILY 06/22/17 [Last Taken ] - NPO status NPO Status: no food or drink >8 hours NPO Since - Liquids (Date): 06/23/17 NPO Since - Liquids (Time): 00:00 - Anes Hx Anes Hx: no prior problems - Smoking Hx Smoking Status: Never smoked ANE Labs/Vital Signs - Labs Result Diagrams: 06/23/17 05:00 06/23/17 05:00 - Labs - CBC WBC: receiving transfusion in OCC - Vital Signs Blood Pressure: 90/60 Heart Rate: 98 Respiratory Rate: 12 O2 Sat (%): 93 Height: 182.88 cm Weight: 97.613 kg ANE Physical Exam - Airway Mallampati Score: Class 3 Mouth exam: normal dental/mouth exam - Cardiovascular Cardiovascular: regular rate and rhythym ANE Anesthesia Plan Anesthesia Plan: GA with mask Total IV Anesthesia: Yes
--- NOTE | 2017-06-23 10:47 | PDGENHP ---
History & Physical Chief Complaint: Hematemesis Relevant Physical Exam: GEN: NAD. Cardiac: RRR. Lungs: CTA B. Abd: Soft, nt, nd
[2017-06-23] MEDS ORDERED: PROPOFOL 200 MG/20 ML VIAL ONE ×2 (10:55→11:09)
[2017-06-23] MEDS ORDERED: EPINEPHrine 1 MG/10 ML SYR IVP ONE (11:10)
[2017-06-23] MEDS ORDERED: PROPOFOL/EMULSION 500 MG/50 ML BOTTLE IV ONE (11:10)
[2017-06-23] MEDS ORDERED: ALBUMIN 5% 250 ML BOTTLE IV ONE (11:24)
[2017-06-23] MEDS ORDERED: fentaNYL 100 MCG/2 ML INJ ONE (11:32)
[2017-06-23] MEDS ORDERED: SUCCINYLCHOLINE CHLORIDE*ANESTHESIA ONLY*200 MG/10 ML SYR IVP ONE (11:33)
[2017-06-23] MEDS ORDERED: PHENYLEPHRINE HCL 100 MCG/ML SYR ONE ×2 (11:33)
[2017-06-23] MEDS ORDERED: NOREPINEPHRINE/NS 4 MG/500 ML BAG IV ONE (11:43)
[2017-06-23] MEDS ORDERED: PROPOFOL/EMULSION 1,000 MG/100 ML BOTTLE IV ONE (11:51)
[2017-06-23] MEDS ORDERED: fentaNYL 100 MCG/2 ML INJ IVP PRN ×2 (12:14→17:07)
[2017-06-23] MEDS ORDERED: LR 500 ML IV PRN (12:14)
[2017-06-23] MEDS ORDERED: NALOXONE HCL 0.4 MG/ML INJ IVP PRN (12:14)
[2017-06-23 12:15] LABS: % IMMATURE GRANULYOCYTES 0.6 % (0.0-1.1); ABSOLUTE IMMATURE GRANULOCYTES 0.04 10^3/uL (0.00-0.10); ADD DIFF? NO; ADD MORPH? NO; ADD SCAN? NO; ATYPICAL LYMPHOCYTE FLAG 20 (0-99); FRAGMENT RBC FLAG 0 (0-99); HEMATOCRIT 23.5 % (40.0-51.0); HEMOGLOBIN 7.8 g/dL (13.7-17.5); LEFT SHIFT FLG 0 (0-99); LIPEMIA HEMOLYSIS FLAG 80 (0-99); MEAN CELL HEMOGLOBIN 32.1 pg (27.9-34.1); MEAN CELL HEMOGLOBIN CONCENTR. 33.2 g/dL (32.4-36.7); MEAN CELL VOLUME 96.7 fL (81.5-99.8); MEAN PLATELET VOLUME 10.3 fL (8.7-11.7); PLATELET CLUMPS FLAG 0 (0-99); PLATELET COUNT 106 10^3/uL (150-400); RED BLOOD CELL COUNT 2.43 10^6/uL (4.40-6.38); RED CELL DISTRIBUTION WIDTH 18.1 % (11.5-15.2)
--- NOTE | 2017-06-23 12:16 | POSTANESTH ---
Post Anesthetic Evaluation Cardiovascular Status: Tx Hyper/Hypo-tension (Hypovolemia secondary to bleeding , and sedation. Treated with colloids/pRBC/phenylephrine en route to ICU.), Tx Over/Under Hydration Respiratory Status: Other, See Comment (Pt intubated to isolate lungs from esophageal bleed. Pt had some blood aspiration during case prior to intubation.) Level of Consciousness/Mental Status: Moderately Sleepy Complications Possibly Related to Anesthesia: Other, See Comments Notes: Unable to assess pain and N/V secondary to sedation and intubation.
[2017-06-23 12:22] LABS: INR 1.08 (0.83-1.16); PROTIME(PATIENT) 13.9 SEC (12.0-15.0)
[2017-06-23 12:23] LABS: APTT 21.4 SEC (23.0-38.0)
[2017-06-23 12:29] LABS: ALANINE AMINOTRANSFERASE 49 IU/L (21-72); ALBUMIN 2.8 g/dL (3.5-5.0); ALKALINE PHOSPHATASE 58 IU/L (38-126); ANION GAP 9 mEq/L (8-16); ASPARTATE AMINOTRANSFERASE 41 IU/L (17-59); BILIRUBIN,TOTAL 0.5 mg/dL (0.1-1.4); CALCIUM 8.2 mg/dL (8.5-10.4); CARBON DIOXIDE 19 mEq/l (22-31); CHLORIDE 114 mEq/L (97-110); CREATININE 0.6 mg/dL (0.7-1.3); GLOMERULAR FILTRATION RATE > 60; GLUCOSE 91 mg/dL (70-100); POTASSIUM 4.4 mEq/L (3.5-5.2); SODIUM 142 mEq/L (134-144); TOTAL PROTEIN 5.7 g/dL (6.3-8.2)
[2017-06-23] MEDS: PANTOPRAZOLE SODIUM 40 MG in NS 100 ML IV SCH ×2 (12:56→20:45)
[2017-06-23] MEDS: PROPOFOL/EMULSION 100 ML IV SCH ×2 (12:57→20:27)
[2017-06-23] MEDS: NOREPINEPHRINE/NS 500 ML IV SCH ×2 (12:58→23:42)
--- NOTE | 2017-06-23 13:25 | GCON ---
[f rep st] CONSULTATION CRITICAL CARE CONSULT DATE OF CONSULTATION: 06/23/2017 HISTORY OF PRESENT ILLNESS: This patient is a 56-year-old male with a history of known esophageal ca ncer, stage IV, who has been actively getting chemotherapy, who developed a large-volume pulmonary em bolism in November of 2016 requiring lytic therapy. He was on pressors for about a week during that aurea e, but eventually was discharged home on Lovenox. He was admitted on with a syncopal event as well as hematemesis and drop in his hematocrit thought to be due to likely bleeding from his tumor. He was evaluated by GI, and an EGD was planned with general anesthesia. He was in the endoscopy laurel te, and the scope revealed friable mucosa and no active bleeding. There were some areas that looked like clipping might be useful to prevent further bleeding, but this was very difficult, and the clips did not take very well, and he subsequently had a large amount of bleeding with aspiration and airwa y compromise. He was subsequently intubated by Anesthesia without difficulty, and once his airway wa s secured, repeat endoscopy found the area of bleeding, and topical epinephrine was applied, and the bleeding seemed to be controlled. During the intubation, his blood pressure did drop. He received 1 dose of phenylephrine, and his blood pressure had normalized by the time he got to the intensive car e unit. In the ICU, he was awake but not combative and was relatively hemodynamically stable with minimal oxy gen requirements. Because of the propensity for rebleeding in this area, we elected to leave him int ubated for at least today. REVIEW OF SYSTEMS: Otherwise negative. PAST MEDICAL HISTORY: 1. Esophageal cancer as described above. 2. Pulmonary embolism in November 2016. 3. History of alcoholism. PAST SURGICAL HISTORY: Includes an appendectomy and a hernia repair. SOCIAL HISTORY: The details of his alcohol history are unknown to me at this time, but he is a nonsm oker. FAMILY HISTORY: Includes no malignancy that I am aware of. MEDICATIONS: Included Lovenox up until yesterday, fentanyl, Zofran, pantoprazole. PHYSICAL EXAMINATION: VITAL SIGNS: In the ICU, his blood pressure was 129/80, heart rate of 75, oxy gen saturation was 100%. GENERAL: He was mildly sedated on a ventilator. There was obvious blood i n the ET tube, which apparently had become substantially less since he received the topical epinephri ne. HEENT: His pupils were equally round, reactive to light. Nonicteric and noninjected. NECK: S upple without adenopathy or jugular vein distention. LUNGS: Breath sounds were somewhat coarse but mostly clear to auscultation without wheezing. HEART: Regular rate and rhythm without murmurs, rubs , gallops. ABDOMEN: Soft, nontender, nondistended with normoactive bowel tones. EXTREMITIES: No c lubbing, cyanosis, or edema. NEUROLOGIC: Grossly intact though suboptimal. SKIN: Warm and dry wit hout rash. OBJECTIVE DATA: Labs from early this morning with a white count of 3.8, hematocrit 22, platelets of 77, which had been falling. Basic metabolic panel was fairly unremarkable. Albumin was 2.4. Chest x-ray is pending at this time. ASSESSMENT AND PLAN: 1. Acute respiratory failure. Likely related to gastrointestinal bleeding with possible aspiration. I do not think that antibiotics are required at this time. A chest x-ray is pending, and depending on the results, we may do bronchoscopy. I think keeping his airway protected for the next 24 hours makes the most sense and will use normal sedation such as propofol for this purpose and titrate his v entilator as tolerated. My hope is to be able to extubate him first thing in the morning. 2. Anemia. It is unclear to me exactly how much blood was lost but will look at a repeat CBC, so we can evaluate his hemoglobin, hematocrit, and platelet count. In addition, will look at his coagulat ion factors to make sure those have normalized. 3. Hypotension. May have been just related to the intubation. He seems to be relatively stable at this time. Will have to watch this very closely. 4. Recent pulmonary embolism with an active malignancy. Clearly his risk for repeat pulmonary embol ism is quite high, and we will have to reintroduce anticoagulation at some point in the near future. I will discuss this more with Hematology/Oncology and Gastroenterology as soon as possible. A total of about 45 minutes of critical care time was required for this patient, who is critically il l. /[id number]/MODL
--- NOTE | 2017-06-23 14:47 | HOSPPROG ---
Hospitalist Progress Note Assessment/Plan: Assessment: 56-year-old male presents with acute upper gastrointestinal hemorrhage resulting in acute blood loss anemia, caused by bleeding vessel in his esophageal tumor Plan: 1. Upper gastrointestinal hemorrhage. Acute, secondary to a bleeding vessel in his esophageal cancer, has resulted in hemodynamic compromise including hypotension and anemia -discussed with Dr. Mir Carlos, he reports that he has clipped and injected epinephrine in the bleeding vessel, it appeared to have stopped bleeding, patient was transferred to the ICU and kept on ventilatory support in case he begins bleeding again and requires airway protection -continue IV PPI twice daily -continue holding systemic anti coagulation -I will discuss with Interventional Radiology, make them aware of the patient, and if he experiences recurrent bleeding, will recommend IR embolization 2. Acute blood loss anemia. Received 1 unit PRBC yesterday, received a 2nd unit PRBC today, repeat hemoglobin level stable at 7.8, repeat q.6 hours hemoglobin levels beginning at 6:00 p.m. and transfuse for levels less than 7 or recurrent episodes of active bleeding 3. Esophageal cancer, stage IV. Patient has undergone chemo and radiation treatment for esophageal malignancy at his gastroesophageal junction -per discussion with Dr. Mir Carlos, the patient's liver metastases have responded well to chemotherapy -the tumor has visibly shrunk from previous upper endoscopy -interventionally, they are very limited options for bleeding vessels in tumors , and the next option would be for interventional radiology embolization -discussed with Dr. Evelia Bryant, she has updated the patient's regarding his current situation -I have updated patient's primary oncologist Dr. Mirna Angeles -recommend palliative goals of care discussion with the patient and his family tomorrow once he has been safely extubated, order placed 4. Pulmonary embolism. Patient experienced massive pulmonary embolism earlier this year, required lytics and has been on systemic anticoagulation thereafter -the patient will most likely require IVC filter placement and this can be discussed with the patient tomorrow after he has been extubated, we address his goals of care -continue holding systemic anticoagulation 5. Orthostatic hypotension. The patient's initial presentation was for syncope secondary to orthostatic hypotension, secondary to the conditions outlined above -additional workup was performed which ruled out adrenal insufficiency, thyroid abnormality, established that the patient was not volume responsive to normal saline alone, as he was persistently orthostatic prior to declaring himself with the overt hematemesis experienced yesterday Diet. NPO Prophylaxis. High risk patient, SCDs Code. Full code at present Disposition. Anticipated discharge uncertain this time, upgraded to inpatient admission status for reasonable medical necessity including hemodynamically compromising upper gastrointestinal hemorrhage the setting of stage IV esophageal cancer. 45 minutes of critical care time spent with this patient, after mentioned consulting providers, addressing the issues as outlined above. Patient remains critically ill with high risk of worsening morbidity and/or mortality. Subjective: patient reports that back of throat uncomfortable, feels like he needs to gag on ET Objective: Vital Signs Temp Pulse Resp BP Pulse Ox 36.8 C 85 14 104/68 100 06/23/17 12:14 06/23/17 14:00 06/23/17 14:00 06/23/17 14:00 06/23/17 14:00 Laboratory Results 06/23/17 11:50 06/23/17 11:50 06/22/17 06/23/17 06/24/17 05:59 05:59 05:59 Intake Total 1500 4300 Output Total 300 Balance 1500 4000 PT 13.9 SEC (12.0-15.0) 06/23/17 11:50 INR 1.08 (0.83-1.16) 06/23/17 11:50 - Physical Exam Constitutional: no apparent distress, not in pain, uncomfortable Ears, Nose, Mouth, Throat: other (ET in place) Cardiovascular: tachycardia, No systolic murmur, No edema Respiratory: no respiratory distress, no rales or rhonchi, clear to auscultation , other (coughed up bloodied secretions) Gastrointestinal: normoactive bowel sounds, soft, non-tender abdomen, no palpable masses, No distension Neurologic: other (responding to verbal stimuli) Psychiatric: not anxious, No agitated ICD10 Worksheet Patient Problems: Problems Problem Status Onset Esophageal mass Acute Syncope Acute Hypotension Acute Sepsis Acute Dehydration Acute
[2017-06-23 17:45] LABS: HEMATOCRIT 22.4 % (40.0-51.0); HEMOGLOBIN 7.5 g/dL (13.7-17.5)
--- NOTE | 2017-06-23 18:46 | SOAPPROG ---
SOAP Progress Note Assessment/Plan: Assessment: * UGI bleed secondary to bleeding vessel in distal esophageal malignancy-EGD today reportedly identified bleeding vessel that was injected with epi. [place] to be at high risk of rebleed in the immediate future. 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 Patient completed palliative course of radiation to the distal esophagus approximately one month ago. * PE with syncope-in november. Has been on therapeutic lovenox. Currently being held in light of recent GI bleed. May need IVC filter. Plan: * Serial Hcts * Anticipate extubation tomorrow if stable. * Will discuss with GI in terms of safety of resuming anticoagulation at some point. 06/23/17 18:41 06/23/17 18:47 Subjective: awake, intubated. alert Objective: Vital Signs Temp Pulse Resp BP Pulse Ox 36.8 C 84 38 H 102/61 100 06/23/17 12:14 06/23/17 18:00 06/23/17 18:00 06/23/17 17:00 06/23/17 18:00 Laboratory Results 06/23/17 17:07 06/22/17 06/23/17 06/24/17 05:59 05:59 05:59 Intake Total 1366.2 Output Total 300 Balance 1066.2 PT 13.9 SEC (12.0-15.0) 06/23/17 11:50 INR 1.08 (0.83-1.16) 06/23/17 11:50 Physical Exam - Physical Exam General Appearance: WD/WN, alert Respiratory: lungs clear Abdomen: non-tender, soft Neuro/Psych: alert ICD10 Worksheet Patient Problems: Problems Problem Status Onset Dehydration Acute Syncope Acute Esophageal mass Acute Hypotension Acute Sepsis Acute
[2017-06-23] MEDS: NS 1,000 ML IV SCH (23:42)
[2017-06-24 00:38] LABS: HEMATOCRIT 25.4 % (40.0-51.0); HEMOGLOBIN 8.7 g/dL (13.7-17.5)
[2017-06-24] MEDS: PROPOFOL/EMULSION 100 ML IV SCH (02:45)
[2017-06-24 06:02] LABS: HEMATOCRIT 25.5 % (40.0-51.0); HEMOGLOBIN 8.8 g/dL (13.7-17.5)
[2017-06-24 06:30] LABS: ANION GAP 6 mEq/L (8-16); CALCIUM 8.2 mg/dL (8.5-10.4); CARBON DIOXIDE 21 mEq/l (22-31); CHLORIDE 115 mEq/L (97-110); CREATININE 0.6 mg/dL (0.7-1.3); GLOMERULAR FILTRATION RATE > 60; GLUCOSE 105 mg/dL (70-100); POTASSIUM 3.6 mEq/L (3.5-5.2); SODIUM 142 mEq/L (134-144)
[2017-06-24] MEDS: NS 1,000 ML IV SCH (08:35)
[2017-06-24] MEDS: NOREPINEPHRINE/NS 500 ML IV SCH (08:35)
[2017-06-24] MEDS: PANTOPRAZOLE SODIUM 40 MG in NS 100 ML IV SCH ×2 (08:35→21:30)
[2017-06-24] MEDS: ENOXAPARIN 100 MG/ML SYR SC SCH (11:34)
--- NOTE | 2017-06-24 11:40 | HOSPPROG ---
Hospitalist Progress Note Assessment/Plan: # UGIB d/t esophageal tumor - s/p EGD, epi injected - IR embolization if rebleeds - cont protonix # ABLA s/p 1U PRBC # metastatic esophageal cancer s/p chemo and XRT # PE 11/2016 requiring IA thrombolysis; I am concerned clinically for a RLE DVT - i think he will need an IVCF - I have placed a call to Dr Angeles to discuss ; will also d/w GI Subjective: s/p EGD where epi was injected into esophageal mass; left intubated overnight for airway protection, extubated this am; no pain Objective: Vital Signs Temp Pulse Resp BP Pulse Ox 37.6 C 77 9 L 128/73 H 99 06/23/17 20:45 06/24/17 08:05 06/24/17 08:00 06/24/17 08:00 06/24/17 08:05 Laboratory Results 06/24/17 05:50 06/24/17 05:50 06/23/17 06/24/17 06/25/17 05:59 05:59 05:59 Intake Total 4367.2 Output Total 1200 Balance 3167.2 PT 13.9 SEC (12.0-15.0) 06/23/17 11:50 INR 1.08 (0.83-1.16) 06/23/17 11:50 - Physical Exam Constitutional: no apparent distress, appears nourished Cardiovascular: regular rate and rhythym, no murmur, rub, or gallop Respiratory: no respiratory distress, no rales or rhonchi, clear to auscultation Gastrointestinal: normoactive bowel sounds, soft, non-tender abdomen, no palpable masses Musculoskeletal: other (RLE with 1+ edema, warm) ICD10 Worksheet Patient Problems: Problems Problem Status Onset Esophageal mass Acute Syncope Acute Hypotension Acute Sepsis Acute Dehydration Acute
--- NOTE | 2017-06-24 14:09 | SOAPPROG ---
SOASHVIN Progress Note Assessment/Plan: Assessment: Esophageal cancer with bleed from vessel in tumor. Difficult to treat endoscopically but bleeding eventually controlled with injection therapy. Overall high risk for rebleeding at some point so would favor no anticoagulation. This would not be amenable to further endoscopic treatment. Plan: Recommend no anticoagulation and placemetn of IVC filter to reduce risk of PE Consider IR for embolization if rebleeds and patient desires to continue aggressive therapy. 06/24/17 14:06 Subjective: CC hematemesis Extubated no n/v Objective: Vital Signs Temp Pulse Resp BP Pulse Ox 37.2 C 90 12 115/66 98 06/24/17 11:00 06/24/17 13:00 06/24/17 13:00 06/24/17 13:00 06/24/17 13:00 Laboratory Results 06/24/17 05:50 06/24/17 05:50 06/23/17 06/24/17 06/25/17 05:59 05:59 05:59 Intake Total 4367.2 Output Total 1200 300 Balance 3167.2 -300 PT 13.9 SEC (12.0-15.0) 06/23/17 11:50 INR 1.08 (0.83-1.16) 06/23/17 11:50 Physical Exam - Physical Exam General Appearance: no apparent distress Respiratory: lungs clear Cardiac/Chest: regular rate, rhythm Abdomen: non-tender ICD10 Worksheet Patient Problems: Problems Problem Status Onset Dehydration Acute Syncope Acute Esophageal mass Acute Hypotension Acute Sepsis Acute
--- NOTE | 2017-06-24 14:11 | PDINTPN ---
Selling Manager Progress Note Assessment/Plan: Assessment/plan: 56 M with known esophageal cancer admitted 06/21 with GIB and syncope. He was stabilized overnight and underwent EGD 06/23 where a bleeding site was noted on his tumor. Attempts were made to clip this site, but was unsuccessful and complicated by brisk additional bleeding requiring of procedure and emergent intubation for airway protection. Once the airway was secure, the scope was re-introduced and epinephrine was injected into the bleeding site. He was then transferred to the ICU where a transient decrease in BP resolved. * UGIB related to tumor burden. Hemodynamically stable at the moment but at high risk for rebleed. Have discussed with GI and in that event would be candidate for IR embolization and not likely amenable to further endoscopic intervention. * Acute respiratory failure with hypoxia- stable overnight and easily extubated this am. No evidence for aspiration pneumonia at this time. * Esophageal cancer- defer to oncology for further management. * Pulmonary embolism 11/2016- will need eventual anticoagulation. Would favor IVC filter at this time since his VTE risk is quite high. Subjective: stable overnight on vent Objective: Vital Signs Temp Pulse Resp BP Pulse Ox 37.2 C 90 12 115/66 98 06/24/17 11:00 06/24/17 13:00 06/24/17 13:00 06/24/17 13:00 06/24/17 13:00 Laboratory Results 06/24/17 05:50 06/24/17 05:50 06/23/17 06/24/17 06/25/17 05:59 05:59 05:59 Intake Total 4367.2 Output Total 1200 300 Balance 3167.2 -300 PT 13.9 SEC (12.0-15.0) 06/23/17 11:50 INR 1.08 (0.83-1.16) 06/23/17 11:50 Physical Exam - Physical Exam General Appearance: alert, no apparent distress EENT: PERRL/EOMI Neck: supple Respiratory: lungs clear, normal breath sounds, No respiratory distress Cardiac/Chest: regular rate, rhythm Abdomen: non-tender, soft, No distended Skin: normal color, warm/dry Lymphatic: no adenopathy Extremities: non-tender Neuro/Psych: alert, normal mood/affect ICD10 Worksheet Patient Problems: Problems Problem Status Onset Dehydration Acute Syncope Acute Esophageal mass Acute Hypotension Acute Sepsis Acute
[2017-06-24 15:32] LABS: HEMATOCRIT 26.8 % (40.0-51.0)
[2017-06-24] MEDS ORDERED: fentaNYL 100 MCG/2 ML INJ ONE (15:56)
[2017-06-24] MEDS ORDERED: MIDAZOLAM 2 MG/2 ML VIAL ONE (15:57)
--- NOTE | 2017-06-24 15:58 | SOAPPROG ---
STEPH Progress Note Assessment/Plan: Assessment: * UGI bleed secondary to bleeding vessel in distal esophageal malignancy-. [place] to be at high risk of rebleed in the immediate future. IVC filter to be placed. Will discuss with IR regarding possibility of embolization. Patient finished XRT to distal esophagus approx 4 weeks ago. ? if additional healing would decrease bleeding risk. 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 Patient completed palliative course of radiation to the distal esophagus approximately one month ago. * PE with syncope-in november. IVC filter. Will continue to be at high risk of thrombosis if not anticoagulated. Subjective: awake alert, tired. Objective: Vital Signs Temp Pulse Resp BP Pulse Ox 37.2 C 90 12 115/66 90 L 06/24/17 11:00 06/24/17 13:00 06/24/17 13:00 06/24/17 13:00 06/24/17 14:49 Laboratory Results 06/24/17 15:25 06/24/17 05:50 06/23/17 06/24/17 06/25/17 05:59 05:59 05:59 Intake Total 4367.2 Output Total 1200 300 Balance 3167.2 -300 PT 13.9 SEC (12.0-15.0) 06/23/17 11:50 INR 1.08 (0.83-1.16) 06/23/17 11:50 Physical Exam - Physical Exam General Appearance: other (fatigued) Respiratory: lungs clear Abdomen: non-tender, soft ICD10 Worksheet Patient Problems: Problems Problem Status Onset Dehydration Acute Syncope Acute Esophageal mass Acute Hypotension Acute Sepsis Acute
--- NOTE | 2017-06-24 16:14 | POSTOPPROG ---
Post Op Note Date of Operation: 06/24/17 Surgeon: Tianna Mayo Anesthesia: IV Sedation (fentanyl and versed) Pre-op Diagnosis: PE and GIB Post-op Diagnosis: same Indication: contraindication to anticoagulation Procedure: filter placement Findings: see report Inf/Abcess present in the surg proc area at time of surgery?: No Depth: Superfical (Skin SQ) Complications: none
[2017-06-24] MEDS ORDERED: IOPAMIDOL (ISOVUE-300) 100 ML BTL ONE (16:21)
--- NOTE | 2017-06-24 20:29 | GIREPORT ---
[facility] Surgical [facility] - Endoscopy Department Patient Name: Estuardo Queen Procedure Date: 06/23/2017 10:55 AM Patient Type: Inpatient Attending MD/ ER Physician: Mir Carlos MD Procedure: Upper GI endoscopy Indications: Hematemesis. Providers: Mir Carlos MD Medicines: General Anesthesia Complications: No immediate complications. Description of Procedure: After obtaining informed consent, the endoscope was passed under direct vision. Throughout the procedure, the patient's blood pressure, pulse, and oxygen saturations were monitored continuous ly. The Endoscope was introduced through the mouth, and advanced to the second part of duodenum. The upper GI endoscopy was accomplished without difficulty. The patient tolerated the procedure well . Findings: A large, ulcerating mass with bleeding and stigmata of recent bleeding was found in the distal esophagus. Reed's and esophagitis extends from 30cm to 35cm from the incisors. The ulcerated mass lesion starts at 35cm and extends to 40cm from the incisors. A visible vessel is seen at 38cm fr om the incisors. The mass was non-obstructing and not circumferential. I initially attempted to efrain ce a hemoclip over the vessel which was unsuccessful secondary to hard tumor and inability of the cli p to grasp any tissue. This resulted in more bleeding from the vessel. Therefore the ulcerated mass w as injected with 5 mL of a 1:10,000 solution of epinephrine for hemostasis. Although the bleeding slowed, it did not stop completely. Therefore the patient was then intubated to secure his airwa y. The endoscope was then reinserted and an additional 3ml of 1:10,000 was injected into the site resulting in hemostasis. Red blood was found in the cardia and on the greater curvature of the stomach. 1cm nodule in the gastric antrum. Metastastic deposit? The examined duodenum was normal. Estimated Blood Loss: Estimated blood loss: none. Post Op Diagnosis: - Malignant esophageal tumor was found in the distal esophagus. Injected with epinephrine. Attem pt an hemoclip placement was unsuccessful. No bleeding was seen at the end of procedure. - Red blood in the cardia and in the greater curvature of the stomach. A 1cm nodule was seen in the gastric antrum which may be a metastatic deposit. - Normal examined duodenum other than red blood. - No specimens collected. Recommendation: - Transfer patient to ICU. - Give Protonix (pantoprazole): 8 mg/hr IV by continuous infusion for 3 days. - High risk lesion associated from vessel located within tumor. - Would not plan to restart anticoagulation at this point. - Options are limited if rebleeding occurs, but would consider a family discussion about possibl e IR embolization. - Will follow along closely. Attending Participation: I personally performed the entire procedure. Mir Carlos MD Mir Carlos MD 06/23/2017 11:49:09 AM Number of Addenda: 0 Note Initiated On: 06/23/2017 10:55 AM [email or web address]
[2017-06-25] MEDS: NS 1,000 ML IV SCH ×3 (00:21→20:41)
[2017-06-25 06:46] LABS: % IMMATURE GRANULYOCYTES 0.4 % (0.0-1.1); ABSOLUTE IMMATURE GRANULOCYTES 0.02 10^3/uL (0.00-0.10); ADD DIFF? NO; ADD MORPH? NO; ADD SCAN? NO; ATYPICAL LYMPHOCYTE FLAG 20 (0-99); FRAGMENT RBC FLAG 0 (0-99); HEMATOCRIT 23.3 % (40.0-51.0); HEMOGLOBIN 7.8 g/dL (13.7-17.5); LEFT SHIFT FLG 0 (0-99); LIPEMIA HEMOLYSIS FLAG 80 (0-99); MEAN CELL HEMOGLOBIN 31.8 pg (27.9-34.1); MEAN CELL HEMOGLOBIN CONCENTR. 33.5 g/dL (32.4-36.7); MEAN CELL VOLUME 95.1 fL (81.5-99.8); MEAN PLATELET VOLUME 10.4 fL (8.7-11.7); PLATELET CLUMPS FLAG 0 (0-99); PLATELET COUNT 64 10^3/uL (150-400); RED BLOOD CELL COUNT 2.45 10^6/uL (4.40-6.38); RED CELL DISTRIBUTION WIDTH 17.6 % (11.5-15.2)
[2017-06-25 07:09] LABS: ANION GAP 7 mEq/L (8-16); CALCIUM 8.1 mg/dL (8.5-10.4); CARBON DIOXIDE 21 mEq/l (22-31); CHLORIDE 111 mEq/L (97-110); CREATININE 0.6 mg/dL (0.7-1.3); GLOMERULAR FILTRATION RATE > 60; GLUCOSE 82 mg/dL (70-100); POTASSIUM 3.4 mEq/L (3.5-5.2); SODIUM 139 mEq/L (134-144)
[2017-06-25] MEDS: PANTOPRAZOLE SODIUM 40 MG in NS 100 ML IV SCH ×2 (09:04→20:38)
--- NOTE | 2017-06-25 10:28 | SOAPPROG ---
SOAP Progress Note Assessment/Plan: Assessment: Pt with GIB from vv in eso tumor stopped post injection without rebleeding but still overall high risk for eventual rebleed. Drop in H+H from bleed post IVC filter but resolved now. Plan: Slowly advance diet starting with clear liq today If no rebleeding then d/c when H+H stable If rebleeding rec consider IR for embolization Subjective: CC hematemesis pt had bleed at puncture site from IVC filter yesterday. No further GI bleeding Objective: Vital Signs Temp Pulse Resp BP Pulse Ox 37.0 C 88 18 110/64 95 06/25/17 08:00 06/25/17 08:00 06/25/17 08:00 06/25/17 08:00 06/25/17 08:00 Laboratory Results 06/25/17 05:45 06/25/17 05:45 06/24/17 06/25/17 06/26/17 05:59 05:59 05:59 Intake Total 4367.2 2450 Output Total 1200 600 Balance 3167.2 1850 PT 13.9 SEC (12.0-15.0) 06/23/17 11:50 INR 1.08 (0.83-1.16) 06/23/17 11:50 Physical Exam - Physical Exam General Appearance: alert, no apparent distress Respiratory: lungs clear Cardiac/Chest: regular rate, rhythm Abdomen: non-tender, soft ICD10 Worksheet Patient Problems: Problems Problem Status Onset Dehydration Acute Syncope Acute Esophageal mass Acute Hypotension Acute Sepsis Acute
--- NOTE | 2017-06-25 12:16 | SOAPPROG ---
STEPH Progress Note Assessment/Plan: Assessment: * UGI bleed secondary to bleeding vessel in distal esophageal malignancy-. [place] to be at high risk of rebleed in the immediate future. IVC filter placed with some bleeding at stick site. Embolization a consideration if he rebleeds. Patient finished XRT to distal esophagus approx 4 weeks ago. ? if additional healing would decrease bleeding risk. 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 Patient completed palliative course of radiation to the distal esophagus approximately one month ago. * PE with syncope-in november. Now with IVC filter. Will continue to be prothrombotic and be at some risk for recurrent DVT/PE. Discussed issues at length with patient. He understands risk of both rebleed and another thromboembolic event. Can reconsider low dose anticoag in a few weeks if no evidence of rebleed. Will need to be seen in the office early next week. Will plan on holding chemo for now and follow Hgb closely in the coming weeks. Subjective: sitting up in a chair. Feels better. Slightly sore throat. Objective: Vital Signs Temp Pulse Resp BP Pulse Ox 36.8 C 92 16 98/60 L 98 06/25/17 11:23 06/25/17 11:23 06/25/17 11:23 06/25/17 11:23 06/25/17 11:23 Laboratory Results 06/25/17 05:45 06/25/17 05:45 06/24/17 06/25/17 06/26/17 05:59 05:59 05:59 Intake Total 4367.2 2450 Output Total 1200 600 Balance 3167.2 1850 PT 13.9 SEC (12.0-15.0) 06/23/17 11:50 INR 1.08 (0.83-1.16) 06/23/17 11:50 Physical Exam - Physical Exam General Appearance: alert, no apparent distress Neck: supple Respiratory: lungs clear Abdomen: non-tender, soft Neuro/Psych: alert, normal mood/affect ICD10 Worksheet Patient Problems: Problems Problem Status Onset Dehydration Acute Syncope Acute Esophageal mass Acute Hypotension Acute Sepsis Acute
--- NOTE | 2017-06-25 15:29 | HOSPPROG ---
Hospitalist Progress Note Assessment/Plan: # UGIB d/t esophageal tumor - s/p EGD, epi injected - IR embolization if rebleeds - cont protonix - clears # ABLA s/p 4U PRBC # metastatic esophageal cancer s/p chemo and XRT - good response to folfox # PE 11/2016 requiring IA thrombolysis - s/p IVC filter yesterday Subjective: s/p IVC filter; some bleeding from groin sight; normal BM today Objective: Vital Signs Temp Pulse Resp BP Pulse Ox 36.8 C 92 16 98/60 L 98 06/25/17 11:23 06/25/17 11:23 06/25/17 11:23 06/25/17 11:23 06/25/17 11:23 Laboratory Results 06/25/17 05:45 06/25/17 05:45 06/24/17 06/25/17 06/26/17 05:59 05:59 05:59 Intake Total 4367.2 2450 320 Output Total 1200 600 Balance 3167.2 1850 320 PT 13.9 SEC (12.0-15.0) 06/23/17 11:50 INR 1.08 (0.83-1.16) 06/23/17 11:50 high risk - Physical Exam Constitutional: no apparent distress, appears nourished Cardiovascular: regular rate and rhythym, systolic murmur, No irregularly irregular, No diastolic murmur Respiratory: no respiratory distress, no rales or rhonchi, clear to auscultation Gastrointestinal: normoactive bowel sounds, soft, non-tender abdomen, no palpable masses ICD10 Worksheet Patient Problems: Problems Problem Status Onset Esophageal mass Acute Syncope Acute Hypotension Acute Sepsis Acute Dehydration Acute
[2017-06-25 18:33] LABS: HEMATOCRIT 25.2 % (40.0-51.0); HEMOGLOBIN 8.5 g/dL (13.7-17.5)
[2017-06-26 00:42] LABS: HEMATOCRIT 22.8 % (40.0-51.0); HEMOGLOBIN 7.6 g/dL (13.7-17.5)
[2017-06-26 04:55] LABS: HEMATOCRIT 22.7 % (40.0-51.0); HEMOGLOBIN 7.7 g/dL (13.7-17.5)
[2017-06-26 05:05] LABS: ANION GAP 6 mEq/L (8-16); CALCIUM 7.9 mg/dL (8.5-10.4); CARBON DIOXIDE 21 mEq/l (22-31); CHLORIDE 108 mEq/L (97-110); CREATININE 0.6 mg/dL (0.7-1.3); GLOMERULAR FILTRATION RATE > 60; GLUCOSE 80 mg/dL (70-100); POTASSIUM 3.2 mEq/L (3.5-5.2); SODIUM 135 mEq/L (134-144)
[2017-06-26] MEDS: NS 1,000 ML IV SCH ×2 (06:31→17:44)
[2017-06-26] MEDS: PANTOPRAZOLE SODIUM 40 MG in NS 100 ML IV SCH ×2 (08:01→21:03)
[2017-06-26] MEDS ORDERED: POTASSIUM CL 20 MEQ TAB PO ONE (11:48)
--- NOTE | 2017-06-26 11:53 | SOAPPROG ---
SOAP Progress Note Assessment/Plan: Assessment: Pt with GIB from vv in eso tumor stopped post injection without rebleeding but still overall high risk for eventual rebleed. Drop in H+H from bleed post IVC filter but resolved now. Plan: Slowly advance diet starting with clear liq today If no rebleeding then d/c when H+H stable If rebleeding rec consider IR for embolization 06/26/17 11:52 a/ No rebleeding has done well p/ OK to advance diet Will sign off for now Subjective: CC UGIB No n/v passing some melena today Objective: Vital Signs Temp Pulse Resp BP Pulse Ox 36.9 C 84 20 115/71 95 06/26/17 07:15 06/26/17 07:15 06/26/17 07:15 06/26/17 07:15 06/26/17 07:15 Laboratory Results 06/26/17 04:45 06/26/17 04:45 06/25/17 06/26/17 06/27/17 05:59 05:59 05:59 Intake Total 2450 2470 105 Output Total 600 Balance 1850 2470 105 PT 13.9 SEC (12.0-15.0) 06/23/17 11:50 INR 1.08 (0.83-1.16) 06/23/17 11:50 Physical Exam - Physical Exam General Appearance: alert Respiratory: lungs clear Cardiac/Chest: regular rate, rhythm Abdomen: non-tender, soft ICD10 Worksheet Patient Problems: Problems Problem Status Onset Dehydration Acute Syncope Acute Esophageal mass Acute Hypotension Acute Sepsis Acute
--- NOTE | 2017-06-26 16:19 | PDPCPN ---
Palliative Care Progress Note Assessment/Plan: Referring provider: Dr Forman Reason for consult: Complex medical decision making Symptom control HPI: Estuardo Queen (Don) is a 56 yo male with PMH stage IV esophageal cancer admitted to the hospital with syncope. Found to have acute UGI bleed s/p EGD with epi but unable to place clip. Given PRRBC and no evidence of rebleed yet. s/p IVC filter for history of massive PE 11/2016. Palliative care consulted for complex medical decision making. Met with Hussain and his Miryam at the bedside this afternoon. We spoke about advanced care planning specifically MDPOA and MOST form. Miryam and Hussain feel they have had some talks of end of life planning but have not gone into details. They realize they need to continue to have conversations to find out what Hussain would and would not want. Hussain feels he has been doing relatively well with a good quality of life. He has had to cut back on some physical activity but is still able to travel/camp and do the things he enjoys. He is hoping to stable his disease with treatment for as long as possible. Filled out a MDPOA form and discussed the MOST form. They are still deciding what to put on the MOST form and understand they can always follow up at [facility] for further discussions if needed. Assessment: Physical: - weakness: - slight weakness, PT/OT if needed - poor appetite: slowly returning after being NPO - slow and easy to digest foods Emotional/psychological: doing ok and well supported by Advanced Care Planning: Is patient decisional?: Yes Code Status: Full MD POA: Miryam is MDPOA Plan: Helped fill out advance care planning directives as well as started discussion about goals of care and quality of life. Hussain is hoping to continue treatment once he is recovered to continue to have his disease stable for as long as possible. Subjective: I'm doing ok today Objective: Social History: to Miryam. 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 Lives in [place] with his 2 cats and Miryam. Enjoys [employer], skiing and camping. Medication list reviewed ROS: General: fatigue, weakness, weight loss ENT: negative Resp: negative GI: poor appetite : negative MS: negative Skin: negative Neuro: negative Psych: negative Functional assessment: PPS: 70% Functional status: independent Vital Signs Temp Pulse Resp BP Pulse Ox 36.8 C 89 22 H 129/79 H 92 06/26/17 15:09 06/26/17 15:09 06/26/17 15:09 06/26/17 15:09 06/26/17 15:09 Laboratory Results 06/26/17 04:45 06/26/17 04:45 06/25/17 06/26/17 06/27/17 05:59 05:59 05:59 Intake Total 2450 2470 855 Output Total 600 Balance 1850 2470 855 PT 13.9 SEC (12.0-15.0) 06/23/17 11:50 INR 1.08 (0.83-1.16) 06/23/17 11:50 Physical Exam - Physical Exam General Appearance: alert, no apparent distress Respiratory: No respiratory distress, No accessory muscle use Skin: normal color, warm/dry Extremities: No pedal edema Neuro/Psych: alert, oriented x 3 ICD10 Worksheet Patient Problems: Problems Problem Status Onset Dehydration Acute Esophageal mass Acute Hypotension Acute Palliative care encounter Acute Sepsis Acute Syncope Acute - ICD10 Problem Qualifiers (1) Palliative care encounter
--- NOTE | 2017-06-26 16:31 | HOSPPROG ---
Hospitalist Progress Note Assessment/Plan: # UGIB d/t esophageal tumor - s/p EGD, epi injected - IR embolization if rebleeds - cont protonix - ADAT # ABLA s/p 4U PRBC # metastatic esophageal cancer s/p chemo and XRT - good response to folfox # PE 11/2016 requiring IA thrombolysis - s/p IVC filter; high risk for ongoing VTE events Subjective: ongoing melena; slight abd pain; ate lunch Objective: Vital Signs Temp Pulse Resp BP Pulse Ox 36.8 C 89 22 H 129/79 H 92 06/26/17 15:09 06/26/17 15:09 06/26/17 15:09 06/26/17 15:09 06/26/17 15:09 Laboratory Results 06/26/17 04:45 06/26/17 04:45 06/25/17 06/26/17 06/27/17 05:59 05:59 05:59 Intake Total 2450 2470 855 Output Total 600 Balance 1850 2470 855 PT 13.9 SEC (12.0-15.0) 06/23/17 11:50 INR 1.08 (0.83-1.16) 06/23/17 11:50 - Physical Exam Constitutional: no apparent distress, appears nourished Cardiovascular: regular rate and rhythym, no murmur, rub, or gallop Respiratory: no respiratory distress, no rales or rhonchi, clear to auscultation Gastrointestinal: normoactive bowel sounds, soft, non-tender abdomen, no palpable masses ICD10 Worksheet Patient Problems: Problems Problem Status Onset Esophageal mass Acute Syncope Acute Hypotension Acute Sepsis Acute Dehydration Acute Palliative care encounter Acute
[2017-06-26] MEDS ORDERED: PROTOCOL MAGNESIUM 1 DOSE IV PRN (17:46)
[2017-06-26] MEDS ORDERED: PROTOCOL POTASSIUM 1 DOSE MISC PRN (17:46)
[2017-06-26] MEDS ORDERED: PROTOCOL K PHOSPHATE 1 DOSE IV PRN (17:46)
[2017-06-26 19:31] LABS: MAGNESIUM 1.8 mg/dL (1.6-2.3); POTASSIUM 3.4 mEq/L (3.5-5.2)
[2017-06-26 19:43] LABS: TROPONIN I 0.053 ng/mL (0.000-0.034)
--- NOTE | 2017-06-26 20:00 | SOAPPROG ---
SOAP Progress Note Assessment/Plan: Assessment: * UGI bleed secondary to bleeding vessel in distal esophageal malignancy: [place] to be at high risk of rebleed in the immediate future. Patient finished XRT to distal esophagus approx 4 weeks ago. IVC filter placed with discontinuation of anticoagulation (Lovenox BID). Question if some healing may occur farther from RT and ?anticoagulation can be reconsidered. 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 Patient completed palliative course of radiation to the distal esophagus approximately one month ago. * PE with syncope 11/2016: Now with IVC filter. Will continue to be prothrombotic and be at some risk for recurrent DVT/PE. When he is ready for d/c, Dr. Angeles has arranged close f/u of H/H in the office. 06/26/17 19:55 Subjective: S: Still with some melena. No dizziness. Eating solids today. present. O: VSS. Gen: NAD, A&O. Lungs: breathing comfortably. Abd: soft, NT. Laboratory Tests 06/25/17 06/25/17 06/26/17 05:45 18:15 00:18 WBC 4.53 Hgb 7.8 L 8.5 L 7.6 L Plt Count 64 L Potassium Chloride Carbon Dioxide BUN Creatinine Glucose 06/26/17 06/26/17 04:45 04:45 WBC Hgb 7.7 L Plt Count Potassium 3.2 L Chloride 108 Carbon Dioxide 21 L BUN 9 Creatinine 0.6 L Glucose 80 Objective: Vital Signs Temp Pulse Resp BP Pulse Ox 36.8 C 98 20 122/73 H 93 06/26/17 19:37 06/26/17 19:37 06/26/17 19:37 06/26/17 19:37 06/26/17 19:37 Laboratory Results 06/26/17 04:45 06/26/17 18:40 06/25/17 06/26/17 06/27/17 05:59 05:59 05:59 Intake Total 2450 2470 1845 Output Total 600 Balance 1850 2470 1845 PT 13.9 SEC (12.0-15.0) 06/23/17 11:50 INR 1.08 (0.83-1.16) 06/23/17 11:50 ICD10 Worksheet Patient Problems: Problems Problem Status Onset Dehydration Acute Palliative care encounter Acute Syncope Acute Esophageal mass Acute Hypotension Acute Sepsis Acute
[2017-06-26] MEDS ORDERED: POTASSIUM CL 10 MEQ TAB PO ONE (20:43)
[2017-06-27 04:29] LABS: MAGNESIUM 1.8 mg/dL (1.6-2.3); POTASSIUM 3.8 mEq/L (3.5-5.2)
[2017-06-27 04:41] LABS: TROPONIN I 0.056 ng/mL (0.000-0.034)
[2017-06-27] MEDS ORDERED: POTASSIUM CL 10 MEQ TAB PO ONE (07:46)
[2017-06-27] MEDS ORDERED: MAGNESIUM SULF 1 GM/DEXTROSE 100 ML IV ONE (07:46)
[2017-06-27] MEDS: PANTOPRAZOLE SODIUM 40 MG in NS 100 ML IV SCH ×2 (08:13→21:27)
[2017-06-27 10:07] LABS: HEMATOCRIT 24.5 % (40.0-51.0); HEMOGLOBIN 8.5 g/dL (13.7-17.5)
[2017-06-27] MEDS ORDERED: NS 500 ML IV ONE (10:51)
[2017-06-27] MEDS ORDERED: NS 1,000 ML IV SCH (13:00)
--- NOTE | 2017-06-27 14:46 | SOAPPROG ---
STEPH Progress Note Assessment/Plan: E&M for Esophageal cancer * UGI bleed secondary to bleeding vessel in distal esophageal malignancy: High risk of rebleed in the immediate future. Patient finished XRT to distal esophagus approx 4 weeks ago. IVC filter placed and off anticoagulation ( Lovenox BID). Perhaps anticoagulation can be reconsidered in future. After discharge, he is to f/u with DR. Angeles for h/h. * Metastatic esophageal adenocarcinoma with extensive liver metastasis: excellent response to FOLFOX. Patient completed palliative course of radiation to the distal esophagus approximately one month ago. * PE with syncope 11/2016: Now with IVC filter. Will continue to be prothrombotic and be at some risk for recurrent DVT/PE. Subjective: No bleeding and lightheadedness has resolved. No new complaints. Objective: Vital Signs Temp Pulse Resp BP Pulse Ox 36.7 C 83 16 107/62 93 06/27/17 08:08 06/27/17 12:26 06/27/17 08:08 06/27/17 12:26 06/27/17 08:08 Laboratory Results 06/27/17 09:35 06/27/17 04:00 06/26/17 06/27/17 06/28/17 05:59 05:59 05:59 Intake Total 2470 1845 Balance 2470 1845 PT 13.9 SEC (12.0-15.0) 06/23/17 11:50 INR 1.08 (0.83-1.16) 06/23/17 11:50 Laboratory Tests 06/24/17 06/25/17 06/25/17 15:25 05:45 18:15 Hgb 9.0 L 7.8 L 8.5 L 06/26/17 06/26/17 06/27/17 00:18 04:45 09:35 Hgb 7.6 L 7.7 L 8.5 L Last PRBC transfusion charted 06/23 Physical Exam - Physical Exam General Appearance: no apparent distress Respiratory: lungs clear Cardiac/Chest: regular rate, rhythm Abdomen: normal bowel sounds, non-tender, soft ICD10 Worksheet Patient Problems: Problems Problem Status Onset Dehydration Acute Palliative care encounter Acute Syncope Acute Esophageal mass Acute Hypotension Acute Sepsis Acute
--- NOTE | 2017-06-27 16:14 | ASMTCMCOM ---
CM Note CM Note Notes: Reviewed chart re: d/c poc, pt's progress. IVC filter placed Fri for hx of PE. Per MD notes, pt w/ excellent response to FOLFOX treatment. Anticipate pt will likely d/c home w/ family support and no identified needs when medically stable. CM will cont to follow. Date Signed: 06/27/2017 04:14 PM Electronically Signed By:Allyn Finnegan RN
--- NOTE | 2017-06-27 19:08 | HOSPPROG ---
Hospitalist Progress Note Assessment/Plan: # UGIB 2/2 bleeding esophageal tumor - s/p EGD, epi injected - IR embolization if rebleeds - cont protonix - ADAT # ABLA s/p 4U PRBC - H&H stable # orthostasis - he remains orthostatic today by HR, but asymptomatic. Likely due to blood loss, query some deconditioning. - NS bolus and rpt orthostatics better # metastatic esophageal cancer s/p chemo and XRT - good response to folfox - close outpt f/u with Dr. Angeles at [facility] # PE 11/2016 requiring IA thrombolysis - s/p IVC filter; high risk for ongoing VTE events Dispo - cont inpt given ongoing orthostasis and high risk for rebleeding. Likely dc in am if remains stable. Case discussed with Dr. Severino as I reassumed care today. Subjective: Pt feels well. Denies any BRBPR, hematemesis or coffee ground emesis. He had a dark / black stool yesterday AM, none since. Denies dizziness , CP or SOB. No fevers. Objective: Vital Signs Temp Pulse Resp BP Pulse Ox 36.7 C 93 20 103/69 93 06/27/17 15:06 06/27/17 15:06 06/27/17 15:06 06/27/17 15:06 06/27/17 15:06 Laboratory Results 06/27/17 09:35 06/27/17 04:00 06/26/17 06/27/17 06/28/17 05:59 05:59 05:59 Intake Total 2470 1845 1750 Balance 2470 1845 1750 PT 13.9 SEC (12.0-15.0) 06/23/17 11:50 INR 1.08 (0.83-1.16) 06/23/17 11:50 - Physical Exam Constitutional: no apparent distress Eyes: PERRL Ears, Nose, Mouth, Throat: moist mucous membranes Cardiovascular: regular rate and rhythym, no murmur, rub, or gallop Respiratory: no respiratory distress, clear to auscultation Gastrointestinal: normoactive bowel sounds, soft, non-tender abdomen Skin: warm Musculoskeletal: full muscle strength Neurologic: AAOx3 Psychiatric: interacting appropriately ICD10 Worksheet Patient Problems: Problems Problem Status Onset Dehydration Acute Palliative care encounter Acute Syncope Acute Esophageal mass Acute Hypotension Acute Sepsis Acute
[2017-06-27 19:42] LABS: POTASSIUM 3.7 mEq/L (3.5-5.2)
[2017-06-28] MEDS: PANTOPRAZOLE SODIUM 40 MG in NS 100 ML IV SCH (08:15)
[2017-06-28 08:27] VITALS: BP 116/72; PULSE 82; RESP 8; TEMP 98; O2SAT 94
--- NOTE | 2017-06-28 11:19 | ASDISCHSUM ---
Discharge Information Plan Status:Home with No Needs Medically Cleared to Leave:06/28/2017 Discharge Date:06/28/2017 11:05 AM CM D/C Disposition:Home, Routine, Self-Care ADT D/C Disposition:Home, Routine, Self-Care Projected Discharge Date:06/28/2017 11:05 AM Transportation at D/C:Family Discharge Delay Reason: Follow-Up Date:06/28/2017 11:05 AM Discharge Slot:1 - 8:01 am - 12:00 noon Final Diagnosis:UGIB sec to esophageal tumor, ABLA, orthostasis, metastic esophageal ca Placement Information Patient Contact Information Contact Name:LETICIA Relationship: Address:[address] [place] Alternate Phone: [facility]/Zip Code:[place] [address] Email: Financial Information Financial Class:Ana M Esquivel Primary Plan Desc:ANA M [facility] [facility] [place] [facility] Primary Plan Number:[id number] Secondary Plan Desc: Secondary Plan Number: Assessment Information [facility] CM Progress Note CM Note CM Note Notes: 06/22/2017 Case management Note; Met w/pt. Patient works at [employer]. He reports strong social supports especially his . Pt recieves chemo and radiation through [facility] cancer center. Pt was active prior to admission for syncope. No case management d/c needs identified. Pt in agreement. Case Management d/c poc: Home independent w/ support of family when medically stable. Case Management available if needs change. Date Signed: 06/22/2017 02:33 PM Electronically Signed By:Marcie Carey RN [facility] CM Progress Note CM Note CM Note Notes: Reviewed chart re: d/c poc, pt's progress. IVC filter placed Fri for hx of PE. Per MD notes, pt w/ excellent response to FOLFOX treatment. Anticipate pt will likely d/c home w/ family support and no identified needs when medically stable. CM will cont to follow. Date Signed: 06/27/2017 04:14 PM Electronically Signed By:Allyn Finnegan RN [facility] CM Progress Note CM Note CM Note Notes: Reviewed chart re: d/c poc, pt's progress. Pt to discharge home today w/ family support and no identified needs. IM not signed, not applicable. Pt to f/u as directed. CM avail for any further issues or concerns. Date Signed: 06/28/2017 11:18 AM Electronically Signed By:Allyn Finnegan RN Intervention Information
--- NOTE | 2017-06-28 11:24 | SOAPPROG ---
STEPH Progress Note Assessment/Plan: E&M for Esophageal cancer * UGI bleed secondary to bleeding vessel in distal esophageal malignancy: High risk of rebleed in the immediate future. Patient finished XRT to distal esophagus approx 4 weeks ago. IVC filter placed and off anticoagulation ( Lovenox BID). Perhaps anticoagulation can be reconsidered in future. After discharge, he is to f/u with DR. Angeles for h/h. * Metastatic esophageal adenocarcinoma with extensive liver metastasis: excellent response to FOLFOX. Patient completed palliative course of radiation to the distal esophagus approximately one month ago. * PE with syncope 11/2016: Now with IVC filter. Will continue to be prothrombotic and be at some risk for recurrent DVT/PE. * Disposition: no oncologic contra-indication to going home today. Subjective: Feeling well without lightheadedness or bleeding. Objective: Vital Signs Temp Pulse Resp BP Pulse Ox 36.7 C 82 8 L 116/72 94 06/28/17 08:00 06/28/17 08:00 06/28/17 08:00 06/28/17 08:00 06/28/17 08:00 Laboratory Results 06/27/17 09:35 06/27/17 19:10 06/27/17 06/28/17 06/29/17 05:59 05:59 05:59 Intake Total 1845 2100 Balance 1845 2100 PT 13.9 SEC (12.0-15.0) 06/23/17 11:50 INR 1.08 (0.83-1.16) 06/23/17 11:50 Physical Exam - Physical Exam General Appearance: no apparent distress Cardiac/Chest: regular rate, rhythm, systolic murmur ICD10 Worksheet Patient Problems: Problems Problem Status Onset Dehydration Acute Esophageal mass Acute Hypotension Acute Palliative care encounter Acute Sepsis Acute Syncope Acute
--- NOTE | 2017-06-28 11:38 | GDS ---
[f rep st] DISCHARGE SUMMARY DISCHARGE DIAGNOSES: 1. Upper gastrointestinal bleed secondary to esophageal tumor. 2. Acute blood loss anemia, status post 4 units packed red blood cells. 3. Orthostatic hypotension secondary to anemia and blood loss. 4. Metastatic esophageal cancer followed by Dr. Angeles at [facility]. 5. History of pulmonary embolism November 2016 requiring intra-arterial thrombolysis, status post infer ior vena cava filter. CONSULTANTS: 1. Dr. Kathleen Gambino, Oncology. 2. Dr. Evelia Bryant, Gastroenterology. 3. Dr. Jesus Flower, Pulmonology. HISTORY: For details, please see dictated history and physical dated June 22, 2017. In brief, the patient is a 56-year-old male with history of metastatic esophageal cancer diagnosed in September 2016 and massive PE diagnosed in November 2016, who presents to the Emergency Department with s yncope. He was found to be orthostatic and was admitted to the hospital for further management. HOSPITAL COURSE: The patient was admitted to the progressive care unit. He was volume resuscitated. At the time of admission, he had no hematemesis or melenic stools or signs of GI bleeding. His hem oglobin on arrival was 10.4, which was relatively stable compared to recent values in March. However, the following day, he developed acute hematemesis with a repeat hemoglobin of 7.7. At that point, luis castañeda was transfused packed red blood cells and transferred to the intensive care unit. A GI consult was obtained and he underwent upper endoscopy on June 23, 2017. His bleeding source was his esopha geal tumor and this was injected with epinephrine. Hemoclip placement was unsuccessful. However, th ere was no further bleeding at the end of the procedure. He was treated with a Protonix drip and denisse l transition to b.i.d. oral Protonix at discharge. Anticoagulation was discontinued. He underwent I VC filter placement on June 24, 2017. The patient was monitored in the hospital for several mor e days without any evidence of ongoing active bleeding. He received a total of 6 units of packed red blood cells and his hemoglobin has remained stable, most recently at 8.5. He is hemodynamically sta ble with no hypotension at the time of discharge. He is orthostatic positive by heart rate, though luis castañeda is completely asymptomatic, with no dizziness or presyncopal symptoms. I suspect his elevated hear t rate is a response to his anemia. He has had no hematemesis, vomiting, or persistent melenic stool s. I had a lengthy discussion with the patient on the day of discharge about his risk of rebleeding. He acknowledges this, but strongly wishes to go home. He knows to return to the emergency departme nt for any evidence of ongoing bleeding or presyncopal symptoms. He will have close followup with [facility] with a repeat hemoglobin/hematocrit checked tomorrow, and further manageme nt per Dr. Angeles. His Lovenox is discontinued at this time. DISPOSITION: The patient is discharged home in stable condition. FOLLOWUP: Dr. Angeles, the [facility], tomorrow, June 29. DISCHARGE MEDICATIONS: Please see [facility] for completed outpatient medication list. New medications at discharge include Protonix 40 mg p.o. b.i.d. (#60, no refills). Discontinued medications: Lovenox. /[id number]/MODL
== END 2017-06-28 11:05 | disposition home or self-care (01) | DRG 356 ==
LOC: EDUNIT# → F2W 02:46 → F2N 06-23 11:30 → OBSVTOIN 06-23 14:51 → F2W 06-24 17:09
PROVIDERS: ADMIT Hospitalist; ATTEND Hospitalist
PROC: 30233N1 Transfusion of Nonautologous Red Blood Cells into Peripheral Vein, Percutaneous Approach (ICD-10-PCS; 2017-06-23)
PROC: 0W3P8ZZ Control Bleeding in Gastrointestinal Tract, Via Natural or Artificial Opening Endoscopic (ICD-10-PCS; principal; 2017-06-23 12:00)
PROC: 5A1945Z Respiratory Ventilation, 24-96 Consecutive Hours (ICD-10-PCS; principal; 2017-06-23 12:00)
PROC: B5191ZZ Fluoroscopy of Inferior Vena Cava using Low Osmolar Contrast (ICD-10-PCS; 2017-06-24)
PROC: B549ZZA Ultrasonography of Inferior Vena Cava, Guidance (ICD-10-PCS; 2017-06-24)
PROC: 06H03DZ Insertion of Intraluminal Device into Inferior Vena Cava, Percutaneous Approach (ICD-10-PCS; 2017-06-24)
DX: C15.5 Malignant neoplasm of lower third of esophagus (principal); K22.11 Ulcer of esophagus with bleeding; K22.70 Barrett's esophagus without dysplasia; D62 Acute posthemorrhagic anemia; C78.7 Secondary malignant neoplasm of liver and intrahepatic bile duct; I95.1 Orthostatic hypotension; G63 Polyneuropathy in diseases classified elsewhere; Z86.711 Personal history of pulmonary embolism; Z79.01 Long term (current) use of anticoagulants
CPT/HCPCS: 97116-GP; 97161-GP; C1769; J0171; J0330; J0834; J1642; J1650; J2250; J2370; J2405; J2704; J3010; J3475; P9016; P9041; Q9967

== ENCOUNTER 2017-09-25 13:06 | Inpatient (IN) | payer OTHER ==
[2017-09-25] MEDS ORDERED: ONDANSETRON DISINTEGRATING 4 MG TAB PO PRN (16:09)
[2017-09-25] MEDS ORDERED: ACETAMINOPHEN 325 MG TAB PO PRN (16:09)
[2017-09-25] MEDS ORDERED: ONDANSETRON 4 MG/2 ML VIAL IVP PRN (16:09)
[2017-09-25] MEDS ORDERED: HYDROCODONE/APAP 5/325 TAB PO PRN (16:09)
[2017-09-25] MEDS ORDERED: PROCHLORPERAZINE MALEATE 10 MG TAB PO PRN (16:11)
[2017-09-25] MEDS ORDERED: D5W 1/2 NS 1,000 ML IV SCH (16:15)
--- NOTE | 2017-09-25 17:13 | GHP ---
[f rep st] HISTORY AND PHYSICAL DATE OF ADMISSION: 09/25/2017 CHIEF COMPLAINT: Abdominal pain. HISTORY OF PRESENT ILLNESS: This is a 57-year-old male, who was diagnosed with esophageal cancer in September. He was treated with chemotherapy and radiation. Cancer has been complicated by pulmonary e mbolism and then more recently an upper GI bleed. Cancer, he states, has been more aggressive lately and he has been started on new chemo regimen last week. This really did him in. He was unable to e at for several days. He then came again today for chemo, but he is neutropenic. Since he was not fe eling well, he was admitted to the hospital. Patient does feel generally weak. He feels dehydrated. He does have abdominal pain, which can be quite severe, but only lasts about 10-15 minutes, usually in the right upper quadrant. There is known metastasis underneath his liver. He does have a histor y of malignant effusion with initial presentation in September, but he has not had problems with effusi ons since then. He has felt bloated since chemotherapy, like he was getting ascites, but this seems to have improved. He denies lower extremity edema. He denies any fevers. He does have chills all t he time. He denies any chest pain or shortness of breath. REVIEW OF SYSTEMS: A 10-point review of systems was obtained and otherwise negative. PAST MEDICAL HISTORY: 1. Metastatic esophageal cancer, status post chemotherapy and radiation. Undergoing a new chemother apy regimen. 2. Pulmonary embolism. Currently on Lovenox. 3. History of upper GI bleed. 4. Possible adrenal insufficiency, as he is on Decadron and I see some labs with lower a.m. cortisol s. SOCIAL HISTORY: No smoking or alcohol. 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 No childre n. FAMILY HISTORY: No history of malignancy. Mother of Maximino-Creutzfeldt disease. PHYSICAL EXAMINATION: VITAL SIGNS: Afebrile, blood pressure is 91/68, heart rate 103, oxygen satura tion 98% 2 L. GENERAL: The patient is chronically ill-appearing, but no apparent distress. HEENT: Nonicteric sclerae. Extraocular movements intact. Slightly dry mucous membranes. NECK: Supple. No thyromegaly. LUNGS: Good effort. Clear to auscultation bilaterally. CARDIOVASCULAR: Regular r ate and rhythm. No murmurs or gallops. ABDOMEN: Decreased bowel sounds. Very soft. Minimal right upper quadrant tenderness. No rebound or guarding. Minimal, if any ascites. EXTREMITIES: No club emily, cyanosis or edema. SKIN: Without rash. Dry, intact. NEUROLOGIC: Alert and oriented x3. Mo ving all 4 extremities equally. PSYCH: Normal mood and affect. LABS: White blood cell count is 1.8, hemoglobin 12, absolute neutrophil count of 860. Sodium 124, p otassium 4.9, creatinine is 0.6. Total bilirubin elevated at 2.6 with conjugated at 1.8. AST 288, A LT 97, alkaline phosphatase 397. ASSESSMENT AND PLAN: A 57-year-old male with metastatic esophageal cancer, who presented with weakne ss and abdominal pain. 1. Weakness, probably related to dehydration and chemotherapy. We will give intravenous fluids and physical therapy. See if his energy level increases. 2. Abdominal pain. He does not have evidence of ascites. He does say that he is not really passing much gas below, although he is not having a lot of nausea and vomiting. We will start with a 3-way of the abdomen to look for any ileus or bowel obstruction. If continuing to have problems with eatin g or more significant symptoms of obstruction or pain, we will go ahead with CT scanning. I do not t hink he needs a paracentesis currently. 3. Metastatic esophageal cancer. I will have Oncology see. 4. History of pulmonary embolism. We will continue Lovenox. 5. Hyponatremia, probably related to dehydration. We will check a urine sodium. We will give intra venous fluids, normal saline. 6. Elevated liver function tests due to metastatic disease. /[id number]/MODL
--- NOTE | 2017-09-25 18:36 | PDMN ---
Medical Necessity Medical necessity: C/M review: Patient meets INPT criteria under [facility] Dehydration, Medical oncology GRG, Systemic or infectious condition GRG (Hypo- osmolality and hyponatremia); Acute and persistent abdominal pain, generalized weakness, dehydration, hyponatremia, Na 124, WBC 1.81, ANC 0.86, Ca 7.7, total bilirubin 2.6, AST 288, ALT 97, Alk phos 397 requiring planned Oncology consult , ongoing IV fluids, acute inpt PT/OT, comorbid metastatic esophageal cancer initially diagnosed 09/2016 treated with surgery, chemotherapy, radiation therapy , known metastatsis underneath the liver, pleural effusions, recent new chemotherapy regimen, history of pulmonary embolism treated with Lovenox, upper GI bleed, possible adrenal insufficiency treated with oral Decadron. MD anticipates > 2 MN LOS for ongoing med nec for eval and TX of above.
[2017-09-25] MEDS: PANTOPRAZOLE SODIUM 40 MG TAB PO SCH (20:45)
[2017-09-25] MEDS: D5W NS 1,000 ML IV SCH (20:53)
[2017-09-25] MEDS: LORazepam 0.5 MG TAB PO PRN (23:14)
[2017-09-26 04:18] LABS: PLATELET COUNT 88 10^3/uL (150-400)
[2017-09-26] MEDS: PANTOPRAZOLE SODIUM 40 MG TAB PO SCH ×2 (07:57→23:05)
[2017-09-26] MEDS: DEXAMETHASONE 4 MG TAB PO SCH (07:57)
[2017-09-26] MEDS: ENOXAPARIN 100 MG/ML SYR SC SCH (07:57)
[2017-09-26] MEDS: DICYCLOMINE 10 MG CAP PO SCH (07:57)
[2017-09-26] MEDS: D5W NS 1,000 ML IV SCH ×2 (09:14→18:00)
--- NOTE | 2017-09-26 12:24 | ASMTCMCOM ---
CM Note CM Note Notes: 09/26/2017 Case Management Note Pt admitted for SOB and progression of symptoms r/t esophageal cancer. Case Management d/c needs are TBD. There are no PT or OT evals ordered at this time. Case Management to follow. Date Signed: 09/26/2017 12:24 PM Electronically Signed By:Marcie Carey RN
[2017-09-26] MEDS ORDERED: BISACODYL 10 MG SUPP PR PRN (14:27)
[2017-09-26] MEDS ORDERED: LACTULOSE 20 GM/30 ML UDCUP PO PRN (14:27)
[2017-09-26] MEDS ORDERED: POLYETHYLENE GLYCOL 3350 17 GM PKT PO PRN (14:27)
[2017-09-26] MEDS ORDERED: MAGNESIUM HYDROXIDE 30 ML UDCUP PO PRN (14:27)
--- NOTE | 2017-09-26 14:36 | HOSPPROG ---
Hospitalist Progress Note Assessment/Plan: # acute ileus- patient with increased abdominal discomfort and nausea- abdominal x-ray(personally reviewed and interpreted) shows ileus Patient successfully pass stool this morning described as watery- nonbloody- oxygen saturations 95% on room air - continue IV fluid resuscitation - encouraging ambulation - p.r.n. electrolyte repletion - advanced diet as patient tolerates - check mag/phos # metastatic esophageal carcinoma- undergoing active chemotherapy has received his 1st dose of 3 in cycle 1 Oncology describes as an aggressive carcinoma - continue to monitor and provide supportive care # hyponatremia appears acute on chronic- sodium 124- recent baselines 129 - suspect current drop related to hypovolemia - recheck in a.m. after IV fluid resuscitation # progressive ascites- suspect related to underlying carcinoma- may get even worse with IV fluid resuscitation - consider ultrasound-guided paracentesis tomorrow # history of pulmonary embolism- complicated by gastrointestinal bleed - continue Lovenox 100 mg SC daily per oncology # prophylaxis- Lovenox as above # diet- clear liquids advance as tolerate # disposition greater than 2 midnights as requiring close monitor for acute ileus and dehydration I have discussed the case with Dr. Angeles- will continue medical management of ileus Subjective: Feeling better Objective: Vital Signs Temp Pulse Resp BP Pulse Ox 36.8 C 94 20 100/64 94 09/26/17 11:51 09/26/17 11:51 09/26/17 11:51 09/26/17 11:51 09/26/17 11:51 Laboratory Results 09/26/17 03:50 09/26/17 03:50 09/25/17 09/26/17 09/27/17 05:59 05:59 05:59 Intake Total 2717 500 Output Total 100 Balance 2617 500 - Physical Exam Constitutional: chronically ill appearing Eyes: anicteric sclera Ears, Nose, Mouth, Throat: dry mucous membranes Cardiovascular: regular rate and rhythym Respiratory: no respiratory distress Gastrointestinal: normoactive bowel sounds, distension, No guarding, No rebound Genitourinary: no bladder fullness Skin: warm Musculoskeletal: No asymmetric calves Neurologic: AAOx3 Psychiatric: interacting appropriately, not anxious Lymph, Heme, Immunologic: no cervical LAD ICD10 Worksheet Patient Problems: Problems Problem Status Onset Dehydration Acute Esophageal mass Acute Hypotension Acute Palliative care encounter Acute Sepsis Acute Syncope Acute
[2017-09-26] MEDS ORDERED: PROTOCOL K PHOSPHATE 1 DOSE IV PRN (16:28)
[2017-09-26] MEDS: BIOTENE DRY MOUTH MOUTHWASH 237 ML BTL MM SCH ×2 (17:11→23:06)
[2017-09-26] MEDS ORDERED: K PHOS 10 MMOL in D5W 250 ML IV ONE (17:15)
--- NOTE | 2017-09-26 19:53 | GCON ---
[f rep st] CONSULTATION ONCOLOGY CONSULTATION. REASON FOR CONSULTATION: Metastatic esophageal carcinoma, admitted with dehydration and abdominal pain. HISTORY OF PRESENT ILLNESS: The patient's history dates back to September 2016 when he presented with a several-month history of jaundice, ascites, and dysphagia. He had a prior history of excessive alcohol abuse, but quit in 2015. He was found to have a distal esophageal adenocarcinoma extending over 10 cm with extensive metastatic disease to the liver. In addition, there was a suggestion of underlying cirrhosis. Biopsies confirmed a moderately differentiated adenocarcinoma that was HER2 negative. He was started on FOLFOX chemotherapy in September 2016 and continued on that with an excellent response until the summer. The oxaliplatin was stopped at that point due to progressive peripheral neuropathy and he continued on 5FU. He underwent a course of palliative radiation to the distal esophagus in April, during which time the chemotherapy was held. In the last 2-3 months, the tumor marker (CEA) continued to increase. CT scans in August showed marked progression of disease in the liver. The patient was recently started on second-line chemotherapy with Taxol and ramucirumab and received his 1st dose of that on September 18. He presented to the office yesterday with symptoms of dehydration , mucositis, increasing abdominal pain and girth. His medical history is also notable for an admission in November of 2016 with syncope related to a large volume pulmonary emboli. He underwent therapy directed thrombolysis and was subsequently anticoagulated with therapeutic Lovenox. In May, he developed a large GI bleed. EGD showed bleeding at the site of the tumor. This was in the weeks post radiation. An IVC filter was placed and remains in place. Anticoagulation was held for a period of time but then resumed at a lower dose of Lovenox 100 mg daily. PAST MEDICAL HISTORY: Pulmonary emboli as per History of Present Illness. GI bleed as per History of Present Illness. Remote history of alcohol abuse. Prior appendectomy. FAMILY HISTORY: Notable for his mother dying from Maximino-Creutzfeldt disease. There is no other family history of malignancies. SOCIAL HISTORY: The patient is . He lives with his , Miryam. He lives in [place]. They do not have any children. He works at [employer] ([employer]). He currently is not drinking and does not smoke cigarettes. REVIEW OF SYSTEMS: Complete review of systems is negative other than noted in History of Present Illness. PHYSICAL EXAM: GENERAL: He is fatigued-appearing, somewhat uncomfortable, lying in bed. Appears slightly jaundiced. VITAL SIGNS: Blood pressure 128/70, heart rate 99, respirations 16. He is afebrile. O2 saturation is 94% on room air. HEENT: Dry mucous membranes with evidence of mucositis. LUNGS: Decreased breath sounds bilaterally. HEART: Regular rate. ABDOMEN: Distended , suggestive of ascites. Soft. Slightly tender to palpation. EXTREMITIES: 1 + bilateral lower extremity edema. LABORATORY DATA: White blood cell count 1.36, hematocrit 29, platelet count 88 , absolute neutrophil count 300. Metabolic panel notable for total bilirubin of 2.1, conjugated bilirubin 1.5, AST 212, ALT 84, alkaline phosphatase 314, albumin 2.2. Creatinine is 0.5. IMPRESSION: This is a 57-year-old male diagnosed 1 year ago with metastatic adenocarcinoma of the esophagus with extensive metastatic disease to the liver. The patient had an initial excellent response to FOLFOX chemotherapy and has now been started on second-line therapy with Taxol and ramucirumab. He received his 1st dose 1 week ago and is now admitted with symptoms of increasing dehydration, mucositis, and abdominal distention. The tumor appears to be rapidly progressive. I discussed this again with him and his . I suspect he could develop life-threatening complications from the disease in the near future if he does not respond to second line therapy. Advanced care planning was done in the office. The patient currently is full cor. We will try to address further in the coming days. He currently is neutropenic, but afebrile. Will continue to follow along with you. He appears clinically improved today with IV fluids. If he continues with chemotherapy, he will need dose reductions. /[id number]/MODL MTDD
[2017-09-26] MEDS: MBX SOLN 30 ML BOTTLE PO PRN (23:05)
[2017-09-26] MEDS: LORazepam 0.5 MG TAB PO PRN (23:08)
[2017-09-26] MEDS: SENNOSIDES/DOCUSATE SODIUM TAB PO SCH (23:47)
[2017-09-27] MEDS: MBX SOLN 30 ML BOTTLE PO PRN ×3 (05:04→18:57)
[2017-09-27] MEDS: ENOXAPARIN 100 MG/ML SYR SC SCH ×2 (08:39→10:25)
[2017-09-27] MEDS: PANTOPRAZOLE SODIUM 40 MG TAB PO SCH ×2 (09:44→21:03)
[2017-09-27] MEDS: DICYCLOMINE 10 MG CAP PO SCH (09:44)
[2017-09-27] MEDS: DEXAMETHASONE 4 MG TAB PO SCH (09:44)
[2017-09-27] MEDS: D5W NS 1,000 ML IV SCH ×2 (09:48→23:46)
[2017-09-27] MEDS: SENNOSIDES/DOCUSATE SODIUM TAB PO SCH ×2 (09:56→21:03)
[2017-09-27] MEDS: BIOTENE DRY MOUTH MOUTHWASH 237 ML BTL MM SCH ×3 (10:27→21:04)
[2017-09-27] MEDS ORDERED: K PHOS 15 MMOL in D5W 250 ML IV ONE (12:00)
--- NOTE | 2017-09-27 15:08 | SOAPPROG ---
SOASHVIN Progress Note Assessment/Plan: Assessment: 1. Metastatic esophageal carcinoma-D10 cycle 1 of taxol/ramucirumab. LFT's trending down which is encouraging for an early response. 2. Mucositis-secondary to chemo. will need dose reduction with next treatment. 3. Dehydration 4. Abdominal distension-some ascites, but not large volume. Xray consistent with an element of ileus. 5. Hyponatremia-stable 6. Neutropenic-afeb 7. History of PE. 8. History of GI bleed secondary to esophageal tumor-no evidence of bleeding now Plan: 1. Continue supportive care with mouth care, IVF. 2. Monitor for fever. 3. Will need dose reduction in the future. Subjective: feels distended. mouth sores are bothersome. Objective: Vital Signs Temp Pulse Resp BP Pulse Ox 36.9 C 87 16 102/62 95 09/27/17 12:00 09/27/17 12:00 09/27/17 12:00 09/27/17 12:00 09/27/17 12:00 Laboratory Results 09/27/17 05:14 09/27/17 05:14 09/26/17 09/27/17 09/28/17 05:59 05:59 05:59 Intake Total 2717 3734 450 Output Total 100 Balance 2617 3734 450 Physical Exam - Physical Exam General Appearance: no apparent distress EENT: other (mucositis on inner cheeks, no thrush) Neck: supple Respiratory: lungs clear Abdomen: distended ICD10 Worksheet Patient Problems: Problems Problem Status Onset Dehydration Acute Esophageal mass Acute Hypotension Acute Palliative care encounter Acute Sepsis Acute Syncope Acute
--- NOTE | 2017-09-27 15:40 | HOSPPROG ---
Hospitalist Progress Note Assessment/Plan: # acute ileus- patient with decreased abdominal discomfort and nausea overnight - abdominal xray (personally reviewed and interpreted) shows ileus Patient successfully pass stool yesterday- oxygen saturations 95% on room air - continue IV fluid resuscitation until PO adequate - encouraging ambulation - p.r.n. electrolyte repletion - advanced diet as patient tolerates today - replete mag/phos # metastatic esophageal carcinoma- undergoing active chemotherapy has received his 1st dose of 3 in cycle 1 Oncology describes as an aggressive carcinoma - continue to monitor and provide supportive care - treat mucositis # hyponatremia appears acute on chronic- sodium 124->125 (recent baselines 129) - suspect current drop related to hypovolemia - recheck in a.m. # progressive abdominal distention - Abd US (reviewed ) shows stable moderate ascites- - consider ultrasound-guided paracentesis prior to dc # history of pulmonary embolism- complicated by gastrointestinal bleed - continue Lovenox 100 mg SC daily per oncology # prophylaxis- Lovenox as above # diet- clear liquids advance as tolerate # disposition greater than 2 midnights as requiring close monitor for acute ileus and dehydration I have discussed the case with RN - will work to advance diet today and continue to encourage ambulation Subjective: abdomen more comfortable today Objective: Vital Signs Temp Pulse Resp BP Pulse Ox 36.9 C 87 16 102/62 95 09/27/17 12:00 09/27/17 12:00 09/27/17 12:00 09/27/17 12:00 09/27/17 12:00 Laboratory Results 09/27/17 05:14 09/27/17 05:14 09/26/17 09/27/17 09/28/17 05:59 05:59 05:59 Intake Total 2717 3734 450 Output Total 100 Balance 2617 3734 450 - Physical Exam Constitutional: chronically ill appearing Eyes: anicteric sclera Ears, Nose, Mouth, Throat: dry mucous membranes Cardiovascular: regular rate and rhythym Respiratory: no respiratory distress Gastrointestinal: normoactive bowel sounds, distension, No guarding, No rebound Genitourinary: no bladder fullness Skin: warm Musculoskeletal: No asymmetric calves Neurologic: AAOx3 Psychiatric: interacting appropriately, depressed Lymph, Heme, Immunologic: no cervical LAD ICD10 Worksheet Patient Problems: Problems Problem Status Onset Dehydration Acute Esophageal mass Acute Hypotension Acute Palliative care encounter Acute Sepsis Acute Syncope Acute
[2017-09-27] MEDS: LORazepam 0.5 MG TAB PO PRN (21:14)
--- NOTE | 2017-09-27 21:50 | CPEKG ---
Heart Rate: 132 RR Interval: 455 QRSD Interval: 78 QT Interval: 304 QTC Interval: 451 QRS [place]: 73 T Wave [place]: -9 EKG Severity - ABNORMAL ECG - EKG Impression: JUNCTIONAL TACHYCARDIA EKG Impression: BORDERLINE T ABNORMALITIES, INFERIOR LEADS Electronically Signed By: Jasper Pereira 28-Sep-2017 10:36:39
--- NOTE | 2017-09-27 22:00 | HOSPPROG ---
Hospitalist Progress Note Assessment/Plan: notified by RN that patient is having tachycardia EKG was ordered and viewed revealing a junctional tachycardia with a rate of 132 beats per minute. The patient is asymptomatic. S EKG is without acute ST changes. He says in the past he has used vagal maneuvers with good results Assessment: -junctional tachycardia -transfer to PCU -continue to try vagal maneuvers -trend troponin -check TSH Objective: Vital Signs Temp Pulse Resp BP Pulse Ox 36.2 C 130 H 18 102/70 96 09/27/17 21:00 09/27/17 21:00 09/27/17 21:00 09/27/17 21:00 09/27/17 21:00 Laboratory Results 09/27/17 05:14 09/27/17 05:14 09/26/17 09/27/17 09/28/17 05:59 05:59 05:59 Intake Total 2717 3734 1056 Output Total 100 Balance 2617 3734 1056 ICD10 Worksheet Patient Problems: Problems Problem Status Onset Esophageal mass Acute Syncope Acute Hypotension Acute Sepsis Acute Dehydration Acute Palliative care encounter Acute
[2017-09-28] MEDS: D5W NS 1,000 ML IV SCH ×3 (00:09→21:55)
[2017-09-28] MEDS: DEXAMETHASONE 4 MG TAB PO SCH (08:23)
[2017-09-28] MEDS: PANTOPRAZOLE SODIUM 40 MG TAB PO SCH ×2 (08:23→21:55)
[2017-09-28] MEDS: DICYCLOMINE 10 MG CAP PO SCH (08:23)
[2017-09-28] MEDS: SENNOSIDES/DOCUSATE SODIUM TAB PO SCH (08:24)
[2017-09-28] MEDS: MBX SOLN 30 ML BOTTLE PO PRN ×2 (08:29→12:31)
[2017-09-28] MEDS: BIOTENE DRY MOUTH MOUTHWASH 237 ML BTL MM SCH ×2 (11:05→16:26)
[2017-09-28] MEDS ORDERED: K PHOS 15 MMOL in D5W 250 ML IV ONE (12:00)
[2017-09-28] MEDS ORDERED: K PHOS 10 MMOL in D5W 250 ML IV ONE (12:00)
[2017-09-28] MEDS ORDERED: ADENOSINE 6 MG/2 ML VIAL IVP ONE (13:56)
[2017-09-28] MEDS ORDERED: ADENOSINE 6 MG/2 ML VIAL ONE (14:01)
--- NOTE | 2017-09-28 14:29 | SOAPPROG ---
SOASHVIN Progress Note Assessment/Plan: Assessment: 1. Metastatic esophageal carcinoma-D11 cycle 1 of taxol/ramucirumab. LFT's trending down which is encouraging for an early response. 2. Mucositis-secondary to chemo. will need dose reduction with next treatment. 3. Dehydration 4. Abdominal distension-some ascites, but not large volume. Xray consistent with an element of ileus. 5. Hyponatremia-stable 6. Neutropenic-afeb. WBC higher today. 7. History of PE. 8. History of GI bleed secondary to esophageal tumor-describes black stools. 9. SVT-last night. Now back in NSR after adenosine. Plan: 1. Continue supportive care with mouth care, IVF. 2. Monitor for fever. 3. Will need dose reduction in the future. 4. Appreciate cardiology and hospitalist care. 09/28/17 14:26 Subjective: feels a bit better. Mouth less sore. Having some black stools Objective: Vital Signs Temp Pulse Resp BP Pulse Ox 37.4 C 144 H 24 H 102/42 L 93 09/28/17 11:17 09/28/17 11:17 09/28/17 11:17 09/28/17 11:17 09/28/17 11:17 Laboratory Results 09/28/17 05:00 09/28/17 05:00 09/27/17 09/28/17 09/29/17 05:59 05:59 05:59 Intake Total 3734 2081 Output Total 1 Balance 3734 2080 Physical Exam - Physical Exam General Appearance: alert, no apparent distress Respiratory: lungs clear Abdomen: soft, distended Extremities: No pedal edema Neuro/Psych: alert, normal mood/affect, oriented x 3 ICD10 Worksheet Patient Problems: Problems Problem Status Onset Dehydration Acute Esophageal mass Acute Hypotension Acute Palliative care encounter Acute Sepsis Acute Syncope Acute
[2017-09-28] MEDS: METOPROLOL TARTRATE 25 MG TAB PO SCH (15:22)
[2017-09-28] MEDS: ENOXAPARIN 100 MG/ML SYR SC SCH (16:25)
--- NOTE | 2017-09-28 17:08 | HOSPPROG ---
Hospitalist Progress Note Assessment/Plan: # Acute SVT - patient with history - vagal maneuvers unsuccessful - TELE ( personally reviewed and interpreted) SVT 130's - s/p adenosine - starting low dose metoprolol # acute ileus- patient with decreased abdominal discomfort and nausea overnight - abdominal xray (personally reviewed and interpreted) shows ileus Patient successfully pass stool again today- oxygen saturations 95% on RA - encouraging ambulation - p.r.n. electrolyte repletion - tolerating diet - replete mag/phos # metastatic esophageal carcinoma- undergoing active chemotherapy has received his 1st dose of 3 in cycle 1 Oncology describes as an aggressive carcinoma - continue to monitor and provide supportive care - treat mucositis # hyponatremia appears acute on chronic- sodium 124->125 (recent baselines 129) - suspect current drop related to hypovolemia - recheck in a.m. # progressive abdominal distention - Abd US (reviewed ) shows stable moderate ascites- - consider ultrasound-guided paracentesis prior to dc # history of pulmonary embolism- complicated by gastrointestinal bleed - continue Lovenox 100 mg SC daily per oncology # prophylaxis- Lovenox as above # diet- regular # disposition greater than 2 midnights as requiring close monitor for acute ileus and dehydration I have discussed the case with RN - continue to monitor on tele Subjective: stooled Objective: Vital Signs Temp Pulse Resp BP Pulse Ox 37.0 C 94 14 92/62 L 95 09/28/17 15:38 09/28/17 15:38 09/28/17 15:38 09/28/17 15:38 09/28/17 15:38 Laboratory Results 09/28/17 16:00 09/28/17 05:00 09/27/17 09/28/17 09/29/17 05:59 05:59 05:59 Intake Total 3734 2081 Output Total 1 Balance 3734 2080 - Physical Exam Constitutional: no apparent distress Eyes: anicteric sclera Ears, Nose, Mouth, Throat: moist mucous membranes Cardiovascular: regular rate and rhythym Respiratory: no respiratory distress Gastrointestinal: normoactive bowel sounds Genitourinary: no bladder fullness Skin: warm Musculoskeletal: No asymmetric calves Neurologic: AAOx3 Psychiatric: interacting appropriately Lymph, Heme, Immunologic: no cervical LAD ICD10 Worksheet Patient Problems: Problems Problem Status Onset Dehydration Acute Esophageal mass Acute Hypotension Acute Palliative care encounter Acute Sepsis Acute Syncope Acute
[2017-09-29] MEDS ORDERED: SIMETHICONE 80 MG TAB CHEW PO PRN (00:35)
[2017-09-29] MEDS: METOPROLOL TARTRATE 25 MG TAB PO SCH ×3 (00:54→20:20)
[2017-09-29] MEDS: SENNOSIDES/DOCUSATE SODIUM TAB PO SCH ×2 (00:55→08:00)
[2017-09-29] MEDS: BIOTENE DRY MOUTH MOUTHWASH 237 ML BTL MM SCH ×3 (00:56→16:34)
[2017-09-29] MEDS: LORazepam 0.5 MG TAB PO PRN (05:34)
[2017-09-29 05:50] LABS: PLATELET COUNT 141 10^3/uL (150-400)
[2017-09-29] MEDS: DEXAMETHASONE 4 MG TAB PO SCH (07:57)
[2017-09-29] MEDS: PANTOPRAZOLE SODIUM 40 MG TAB PO SCH ×2 (07:57→20:21)
[2017-09-29] MEDS: DICYCLOMINE 10 MG CAP PO SCH (07:58)
[2017-09-29 08:09] LABS: INR 1.24 (0.83-1.16); PROTIME(PATIENT) 15.8 SEC (12.0-15.0)
--- NOTE | 2017-09-29 08:40 | CPEKG ---
Heart Rate: 98 RR Interval: 612 P-R Interval: 156 QRSD Interval: 84 QT Interval: 352 QTC Interval: 450 P [place]: 33 QRS [place]: 75 T Wave [place]: 34 EKG Severity - BORDERLINE ECG - EKG Impression: SINUS RHYTHM EKG Impression: CONSIDER RVH OR POSTERIOR INFARCT Electronically Signed By: Foster Argueta 29-Sep-2017 12:39:20
[2017-09-29] MEDS: ENOXAPARIN 100 MG/ML SYR SC SCH (09:22)
[2017-09-29] MEDS ORDERED: K PHOS 15 MMOL in D5W 250 ML IV ONE ×2 (12:00→17:45)
--- NOTE | 2017-09-29 14:04 | ASMTCMCOM ---
CM Note CM Note Notes: 09/29/2017 Case Management Note Pt case management needs remain unchanged. There are no PT or OT evals ordered at this time. Case Management d/c poc: home independent with follow up as directed. Case Management available if needs change. Date Signed: 09/29/2017 02:03 PM Electronically Signed By:Marcie Carey RN
[2017-09-29] MEDS ORDERED: LIDOCAINE 1% 300 MG/30 ML SDV ONE (14:14)
--- NOTE | 2017-09-29 15:15 | SOAPPROG ---
SOAP Progress Note Assessment/Plan: Assessment/Plan: 57 yo man w stage IV esophageal ca-D12 C1 of taxol/ ramucirumab. 1. esophageal ca - LFTs trending down hopefully demonstrating early response; repeat tumor marker pending 2. mucositis - secondary to chemo will need dose reduction cont supportive care 3. dehydration 4. abd distention - paracentesis today 5. HypoNa - stable 6. Neutropenia - improving, afebrile 7. Hx of PE - on lovenox 100 daily monitor for GI bleeding which pt had prior from underlying tumor GI stools have been present fecal occult+ but H/H stable 8. SVT - NSR s/p adenosine on tele 09/29/17 15:11 09/29/17 15:14 Subjective: Pt getting paracentesis today was not seen but nurse reports doing well and has no new complaints Objective: Vital Signs Temp Pulse Resp BP Pulse Ox 36.8 C 89 14 98/65 L 96 09/29/17 13:30 09/29/17 13:30 09/29/17 13:30 09/29/17 13:30 09/29/17 13:30 Laboratory Results 09/29/17 05:40 09/29/17 05:40 09/28/17 09/29/17 09/30/17 05:59 05:59 05:59 Intake Total 20809 750 Output Total 1 Balance 2079 3658 750 PT 15.8 SEC (12.0-15.0) H 09/29/17 07:44 INR 1.24 (0.83-1.16) H 09/29/17 07:44 ICD10 Worksheet Patient Problems: Problems Problem Status Onset Dehydration Acute Esophageal mass Acute Hypotension Acute Palliative care encounter Acute Sepsis Acute Syncope Acute
[2017-09-29] MEDS ORDERED: ALBUMIN 25% 100 ML IV ONE (17:13)
--- NOTE | 2017-09-29 17:13 | HOSPPROG ---
Hospitalist Progress Note Assessment/Plan: # Acute SVT - resolved s/p adenosine - TELE (personally reviewed and interpreted ) sinus 90's - cont low dose metoprolol # acute ileus- abdominal xray (personally reviewed and interpreted) shows ileus - resolving clinically Patient successfully passing stool - oxygen saturations 95% on RA - cont encouraging ambulation - p.r.n. electrolyte repletion - tolerating diet - replete mag/phos # metastatic esophageal carcinoma- undergoing active chemotherapy has received his 1st dose of 3 in cycle 1 Oncology describes as an aggressive carcinoma - continue to monitor and provide supportive care - treat mucositis # hyponatremia appears acute on chronic- sodium 124 (recent baselines 129) - suspect hypervolemic in nature - recheck in a.m. # progressive Ascites- patient very uncomfortable today - Abd US (reviewed ) shows moderate ascites- -ultrasound-guided paracentesis today - follow ascitic results # history of pulmonary embolism- complicated by gastrointestinal bleed - continue Lovenox 100 mg SC daily per oncology- after paracentesis # Melena - H&H is stable - carefully continue lovenox - daily H&H # prophylaxis- Lovenox as above # diet- regular # disposition greater than 2 midnights as requiring close monitor for acute ileus and dehydration I have discussed the case with RN - continue aggressive electrolyte repletion Subjective: incredibly uncomfortable in abdomen Objective: Vital Signs Temp Pulse Resp BP Pulse Ox 36.5 C 79 14 102/63 95 09/29/17 16:40 09/29/17 16:40 09/29/17 16:40 09/29/17 16:40 09/29/17 16:40 Laboratory Results 09/29/17 05:40 09/29/17 05:40 09/28/17 09/29/17 09/30/17 05:59 05:59 05:59 Intake Total 2080 3659 750 Output Total 1 Balance 2079 3658 750 PT 15.8 SEC (12.0-15.0) H 09/29/17 07:44 INR 1.24 (0.83-1.16) H 09/29/17 07:44 - Physical Exam Constitutional: chronically ill appearing Eyes: anicteric sclera Ears, Nose, Mouth, Throat: dry mucous membranes Cardiovascular: regular rate and rhythym, No tachycardia Respiratory: no respiratory distress Gastrointestinal: normoactive bowel sounds, tenderness, distension, No guarding , No rebound Genitourinary: no bladder fullness Skin: warm Musculoskeletal: No asymmetric calves Neurologic: AAOx3 Psychiatric: interacting appropriately, No encephalopathic Lymph, Heme, Immunologic: no cervical LAD ICD10 Worksheet Patient Problems: Problems Problem Status Onset Dehydration Acute Esophageal mass Acute Hypotension Acute Palliative care encounter Acute Sepsis Acute Syncope Acute
[2017-09-30] MEDS: BIOTENE DRY MOUTH MOUTHWASH 237 ML BTL MM SCH ×3 (01:14→17:30)
[2017-09-30] MEDS: SENNOSIDES/DOCUSATE SODIUM TAB PO SCH ×4 (01:46→20:27)
[2017-09-30 06:40] LABS: PLATELET COUNT 118 10^3/uL (150-400)
[2017-09-30] MEDS: DICYCLOMINE 10 MG CAP PO SCH (09:10)
[2017-09-30] MEDS: METOPROLOL TARTRATE 25 MG TAB PO SCH ×2 (09:10→20:03)
[2017-09-30] MEDS: DEXAMETHASONE 4 MG TAB PO SCH (09:10)
[2017-09-30] MEDS: PANTOPRAZOLE SODIUM 40 MG TAB PO SCH ×2 (09:11→20:03)
[2017-09-30] MEDS ORDERED: K PHOS 10 MMOL in D5W 250 ML IV ONE (12:00)
[2017-09-30] MEDS: ENOXAPARIN 100 MG/ML SYR SC SCH (13:30)
--- NOTE | 2017-09-30 15:39 | HOSPPROG ---
Hospitalist Progress Note Assessment/Plan: # Acute SVT - resolved s/p adenosine - TELE (personally reviewed and interpreted ) sinus 70-80's - cont low dose metoprolol # acute ileus- abdominal xray (personally reviewed and interpreted) shows ileus - clinically resolved Patient successfully passing stool - oxygen saturations 95% on RA - cont encouraging ambulation - p.r.n. electrolyte repletion - tolerating diet - replete mag/phos # metastatic esophageal carcinoma- undergoing active chemotherapy has received his 1st dose of 3 in cycle 1 Oncology describes as an aggressive carcinoma - continue to monitor and provide supportive care - treat mucositis # hyponatremia appears acute on chronic- sodium 125 (recent baselines 129) - suspect chronically hypervolemic in nature - recheck in a.m. # Acute SBP - patient markedly more comfortable after paracentesis 4L removed- - Ceftriaxone IV day 11/04 # history of pulmonary embolism- complicated by gastrointestinal bleed - continue Lovenox 100 mg SC daily per oncology # Melena - H&H is stable - carefully continue lovenox - daily H&H # prophylaxis- Lovenox as above # diet- regular # disposition greater than 2 midnights as requiring close monitor for acute ileus and dehydration I have discussed the case with Pharm D - restarting lovenox today s/p paracentesis Subjective: abd pain much improved Objective: Vital Signs Temp Pulse Resp BP Pulse Ox 36.7 C 75 18 102/62 95 09/30/17 12:00 09/30/17 12:00 09/30/17 12:00 09/30/17 12:00 09/30/17 12:00 Microbiology 09/29/17 15:30 Gram Stain - Final Peritoneal Fluid - Aspirate Laboratory Results 09/30/17 06:20 09/30/17 06:20 09/29/17 09/30/17 10/01/17 05:59 05:59 05:59 Intake Total 3659 2009 Balance 3659 2009 PT 15.8 SEC (12.0-15.0) H 09/29/17 07:44 INR 1.24 (0.83-1.16) H 09/29/17 07:44 - Physical Exam Constitutional: no apparent distress Eyes: anicteric sclera Ears, Nose, Mouth, Throat: moist mucous membranes Cardiovascular: regular rate and rhythym Respiratory: no respiratory distress, inspiratory crackles (on right) Gastrointestinal: normoactive bowel sounds, distension, No guarding, No rebound Genitourinary: no bladder fullness Skin: warm Musculoskeletal: No asymmetric calves Neurologic: AAOx3 Psychiatric: interacting appropriately, not anxious Lymph, Heme, Immunologic: no cervical LAD ICD10 Worksheet Patient Problems: Problems Problem Status Onset Dehydration Acute Esophageal mass Acute Hypotension Acute Palliative care encounter Acute Sepsis Acute Syncope Acute
--- NOTE | 2017-09-30 16:54 | SOAPPROG ---
SOAP Progress Note Assessment/Plan: Assessment/Plan: 57 yo man w stage IV esophageal ca-D13 C1 of taxol/ramucirumab admitted w chemo toxicities 1. esophageal ca - LFTs trending down hopefully demonstrating early response; repeat tumor marker still high dont have previous for comparison 2. mucositis - secondary to chemo will need dose reduction cont supportive care 3. dehydration - improved 4. abd distention - paracentesis 1/2; cell count demonstrates SBP; on ceftriaxone abd pian improved 5. HypoNa - chronic, stable 6. Neutropenia - improving, afebrile 7. Hx of PE - on lovenox 100 daily monitor for GI bleeding which pt had prior from underlying tumor GI stools have been present fecal occult+ but H/H stable 8. SVT - NSR s/p adenosine on tele possibly home soon w close outpt follow up 09/29/17 15:11 09/29/17 15:14 09/30/17 16:51 Subjective: paracentesis yesterday, 4L removed feeling better today mouth improving Objective: Vital Signs Temp Pulse Resp BP Pulse Ox 36.7 C 75 18 102/62 95 09/30/17 12:00 09/30/17 12:00 09/30/17 12:00 09/30/17 12:00 09/30/17 12:00 Microbiology 09/29/17 15:30 Gram Stain - Final Peritoneal Fluid - Aspirate Laboratory Results 09/30/17 06:20 09/30/17 06:20 09/29/17 09/30/17 10/01/17 05:59 05:59 05:59 Intake Total 3659 2009 Balance 3659 2009 PT 15.8 SEC (12.0-15.0) H 09/29/17 07:44 INR 1.24 (0.83-1.16) H 09/29/17 07:44 Gen - lying flat, NAD HEENT - anicteric CV - RRR Resp - clear anteriorly Abd - still w ascitic fluid but less distended, no TTP, no rebound ecchymosis from paracentesis noted BS+ Ext - no sig edema Neuro - nonfocal ICD10 Worksheet Patient Problems: Problems Problem Status Onset Dehydration Acute Esophageal mass Acute Hypotension Acute Palliative care encounter Acute Sepsis Acute Syncope Acute
[2017-10-01] MEDS: BIOTENE DRY MOUTH MOUTHWASH 237 ML BTL MM SCH ×3 (00:19→16:04)
[2017-10-01 06:05] LABS: PLATELET COUNT 142 10^3/uL (150-400)
[2017-10-01] MEDS: DICYCLOMINE 10 MG CAP PO SCH (09:09)
[2017-10-01] MEDS: ENOXAPARIN 100 MG/ML SYR SC SCH (09:09)
[2017-10-01] MEDS: PANTOPRAZOLE SODIUM 40 MG TAB PO SCH (09:10)
[2017-10-01] MEDS: DEXAMETHASONE 4 MG TAB PO SCH (09:10)
[2017-10-01] MEDS: METOPROLOL TARTRATE 25 MG TAB PO SCH (09:10)
[2017-10-01] MEDS: SENNOSIDES/DOCUSATE SODIUM TAB PO SCH (11:20)
--- NOTE | 2017-10-01 14:26 | HOSPPROG ---
Hospitalist Progress Note Assessment/Plan: #Acute SBP: cont IV CTX here, Strep mitis on culture. Dc on Augmentin #Ascites: 4L off 09/29/17. Site leaking today. Apply ostomy bag. Outpatient paracentesis as needed #Esophageal cancer: chemo per onc #SVT: resolved with adenosine. Cont BB #PE: Lovenox #h/o GIB: H/H stable #Disp: DC today Subjective: paracentesis site leaking fluid "Feel more full today" Objective: Vital Signs Temp Pulse Resp BP Pulse Ox 36.6 C 67 14 94/59 L 95 10/01/17 11:41 10/01/17 11:41 10/01/17 11:41 10/01/17 11:41 10/01/17 11:41 Microbiology 09/29/17 15:30 Gram Stain - Final Peritoneal Fluid - Aspirate Laboratory Results 10/01/17 05:40 10/01/17 05:40 09/30/17 10/01/17 10/02/17 05:59 05:59 05:59 Intake Total 2009 3420 Balance 2009 3420 PT 15.8 SEC (12.0-15.0) H 09/29/17 07:44 INR 1.24 (0.83-1.16) H 09/29/17 07:44 - Physical Exam Constitutional: no apparent distress Eyes: PERRL Ears, Nose, Mouth, Throat: moist mucous membranes, hearing normal Cardiovascular: regular rate and rhythym, no murmur, rub, or gallop, edema ( trace pedal edema) Respiratory: no respiratory distress, no rales or rhonchi Gastrointestinal: normoactive bowel sounds, other (mildly distended. 4x4 saturated with ascitic fluid. No TTP, quite BS) Skin: warm Musculoskeletal: full muscle strength Neurologic: AAOx3, CN II-XII Intact ICD10 Worksheet Patient Problems: Problems Problem Status Onset Esophageal mass Acute Syncope Acute Hypotension Acute Sepsis Acute Dehydration Acute Palliative care encounter Acute
--- NOTE | 2017-10-01 14:53 | SOAPPROG ---
SOAP Progress Note Assessment/Plan: Assessment/Plan: 57 yo man w stage IV esophageal ca-D13 C1 of taxol/ramucirumab admitted w chemo toxicities 1. esophageal ca - LFTs trending down hopefully demonstrating early response; repeat tumor marker still high don't have previous for comparison f/u w Dr [place] to resume chemo 2. mucositis - secondary to chemo will need dose reduction cont supportive care 3. dehydration - improved 4. abd distention - paracentesis 1/2; cell count demonstrates SBP; on ceftriaxone abd pain switch to po abx and d/c home 5. HypoNa - chronic, stable 6. Neutropenia - improving, afebrile 7. Hx of PE - on lovenox 100 daily monitor for GI bleeding which pt had prior from underlying tumor GI stools have been present fecal occult+ but H/H stable 8. SVT - NSR s/p adenosine on tele no recurrent arrythmia ok w discharge today 10/01/17 14:51 Subjective: No acute events Feels like a little more distended today and draining from paracentesis site denies new pain Objective: Vital Signs Temp Pulse Resp BP Pulse Ox 36.6 C 67 14 94/59 L 95 10/01/17 11:41 10/01/17 11:41 10/01/17 11:41 10/01/17 11:41 10/01/17 11:41 Microbiology 09/29/17 15:30 Gram Stain - Final Peritoneal Fluid - Aspirate Laboratory Results 10/01/17 05:40 10/01/17 05:40 09/30/17 10/01/17 10/02/17 05:59 05:59 05:59 Intake Total 2009 3420 Balance 2009 3420 PT 15.8 SEC (12.0-15.0) H 09/29/17 07:44 INR 1.24 (0.83-1.16) H 09/29/17 07:44 Gen - fatigues appearing and chronically ill HEENT - anicteric, mucositis resolved CV- RRR Resp - clear anteriorly abd - distended but still soft; draining clear yellow fluid from paracentesis site (ostomy bag over) Ext - stable edema ICD10 Worksheet Patient Problems: Problems Problem Status Onset Dehydration Acute Esophageal mass Acute Hypotension Acute Palliative care encounter Acute Sepsis Acute Syncope Acute
[2017-10-01 15:50] VITALS: BP 100/70; PULSE 76; RESP 18; TEMP 97.7; O2SAT 94
--- NOTE | 2017-10-01 16:08 | GDS ---
[f rep st] DISCHARGE SUMMARY DISCHARGE DIAGNOSES: 1. Acute spontaneous bacterial peritonitis. 2. Acute supraventricular tachycardia. 3. Acute ileus. 4. Metastatic esophageal carcinoma, undergoing active chemotherapy. 5. Hypervolemic hyponatremia. 6. Progressive ascites, status post 4 liters paracentesis. 7. History of pulmonary embolism, complicated by gastrointestinal bleed. 8. Melena. HISTORY OF PRESENT ILLNESS: A 57-year-old male with recent diagnosis of esophageal cancer in September, was treated with chemo and radiation. This has been complicated by a pulmonary embolism and recently, an upper GI bleed. He was started on a new chemo regimen last week, and this wore him out. He has been unable to eat for several days. He reports abdominal pain which can be quite severe diffusely, but especially in the right upper quadrant, lasting 10- 15 minutes. There is known metastatic liver disease. Denies fevers, chills, or sweats. HOSPITAL COURSE BY PROBLEM: 1. Acute SVT: This resolved with adenosine. We will continue a low-dose beta juanjose. 2. Acute ileus: He is passing stool and tolerating p.o. 3. Acute SBP: treated with high-dose CTX here. Culture with rare Streptococcus mitis/oralis. DC on Augmentin 4. Significant ascites: Status post 4 L paracentesis 09/29/2017. This will likely reaccumulate and Oncology will help arrange further paracenteses as an outpatient. 5. Hypervolemic hyponatremia. Baseline sodium is 124-129, it is currently 125. 6. History of pulmonary embolism: complicated by GI bleed, but will continue Lovenox. H and H are stable. 7. Metastatic esophageal cancer, recently diagnosed in September. This is aggressive, per Oncology. He has received his 1st dose of 3 in cycle 1. They will continue to follow him as an outpatient. DISPOSITION: Patient is stable for discharge home with his . FOLLOWUP INSTRUCTIONS: 1. Follow up with Oncology. 2. Chemotherapy. 3. Outpatient paracentesis as warranted. /[id number]/MODL MTDD
--- NOTE | 2017-10-02 16:32 | ASDISCHSUM ---
Discharge Information Plan Status:Home with No Needs Medically Cleared to Leave:09/30/2017 Discharge Date:10/01/2017 04:26 PM CM D/C Disposition:Home, Routine, Self-Care ADT D/C Disposition:Home, Routine, Self-Care Projected Discharge Date:10/01/2017 12:00 AM Transportation at D/C:Family Discharge Delay Reason: Follow-Up Date:10/01/2017 12:00 AM Discharge Slot: Final Diagnosis: Placement Information Patient Contact Information Contact Name:LETICIA Relationship: Address:[address] [place] Alternate Phone: State/Zip Code:[place] [address] Email: Financial Information Financial Class:[employer] Primary Plan Desc:ANA M LARRY Vlad [facility] Primary Plan Number:[id number] Secondary Plan Desc: Secondary Plan Number: Assessment Information [facility] CM Progress Note CM Note CM Note Notes: 09/26/2017 Case Management Note Pt admitted for SOB and progression of symptoms r/t esophageal cancer. Case Management d/c needs are TBD. There are no PT or OT evals ordered at this time. Case Management to follow. Date Signed: 09/26/2017 12:24 PM Electronically Signed By:Marcie Carey RN [facility] CM Progress Note CM Note CM Note Notes: 09/29/2017 Case Management Note Pt case management needs remain unchanged. There are no PT or OT evals ordered at this time. Case Management d/c poc: home independent with follow up as directed. Case Management available if needs change. Date Signed: 09/29/2017 02:03 PM Electronically Signed By:Marcie Carey RN Intervention Information
== END 2017-10-01 16:26 | disposition home or self-care (01) | DRG 388 ==
LOC: F1N 15:11 → F2W 09-27 23:30
PROVIDERS: ADMIT Student in an Organized Health Care Education/Training Program; ATTEND Student in an Organized Health Care Education/Training Program
PROC: 0W9G3ZZ Drainage of Peritoneal Cavity, Percutaneous Approach (ICD-10-PCS; principal; 2017-09-29)
DX: K56.7 Ileus, unspecified (principal); K65.2 Spontaneous bacterial peritonitis; C15.9 Malignant neoplasm of esophagus, unspecified; C78.7 Secondary malignant neoplasm of liver and intrahepatic bile duct; E87.1 Hypo-osmolality and hyponatremia; R18.8 Other ascites; I47.1 Supraventricular tachycardia; E86.0 Dehydration; D70.9 Neutropenia, unspecified; K12.31 Oral mucositis (ulcerative) due to antineoplastic therapy; B95.4 Other streptococcus as the cause of diseases classified elsewhere; T45.1X5A Adverse effect of antineoplastic and immunosuppressive drugs, initial encounter; Z86.711 Personal history of pulmonary embolism; Z79.01 Long term (current) use of anticoagulants
CPT/HCPCS: 97161-GP; J0153; J0696; J1642; J1650; P9047

== ENCOUNTER 2017-10-03 09:07 | Inpatient (IN) | payer OTHER ==
--- NOTE | 2017-10-03 09:23 | CPEKG ---
Heart Rate: 130 RR Interval: 462 QRSD Interval: 76 QT Interval: 304 QTC Interval: 447 QRS [place]: 72 T Wave [place]: -40 EKG Severity - ABNORMAL ECG - EKG Impression: JUNCTIONAL TACHYCARDIA EKG Impression: BORDERLINE T ABNORMALITIES, INFERIOR LEADS Electronically Signed By: Barrera Acosta 03-Oct-2017 13:24:52
--- NOTE | 2017-10-03 09:58 | EDPHY ---
H & P Smoking Status: Never smoked Time Seen by Provider: 10/03/17 09:13 HPI/ROS: CHIEF COMPLAINT: Bloating, abdominal pain HISTORY OF PRESENT ILLNESS: 57-year-old male presents to the emergency department with recurring abdominal pain, abdominal distention and bloating. Patient has a history of metastatic esophageal cancer who underwent chemotherapy and radiation. The patient was recently admitted to the hospital on 09/25/2017 with acute spontaneous bacterial peritonitis. He was treated with antibiotics and was discharged 2 days ago. He had 4L paracentesis on 2017. He was told that this would likely reaccumulate and his oncologist, Dr. Mirna Hoff, was going to help to arrange paracentesis as an outpatient. Patient states that he feels "weird ". He feels very weak. He feels that his abdomen is more distended. He is however having leakage of peritoneal fluid from his ostomy bag. No reports of fever. He has no chest pain or difficulty breathing. He also has a history of a PE as well as an upper GI bleed. He is on Lovenox. His last dose of Lovenox was 10 o'clock yesterday morning. He has been drinking Ensure, last oral intake was around 8:00 a.m.. REVIEW OF SYSTEMS: Constitutional: No fever, no chills. Eyes: No double or blurry vision. ENT: No sore throat. Respiratory: No cough, no shortness of breath. Cardiac: No chest pain. Gastrointestinal: Abdominal pain as above. No vomiting or diarrhea Genitourinary: No dysuria. Musculoskeletal: No neck or back pain. Skin: No rashes. Neurological: No headache. (Melissa Field) Past Medical/Surgical History: Spontaneous bacterial peritonitis September 2017, SVT, ileus, metastatic esophageal carcinoma with metastasis to the liver, 4L paracentesis on 09/29/2017, pulmonary embolism on Lovenox, upper GI bleed (Melissa Field) Social History: (Melissa Field) Physical Exam: General Appearance: Alert, no distress. Blood pressure 91/69, heart rate 134, 96% on room air, oral temperature 36.4degrees Eyes: Pupils equal and round. Extraocular motions are all intact. ENT: Mouth: Mucous membranes moist. Respiratory: No wheezing, rhonchi, or rales, lungs are clear to auscultation. Cardiovascular: Regular rate and rhythm. Gastrointestinal: Abdomen is grossly distended consistent with ascites. Numerous areas of ecchymosis from his Lovenox injections. He has an ostomy bag present in the left lower quadrant with straw-colored peritoneal fluid in the bag. Neurological: Alert and oriented x 3, cranial nerves II through XII grossly intact Skin: Warm and dry, no rashes. Musculoskeletal: Nontender to palpate along the cervical, thoracic or lumbar spine. Neck is supple. Extremities: Full range of motion and no peripheral edema. Psychiatric: Patient is oriented X 3, there is no agitation. (Melissa Field) Constitutional: Initial Vital Signs Temperature (C) 36.2 C 10/03/17 09:08 Heart Rate 130 H 10/03/17 09:08 Respiratory Rate 20 10/03/17 09:08 Blood Pressure 89/71 L 10/03/17 09:08 O2 Sat (%) 91 L 10/03/17 09:08 O2 Delivery Mode Room Air Allergies/Adverse Reactions: No Known Allergies Allergy (Verified 10/03/17 09:07) Home Medications: Medication Instructions Recorded Pantoprazole Sodium [Protonix 40mg 40 mg PO BID #60 tab 06/28/17 (*)] Dexamethasone [Decadron 4 MG (*)] 4 mg PO DAILY 09/25/17 Dicyclomine [Bentyl 10 MG (*)] 10 mg PO DAILY 09/25/17 Enoxaparin [Lovenox 100 MG (*)] 100 mg SQ DAILY 09/25/17 Ondansetron [Zofran Odt] 8 mg PO DAILY PRN 09/25/17 Prochlorperazine Maleate 10 mg PO Q6H PRN 09/25/17 [Compazine 10mg (*)] Amoxicillin/Clavulanate Pot 875 mg PO BID #12 tab 10/01/17 [Augmentin 875 MG TAB (*)] Metoprolol Tartrate [Lopressor 25 12.5 mg PO BID #30 tab 10/01/17 mg (*)] oxyCODONE IR [Oxycodone Ir (*)] 5 - 10 mg PO Q6H PRN 10/03/17 Medical Decision Making - Diagnostics EKG Interpretation: 12-lead EKG interpreted by me; official reading is in trace master. My interpretation is junctional or sinus tachycardia rate 130. (Barrera Acosta) ED Course/Re-evaluation: Initial lactate was 2.3. This was repeated after 1 L of IV saline. Patient feeling better. No longer tachycardic. Repeat lactate was 2.2. The patient is hypotensive and tachycardic with a history of spontaneous bacterial peritonitis. He is afebrile. His last use of Lovenox was 10 o'clock yesterday morning. I did speak with the on-call radiologist, Dr. Mitch Bennett to inquire about paracentesis. He recommended that the hospitalist decide if they want to call the interventional team in. The case was also discussed with Dr. Barrera Acosta, secondary supervising physician , who also evaluated the patient. He recommended sending the peritoneal fluid in the ostomy bag for Gram stain, culture and cell count. Patient was given 1 g of ceftriaxone IV for likely recurrent spontaneous bacterial peritonitis. He grew Strep Mitis at his last admission. Step Down bed ordered to Dr. Jonny Campuzano. (Melissa Field) Differential Diagnosis: Including but not limited to sepsis, spontaneous bacterial peritonitis, metastatic carcinoma, anemia, electrolyte abnormality (Melissa Field) Other Provider: PHYSICIAN DOCUMENTATION: The patient was evaluated and managed by the Physician Real Estate Listing Consultant and myself. I have reviewed the chart and agree with the findings and plan of care as documented. In addition, I examined the patient myself at 948. History confirmed as bloating, no fever, just feels terrible. He does have a persistently draining left lateral abdominal wound with a previous paracentesis site and a collection ostomy over the external hole. Physical findings as follows: Abdomen soft and non tender, does have straw-colored fluid drained from his lateral paracentesis site. Peritoneal fluid on microscopic has white blood cells; IV ceftriaxone, possible bacterial peritonitis, admission to hospital for further evaluation and treatment. I am the secondary supervising physician. (Barrera Acosta) - Data Points Laboratory Results: Laboratory Results 10/03/17 09:40 10/03/17 09:40 Microbiology Results: MICROBIOLOGY 10/03/17 09:55 Peritoneal Fluid - Other Gram Stain - Final Medications Given: Dexamethasone (Decadron) 4 mg PO DAILY YURY Stop: 04/02/18 08:59 Last Admin: 10/04/17 08:45 Dose: 4 mg Dicyclomine HCl (Bentyl) 10 mg PO DAILY YURY Stop: 04/02/18 08:59 Last Admin: 10/04/17 08:44 Dose: Not Given Enoxaparin Sodium (Lovenox) 100 mg SC DAILY YURY Stop: 04/02/18 08:59 Last Admin: 10/04/17 08:45 Dose: 100 mg Ceftriaxone Sodium 2 gm/ (Sodium Chloride) 50 mls @ 100 mls/hr IV DAILY YURY PRN Reason: Protocol Stop: 11/03/17 08:59 Last Admin: 10/04/17 08:44 Dose: 50 mls Oxycodone HCl (Oxycodone Ir) 5 - 10 mg PO Q6H PRN PRN Reason: Pain, Severe Stop: 10/13/17 12:14 Last Admin: 10/03/17 23:54 Dose: 5 mg Pantoprazole Sodium (Protonix) 40 mg PO BID YURY Stop: 04/01/18 20:59 Last Admin: 10/04/17 08:45 Dose: 40 mg Discontinued Medications Dexamethasone (Decadron Injection) 10 mg IVP ONCE ONE Stop: 10/03/17 13:15 Last Admin: 10/03/17 14:19 Dose: 10 mg Sodium Chloride (Ns) 1,000 mls @ 0 mls/hr IV ONCE ONE PRN Reason: Wide Open Stop: 10/03/17 10:16 Last Admin: 10/03/17 10:22 Dose: 1,000 mls Ceftriaxone Sodium/Dextrose (Rocephin 1 Gm (Premix)) 50 mls @ 100 mls/hr IV EDNOW ONE PRN Reason: Protocol Stop: 10/03/17 11:30 Last Admin: 10/03/17 11:33 Dose: 50 mls Sodium Chloride (Ns) 1,000 mls @ 0 mls/hr IV ONCE ONE; Wide Open PRN Reason: Protocol Stop: 10/03/17 11:36 Last Admin: 10/03/17 11:36 Dose: 1,000 mls Albumin Human (Alburx 5) 250 mls @ 0 mls/hr IV ONCE ONE PRN Reason: As Directed Stop: 10/03/17 12:13 Last Admin: 10/03/17 14:22 Dose: 250 mls Ceftriaxone Sodium/Dextrose (Rocephin 1 Gm (Premix)) 50 mls @ 100 mls/hr IV ONCE ONE PRN Reason: Protocol Stop: 10/03/17 13:29 Last Admin: 10/03/17 13:31 Dose: 50 mls Albumin Human (Flexbumin 25 % (Premix)) 100 mls @ 0 mls/hr IV Q6HRS YURY PRN Reason: As Directed Stop: 04/01/18 17:59 Last Admin: 10/04/17 05:58 Dose: 100 mls Departure - Departure Disposition: [facility] Acute Clinical Impression: Bacterial peritonitis Ascites Qualifiers: Ascites type: other type Qualified Code(s): R18.8 - Other ascites Condition: Good
[2017-10-03 09:59] LABS: PLATELET COUNT 277 10^3/uL (150-400)
[2017-10-03 10:06] LABS: INR 1.22 (0.83-1.16); PROTIME(PATIENT) 15.6 SEC (12.0-15.0)
[2017-10-03] MEDS ORDERED: NS 1,000 ML IV ONE ×2 (10:15→11:35)
[2017-10-03] MEDS ORDERED: PROMETHAZINE HCL 25 MG TAB PO PRN (12:12)
[2017-10-03] MEDS ORDERED: PROMETHAZINE HCL 25 MG/ML INJ IVP PRN (12:12)
[2017-10-03] MEDS ORDERED: ONDANSETRON 4 MG/2 ML VIAL IVP PRN (12:12)
[2017-10-03] MEDS ORDERED: ALBUMIN 5% 250 ML IV ONE (12:12)
[2017-10-03] MEDS ORDERED: ONDANSETRON DISINTEGRATING 4 MG TAB PO PRN ×2 (12:12→13:02)
[2017-10-03] MEDS ORDERED: NON-FORMULARY NEW DRUG (Ondansetron [Zofran Odt] 8 MG) PO PRN (12:15)
[2017-10-03] MEDS ORDERED: PROCHLORPERAZINE MALEATE 10 MG TAB PO PRN (12:15)
[2017-10-03] MEDS ORDERED: DEXAMETHASONE 10 MG/ML VIAL IVP ONE (13:14)
[2017-10-03] MEDS: oxyCODONE IR 5 MG TAB PO PRN ×4 (13:43→23:54)
--- NOTE | 2017-10-03 13:45 | PDGENHP ---
History and Physical - Chief Complaint Acute abdominal pain - History of Present Illness Primary oncologist: Dr. Mirna Angeles HPI: 57-year-old male presenting with acute abdominal pain located diffusely across his abdomen, characterized as an intermittently sharp pain with associated bloating, leakage of peritoneal fluid through ostomy bag, weakness. The patient reports that since discharge 48 hr prior, he has continued to experience worsening abdominal distension, ongoing leakage on the left side into the ostomy bag, increased fatigue. The duration has been persistent, and the pain has only been mildly alleviated by oxycodone taken at home. He has only been taking his Augmentin once daily, and the only medication he took on the morning of presentation was his oral metoprolol. History Information - Allergies/Home Medication List Allergies/Adverse Reactions: No Known Allergies Allergy (Verified 10/03/17 09:07) Home Medications: Dexamethasone [Decadron 4 MG (*)] 4 mg PO DAILY 09/25/17 [Last Taken Unknown] Dicyclomine [Bentyl 10 MG (*)] 10 mg PO DAILY 09/25/17 [Last Taken Unknown] Enoxaparin [Lovenox 100 MG (*)] 100 mg SQ DAILY 09/25/17 [Last Taken 10/02/17 21 :00] Ondansetron [Zofran Odt] 8 mg PO DAILY PRN 09/25/17 [Last Taken Unknown] Prochlorperazine Maleate [Compazine 10mg (*)] 10 mg PO Q6H PRN 09/25/17 [Last Taken 09/18/17] oxyCODONE IR [Oxycodone Ir (*)] 5 - 10 mg PO Q6H PRN 10/03/17 [Last Taken 21:00 10mg] I have personally reviewed and updated: family history, medical history, social history, surgical history - Past Medical History Additional medical history: metastatic esophageal cancer (dx 09/2016, s/p FOLFOX , 5-FU). h/o ETOH abuse, massive PE 11/2016 requiring intra-arterial thrombolytics and subsequent IVC filter placement after he experienced upper GI bleed from his esophageal cancer requiring intubation for airway stabilization, SVT, adrenal insufficiency, chronic hyponatremia with baseline serum sodium 124- 129, recent spontaneous bacterial peritonitis in late August 2017 - Surgical History Additional surgical history: IVC filter placement via right groin. 09/29/2017 4L therapeutic paracentesis - Family History Additional family history: No family history of malignancy, his mother from [place] disease - Social History Smoking Status: Never smoked Alcohol Use: Sober Drug Use: None Additional social history: Lives with , independent in ADLs. Review of Systems Review of Systems: ROS: 10pt was reviewed & negative except for what was stated in HPI & below Constitutional: Reports: weakness Gastrointestinal: Reports: abdominal pain, abdominal distention, diarrhea ( Nonbloody), other (Bloating) Physical Exam Physical Exam: Temp Pulse Resp BP Pulse Ox 36.8 C 97 18 94/64 L 94 10/03/17 13:00 10/03/17 13:00 10/03/17 13:00 10/03/17 13:00 10/03/17 13:00 Constitutional: no apparent distress, chronically ill appearing, uncomfortable, No not in pain (Mild in abdomen) Eyes: PERRL, EOMI, icteric sclera Ears, Nose, Mouth, Throat: moist mucous membranes, hearing normal, ears appear normal, no oral mucosal ulcers, dry mucous membranes Cardiovascular: systolic murmur (1/6 sternum), tachycardia, edema (Trace bilateral lower extremity), No irregularly irregular Respiratory: reduced air movement (Right base), No expiratory wheeze, No inspiratory crackles, No bronchial breath sounds, No respiratory distress Gastrointestinal: normoactive bowel sounds, tenderness (Mild), ascites, distension (Moderate to severe, abdomen not tense) Skin: other (Scattered ecchymoses, no erythema around left-sided leaking site on abdomen) Neurologic: AAOx3, sensation intact bilaterally, No weakness, No asterixes Psychiatric: interacting appropriately, not anxious, not encephalopathic, thought process linear Lab Data & Imaging Review 10/03/17 09:40 10/03/17 09:40 WBC 15.00 10^3/uL (3.80-9.50) H D 10/03/17 09:40 RBC 3.52 10^6/uL (4.40-6.38) L 10/03/17 09:40 Hgb 11.3 g/dL (13.7-17.5) L 10/03/17 09:40 Hct 32.5 % (40.0-51.0) L 10/03/17 09:40 MCV 92.3 fL (81.5-99.8) 10/03/17 09:40 MCH 32.1 pg (27.9-34.1) 10/03/17 09:40 MCHC 34.8 g/dL (32.4-36.7) 10/03/17 09:40 RDW 17.1 % (11.5-15.2) H 10/03/17 09:40 Plt Count 277 10^3/uL (150-400) D 10/03/17 09:40 MPV 9.8 fL (8.7-11.7) 10/03/17 09:40 Neut % (Auto) Not Reported 10/03/17 09:40 Lymph % (Auto) Not Reported 10/03/17 09:40 Ramsey % (Auto) Not Reported 10/03/17 09:40 Eos % (Auto) Not Reported 10/03/17 09:40 Baso % (Auto) Not Reported 10/03/17 09:40 Nucleat RBC Rel Count 0.9 % (0.0-0.2) H 10/03/17 09:40 Absolute Neuts (auto) Not Reported 10/03/17 09:40 Absolute Lymphs (auto) Not Reported 10/03/17 09:40 Absolute Monos (auto) Not Reported 10/03/17 09:40 Absolute Eos (auto) Not Reported 10/03/17 09:40 Absolute Basos (auto) Not Reported 10/03/17 09:40 Absolute Nucleated RBC 0.14 10^3/uL (0-0.01) H 10/03/17 09:40 Immature Gran % Not Reported 10/03/17 09:40 Seg Neutrophils % 45 % 10/03/17 09:40 Band Neutrophils % 11 % 10/03/17 09:40 Lymphocytes % 16 % 10/03/17 09:40 Monocytes % 16 % 10/03/17 09:40 Eosinophils % 1 % 10/03/17 09:40 Metamyelocytes % 5 % 10/03/17 09:40 Myelocytes % 6 % 10/03/17 09:40 Immature Gran # Not Reported 10/03/17 09:40 Absolute Seg Neuts 6.75 10^/uL (1.70-6.50) H 10/03/17 09:40 Absolute Band Neuts 1.65 10^3/uL (0.00-0.70) H 10/03/17 09:40 Absolute Lymphocytes 2.40 10^3/uL (1.00-3.00) 10/03/17 09:40 Absolute Monocytes 2.40 10^3/uL (0.30-0.80) H 10/03/17 09:40 Absolute Eosinophils 0.15 10^3/uL (0.03-0.40) 10/03/17 09:40 Absolute Metamyelocyte 0.75 10^3/mL (0.00-0.00) H 10/03/17 09:40 Absolute Myelocytes 0.90 10^3/mL (0.00-0.00) H 10/03/17 09:40 Platelet Estimate ADEQUATE (ADEQ) 10/03/17 09:40 Microcytic Cells 1+ H 10/03/17 09:40 Oval Macrocytes 1+ H 10/03/17 09:40 PT 15.6 SEC (12.0-15.0) H 10/03/17 09:40 INR 1.22 (0.83-1.16) H 10/03/17 09:40 APTT 28.3 SEC (23.0-38.0) 10/03/17 09:40 VBG Lactic Acid 2.2 mmol/L (0.7-2.1) H 10/03/17 11:29 Sodium 128 mEq/L (134-144) L 10/03/17 09:40 Potassium 5.1 mEq/L (3.5-5.2) 10/03/17 09:40 Chloride 102 mEq/L (97-110) 10/03/17 09:40 Carbon Dioxide 18 mEq/l (22-31) L 10/03/17 09:40 Anion Gap 8 mEq/L (8-16) 10/03/17 09:40 BUN 20 mg/dL (7-23) 10/03/17 09:40 Creatinine 0.5 mg/dL (0.7-1.3) L 10/03/17 09:40 Estimated GFR > 60 10/03/17 09:40 Glucose 85 mg/dL (70-100) 10/03/17 09:40 Calcium 7.7 mg/dL (8.5-10.4) L 10/03/17 09:40 Total Bilirubin 1.5 mg/dL (0.1-1.4) H 10/03/17 09:40 Conjugated Bilirubin 1.0 mg/dL (0.0-0.5) H 10/03/17 09:40 Unconjugated Bilirubin 0.5 mg/dL (0.0-1.1) 10/03/17 09:40 AST 151 IU/L (17-59) H 10/03/17 09:40 ALT 98 IU/L (21-72) H 10/03/17 09:40 Alkaline Phosphatase 370 IU/L (38-126) H 10/03/17 09:40 Total Protein 4.8 g/dL (6.3-8.2) L 10/03/17 09:40 Albumin 2.1 g/dL (3.5-5.0) L 10/03/17 09:40 Fluid Meso/Macro/Ramsey % 15 % (70-100) L 10/03/17 09:55 Peritoneal Source PERITONEAL 10/03/17 09:55 Peritoneal Color YELLOW (CLS/PALE YL) H 10/03/17 09:55 Peritoneal Appearance SL. HAZY (CLEAR) H 10/03/17 09:55 Peritoneal WBC 1782 /mm3 (0-0) H 10/03/17 09:55 Peritoneal RBC 50 /mm3 (0-0) H 10/03/17 09:55 Periton Neutrophils 78 % (0-7) H 10/03/17 09:55 Periton Lymphocytes % 7 % (0-18) 10/03/17 09:55 Visualized and Interpreted Chest x-ray results: Yes Chest X-Ray results: other (Atelectasis and elevated right hemidiaphragm) Visualized and Interpreted EKG results: Yes EKG Interpretation: Positive for: other (Junctional tachycardia or sinus tachycardia, with T-wave inversion in lead 3 and AVF) Assessment & Plan Assessment: 57-year-old male presenting with acute, recurrent spontaneous bacterial peritonitis in the setting of stage IV esophageal cancer with hepatic metastases and resultant massive ascites Plan: 1. Spontaneous bacterial peritonitis. Acute, new problem this provider, further workup indicated. Recurrent, most likely secondary to home oral antibiotics being taken improperly and sub therapeutically, would culture sent, blood cultures sent -continue to monitor white blood cell count -re-dose the patient with 2 g of IV ceftriaxone, gauge effect, consider dosing vancomycin if clinical status does not improve -he is high risk for recurrence even if he takes his antibiotics correctly given that he has ongoing leakage from the left side of his abdomen and skin liliya bacteria translocation is certainly possible 2. Stage IV esophageal cancer with hepatic metastases and massive ascites. It is unclear how much of the patient's ascites is malignant in nature verses secondary to hepatic congestion, his liver enzymes do demonstrate hepatic and biliary stasis, but his hepatic synthetic labs do not appear all that abnormal -treat SBP as outlined above -continue to monitor liver enzyme panel and synthetic labs -hold on therapeutic paracentesis until his clinical status has improved, currently not tense ascites -appreciate oncology consultation 3. Hyponatremia. Chronic, baseline level between 124 and 129, continue monitor 4. History of SVT. Reviewed outside records including 10/01/[address] Lata Vega, she describes patient's most recent hospitalization for SBP complicated by ileus and supraventricular tachycardia requiring beta-juanjose therapy -presenting tachycardia was either sinus rhythm or junctional, did not demonstrate evidence of SVT -monitor for recurrence on telemetry -holding beta-juanjose given hypotension 5. Chronic adrenal insufficiency. Patient is chronically steroid dependent and chronically immunosuppressed, on dexamethasone 4 mg daily, did not take dosage this morning -giving stress dose 10 mg IV dexamethasone, then continue home dosage daily thereafter 6. History of pulmonary embolism. Patient had a significant pulmonary embolism in November of 2016, complicated by upper GI bleed in the setting of systemic anticoagulation, with IVC filter placed, restarted on Lovenox 100 mg daily successfully -continue on Lovenox 100 mg daily, consider that this may be somewhat under dosed given that his weight plus ascites is now upwards of 90+ kg 7. Metabolic acidosis. Acute, secondary to lactic acid, continuing to monitor comma giving IV fluids 8. Hyperkalemia. Unclear etiology, continue monitor on telemetry, renal diet 9. Atelectasis. Secondary to ascites and right hemidiaphragm elevation, incentive spirometer 10. Hypotension. Acute, most likely secondary to intravascular depletion in the setting of infection, low serum albumin -given his low serum albumin level, dose him with scheduled IV albumin in the setting of hypotension, rather than ongoing IV fluids which will likely 3rd spacing to his abdomen -give 1 dose of stress dosed steroids given his steroid dependency for adrenal insufficiency -monitor serum lactic acid level and anticipate that it should clear with accomplishing euvolemic a as his liver synthetic function does not appear to be substantially impaired Diet. Renal Prophylaxis. High risk patient, currently on Lovenox 100 mg daily Code. Full per patient, is MPOA Disposition. Anticipated discharge uncertain this time, anticipated length stay is greater than 48 hr for reasonable medical necessity including SBP with stage IV malignancy, high risk patient with high medical complexity. Discussed patient with Dr. Jonny Campuzano, he has signed out the patient to me for evaluation.
--- NOTE | 2017-10-03 14:48 | PDMN ---
Medical Necessity Medical necessity: C/M revire: Patient meets INPT criteria under [facility] M-[id number] Liver disease complications, Medical oncology GRG; Acute and persistent spontaneous bacterial peritonitis, metabolic acidosis, hyperkalemia, WBC 15.00, VBG lactic acid 2.3, 2.2, Na 128, K 5.1, Ca 7.7, total bilirubin 1.5, AST 151, ALT 98, Alk phos 370, Albumin 2.1, atelectasis, hypotension, requiring planned Dietary consult, ongoing IV Ceftriaxone QD, Human Albumin Q 6 hrs scheduled, cardiac monitoring, pulse oximetry, acute inpt PT/OT, comorbid stage IV esophageal cancer with hepatic metastasis and massive ascites, chronic hyponatremia, history of SVT, chronic adrenal insufficiency, PE. MD anticipates > 2 MN LOS for ongoing med nec for eval and TX of above.
--- NOTE | 2017-10-03 15:02 | ASMTCMCOM ---
CM Note CM Note Notes: Pt with hx of esophageal ca readmitted after DC two days ago. Per MD report, pt has bacterial peritonitis. Pt will at least need a HC RN at DC but could need SNF. CM will continue to follow for DC needs. Date Signed: 10/03/2017 03:01 PM Electronically Signed By:Roma Shahid LCSW
[2017-10-03] MEDS: ALBUMIN 25% 100 ML IV SCH ×2 (18:21→23:48)
[2017-10-03] MEDS: PANTOPRAZOLE SODIUM 40 MG TAB PO SCH (20:40)
--- NOTE | 2017-10-03 23:13 | GCON ---
[f rep st] CONSULTATION ONCOLOGY INITIAL VISIT PRIMARY ONCOLOGIST: Dr. Mirna Angeles. REASON FOR VISIT: Evaluation and management of esophageal cancer. 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 There is also a sugg estion of underlying liver cirrhosis. Biopsy confirmed the diagnosis and it was Her-2 negative. He was started on FOLFOX with an excellent response until this summer. The oxaliplatin was stopped due to progressive peripheral neuropathy, and he continued on 5FU, and he underwent a course of palliativ e radiation to the distal esophagus in April. Over the last couple of months, his markers were risi ng and the CT scan in August showed progression to the liver. He was started on second line chemot herapy with Paclitaxel and ramucirumab. This was on a weekly dosing regimen, and his first dose was on September 18. He did not get his dose on September 25 because his ANC was low. He was due for day 15 chemotherapy yesterday. He was admitted to the hospital earlier this week with dehydration, mucos itis, and increased abdominal pain and girth. He underwent a paracentesis which gave him some relief . He actually went home on and was to follow up with Dr. Angeles next week. Since he went h ome, he continued to have abdominal bloating, becoming increasingly more uncomfortable. Where he had the fluid removed was still draining a yellowish fluid, but was progressively getting worse. I do n ot believe he was having fever at home, and he was on Augmentin. He went to the emergency room with these complaints and was admitted to the hospital for management. On evaluation when he came in, his white count was elevated to 15,000, it was 4800 when he left, and his peritoneal fluid in the bag sh owed 1700 white cells but only 50 red cells, almost all neutrophils. Cultures are pending. ALLERGIES: He has no known drug allergies. MEDICATION: Home medications included oxycodone, prochlorperazine, pantoprazole, ondansetron, metopr olol, Enoxaparin, Bentyl, dexamethasone, and Augmentin. PAST MEDICAL HISTORY: 1. Chronic illnesses included metastatic esophageal cancer as described in the History of Present Il lness. 2. Previous history of alcohol abuse. 3. Massive PE in November of 2016 requiring intra-arterial thrombolytics and IVC filter. 4. Gastrointestinal bleed, complication after the PE. After the GI bleeding resolved, he re-started on Lovenox 100 mg daily. 5. History of SVT. 6. Renal insufficiency. 7. Chronic hyponatremia. 8. Recent spontaneous bacterial peritonitis in late August 2017. PAST SURGICAL HISTORY: Includes IVC filter right groin. FAMILY HISTORY: Mother of Maximino-Creutzfeldt disease. No history of malignancies in the family. SOCIAL HISTORY: He is . Lives with his in [place]. No children. Works at [employer] He has stopped drinking. REVIEW OF SYSTEMS: A 10-point review of systems performed. Pertinent positives as in the History of Present Illness. Otherwise negative. PHYSICAL EXAMINATION: VITAL SIGNS: On arrival, is temperature is 36.4, pulse is 130, blood pressure is 86/66. Currently, his temp is 36.8, pulse 97, blood pressure 94/64. GENERAL: He is a pale, chr onically ill-appearing man, no distress. HEENT: Unremarkable. LUNGS: Some decrease in the bases. CARDIAC: Regular. Some trace edema. GI: His abdomen is distended. He is draining in the left lo wer quadrant into a bag a kind of cloudy yellowish fluid. NEUROLOGICAL: Grossly intact. SKIN: No erythema. LABS: White count is 15,000 with a left shift. Hemoglobin is 11.3, platelet count 277,000. Lactic acid is elevated at 2.2. Sodium 128. BUN and creatinine are 20 and 1.5. AST is 151. ALT 98 which is much improved since starting chemotherapy. Alk phos is 370 which is improved slightly. His last CEA is 20,600. Body fluid as per History of Present Illness. Chest x-ray showed some atelectasis. IMPRESSION: 1. Probable spontaneous bacterial peritonitis. 2. Malignant ascites. 3. Metastatic esophageal cancer. 4. Elevated liver function tests. 5. History of massive pulmonary embolus on Lovenox. 6. History of gastrointestinal bleed, none today. It is unclear if he is responding to chemotherapy, and he has not been able to tolerate a full course which is weekly Taxol. Taxol may have been slow to clear due to the increased LFTs which he had an elevated bilirubin (2.2). His bilirubin is down to 1.5. It was decided because of his low weekly do se to go for the full dose and then watch him closely, and appropriately held on September 25. He now looks like he has an infection and needs to clear that before any chemotherapy can be restarted. It might be interesting to repeat his CEA in the morning and see if it has significantly dropped. Yane use if it has, then along with the LFTs, he may just need to be supported and restarted back on chemo therapy. /[id number]/MODL
[2017-10-04] MEDS: ALBUMIN 25% 100 ML IV SCH (05:58)
[2017-10-04 06:13] LABS: PLATELET COUNT 114 10^3/uL (150-400)
[2017-10-04 06:22] LABS: INR 1.43 (0.83-1.16); PROTIME(PATIENT) 17.6 SEC (12.0-15.0)
[2017-10-04] MEDS: DICYCLOMINE 10 MG CAP PO SCH (08:44)
[2017-10-04] MEDS: PANTOPRAZOLE SODIUM 40 MG TAB PO SCH ×2 (08:45→18:08)
[2017-10-04] MEDS: ENOXAPARIN 100 MG/ML SYR SC SCH (08:45)
[2017-10-04] MEDS: DEXAMETHASONE 4 MG TAB PO SCH (08:45)
--- NOTE | 2017-10-04 12:14 | SOAPPROG ---
SOAP Progress Note Assessment/Plan: E&M for esophageal cancer * Met. esophageal cancer: day 17, cycle 1 of weekly paclitaxel + ramicuramab; LFTs much improved since starting and CEA dropped from 20,000 to about 10,000. Once recovered from infection can restart. Had some cytopenia due to taxol with elevated bili but further therapy will probably go better as he will clear the drug better. * Ascites: diuretics have worked in the past for him so will add lasix and aldactone and see how he does. He would like to hold off another paracentesis at this time. * SBP: on abx * H/O PE: on lovenox Subjective: Still with drainage and abd distension. Overall feeling better. Objective: Vital Signs Temp Pulse Resp BP Pulse Ox 36.3 C 73 17 109/73 99 10/04/17 08:15 10/04/17 08:15 10/04/17 08:15 10/04/17 08:15 10/04/17 08:15 Laboratory Results 10/04/17 05:55 10/04/17 05:55 10/03/17 10/04/17 10/05/17 05:59 05:59 05:59 Intake Total 3775 Output Total 1250 225 Balance 2525 -225 PT 17.6 SEC (12.0-15.0) H 10/04/17 05:55 INR 1.43 (0.83-1.16) H 10/04/17 05:55 Physical Exam - Physical Exam General Appearance: no apparent distress Respiratory: decreased breath sounds (bases) Cardiac/Chest: regular rate, rhythm, edema Abdomen: non-tender, soft, distended, other (drain on left with yellowish fluid) ICD10 Worksheet Patient Problems: Problems Problem Status Onset Ascites Acute Bacterial peritonitis Acute Dehydration Acute Esophageal mass Acute Hypotension Acute Palliative care encounter Acute Sepsis Acute Syncope Acute
[2017-10-04] MEDS ORDERED: SPIRONOLACTONE 100 MG TAB PO SCH (12:15)
[2017-10-04] MEDS ORDERED: FUROSEMIDE 20 MG TAB PO SCH (12:15)
[2017-10-04] MEDS: oxyCODONE IR 5 MG TAB PO PRN (15:24)
--- NOTE | 2017-10-04 16:08 | HOSPPROG ---
Hospitalist Progress Note Assessment/Plan: Assessment: 57-year-old male presenting with acute, recurrent spontaneous bacterial peritonitis in the setting of stage IV esophageal cancer with hepatic metastases and resultant massive ascites Plan: 1. Spontaneous bacterial peritonitis. Acute, recurrent in setting of insufficient Abx dosing at home (daily augmentin as opposed to bid) as well as open peritoneal leak -continue to monitor white blood cell count -re-dose the patient with 2 g of IV ceftriaxone, gauge effect, D#2 -he is high risk for recurrence even if he takes his antibiotics correctly given that he has ongoing leakage from the left side of his abdomen and skin liliya bacteria translocation is certainly possible -d/w Dr. Ronald Bennett, appreciate consultation, he suggested possibility of ppx quinolone therapy 2. Stage IV esophageal cancer with hepatic metastases and massive ascites. Likely malignant ascites as opposed to purely hepatic congestion, as the patient is responding to Taxol tx per CEA and Dr. Gonzalez -treat SBP as outlined above, hold on considering palliative drain as this would likely lead to increased possibility of infxn and patient is currently aggressive tx/chemo -consider therapeutic para tomorrow if BP holding, will need albumin w/ tx -restarted home diuretics today 3. Hyponatremia. Chronic, baseline level between 124 and 129, continue monitor 4. History of SVT. No recurrence, holding bblocker today as we restart diuretics, restart prior to DC 5. Chronic adrenal insufficiency. Patient is chronically steroid dependent and chronically immunosuppressed, on dexamethasone 4 mg daily, continue 6. History of pulmonary embolism. Patient had a significant pulmonary embolism in November of 2016, complicated by upper GI bleed in the setting of systemic anticoagulation, with IVC filter placed, restarted on Lovenox 100 mg daily successfully -continue on Lovenox 100 mg daily, consider that this may be somewhat under dosed given that his weight plus ascites is now upwards of 90+ kg 7. Metabolic acidosis. Acute, secondary to lactic acid, resolved 8. Hyperkalemia. Unclear etiology, continue monitor on telemetry, renal diet 9. Atelectasis. Secondary to ascites and right hemidiaphragm elevation, incentive spirometer 10. Hypotension. Acute, most likely secondary to intravascular depletion in the setting of infection, low serum albumin, resolved w/ stress dose steroids and albumin Diet. Renal Prophylaxis. High risk patient, currently on Lovenox 100 mg daily Code. Full per patient, is MPOA Disposition. Anticipated discharge uncertain this time, remains highly medically complex w/ high risk or worsening morbidity/mortality 2/2 above. Subjective: mild abd pain, low PO intake Objective: Vital Signs Temp Pulse Resp BP Pulse Ox 36.6 C 80 18 94/64 L 97 10/04/17 15:22 10/04/17 15:22 10/04/17 15:22 10/04/17 15:22 10/04/17 15:22 Laboratory Results 10/04/17 05:55 10/04/17 05:55 10/03/17 10/04/17 10/05/17 05:59 05:59 05:59 Intake Total 3775 Output Total 1250 450 Balance 2525 -450 PT 17.6 SEC (12.0-15.0) H 10/04/17 05:55 INR 1.43 (0.83-1.16) H 10/04/17 05:55 - Physical Exam Constitutional: no apparent distress, not in pain, chronically ill appearing, uncomfortable Cardiovascular: regular rate and rhythym, no murmur, rub, or gallop, No irregularly irregular, No tachycardia, No edema Respiratory: no respiratory distress, inspiratory crackles, No expiratory wheeze , No respiratory distress Gastrointestinal: normoactive bowel sounds, tenderness (mild to mod depth palpation), ascites, distension (moderate), other (left side peritoneal leak w/ straw ascites), No guarding Neurologic: AAOx3, sensation intact bilaterally, No weakness Psychiatric: interacting appropriately, not anxious, not encephalopathic, thought process linear ICD10 Worksheet Patient Problems: Problems Problem Status Onset Ascites Acute Bacterial peritonitis Acute Dehydration Acute Esophageal mass Acute Hypotension Acute Palliative care encounter Acute Sepsis Acute Syncope Acute
--- NOTE | 2017-10-04 20:49 | GCON ---
[f rep st] CONSULTATION INFECTIOUS DISEASE CONSULTATION DATE OF CONSULTATION: 10/04/2017 REFERRING PHYSICIAN: Nish Forman MD REQUESTING PHYSICIAN: Dr. Nish Forman. REASON FOR CONSULTATION: SBP. HISTORY OF PRESENT ILLNESS: The patient is a 57-year-old male with a past medical history of metastatic esophageal cancer, post chemotherapy in August, whom I am asked to see in consultation for recurrent or persistent SBP. The patient had been admitted in late August for complaint of abdominal pain. At that point in time he was noted to have new onset ascites and underwent paracentesis on 09/29/2017. Laboratory evaluation of ascitic fluid showed 1652 white blood cells with 70% neutrophils and protein less than 2. Ultimately, the patient's ascitic fluid ended up growing rare Streptococcus mitis, which was penicillin susceptible. He was initially treated with ceftriaxone and transitioned to Augmentin at the time of hospital discharge. He does note that around the time of his cycle of chemotherapy, he did develop significant oral ulcerations. He did not have any problems with his teeth or dental work. Yesterday, he had recurrent abdominal pain with associated bloating. He continues to leak ascitic fluid through the left lower quadrant which is being collected in an ostomy bag. This is noted to be clear in character. He has not experienced fever, chills or night sweats. He notes that his appetite has been decreased and affected by his abdominal distention. The patient underwent repeat paracentesis yesterday showing 1782 white blood cells with 78% neutrophils. Gram stain is negative with culture no growth to date. Blood cultures x2 were obtained at the time of this admission and are currently pending. He has been resumed on ceftriaxone. No significant change in his abdominal discomfort. Given the above findings, I am now asked to assist in his ongoing management to help define treatment for recurrent SBP and the role of prophylactic antibiotics in the future. PAST MEDICAL HISTORY: Metastatic esophageal cancer, pulmonary embolism, IVC filter placement, upper GI bleed, SVT, adrenal insufficiency, chronic hyponatremia. PAST SURGICAL HISTORY: Port placement and IVC filter placement. CURRENT MEDICATIONS: Ceftriaxone 2 g IV daily, Decadron 4 mg p.o. daily, Bentyl 10 mg p.o. daily, Lovenox 100 mg subcutaneously daily, Lasix 20 mg p.o. daily, Protonix 40 mg p.o. twice daily, and spironolactone 100 mg p.o. daily. ALLERGIES: No known drug allergies. SOCIAL HISTORY: The patient does not smoke, drink alcohol or use drugs. FAMILY HISTORY: Mother with Maximino-Creutzfeldt disease. REVIEW OF SYSTEMS: Outside that noted in the HPI, the remainder of 10 system review is unremarkable; no pain, erythema, or drainage around port site. PHYSICAL EXAMINATION: VITAL SIGNS: Temperature 36.7, heart rate 76, respiratory rate 19, blood pressure 117/72, oxygen saturation 99% on room air. GENERAL: Patient is chronically ill appearing in no acute distress. He appears nontoxic. HEENT: There is no scleral icterus, conjunctival injection, or conjunctival petechiae. Oropharynx shows moist mucous membranes with dentition being in fair repair. There is no nasal discharge. No tenderness over the frontal, maxillary or mastoid area. NECK: Supple without palpable lymphadenopathy or thyromegaly. CHEST: Clear to auscultation anterolaterally without adventitious sounds. Respiratory effort is normal. CARDIOVASCULAR: Regular rate and rhythm with a 2/6 systolic ejection murmur at the right upper sternal border. No gallops or rubs noted. ABDOMEN: Distended, mildly tender throughout. Clear yellow ascitic fluid is leaking into an ostomy bag from the left lower quadrant. There is no surrounding skin erythema. Bowel sounds are hypoactive. Difficult to assess for organomegaly based on abdominal distention. MUSCULOSKELETAL: 1+ lower extremity edema bilaterally. No cyanosis or clubbing. SKIN: No rash is noted. No stigmata of endocarditis. The skin is warm and dry to touch. NEUROLOGIC: Patient is alert and interacts appropriately with examiner. Cranial nerves 2-12 are grossly intact. Sensation is grossly intact. Muscle tone and bulk are normal. LYMPHATICS: No cervical or supraclavicular nodes palpable. LABORATORY DATA: White blood cell count 15.0 yesterday, 8.7 today; hematocrit 21.4, platelets 114, neutrophils 78%, bands 12%. Serum creatinine is 0.4. AST 136, ALT 96, bilirubin 1.1, alkaline phosphatase 239, albumin 2.2. Peritoneal fluid as outlined above. Microbiologic studies are as outlined above. IMPRESSION: 1. Spontaneous bacterial peritonitis: Ascitic fluid neutrophil count consistent with spontaneous bacterial peritonitis. Recent culture showed growth of Streptococcus mitis. Oropharyngeal streptococcal species are less common causes of spontaneous bacterial peritonitis. Suspect he may have had transient bacteremia with seeding of his ascitic fluid at the time of oral ulcerations related to chemotherapy. Given this finding, favor completing treatment course with intravenous ceftriaxone for a total of 10-14 days. Given the low protein content of his ascitic fluid and diagnosis of spontaneous bacterial peritonitis, do think he would benefit from prophylactic antibiotic therapy in the future to prevent spontaneous bacterial peritonitis. We will determine if laboratory can obtain PASTORA Streptococcus mitis isolated previously. RECOMMENDATIONS: 1. Agree with ceftriaxone 2 g intravenously daily. 2. Plan for prophylactic antibiotic therapy post completion of ceftriaxone. 3. If paracentesis is repeated, would recommend repeating cell count to see if this is decreasing, as would be expected with successful treatment of SBP. The above findings and plan were discussed with the patient and family this evening. Thank you for this consultation. We will continue to follow the patient with you. /[id number]/MODL MTDD
[2017-10-04] MEDS: MELATONIN 3 MG TAB PO PRN (23:38)
[2017-10-05 05:15] LABS: PLATELET COUNT 101 10^3/uL (150-400)
[2017-10-05] MEDS: DICYCLOMINE 10 MG CAP PO SCH (09:21)
[2017-10-05] MEDS: DEXAMETHASONE 4 MG TAB PO SCH (09:22)
[2017-10-05] MEDS: FUROSEMIDE 20 MG TAB PO SCH (09:22)
[2017-10-05] MEDS: PANTOPRAZOLE SODIUM 40 MG TAB PO SCH ×2 (09:22→20:46)
[2017-10-05] MEDS: ENOXAPARIN 100 MG/ML SYR SC SCH (10:37)
--- NOTE | 2017-10-05 11:25 | SOAPPROG ---
SOAP Progress Note Assessment/Plan: Assessment: 1.) Strep mitis peritonitis- appreciate ID consult and pt. on Ceftriaxone 2.) Esophageal CA: Cycle 1, Day 18 Paclitaxel Cyrramza regimen with marked CEA response 3.) Malignant Ascites- on spironolactone + furosemide + prior paracentesis management 4.) Multifactorial anemia- transfusion proceeding this AM. 5.) Hx. PE 6.) Hx. of GIB 7.) Adrenal insuff. 8.) Third spacing causing Hyponatremia 9.) Elevated LFTs - to monitor Plan: Plans reviewed. Continue ABX and transfusion and consider repeat Paracentesis. 10/05/17 11:24 Subjective: No new symptoms in the past 24 hours. Did walk around outside the pt. room last evening. Objective: VSS, afebrile as noted here; middle aged WM, pale, in NAD, HEENT- anicteric, pale, no oral lesions. Neck- supple Chest- clear anteriorly, bilaterally Mediport- accessed and NT CVS- RSR, no extra HS ABD- soft, BS+ ascites noted. ecchymoses noted on anterior abd. wall. Paracentesis leak site is covered with ostomy type bag. EXT- varicose veins noted on LE Labs as noted here: Hgb 6.5, K 5.5 , Na 128, BUN/Cr 17/0.4 Vital Signs Temp Pulse Resp BP Pulse Ox 36.5 C 75 16 93/60 L 95 10/05/17 11:16 10/05/17 11:16 10/05/17 11:16 10/05/17 11:16 10/05/17 11:16 Laboratory Results 10/05/17 05:03 10/05/17 05:03 10/04/17 10/05/17 10/06/17 05:59 05:59 05:59 Intake Total 3775 600 400 Output Total 1250 1050 150 Balance 2525 -450 250 PT 17.6 SEC (12.0-15.0) H 10/04/17 05:55 INR 1.43 (0.83-1.16) H 10/04/17 05:55 ICD10 Worksheet Patient Problems: Problems Problem Status Onset Ascites Acute Bacterial peritonitis Acute Dehydration Acute Esophageal mass Acute Hypotension Acute Palliative care encounter Acute Sepsis Acute Syncope Acute
[2017-10-05] MEDS ORDERED: FUROSEMIDE 20 MG/2 ML VIAL IVP ONE (14:00)
--- NOTE | 2017-10-05 15:33 | ASMTCMCOM ---
CM Note CM Note Notes: Discussed with RN. Patient is scheduled for a Paracentesis tomorrow. PT unable to see patient today d/t low H/H. Discharge needs remain unclear. Case Management will continue to follow. Date Signed: 10/05/2017 03:32 PM Electronically Signed By:Valeria Monsalve RN
--- NOTE | 2017-10-05 17:52 | HOSPPROG ---
Hospitalist Progress Note Assessment/Plan: Assessment: 57-year-old male presenting with acute, recurrent spontaneous bacterial peritonitis in the setting of stage IV esophageal cancer with hepatic metastases and resultant massive ascites Plan: 1. Spontaneous bacterial peritonitis. Acute, recurrent in setting of insufficient Abx dosing at home (daily augmentin as opposed to bid) as well as open peritoneal leak -d/w Dr. Ronald Bennett, he recommends a total of 14 days IV CTX 2gm given that prior organism was strep mitis, which may be 2/2 oral ulcerations and transient bacteremia, which was inadequately treated upon most recent discharge, and could be considered the current organism (albeit peritoneal Cx results likely sterilized from recent Abx) -D#3/14 Abx, will likely need PICC, but Dr. Bennett is having the strep mitis sensitivity run for Levofloxacin, so PICC decision pending that result -he is high risk for recurrence even if he takes his antibiotics correctly given that he has ongoing leakage from the left side of his abdomen and anticipated oral sores w/ subsequent chemo, so Dr. Bennett might recommend ppx Levofloxacin s/p course of Abx, pending mitis sensitivity -will check cell count on para tomorrow to gauge response to tx 2. Stage IV esophageal cancer with hepatic metastases and massive ascites. Likely malignant ascites as opposed to purely hepatic congestion, as the patient is responding to Taxol tx per CEA 10k -treat SBP as outlined above, hold on considering palliative drain as this would likely lead to increased possibility of infxn and patient is currently aggressive tx/chemo -monitor synthetic fxn labs -restarted PO diuretics yesterday, poor response, so increased lasix to 40mg PO daily, stopped Aldactone given hyperkalemia -patient w/ symptomatic bloating, worsening w/ increased ascites -counseled patient/ that a therapeutic para should be done tomorrow since he received lovenox today and is likely to have fluid shifts w/ his blood/ diuretics today, they are agreeable to tomorrow and it has been ordered -para ordered, at radiology discretion whether to use the left abd leaking site vs. new site, 100ml 25% albumin ordered paige-procedurally 3. Hyponatremia. Chronic, baseline level between 124 and 129, continue monitor 4. History of SVT. No recurrence, holding bblocker today as we restart diuretics and SBP < 100 5. Chronic adrenal insufficiency. Patient is chronically steroid dependent and chronically immunosuppressed, on dexamethasone 4 mg daily, continue 6. History of pulmonary embolism. Patient had a significant pulmonary embolism in November of 2016, complicated by upper GI bleed in the setting of systemic anticoagulation, with IVC filter placed, restarted on Lovenox 100 mg daily successfully -continue on Lovenox 100 mg daily, consider that this may be somewhat under- dosed given that his weight plus ascites is now upwards of 90+ kg 7. Metabolic acidosis. Acute, secondary to lactic acid, resolved 8. Hyperkalemia. Unclear etiology, continue monitor on telemetry, renal diet -rising level today s/p aldactone -stopped aldactone, diuresed more aggressively today, repeat BMP now 9. Atelectasis. Secondary to ascites and right hemidiaphragm elevation, incentive spirometer 10. Hypotension. Acute, most likely secondary to intravascular depletion in the setting of infection, low serum albumin, resolved w/ stress dose steroids and albumin 11. Anemia. Likely 2/2 combination of inflammatory disease as well as hepatic impairment -transfuse 1u today given poor energy, give 20mg IV lasix after Diet. Renal Prophylaxis. High risk patient, holding tomorrow AM dose lovenox 100 Code. Full per patient, is MPOA Disposition. Anticipated discharge uncertain this time Subjective: patient experiencing more bloating today Objective: Vital Signs Temp Pulse Resp BP Pulse Ox 36.4 C 74 16 99/65 L 95 10/05/17 15:49 10/05/17 15:49 10/05/17 15:49 10/05/17 15:49 10/05/17 15:49 Laboratory Results 10/05/17 05:03 10/05/17 05:03 10/04/17 10/05/17 10/06/17 05:59 05:59 05:59 Intake Total 3775 600 1620 Output Total 1250 1050 250 Balance 2525 -450 1370 PT 17.6 SEC (12.0-15.0) H 10/04/17 05:55 INR 1.43 (0.83-1.16) H 10/04/17 05:55 - Time Spent With Patient Time Spent with Patient: greater than 35 minutes Time Spent with Patient: Greater than 35 minutes spent on this patients care, greater than 50% of time spent counseling, educating, and coordinating care regarding the above mentioned plan. - Physical Exam Constitutional: no apparent distress, chronically ill appearing, uncomfortable Cardiovascular: edema (1+ bilat LE), No irregularly irregular, No tachycardia Respiratory: reduced air movement (in bilat bases), No expiratory wheeze, No inspiratory crackles, No bronchial breath sounds Gastrointestinal: tenderness (mild to moderate depth palpation), ascites, distension (moderate), other (left side leaking ascitic fluid), No guarding Skin: other (ecchymoses on abd) Neurologic: AAOx3 Psychiatric: not anxious, not encephalopathic, flat affect, No agitated ICD10 Worksheet Patient Problems: Problems Problem Status Onset Esophageal mass Acute Syncope Acute Hypotension Acute Sepsis Acute Dehydration Acute Palliative care encounter Acute Bacterial peritonitis Acute Ascites Acute
--- NOTE | 2017-10-05 19:35 | PCMIDPN ---
Assessment/Plan: Assessment/Plan: * SBP due to Streptococcus mitis: Clinically improved today with primary complaint of persistent abdominal distension. Plans for repeat paracentesis tomorrow - plan repeat assessment of cell count and culture. Repeat ascitic fluid culture is no growth although this was obtained from drainage bag which may be of lower yield versus negative culture due to prior antibiotic therapy. Will obtain echocardiogram in the setting of heart murmur to ensure no evidence of endocarditis although suspect this will be of low likelihood. Plan 14 days of ceftriaxone which can be administered via patient's port. Thereafter, favor SBP prophylaxis with levofloxacin 500 mg orally daily (initial Streptococcus mitis isolate is levofloxacin susceptible). 10/05/17 19:31 10/05/17 19:40 Subjective: Complains of episodic abdominal cramping and persistent abdominal distension. Objective: Vital Signs Temp Pulse Resp BP Pulse Ox 36.4 C 74 16 99/65 L 95 10/05/17 15:49 10/05/17 15:49 10/05/17 15:49 10/05/17 15:49 10/05/17 15:49 Laboratory Results 10/05/17 05:03 10/05/17 05:03 10/04/17 10/05/17 10/06/17 05:59 05:59 05:59 Intake Total 3775 600 1620 Output Total 1250 1050 250 Balance 2525 -450 1370 Ceftriaxone # 3 Ascitic fluid cultures no growth (patient describes these cultures being obtained from ostomy bag) Blood cultures x2 no growth - Physical Exam General Appearance: alert, no apparent distress, non-toxic EENT: No scleral icterus, No conjunctival petechiae Respiratory: lungs clear (Anterolaterally), No respiratory distress Cardiac/Chest: regular rate, rhythm, systolic murmur (2/6 left and right upper sternal borders) Abdomen: non-tender, distended ICD10 Worksheet Patient Problems: Problems Problem Status Onset Ascites Acute Bacterial peritonitis Acute Dehydration Acute Esophageal mass Acute Hypotension Acute Palliative care encounter Acute Sepsis Acute Syncope Acute
[2017-10-05] MEDS: MELATONIN 3 MG TAB PO PRN (20:46)
[2017-10-06 05:46] LABS: INR 1.13 (0.83-1.16); PROTIME(PATIENT) 14.7 SEC (12.0-15.0)
[2017-10-06 05:54] LABS: PLATELET COUNT 113 10^3/uL (150-400)
[2017-10-06] MEDS ORDERED: ALBUMIN 25% 100 ML IV ONE (08:00)
--- NOTE | 2017-10-06 08:03 | HOSPPROG ---
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 -Oral ulcerations related to cancer therapies -new onset severe anemia requiring transfusion, uncertain etiology -baseline has been hemoglobin 10 12, was at 6 yesterday, at appropriate 7 after transfusion yesterday -so far no signs of bleeding, but would wonder if possibly bleeding into the peritoneal cavity -high risk scenario in setting of history of PE, on full-dose Lovenox -new thrombocytopenia, question blood loss or other cause related to malignancy -persistent elevated hepatic transaminases, likely related to metastatic disease -history of chronic adrenal insufficiency -history of PE PLANS: -continue current abx -paracentesis, US guided today for symptoms and to assess for ? bleeding, progress treating infection -follow Hg closely, further transfusion as needed; will review goal Hg w Oncology, will be helpful to have good hg to decrease oncotic pressure with ascites -echocardiogram to be done today, will review results Will further review with Infectious Disease and Oncology as they arrive 1 U today. SUBJECTIVE: Feels slightly better today overall, strength okay, very poor appetite but no nausea or vomiting Still with upper abdominal pain unchanged from previous No chills or sweats OBJECTIVE Vitals reviewed: Blood pressures remain low, otherwise stable without fever Exam: alert oriented skin warm dry color ok resps not labored lungs clear BSs heart regular abd soft, bowel sounds present, quite distended and with some tenderness across upper abdomen without peritoneal signs limbs warm, no edema iv site ok Labs reviewed potassium remains a bit high Creatinine up to 7 after transfusion yesterday, platelets remain low Objective: Vital Signs Temp Pulse Resp BP Pulse Ox 36.8 C 73 16 98/63 L 96 10/06/17 05:17 10/06/17 05:17 10/06/17 05:17 10/06/17 05:17 10/06/17 05:17 Laboratory Results 10/06/17 05:21 10/06/17 05:21 10/05/17 10/06/17 10/07/17 06:59 06:59 06:59 Intake Total 600 1920 Output Total 1050 350 Balance -450 1570 PT 14.7 SEC (12.0-15.0) 10/06/17 05:21 INR 1.13 (0.83-1.16) 10/06/17 05:21 - Time Spent With Patient Time Spent with Patient: greater than 35 minutes Time Spent with Patient: Greater than 35 minutes spent on this patients care, greater than 50% of time spent counseling, educating, and coordinating care regarding the above mentioned plan. ICD10 Worksheet Patient Problems: Problems Problem Status Onset Ascites Acute Bacterial peritonitis Acute Dehydration Acute Esophageal mass Acute Hypotension Acute Palliative care encounter Acute Sepsis Acute Syncope Acute
[2017-10-06] MEDS ORDERED: LIDOCAINE 1% 300 MG/30 ML SDV ONE (09:01)
[2017-10-06] MEDS: DEXAMETHASONE 4 MG TAB PO SCH (09:17)
[2017-10-06] MEDS: PANTOPRAZOLE SODIUM 40 MG TAB PO SCH ×2 (09:17→21:15)
[2017-10-06] MEDS: DICYCLOMINE 10 MG CAP PO SCH (09:17)
[2017-10-06] MEDS: FUROSEMIDE 20 MG TAB PO SCH (09:17)
--- NOTE | 2017-10-06 10:45 | SOAPPROG ---
SOAP Progress Note Assessment/Plan: Assessment: 1.) Strep mitis peritonitis- appreciate ID consult and pt. on Ceftriaxone - recommended for 14 days , followed by Levaquin 500mg QD prophylaxis thereafter. 2.) Esophageal CA: Cycle 1, Day 19 Paclitaxel Cyraamza regimen with marked CEA response 3.) Malignant Ascites- on spironolactone + furosemide + prior paracentesis management. Repeat Paracentesis today. 4.) Multifactorial anemia- transfusion went well yesterday. I don't think patient is bleeding within body cavity or Retroperitoneal space. To follow. 5.) Hx. PE 6.) Hx. of GIB 7.) Adrenal insuff. 8.) Third spacing causing Hyponatremia 9.) Elevated LFTs - to monitor Plan: Plans reviewed. Continue ABX paracentesis today. Follow CBC and CMP. 10/06/17 10:42 Subjective: Feels a bit better. Transfusion went well. Reports no new sx. Objective: VSS , Afebrile as noted here: In NAD, up ambulating in room HEENT- anicteric, no oral lesions, Neck- supple Chest- clear Mediport- NT CVS- RSR, no extra HS ABD- (+) ascites, BS+, NT EXT- minimal edema, skin intact Labs as noted here: Hgb 7.8, Alk phos 257, T. B 1.3, BUN/Cr 21/0.4 Vital Signs Temp Pulse Resp BP Pulse Ox 36.5 C 69 15 95/63 L 96 10/06/17 08:35 10/06/17 08:35 10/06/17 08:35 10/06/17 08:35 10/06/17 08:35 Laboratory Results 10/06/17 05:21 10/06/17 05:21 10/05/17 10/06/17 10/07/17 05:59 05:59 05:59 Intake Total 600 1920 Output Total 1050 350 Balance -450 1570 PT 14.7 SEC (12.0-15.0) 10/06/17 05:21 INR 1.13 (0.83-1.16) 10/06/17 05:21 ICD10 Worksheet Patient Problems: Problems Problem Status Onset Ascites Acute Bacterial peritonitis Acute Dehydration Acute Esophageal mass Acute Hypotension Acute Palliative care encounter Acute Sepsis Acute Syncope Acute
[2017-10-06] MEDS ORDERED: ALBUMIN 25% 100 ML SOLN IV ONE (13:04)
--- NOTE | 2017-10-06 13:40 | PCMIDPN ---
Assessment/Plan: Assessment/Plan: 1. Recurrent Sponateous Bacterial peritonitis: - s/p paracentesis today. Studies pending. Report pending - Previous cultures grew out STrep mitis. cultures from ostomy bag were ngtd -Currently on Ceftriaxone. - wbc up today. - Had more pain today but feels better after paracentesis -Plan for at least 14 days therapy with subsequent prophylaxsis thereafter - For 2d-Echo today -blood cx ngtd - plan of care reviewed with pateint - care coordiated with Rn. Medivan ceftraixone 2g daily- Subjective: afebrile. pt had more abdominal pain earlier today. Feels better since having paracentesis done. denies sob. has had only small bowel movements recently. Objective: Vital Signs Temp Pulse Resp BP Pulse Ox 36.4 C 63 17 92/62 L 94 10/06/17 12:24 10/06/17 12:24 10/06/17 12:24 10/06/17 12:24 10/06/17 12:24 Laboratory Results 10/06/17 05:21 10/06/17 05:21 10/05/17 10/06/17 10/07/17 05:59 05:59 05:59 Intake Total 600 1920 Output Total 8095 284 7912 Balance -450 1570 -5900 - Physical Exam General Appearance: alert, no apparent distress Respiratory: lungs clear Cardiac/Chest: regular rate, rhythm Extremities: No swelling Abdomen: normal bowel sounds, distended, tender (mild) Skin: No erythema ICD10 Worksheet Patient Problems: Problems Problem Status Onset Ascites Acute Bacterial peritonitis Acute Dehydration Acute Esophageal mass Acute Hypotension Acute Palliative care encounter Acute Sepsis Acute Syncope Acute
--- NOTE | 2017-10-06 16:09 | ASMTCMCOM ---
CM Note CM Note Notes: Per hospitalist, pt will need 2 weeks of IV ABX and may transition to po. However, cultures are pending and pt's ABX needs may be extended. CM to continue to follow. Date Signed: 10/06/2017 04:08 PM Electronically Signed By:CEDRICK Tinoco
[2017-10-07 04:37] LABS: PLATELET COUNT 107 10^3/uL (150-400)
[2017-10-07] MEDS: ENOXAPARIN 100 MG/ML SYR SC SCH (08:41)
[2017-10-07] MEDS: FUROSEMIDE 20 MG TAB PO SCH (08:42)
[2017-10-07] MEDS: PANTOPRAZOLE SODIUM 40 MG TAB PO SCH (08:42)
[2017-10-07] MEDS: DEXAMETHASONE 4 MG TAB PO SCH (08:43)
[2017-10-07] MEDS: DICYCLOMINE 10 MG CAP PO SCH (08:43)
--- NOTE | 2017-10-07 11:02 | SOAPPROG ---
SOAP Progress Note Assessment/Plan: Assessment: 1.) Strep mitis peritonitis- appreciate ID consult and pt. on Ceftriaxone - recommended for 14 days , followed by Levaquin 500mg QD prophylaxis thereafter. 2.) Esophageal CA: Cycle 1, Day 20 Paclitaxel Cyraamza regimen with marked CEA response 3.) Malignant Ascites- on spironolactone + furosemide + prior paracentesis management. Repeat Paracentesis yesterday noted. Leakage from prior procedure site is markedly decreased. Could change leakage site to bandage, instead of bag w/ wafer. 4.) Multifactorial anemia- transfusion went well 10/05. I don't think patient is bleeding within body cavity or Retroperitoneal space. To follow. 5.) Hx. PE 6.) Hx. of GIB 7.) Adrenal insuff. 8.) Third spacing causing Hyponatremia- Na 133 today , 10/07/17 9.) Elevated LFTs - to monitor Plan: Plans reviewed. Continue ABX . Hussain feels ready to go home as D/W him and with Dr. Thurston, I think we can discharge today with finishing his 14 days Ceftriaxone at outpt. here at [facility] and Levaquin po as also recommended. Hussain has follow up appt at [facility] office on 10/09/17. Will notify Dr. Angeles of his discharge. 10/07/17 11:02 Subjective: Feeling better with no new sx. and lessened ascites fluid leakage. Taking in po well, w/out difficulty Objective: HEENT- pale, anicteric, no oral thrush Neck- supple Chest- clear anteriorly, Mediport- L chest accessed/NT CVS- RSR, no extra HS ABD- soft, some ascites present, but less distended, no HSM. BS+ ABD is NT. LLQ ostomy bag contains a very small amount of leaked peritoneal fluid. EXT- benign, skin intact Labs: as noted here: Hgb 8.4 PLT 107, Na 133 Two most recent ascites Cx - gram stain: NOS, Cx are neg. Vital Signs Temp Pulse Resp BP Pulse Ox 36.6 C 79 18 95/62 L 95 10/07/17 09:27 10/07/17 09:27 10/07/17 09:27 10/07/17 09:27 10/07/17 09:27 Microbiology 10/05/17 13:00 Gram Stain - Final Other - Aspirate Laboratory Results 10/07/17 04:25 10/07/17 04:25 10/06/17 10/07/17 10/08/17 05:59 05:59 05:59 Intake Total 1920 605 Output Total 350 6075 Balance 1570 -5470 PT 14.7 SEC (12.0-15.0) 10/06/17 05:21 INR 1.13 (0.83-1.16) 10/06/17 05:21 ICD10 Worksheet Patient Problems: Problems Problem Status Onset Ascites Acute Bacterial peritonitis Acute Dehydration Acute Esophageal mass Acute Hypotension Acute Palliative care encounter Acute Sepsis Acute Syncope Acute
[2017-10-07 14:15] VITALS: BP 102/66; RESP 14; TEMP 97.4
--- NOTE | 2017-10-07 15:12 | PDIAF ---
- Diagnosis Diagnosis: spontaneous bacterial peritionitis Code Status: Full Code - Medication Management Discharge Medications: Medications to Continue on Transfer Pantoprazole Sodium [Protonix 40mg (*)] 40 mg PO BID #60 tab 06/28/17 [Last Taken 10/02/17] Dexamethasone [Decadron 4 MG (*)] 4 mg PO DAILY 09/25/17 [Last Taken Unknown] Dicyclomine [Bentyl 10 MG (*)] 10 mg PO DAILY 09/25/17 [Last Taken Unknown] Enoxaparin [Lovenox 100 MG (*)] 100 mg SQ DAILY 09/25/17 [Last Taken 10/02/17 21 :00] Ondansetron [Zofran Odt] 8 mg PO DAILY PRN 09/25/17 [Last Taken Unknown] Prochlorperazine Maleate [Compazine 10mg (*)] 10 mg PO Q6H PRN 09/25/17 [Last Taken 09/18/17] Metoprolol Tartrate [Lopressor 25 mg (*)] 12.5 mg PO BID #30 tab 10/01/17 [Last Taken 10/03/17 09:00] oxyCODONE IR [Oxycodone Ir (*)] 5 - 10 mg PO Q6H PRN 10/03/17 [Last Taken 21:00 10mg] cefTRIAXone [Rocephin] 2 gm IV DAILY vial 10/07/17 [Last Taken Unknown] Operation Supervisor Antibiotics: ceftriaxone 1 gm IV q 24 hours thru 10/18 Operation Supervisor Antibiotic Stop Date: 10/18/17 Discharge Medications: Refer to the Discharge Home Medication list for PRN reason. - Orders Isolation Type: None Diet Recommendation: no restrictions on diet Diet Texture: Regular Texture Diet - Follow Up Care Current Providers and Referrals: Yoandy Potts MD [Primary Care Provider] - As per Instructions
--- NOTE | 2017-10-07 15:48 | ASMTCMCOM ---
CM Note CM Note Notes: Pt to DC today. he will need 10 days of IV rocephin once daily. He is set up on 3E for 10:00 daily. He has instructions and knows to check-in early the first day. Pt denies any other DC needs. Date Signed: 10/07/2017 03:47 PM Electronically Signed By:Roma Shahid LCSW
--- NOTE | 2017-10-07 16:13 | PDDCSUM ---
Discharge Summary Discharge Summary: DISCHARGE DIAGNOSES: -recurrent spontaneous bacterial peritonitis in setting of malignant ascites -Oral ulcerations related to cancer therapies -new onset severe anemia requiring transfusion, uncertain etiology -new thrombocytopenia, question blood loss or other cause related to malignancy -persistent elevated hepatic transaminases, likely related to metastatic disease -history of chronic adrenal insufficiency no evidence of instability at this time -history of PE with no evidence of recurrence at this time CONSULTANTS: Dr. Ronald Gonzalez PROCEDURES: Ultrasound-guided paracentesis on 2 occasions with large volume fluid removal HOSPITAL COURSE SUMMARY: This patient into the hospital with increasing abdominal girth, bloating and discomfort. He had been seen here last month with speech and episode of spontaneous bacterial peritonitis with Streptococcus growth from ascitic fluid. This is all in the setting of known metastatic esophageal carcinoma with a a malignant ascites. During the previous hospitalization he had been treated with Rocephin with good response and discharged on Augmentin. He was still taking the Augmentin at the time of this admission. There is no significant fever or toxicity organ failure beyond what had been seen previously. It was presumed that he was failing to respond well to Augmentin therapy. A large volume of ascitic fluid was removed here by paracentesis and this had 1700 white blood cells predominantly neutrophils although cultures are negative. He was started back on Rocephin along with some diuretics. However he continued to have recurrent accumulation of ascitic fluid and on a 2nd paracentesis 6 more L were removed. At this time there still 3000 white blood cells in the ascitic fluid. Despite this he feels very well after the paracentesis is eating fine with good appetite no nausea no fever no chills nontender abdomen. The diuretic medications do not seem to be preventing recurrent ascites buildup. These are therefore discontinued at this time. The plan at this point is to have the patient continue IV Rocephin which will be at the outpatient infusion center on a daily basis for 11 more days. Recommendation is to start back on oral antibiotics at that time with Levaquin 500 mg daily. However he will need to be watch closely for recurrence of ascitic fluid. It is hoped that with any available ongoing treatment for his cancer he may have less trouble with ascites buildup. Another possibility is a may need an approach such as a [place] drain for easier removable of fluid over time. PENDING TEST RESULTS: The cultures of blood and ascitic fluid MEDICATION CHANGES: The patient is on IV Rocephin 1 g IV daily for 11 more days and then will switch to Levaquin orally after that FOLLOW-UP PLAN: The patient will see Dr. Gonzalez in clinic later this week Greater than 35 minutes bedside and care coordination time today
--- NOTE | 2017-10-07 16:57 | ECHO ---
[email or web address] [address] [address] Main: [phone] Fax: Transthoracic Echocardiogram Name: SHAI SERRANO MR#: [id number] Study Date: 10/06/2017 Study Time: 08:18 AM Date of : 1960 Age: 57 year(s) Height: 177.8 cm (70 in.) Weight: 92.99 kg (205 lb.) BSA: 2.11 m2 Gender: Male Examination: Echo Indication: Streptococcal SBP with murmur, assess for endocarditis, Ascities, tachycardia Image Quality: Contrast: Requested by: Ronald Bennett BP: 98 mmHg/63 mmHg Heart Rate: Rhythm: Indication: Streptococcal SBP with murmur, assess for endocarditis, Ascities, tachycardia Procedure Staff Sexual Assault Counsellor: Sunny Briggs Reading Physician: Nish Ramsey Requesting Provider: Conclusions: Normal size left ventricle. No LV hypertrophy. Normal global systolic LV function. EF is 76 %. Normal size right ventricle. The mitral valve is normal in appearance and function. Trivial mitral valve regurgitation. The aortic valve is tri-leaflet. Mild aortic valve regurgitation is present. The tricuspid valve is normal in appearance and function. Trivial to mild tricuspid valve regurgitation. Compared to the previous exam of 06/24/2017 the echo results appear similar.. Measurements: Chambers Valvular Assessment AV/MV Valvular Assessment TV/PV Normal Normal Normal Name Value Range Name Value Range Name Value Range Ao Zahraa (MM): 3.4 cm (2.2 cm-3.7 AV Vmax: 1.26 m/s (1 m/s-1.7 PV Vmax: 0.81 m/s (0.6 m/s-0.9 cm) m/s) m/s) IVSd (2D): 0.8 cm (0.6 cm-1.1 AV maxP mmHg ( - ) PV PGmax: 3 mmHg ( - ) cm) LVOT Vmax: 1.04 m/s (0.7 m/s-1.1 LVDd (2D): 4.2 cm (4.2 cm-5.9 m/s) cm) AR (PHT): 682 ms ( - ) LVDs (2D): 2.3 cm (2.1 cm-4 MV E Vmax: 0.81 m/s ( - ) cm) MV A Vmax: 0.67 m/s ( - ) LVPWd (2D): 1.0 cm (0.6 cm-1 MV E/A: 1.21 ( - ) cm) LVEF (2D): 76 (>=54 %) Patient: SHAI SERRANO Study Date: 10/06/2017 Page 1 of 2 08:18 AM Continued Measurements: Chambers Valvular Assessment AV/MV Name Value Name Value LADs Lon.3 cm MV E/E' Septal: 9.80 LA Area: 23.8 cm2 MV E/E' Lateral: 8.10 LA Volume: 72 ml AR Vmax: 3.33 cm/s LA Volume Index: 34.1 ml/m2 Findings: Left Ventricle: Normal size left ventricle. No LV hypertrophy. Normal global systolic LV function. EF is 76 %. No regional wall motion abnormality. Right Ventricle: Normal size right ventricle. Normal RV function. Left Atrium: The left atrium is normal in size. Right Atrium: The right atrium is normal in size. Mitral Valve: The mitral valve is normal in appearance and function. Trivial mitral valve regurgitation. Aortic Valve: The aortic valve is tri-leaflet. Mild aortic valve regurgitation is present. Tricuspid Valve: The tricuspid valve is normal in appearance and function. Trivial to mild tricuspid valve regurgitation. Pulmonic Valve: Pulmonary valve not well visualized. Aorta: The aorta is normal. Pericardium: No pericardial effusion. Exam Comments: Compared to the previous exam of 06/24/2017 the echo results appear similar.. (No Signature Object) Patient: SHAI SERRANO Study Date: 10/06/2017 Page 2 of 2 08:18 AM [id number]
--- NOTE | 2017-10-07 17:24 | ASDISCHSUM ---
Discharge Information Plan Status:IV ABX/Infusion Medically Cleared to Leave: Discharge Date:10/07/2017 04:30 PM CM D/C Disposition: ADT D/C Disposition:Home, Routine, Self-Care Projected Discharge Date:10/07/2017 04:30 PM Transportation at D/C: Discharge Delay Reason: Follow-Up Date:10/07/2017 04:30 PM Discharge Slot: Final Diagnosis: Placement Information Patient Contact Information Contact Name:LETICIA Relationship: Address:[address] City:[place] Alternate Phone: [facility]/Zip Code:[place] [address] Email: Financial Information Financial Class:[employer] Primary Plan Desc:[facility] OPEN ACC LOCAL Primary Plan Number:[id number] Secondary Plan Desc: Secondary Plan Number: Assessment Information LACE LACE Acuity / Level of Care Answers: Was the patient admitted to hospital via the emergency department? Yes: Comorbidities - select Answers: Metastatic solid tumor all that apply Emergency dept visits in Answers: 1 last 6 months Score: 10 Date Signed: 10/03/2017 10:05 AM Electronically Signed By:Raya Alejandra RN [facility] CM Progress Note CM Note CM Note Notes: Pt with hx of esophageal ca readmitted after DC two days ago. Per MD report, pt has bacterial peritonitis. Pt will at least need a HC RN at DC but could need SNF. CM will continue to follow for DC needs. Date Signed: 10/03/2017 03:01 PM Electronically Signed By:Roma Shahid LCSW [facility] CM Progress Note CM Note CM Note Notes: Discussed with RN. Patient is scheduled for a Paracentesis tomorrow. PT unable to see patient today d/t low H/H. Discharge needs remain unclear. Case Management will continue to follow. Date Signed: 10/05/2017 03:32 PM Electronically Signed By:Valeria Monsalve RN [facility] CM Progress Note CM Note CM Note Notes: Per hospitalist, pt will need 2 weeks of IV ABX and may transition to po. However, cultures are pending and pt's ABX needs may be extended. CM to continue to follow. Date Signed: 10/06/2017 04:08 PM Electronically Signed By:CEDRICK Tinoco [facility] CM Progress Note CM Note CM Note Notes: Pt to DC today. he will need 10 days of IV rocephin once daily. He is set up on 3E for 10:00 daily. He has instructions and knows to check-in early the first day. Pt denies any other DC needs. Date Signed: 10/07/2017 03:47 PM Electronically Signed By:Roma Shahid POT F[employer]ER Intervention Information
[2017-10-07 17:28] VITALS: PULSE 120; O2SAT 95
--- NOTE | 2017-10-07 17:53 | PCMIDPN ---
Assessment/Plan: Assessment/Plan: * SBP due to Streptococcus mitis: Continued clinical improvement although ascitic fluid shows higher white blood cell count. Unclear if some of the cells may be malignant cells (however majority are neutrophils). Plan 2 weeks of ceftriaxone which will be administered on . Plan to transition to oral levofloxacin for SBP prophylaxis after completion of ceftriaxone. Time spent, 25 min, of which greater than half was spent in coordination of care related to plan of care for SBP and outpatient IV ceftriaxone. 10/07/17 17:50 Subjective: Patient with less abdominal discomfort. Objective: Vital Signs Temp Pulse Resp BP Pulse Ox 36.3 C 120 H 14 102/66 95 10/07/17 12:50 10/07/17 15:22 10/07/17 12:50 10/07/17 12:50 10/07/17 15:22 Microbiology 10/05/17 13:00 Gram Stain - Final Other - Aspirate Laboratory Results 10/07/17 04:25 10/07/17 04:25 10/06/17 10/07/17 10/08/17 05:59 05:59 05:59 Intake Total 1920 605 Output Total 350 6075 Balance 1570 -5470 Ceftriaxone # 4 Blood cultures x2 and ascitic fluid culture no growth Laboratory Tests 10/06/17 15:19 Peritoneal WBC 3005 H Peritoneal RBC 15 H Periton Neutrophils 77 H Periton Lymphocytes % 6 Peritoneal Tot Protein < 2.0 - Physical Exam General Appearance: alert, no apparent distress EENT: No scleral icterus, No conjunctival petechiae Cardiac/Chest: regular rate, rhythm, other (Port nontender) Abdomen: non-tender, distended ICD10 Worksheet Patient Problems: Problems Problem Status Onset Ascites Acute Bacterial peritonitis Acute Dehydration Acute Esophageal mass Acute Hypotension Acute Palliative care encounter Acute Sepsis Acute Syncope Acute
== END 2017-10-07 16:30 | disposition home or self-care (01) | DRG 372 ==
LOC: F1N 12:48
PROVIDERS: ADMIT Internal Medicine Pulmonary Disease; ATTEND Internal Medicine Pulmonary Disease
PROC: 30233N1 Transfusion of Nonautologous Red Blood Cells into Peripheral Vein, Percutaneous Approach (ICD-10-PCS; 2017-10-05)
PROC: 0W9G3ZX Drainage of Peritoneal Cavity, Percutaneous Approach, Diagnostic (ICD-10-PCS; principal; 2017-10-06)
DX: K65.2 Spontaneous bacterial peritonitis (principal); R18.0 Malignant ascites; C15.5 Malignant neoplasm of lower third of esophagus; C78.7 Secondary malignant neoplasm of liver and intrahepatic bile duct; E87.1 Hypo-osmolality and hyponatremia; E27.1 Primary adrenocortical insufficiency; J98.11 Atelectasis; B95.4 Other streptococcus as the cause of diseases classified elsewhere; D64.9 Anemia, unspecified; D69.6 Thrombocytopenia, unspecified; K12.31 Oral mucositis (ulcerative) due to antineoplastic therapy; E87.5 Hyperkalemia; Z79.01 Long term (current) use of anticoagulants; Z86.711 Personal history of pulmonary embolism
CPT/HCPCS: 96365; 97162-GP; 97165-GO; 97535-GO; J0696; J1100; J1642; J1650; J1940; P9016; P9041; P9047

== ENCOUNTER 2017-10-09 04:25 | Inpatient (IN) | payer OTHER ==
[2017-10-09] MEDS ORDERED: NS 1,000 ML IV ONE (04:55)
[2017-10-09] MEDS ORDERED: PANTOPRAZOLE SODIUM 80 MG in NS 100 ML IV ONE (05:04)
[2017-10-09] MEDS ORDERED: ONDANSETRON 4 MG/2 ML VIAL IVP ONE (05:16)
--- NOTE | 2017-10-09 05:16 | EDPHY ---
H & P Stated Complaint: black/bloody stool since noon yesterday Time Seen by Provider: 10/09/17 04:35 HPI/ROS: HPI The patient presents with dark bloody stools, he has had 2 episodes, 1st earlier tonight and then again tonight. They are dark black with some elidia blood. He has a history of similar in May and was bleeding from his esophageal mass. He was just admitted to the hospital for ascites in SBP and was discharged yesterday. He is currently receiving antibiotics. He denies any abdominal pain, nausea or vomiting. He does feel slightly lightheaded. REVIEW OF SYSTEMS Constitutional: No fever, no chills. Eyes: No discharge. ENT: No sore throat. Cardiovascular: No chest pain, no palpitations. Respiratory: No cough, no shortness of breath. Gastrointestinal: No abdominal pain, no vomiting. Genitourinary: No hematuria. Musculoskeletal: No back pain. Skin: No rashes. Neurological: No headache. PMHx: Esophageal cancer, recurrent SBP with malignant ascites, anemia, thrombocytopenia Soc Hx: Lives at home with his PHYSICAL General Appearance: Alert, no distress Eyes: Pupils equal and round no pallor or injection ENT, Mouth: Mucous membranes moist Respiratory: There are no retractions, lungs are clear to auscultation Cardiovascular: Regular rate and rhythm Gastrointestinal: Abdomen is soft, distended, no masses, bowel sounds normal Rectal: Dark melena is present with small amount of red blood Neurological: A&O, moves all extremities Skin: Warm and dry, no rashes Musculoskeletal: Neck is supple non tender Extremities: symmetrical, full range of motion Psychiatric: Patient is oriented X 3, there is no agitation Source: Patient Exam Limitations: No limitations - Personal History Current Tetanus/Diphtheria Vaccine: Yes - Medical/Surgical History Hx Asthma: No Hx Chronic Respiratory Disease: No Hx Diabetes: No Hx Cardiac Disease: No Hx Renal Disease: No Hx Cirrhosis: No Hx Alcoholism: No Hx HIV/AIDS: No Hx Splenectomy or Spleen Trauma: No Other PMH: APPY 35 YEARS AGO, esophageal CA, PE, IVC filter placed 2016, - Social History Smoking Status: Never smoked Constitutional: Initial Vital Signs Temperature (C) 36.4 C 10/09/17 04:28 Heart Rate 134 H 10/09/17 04:28 Blood Pressure 94/72 L 10/09/17 04:28 O2 Sat (%) 98 01/12/18 04:28 O2 Delivery Mode Room Air Allergies/Adverse Reactions: No Known Allergies Allergy (Verified 10/09/17 04:32) Home Medications: Medication Instructions Recorded Pantoprazole Sodium [Protonix 40mg 40 mg PO BID #60 tab 06/28/17 (*)] Dicyclomine [Bentyl 10 MG (*)] 10 mg PO DAILY PRN 09/25/17 Enoxaparin [Lovenox 100 MG (*)] 100 mg SQ DAILY 09/25/17 Ondansetron [Zofran Odt] 8 mg PO DAILY PRN 09/25/17 Prochlorperazine Maleate 10 mg PO Q6H PRN 09/25/17 [Compazine 10mg (*)] Metoprolol Tartrate [Lopressor 25 12.5 mg PO BID #30 tab 10/01/17 mg (*)] oxyCODONE IR [Oxycodone Ir (*)] 5 - 10 mg PO Q6H PRN 10/03/17 Medical Decision Making Differential Diagnosis: 57-year-old male, with history of esophageal cancer on chemotherapy, also recent admission for SBP requiring antibiotics and paracentesis, found to be anemic requiring transfusion as well as thrombocytopenic, now presents with melena for the last several hours. On exam, he is tachycardic, abdomen is distended, rectal exam reveals elidia melena with small amount of red blood. He has a prior history of similar presentation and bleeding was from his esophageal cancer, identified on endoscopy in May. I suspect this is the cause of his bleeding today. Other possibilities include gastric ulcer or duodenal ulcer. In the emergency department, patient was given IV fluids, Zofran. Labs were checked and revealed profound leukocytosis, raising concern for continued SBP. The patient is currently being treated with ceftriaxone. Hemoglobin was stable as compared to yesterday. Patient continues to be thrombocytopenic. He was started on a Protonix bolus and drip. I consulted with the on-call hotel reservationist Dr. Cuenca. He recommends continued treatment and admission to the hospitalist service for likely endoscopy later this morning. I have consulted with the hospitalist Dr. Rasheed who will admit the patient. - Data Points Laboratory Results: Laboratory Results 10/09/17 05:00 10/09/17 05:00 Medications Given: Ceftriaxone Sodium 2 gm/ (Sterile Water) 20 mls @ 300 mls/hr IV DAILY YURY PRN Reason: Protocol Stop: 11/08/17 08:59 Last Admin: 10/09/17 09:31 Dose: 20 mls Pantoprazole Sodium 80 mg/ (Sodium Chloride) 100 mls @ 10 mls/hr IV Q10H YURY Stop: 04/07/18 16:59 Last Admin: 10/09/17 16:57 Dose: 100 mls Discontinued Medications Sodium Chloride (Ns) 1,000 mls @ 0 mls/hr IV EDNOW ONE; Wide Open PRN Reason: Protocol Stop: 10/09/17 04:56 Last Admin: 10/09/17 04:55 Dose: 1,000 mls Pantoprazole Sodium 80 mg/ (Sodium Chloride) 100 mls @ 200 mls/hr IV ONCE ONE Stop: 10/09/17 05:33 Last Admin: 10/09/17 06:12 Dose: 100 mls Pantoprazole Sodium 80 mg/ (Sodium Chloride) 100 mls @ 10 mls/hr IV Q10H [facility] Stop: 04/07/18 05:14 Last Admin: 10/09/17 17:14 Dose: Not Given Albumin Human (Alburx 5) 500 mls @ 0 mls/hr IV ONCE ONE PRN Reason: As Directed Stop: 10/09/17 10:28 Last Admin: 10/09/17 10:39 Dose: 500 mls Ondansetron HCl (Zofran) 4 mg IVP EDNOW ONE Stop: 10/09/17 05:17 Last Admin: 10/09/17 06:11 Dose: 4 mg Pantoprazole Sodium (Protonix) 40 mg IVP BID [facility] Stop: 04/07/18 08:59 Last Admin: 10/09/17 10:31 Dose: Not Given Departure - Departure Disposition: [facility] Acute Clinical Impression: Esophageal mass GI bleed Qualifiers: GI bleed type/associated pathology: melena Qualified Code(s): K92.1 - Melena Leukocytosis Qualifiers: Leukocytosis type: unspecified Qualified Code(s): D72.829 - Elevated white blood cell count, unspecified Condition: Critical
[2017-10-09 05:17] LABS: PLATELET COUNT 136 10^3/uL (150-400)
[2017-10-09 05:49] LABS: INR 1.26 (0.83-1.16)
[2017-10-09] MEDS: PANTOPRAZOLE SODIUM 80 MG in NS 100 ML IV SCH ×3 (06:45→17:14)
[2017-10-09] MEDS ORDERED: ONDANSETRON 4 MG/2 ML VIAL IVP PRN (06:50)
[2017-10-09] MEDS ORDERED: ONDANSETRON DISINTEGRATING 4 MG TAB PO PRN (06:50)
[2017-10-09] MEDS ORDERED: ACETAMINOPHEN 325 MG TAB PO PRN (06:50)
--- NOTE | 2017-10-09 07:26 | PDGENHP ---
History and Physical - Chief Complaint Melena - History of Present Illness 57 yo M w/ esophageal cancer, recent admission for SBP in the setting of malignant ascites, anemia, hx PE on Lovenox, and CKD presents with melena. Patient had recent hospitalization for malignant ascites and SBP. He is scheduled to be on CTX 2g IV QD until next Thursday. He went home two days ago and was feeling reasonably well. However, a few hours prior to admission, he began to have melena. He had two episodes in total. In the ED he is mildly tachycardic but asymptomatic and hemodynamically stable. Rectal exam in ED notable for melena and scant blood. Of note, he is on Lovenox tx for hx of PE in November of 2016. He also has an IVC filter in place. History Information - Allergies/Home Medication List Allergies/Adverse Reactions: No Known Allergies Allergy (Verified 10/09/17 04:32) Home Medications: Dexamethasone [Decadron 4 MG (*)] 4 mg PO DAILY 09/25/17 [Last Taken Unknown] Dicyclomine [Bentyl 10 MG (*)] 10 mg PO DAILY 09/25/17 [Last Taken Unknown] Enoxaparin [Lovenox 100 MG (*)] 100 mg SQ DAILY 09/25/17 [Last Taken 10/02/17 21 :00] Ondansetron [Zofran Odt] 8 mg PO DAILY PRN 09/25/17 [Last Taken Unknown] Prochlorperazine Maleate [Compazine 10mg (*)] 10 mg PO Q6H PRN 09/25/17 [Last Taken 09/18/17] oxyCODONE IR [Oxycodone Ir (*)] 5 - 10 mg PO Q6H PRN 10/03/17 [Last Taken 21:00 10mg] I have personally reviewed and updated: family history, medical history - Past Medical History no pertinent PMH Additional medical history: metastatic esophageal cancer (dx 09/2016, s/p FOLFOX , 5-FU). h/o ETOH abuse, massive PE 11/2016 requiring intra-arterial thrombolytics and subsequent IVC filter placement after he experienced upper GI bleed from his esophageal cancer requiring intubation for airway stabilization, SVT, adrenal insufficiency, chronic hyponatremia with baseline serum sodium 124- 129, recent spontaneous bacterial peritonitis in late August 2017 - Surgical History Reports: no pertinent surgical hx Additional surgical history: IVC filter placement via right groin. 09/29/2017 4L therapeutic paracentesis - Family History Positive for: non-pertinent Additional family history: No family history of malignancy, his mother from [place] Maximino disease - Social History Smoking Status: Never smoked Additional social history: Lives with , independent in ADLs. Review of Systems Review of Systems: ROS: 10pt was reviewed & negative except for what was stated in HPI & below Physical Exam Physical Exam: Temp Pulse Resp BP Pulse Ox 36.4 C 105 H 18 90/61 L 92 10/09/17 04:28 10/09/17 06:46 10/09/17 06:46 10/09/17 06:46 10/09/17 06:46 Constitutional: not in pain, chronically ill appearing Eyes: PERRL, EOMI Ears, Nose, Mouth, Throat: moist mucous membranes, no oral mucosal ulcers Cardiovascular: no murmur, rub, or gallop, tachycardia Respiratory: no respiratory distress, clear to auscultation Gastrointestinal: normoactive bowel sounds, soft, non-tender abdomen, ascites, distension Musculoskeletal: full muscle strength, no muscle tenderness Neurologic: AAOx3, CN II-XII Intact Psychiatric: interacting appropriately, not anxious Lab Data & Imaging Review 10/09/17 05:00 10/09/17 05:00 WBC 20.29 10^3/uL (3.80-9.50) H 10/09/17 05:00 RBC 3.10 10^6/uL (4.40-6.38) L 10/09/17 05:00 Hgb 9.9 g/dL (13.7-17.5) L 10/09/17 05:00 Hct 29.3 % (40.0-51.0) L 10/09/17 05:00 MCV 94.5 fL (81.5-99.8) 10/09/17 05:00 MCH 31.9 pg (27.9-34.1) 10/09/17 05:00 MCHC 33.8 g/dL (32.4-36.7) 10/09/17 05:00 RDW 19.0 % (11.5-15.2) H 10/09/17 05:00 Plt Count 136 10^3/uL (150-400) L 10/09/17 05:00 MPV 9.7 fL (8.7-11.7) 10/09/17 05:00 Neut % (Auto) Not Reported 10/09/17 05:00 Lymph % (Auto) Not Reported 10/09/17 05:00 [place] % (Auto) Not Reported 10/09/17 05:00 Eos % (Auto) Not Reported 10/09/17 05:00 Baso % (Auto) Not Reported 10/09/17 05:00 Nucleat RBC Rel Count 0.2 % (0.0-0.2) 10/09/17 05:00 Absolute Neuts (auto) Not Reported 10/09/17 05:00 Absolute Lymphs (auto) Not Reported 10/09/17 05:00 Absolute Monos (auto) Not Reported 10/09/17 05:00 Absolute Eos (auto) Not Reported 10/09/17 05:00 Absolute Basos (auto) Not Reported 10/09/17 05:00 Absolute Nucleated RBC 0.04 10^3/uL (0-0.01) H 10/09/17 05:00 Immature Gran % Not Reported 10/09/17 05:00 Seg Neutrophils % 87 % 10/09/17 05:00 Band Neutrophils % 4 % 10/09/17 05:00 Lymphocytes % 9 % 10/09/17 05:00 Immature Gran # Not Reported 10/09/17 05:00 Absolute Seg Neuts 17.65 10^/uL (1.70-6.50) H 10/09/17 05:00 Absolute Band Neuts 0.81 10^3/uL (0.00-0.70) H 10/09/17 05:00 Absolute Lymphocytes 1.83 10^3/uL (1.00-3.00) 10/09/17 05:00 RBC/WBC/PLT Morphology NORMAL (NORMAL) 10/09/17 05:00 Platelet Estimate DECREASED (ADEQ) L 10/09/17 05:00 PT 16.0 SEC (12.0-15.0) H 10/09/17 05:00 INR 1.26 (0.83-1.16) H 10/09/17 05:00 APTT 31.2 SEC (23.0-38.0) 10/09/17 05:00 Sodium 133 mEq/L (135-145) L 10/09/17 05:00 Potassium 4.8 mEq/L (3.5-5.2) 10/09/17 05:00 Chloride 104 mEq/L (97-110) 10/09/17 05:00 Carbon Dioxide 20 mEq/l (22-31) L 10/09/17 05:00 Anion Gap 9 mEq/L (8-16) 10/09/17 05:00 BUN 25 mg/dL (7-23) H 10/09/17 05:00 Creatinine 0.6 mg/dL (0.7-1.3) L 10/09/17 05:00 Estimated GFR > 60 10/09/17 05:00 Glucose 83 mg/dL (70-100) 10/09/17 05:00 Calcium 7.9 mg/dL (8.5-10.4) L 10/09/17 05:00 Total Bilirubin 2.0 mg/dL (0.1-1.4) H D 10/09/17 05:00 AST 118 IU/L (17-59) H 10/09/17 05:00 ALT 103 IU/L (21-72) H 10/09/17 05:00 Alkaline Phosphatase 383 IU/L (38-126) H 10/09/17 05:00 Total Protein 5.1 g/dL (6.3-8.2) L 10/09/17 05:00 Albumin 2.3 g/dL (3.5-5.0) L 10/09/17 05:00 Patient ABO/Rh A POSITIVE 10/09/17 05:00 Antibody Screen NEGATIVE 10/09/17 05:00 Assessment & Plan Assessment: 57 yo M w/ metastatic esophageal CA and recent admission for malignant ascites and SBP presents with melena. Plan: 1. UGIB - Melena x2 a few hours prior to presentation most likely 2/2 to known esophageal malignancy. Complicated by Lovenox tx for massive PE experienced in November of 2016. Patient is mildly tachycardic but hemodynamically stable currently. Hgb 9.9, increased from prior value. - Hold Lovenox - IVF as needed but cautiously noting recent issues with ascites requiring large volume paracentesis x2 - Transfuse for Hgb < 7.0 - NPO, PPI IV BID - GI consultation 2. Stage IV esophageal CA - With metastases to liver and also w/ malignant ascites. Diagnosed 09/2016, s/p FOLFOX, 5-FU. 3. Normocytic anemia - Hgb increased from prior but perhaps blood loss has not equilibrated noting clinical evidence of blood loss. He had unexplained drop in Hgb requiring transfusion during recent admission. - Transfuse for Hgb<7.0 - Management of UGIB as above 4. Leukocytosis - Increased to 20k from discharge value of 14k; no new infectious symptoms. Currently under treatment for SBP. - Repeat blood cultures - Continue CTX 2g IV QD 5. SBP - Diagnosed during recent admission, repeat blood cultures and continue CTX. 6. Thrombocytopenia - Improved from discharge value, presumably 2/2 malignancy and treatment. 7. Hx of massive PE - November 2016, on Lovenox and s/p IVC filter placement. - Will hold Lovenox for now 8. Abnormal LFTs - 2/2 metastatic invasion of liver with mild worsening of acute bleed. Monitor LFTs. 9. Chronic adrenal insufficiency - On daily dexamethasone. Diet - NPO Code - Full Ppx - SCDs Dispo - Admit to SDU under observation status for now
[2017-10-09] MEDS ORDERED: PANTOPRAZOLE SODIUM 40 MG VIAL IVP SCH (09:00)
[2017-10-09] MEDS: cefTRIAXone 2 GM in STERILE WATER INJ 20 ML IV SCH (09:31)
[2017-10-09] MEDS ORDERED: ALBUMIN 5% 500 ML IV ONE (10:27)
--- NOTE | 2017-10-09 13:06 | ASMTCASEMG ---
Living Arrangements What is your living Answers: With Spouse arrangement? Who do you live with? Type Of Residence What kind of residence do Answers: Apartment you live in? Discharge Plan Comments Coordination Status Comments Notes: Patient is a 57yo male who was admitted for metastatic esophageal cancer and had a recent admission for malignant ascites and SBP presence with melena. No orders for therapy at this time. D/C needs TBD. CM will follow. Date Signed: 10/09/2017 01:05 PM Electronically Signed By:Haleigh Whitehead LCSW
--- NOTE | 2017-10-09 14:10 | HOSPPROG ---
Hospitalist Progress Note Assessment/Plan: #Acute GIB: none since 3am h/o ulcerative esophageal mass. EGD 06/14 showed possible arterial bleed, but not amendable to clipping -holding Lovenox, serial H/H. Dr. Cr evaluated and recs serial labs today. If recurrent bleed may, need IR. Keep NPO #Recurrent SBP: Strep mitis (culture 1/2). IV ceftriaxone #Hypotension; due to bleed, dehydration. Improved with albumin. -BL SBP 90s per review of prior admissions. Echo 10/07 with normal EF #Metastatic esophageal cancer: chemo on hold #h/o massive PE: IVC filter in place. Hold Lovenox #Malignant ascites: less swelling than before DC. Diuretics not helpful. Paracentesis PRN #Leukocytosis: perviously 14, now 20. Blood cultures pending #Hypervolemic hyponatremia #Transaminitis: chemo-related? #Diet: NPO #DVT ppx: SCDs #Goals: I had discussion with he and . Concerned of his multiple admissions over past month. I explained the role of Palliative care. They are open to having a group see them outpatient. Will have case management assist. Time spent on visit: 45 min reviewing prior notes, labs, d/w Dr. Cr and discussing goals with patient and Subjective: tired. No belly pain Objective: Vital Signs Temp Pulse Resp BP Pulse Ox 37.2 C 94 17 90/62 L 95 10/09/17 08:24 10/09/17 12:00 10/09/17 12:00 10/09/17 12:00 10/09/17 12:00 Laboratory Results 10/09/17 11:00 10/08/17 10/09/17 10/10/17 05:59 05:59 05:59 Intake Total 1040 Balance 1040 PT 16.0 SEC (12.0-15.0) H 10/09/17 05:00 INR 1.26 (0.83-1.16) H 10/09/17 05:00 - Time Spent With Patient Time Spent with Patient: greater than 35 minutes Time Spent with Patient: Greater than 35 minutes spent on this patients care, greater than 50% of time spent counseling, educating, and coordinating care regarding the above mentioned plan. - Physical Exam Constitutional: chronically ill appearing, other (pale) Eyes: PERRL Ears, Nose, Mouth, Throat: dry mucous membranes Cardiovascular: regular rate and rhythym, no murmur, rub, or gallop Respiratory: no respiratory distress Gastrointestinal: ascites (less distended when I discharged last. Soft, NT. Paracentesis site CDI) Musculoskeletal: generalized weakness Neurologic: AAOx3, CN II-XII Intact Psychiatric: flat affect ICD10 Worksheet Patient Problems: Problems Problem Status Onset Esophageal mass Acute GI bleed Acute Leukocytosis Acute Ascites Acute Bacterial peritonitis Acute Dehydration Acute Hypotension Acute Palliative care encounter Acute Sepsis Acute Syncope Acute
[2017-10-09] MEDS ORDERED: DICYCLOMINE 10 MG CAP PO PRN (18:12)
--- NOTE | 2017-10-09 18:12 | SOAPPROG ---
SOAP Progress Note Assessment/Plan: Assessment: Plan: 10/09/17 17:18 GI note See dictated consult for details. 57 year old male with metastatic esophageal cancer, PE on anticoagulation, liver cirrhosis with ascites who presents to [facility] with dark, tarry stools. Last BM 7 hours ago. Suspect bleed is from esophageal cancer. Had previous episode in May 2017. Recommend PPI infusion and NPO status. If any signs of active GI bleed consider IR versus EGD. However, malignant bleeds are usually not amenable to endoscopic therapy. Would consider diagnostic paracentesis (r/o SBP). GI will follow. Objective: Vital Signs Temp Pulse Resp BP Pulse Ox 37.2 C 98 18 89/53 L 97 10/09/17 08:24 10/09/17 16:00 10/09/17 16:00 10/09/17 16:00 10/09/17 16:00 Laboratory Results 10/09/17 11:00 10/08/17 10/09/17 10/10/17 05:59 05:59 05:59 Intake Total 1127.6 Output Total 100 Balance 1027.6 PT 16.0 SEC (12.0-15.0) H 10/09/17 05:00 INR 1.26 (0.83-1.16) H 10/09/17 05:00 ICD10 Worksheet Patient Problems: Problems Problem Status Onset Esophageal mass Acute Syncope Acute Hypotension Acute Sepsis Acute Dehydration Acute Palliative care encounter Acute Bacterial peritonitis Acute Ascites Acute GI bleed Acute Leukocytosis Acute
[2017-10-10] MEDS: PANTOPRAZOLE SODIUM 80 MG in NS 100 ML IV SCH ×3 (03:00→17:53)
[2017-10-10] MEDS: cefTRIAXone 2 GM in STERILE WATER INJ 20 ML IV SCH (09:00)
--- NOTE | 2017-10-10 09:30 | HOSPPROG ---
Hospitalist Progress Note Assessment/Plan: #Acute GIB: -H/H stable. No bleeding overnight. Cont medical management with IV PPI, serial H/H h/o ulcerative esophageal mass. EGD 06/14 showed possible arterial bleed, but not amendable to clipping -holding Lovenox #Recurrent SBP: Strep mitis (culture 1/2). IV ceftriaxone #Hypoglycemia: with NPO status. Advance to clears. Repeat POC #Hypotension; due to bleed, dehydration. Improved with albumin. -BL SBP 90s per review of prior admissions. Echo 10/07 with normal EF #Metastatic esophageal cancer: chemo on hold #h/o massive PE: IVC filter in place. Hold Lovenox #Malignant ascites: less swelling than before DC. Diuretics not helpful. Paracentesis PRN #Leukocytosis: perviously 14, now 20. Blood cultures pending #Hypervolemic hyponatremia #Transaminitis: chemo-related? #Diet: NPO #DVT ppx: SCDs #Goals: I had discussion with he and . Concerned of his multiple admissions over past month. I explained the role of Palliative care. They are open to having a group see them outpatient. Will have case management assist. Subjective: hungry. No BM overnight Objective: Vital Signs Temp Pulse Resp BP Pulse Ox 36.8 C 91 19 97/63 L 96 10/10/17 04:00 10/10/17 07:46 10/10/17 07:46 10/10/17 07:46 10/10/17 07:46 Laboratory Results 10/10/17 05:15 10/10/17 05:15 10/09/17 10/10/17 10/11/17 05:59 05:59 05:59 Intake Total 1247.6 Output Total 100 Balance 1147.6 PT 16.0 SEC (12.0-15.0) H 10/09/17 05:00 INR 1.26 (0.83-1.16) H 10/09/17 05:00 - Physical Exam Constitutional: chronically ill appearing Eyes: PERRL Ears, Nose, Mouth, Throat: moist mucous membranes Cardiovascular: regular rate and rhythym, no murmur, rub, or gallop, No edema Respiratory: no respiratory distress Gastrointestinal: ascites, distension, No tenderness Musculoskeletal: generalized weakness Neurologic: AAOx3, CN II-XII Intact Psychiatric: interacting appropriately ICD10 Worksheet Patient Problems: Problems Problem Status Onset Esophageal mass Acute GI bleed Acute Leukocytosis Acute Ascites Acute Bacterial peritonitis Acute Dehydration Acute Hypotension Acute Palliative care encounter Acute Sepsis Acute Syncope Acute
--- NOTE | 2017-10-10 09:42 | GCON ---
[f rep st] CONSULTATION DATE OF CONSULTATION: 10/09/2017 REFERRING PHYSICIAN: Zari Vega MD REASON FOR CONSULTATION: Melenic stools. CHIEF COMPLAINT: Melenic stools. HISTORY OF PRESENT ILLNESS: The patient is a 57-year-old male with a history of esophageal adenocarcinoma, liver cirrhosis, pulmonary embolus with IVC filter on anticoagulation, who presents to [facility] with complaints of melenic stools. The patient states he was doing well until last night and this morning when he had 2 bowel movements that were black and tarry. His last bowel movement was approximately 7 hours ago. He denies any exacerbating or alleviating factors to his symptoms. He denies any chest pain, shortness of breath, fevers, or chills. The patient was diagnosed with metastatic esophageal cancer in early 2016 and is being followed by the [facility]. He has been on anticoagulation due to his history of PE. He does have an IVC filter. He did have a simlar episode of upper GI bleed in May of 2017. He did have an upper endoscopy at that time, and the bleeding source was his esophageal cancer. I am asked by Dr. Vega to evaluate the patient in consultation regarding his hematemesis. PAST MEDICAL HISTORY: 1. Metastatic esophageal cancer. 2. Alcohol use. 3. PE with IVC filter. 4. Adrenal insufficiency. 5. SVT. PAST SURGICAL HISTORY: IVC filter placement. ALLERGIES: NKDA. MEDICATIONS: Decadron, dicyclomine, enoxaparin, Zofran, oxycodone. SOCIAL HISTORY: Positive alcohol in the past. No tobacco use. FAMILY HISTORY: No history of esophageal cancer. REVIEW OF SYSTEMS: A 12-point comprehensive review of systems was asked. Pertinent positives and negatives per HPI. PHYSICAL EXAM: VITAL SIGNS: Blood pressure 93/62, heart rate 94, temperature 37.2, respirations 15. GENERAL: Awake, alert and oriented x3. No distress. HEENT: Anicteric sclerae. Moist mucosa. NECK: No JVD. CARDIOVASCULAR: Regular rate and rhythm. Positive S1, S2. No murmurs or gallops appreciated. LUNGS: Clear to auscultation bilaterally, without wheezes or rhonchi. ABDOMEN : Soft. Distended. Positive bowel sounds. No guarding or rebound. EXTREMITIES: No clubbing, cyanosis or edema. NEUROLOGIC: 2-12 grossly intact. PSYCH: Normal affect. SKIN: No rash. LABORATORY DATA: WBC 20.29, hemoglobin 9.9, hematocrit 29.3, platelets 136. INR 1.26. Sodium 133, potassium 4.8, chloride 104, bicarb 20, BUN 25, creatinine 0.6. AST 118, ALT 103, alkaline phosphatase 383. ASSESSMENT/PLAN: 1. Melenic stools- suspect bleed secondary to esophageal cancer. Has had a similar clinical presentation in May of last year. These bleeds are very hard to stop due to the tissue being friable, aberrant blood supply, and that intervention can cause increased bleeding. At this time, recommend supportive care with PPI infusion and will keep the patient n.p.o. If any signs of active bleeding, can consider endoscopic evaluation versus Interventional Radiology for possible embolization. 2. Ascites- would recommend diagnostic paracentesis due to elevated white cell count. 3. Pulmonary embolus- on anticoagulation. Does have IVC filter. Unsure if candidate for anticoagulation due to his bleeding. Thank you very much for this consultation. /[id number]/CHEL ARJUN
--- NOTE | 2017-10-10 10:25 | PDMN ---
Medical Necessity Medical necessity: C/M review: Patient meets INPT criteria under MCG M-180 Gastrointestinal Bleeding, upper; Acute GI bleed, Hgb 9.9, 803. 708, 709, Hct 2903, 23.9, 23.1, 24.0, INR 1.26, recurrent SBP, hypotension, leukocytosis WBC 20.29, hypovolemic hyponatremia, Na 133, 134, transamimitis, total bilirubin 2.0 , 2.7, AST 118, 90, ALT 1.3, 85, Alk phos 383, 287 requiring IV Albumin x 1 10/09, planned Oncology consult, ongoing NPO, IV Pantoprazole infusion, IV Ceftriaxone QD, comorbid history of ulcerative esophageal mass not amenable to endoscopic interventionmetastatic esophageal cancer, massive PE, IVC filter in place, malignant ascites. MD anticipates > 2 MN LOS for ongoing med nec for eval and TX of above.
--- NOTE | 2017-10-10 10:30 | SOAPPROG ---
SOAP Progress Note Assessment/Plan: Assessment: UGIB from known esophageal tumor. Overall better susepct bleeding has stopped. Would be very difficult to treat endoscopically and likely not to be successful. Plan: Continue supportive care PPI Transude as needed Minimize anticoagulation OK for clear liquids and then can tolerate as needed. Poor candidate for EGD. Consider IR if significant rebleeding. Will sign off for now 10/10/17 10:26 Subjective: CC melena No further melena. Want to eat Objective: Vital Signs Temp Pulse Resp BP Pulse Ox 36.8 C 91 19 97/63 L 96 10/10/17 04:00 10/10/17 07:46 10/10/17 07:46 10/10/17 07:46 10/10/17 07:46 PT 16.0 SEC (12.0-15.0) H 10/09/17 05:00 INR 1.26 (0.83-1.16) H 10/09/17 05:00 Physical Exam - Physical Exam General Appearance: alert Respiratory: lungs clear Cardiac/Chest: regular rate, rhythm Abdomen: non-tender, soft ICD10 Worksheet Patient Problems: Problems Problem Status Onset Esophageal mass Acute GI bleed Acute Leukocytosis Acute Ascites Acute Bacterial peritonitis Acute Dehydration Acute Hypotension Acute Palliative care encounter Acute Sepsis Acute Syncope Acute
--- NOTE | 2017-10-10 11:02 | ASMTCMCOM ---
CM Note CM Note Notes: Per hospitalist note and CM report, patient seems like good candidate for outpatient palliative care. When I spoke with patient and Kate, they were hesitant, citing their small home as an obstacle, but they agreed to an informational meeting with palliative agency while patient is still in hospital. I sent a referral to [facility], they will come to see patient on Thursday 10/12. No set time scheduled, CM will need to coordinate with patient and [facility]. Re: other discharge plans, again, patient is not that interested in having any homecare services d/t living in a small space. He hopes to have enough acute therapy to go home indpendently with . Current CM Discharge plan: [facility] vs Home independent Date Signed: 10/10/2017 11:02 AM Electronically Signed By:Carolyn Ritchie RN
[2017-10-10] MEDS ORDERED: D50W 25 GM/50 ML SYR IVP PRN (16:27)
[2017-10-10] MEDS: PROMETHAZINE HCL 25 MG/ML INJ IVP PRN (21:28)
[2017-10-11] MEDS: cefTRIAXone 2 GM in STERILE WATER INJ 20 ML IV SCH (09:12)
[2017-10-11] MEDS: PANTOPRAZOLE SODIUM 80 MG in NS 100 ML IV SCH ×2 (09:28→21:47)
--- NOTE | 2017-10-11 12:53 | HOSPPROG ---
Hospitalist Progress Note Assessment/Plan: #Acute GIB: -H/H stable. No bleeding overnight. Cont medical management with IV PPI, serial H/H h/o ulcerative esophageal mass. EGD 06/14 showed possible arterial bleed, but not amendable to clipping -holding Lovenox #Leukocytosis: 10--> 17 today. Had abdominal pain overnight, none on my exam. Is on appropriate abx coverage for SBP. Check UA, CXR. Afebrile. Bld cultures form 10/09 NGTD. If continue to trend up, would image abdomen #Recurrent SBP: Strep mitis (culture 09/29). IV ceftriaxone 2gm until 10/17/17 and then transition to LQ #Hypoglycemia: with NPO status. Advance to clears. Repeat POC #Hypotension; due to bleed, dehydration. Improved with albumin. -BL SBP 90s per review of prior admissions. Echo 10/07 with normal EF #Metastatic esophageal cancer: chemo on hold #h/o massive PE: IVC filter in place. Hold Lovenox #Malignant ascites: more distended today.DC. Diuretics not helpful. May benefit from paracentesis in 1-2 days #Hypervolemic hyponatremia #Transaminitis: chemo-related? #Diet: NPO #DVT ppx: SCDs #Goals: I had discussion with he and . Concerned of his multiple admissions over past month. I explained the role of Palliative care. [facility] to evaluate patient tomorrow Subjective: lower abdominal pain overnight, sharp with nonbloody emesis after eating jello. Mild cough. Objective: Vital Signs Temp Pulse Resp BP Pulse Ox 36.6 C 104 H 16 105/67 95 10/11/17 11:33 10/11/17 11:33 10/11/17 11:33 10/11/17 11:33 10/11/17 11:33 Laboratory Results 10/11/17 05:45 10/11/17 05:45 10/10/17 10/11/17 10/12/17 05:59 05:59 05:59 Intake Total 242 Balance 242 PT 16.0 SEC (12.0-15.0) H 10/09/17 05:00 INR 1.26 (0.83-1.16) H 10/09/17 05:00 - Physical Exam Constitutional: other (fatigied, pale) Eyes: PERRL Ears, Nose, Mouth, Throat: dry mucous membranes Cardiovascular: regular rate and rhythym, no murmur, rub, or gallop Respiratory: no respiratory distress, no rales or rhonchi Gastrointestinal: normoactive bowel sounds, ascites, distension, No no palpable masses, No tenderness Genitourinary: no bladder fullness, other (no CVA/suprapubic TTP) Musculoskeletal: generalized weakness Neurologic: AAOx3, CN II-XII Intact Psychiatric: flat affect ICD10 Worksheet Patient Problems: Problems Problem Status Onset Esophageal mass Acute GI bleed Acute Leukocytosis Acute Ascites Acute Bacterial peritonitis Acute Dehydration Acute Hypotension Acute Palliative care encounter Acute Sepsis Acute Syncope Acute
--- NOTE | 2017-10-11 14:29 | CPEKG ---
Heart Rate: 101 RR Interval: 594 P-R Interval: 156 QRSD Interval: 84 QT Interval: 328 QTC Interval: 426 P Twining: 29 QRS Twining: 79 T Wave Twining: -40 EKG Severity - BORDERLINE ECG - EKG Impression: SINUS TACHYCARDIA EKG Impression: BORDERLINE T ABNORMALITIES, INFERIOR LEADS Electronically Signed By: Santo Vu 12-Oct-2017 04:30:56
--- NOTE | 2017-10-11 14:46 | GCON ---
[f rep st] CONSULTATION ONCOLOGY CONSULTATION DATE OF CONSULTATION: 10/11/2017 HISTORY OF PRESENT ILLNESS: The patient is a pleasant 57-year-old gentleman who was diagnosed with m etastatic esophageal adenocarcinoma in September of 2016. He presented with multiple metastases to the liver. He has HER-2/nina negative disease. He was treated initially with FOLFOX chemotherapy and had a good response. He developed peripheral n europathy related to oxaliplatin. Eventually, this agent was stopped. He has received palliative ra diation to the distal esophagus, which was completed in April of 2017. More recently, he was noted to have a rise in his serum tumor markers. Restaging CT scans done in august, unfortunately, confirmed fairly significant progressive metastatic disease involving yvonne er. The patient is followed by my partner, Dr. Mirna Angeles. Evidently, a foundation assay was sent, margi smith was negative for significant PD L1 expression. The decision was made to treat him with second-line ramucirumab and paclitaxel. He received his 1st cycle of treatment on September 18, 2017. He, unfor tunately, had fairly poor tolerance to treatment with significant fatigue. He has had several hospit al admissions over the past few weeks and has known spontaneous bacterial peritonitis with strep miti s cultured. He is on IV ceftriaxone. He has had several episodes of melena. He was admitted. He has a history of a large volume pulmonar y embolus last year for which he has an IVC filter and has also been on chronic Lovenox therapy. His Lovenox has been held due to evidence of GI bleeding. His GI bleeding appears to have stabilized ov er the past 24 hours. The patient remains quite weak and fatigued with minimal appetite. A palliative care consult has bee chelsea arranged for tomorrow. When seen this afternoon, he is accompanied by his , Miryam. PAST MEDICAL HISTORY: 1. Metastatic esophageal as outlined above. 2. Massive right-sided pulmonary embolus November 2017. 3. IVC filter placement. PAST SURGICAL HISTORY: Appendectomy. SOCIAL HISTORY: The patient is to Miryam. He lives in [facility]. He has no children. He was previously working at [employer] but has not been working since his diagnosis of metastatic esophageal cancer. FAMILY MEDICAL HISTORY: Notable for his mother dying of Creutzfeldt Maximino disease. There is no know n family history of malignancy. REVIEW OF SYSTEMS: As outlined above. Patient reports persistent abdominal pain. PHYSICAL EXAMINATION: GENERAL: A chronically ill-appearing gentleman who is in no acute distress. No evidence of scleral icterus. HEART: Regular without murmur. LUNGS: Clear bilaterally though sl ightly diminished at both bases. No wheeze or rhonchi. ABDOMEN: Moderately distended. There is mi nimal generalized abdominal tenderness with no guarding or rebound. Ascites is present. EXTREMITIES : No calf tenderness or swelling bilaterally. SKIN: No visible skin rash. NEUROLOGIC: The patien t is alert, oriented, and appropriate. LABORATORY STUDIES: White count 17,270, hemoglobin 8.7, hematocrit 26.0, platelet count is 105,000. Sodium 131, potassium 4.7, chloride 103, bicarb 24, BUN 21, creatinine 0.5, calcium 7.7. INR is 1.2 6. IMPRESSION: 1. Metastatic esophageal adenocarcinoma with recent disease progression. 2. Status post cycle 1 in (September 18, 2017) of second-line therapy with paclitaxel and ramucirumab . 3. Massive pulmonary embolus November 2016 (patient has IVC filter in place). 4. Spontaneous bacterial peritonitis with strep mitis. 5. Upper gastrointestinal bleeding secondary to #1. 6. Declining performance status. Estuardo is a pleasant 57-year-old gentleman who unfortunately has recently had a fairly significant pr ogression of his known metastatic esophageal cancer. He was recently treated with second-line therapy, which he did not tolerate. He has had 2 recent hospital admissions with spontaneous bacterial peritonitis and now has evidence o f intermittent upper GI bleeding. I had a fairly elidia discussion with the patient and his , Miryam. The patient is well aware of his diagnosis. He understands the incurable nature of his underlying illness and the palliative inte nsive treatments. The patient, unfortunately, has not tolerated second-line therapy and has had multiple new issues, al l stemming from his underlying metastatic disease. We discussed the option of palliative care. He s tates that he and his have discussed this in detail over the past 2 days, and at this point, he is not inclined to seek any further active treatment for his cancer and is more inclined to transitio n to palliative care. In light of recent events, I think this is quite reasonable and likely the bes t option for the patient. The patient would like to meet with palliative care tomorrow and is leanin g toward going home with hospice support. In light of his decision, we discussed his wishes surrounding "code status." He and his would p refer DNR status at this point, which I support. Per this discussion, his code status will be update d. For now, he will remain off Lovenox, given the evidence of upper GI bleeding. This appears to have s tabilized over the past 24 hours. I think it is reasonable to continue him on his current antibiotics. He will meet with palliative care tomorrow, and further decisions regarding his disposition will be m gaby based on that meeting. Again, as per our discussion this afternoon, he is not overall inclined t o pursue any further active treatment for his cancer. I will notify Dr. Angeles of his hospital admission. His questions were answered. I have discussed his case with nursing and the floor nurse who was pres ent for our discussion today. Total time for today's visit was approximately 60 minutes, of which greater than 50% was spent in cou nseling and care coordination. /[id number]/MODL
[2017-10-11] MEDS ORDERED: NS 250 ML IV SCH (16:00)
[2017-10-11] MEDS ORDERED: METOPROLOL TARTRATE 5 MG/5 ML INJ IVP PRN (16:02)
[2017-10-11] MEDS ORDERED: NS 500 ML IV ONE (16:09)
--- NOTE | 2017-10-11 16:48 | HOSPPROG ---
Hospitalist Progress Note Assessment/Plan: Called to bedside for tachycardia to 140s. SBP 90. S: feels heart racing. Has had episodes like this in past. No CP, SOB or dizziness O: HR 101 (sinus tachy on EKG, personally reviewed by me) HEENT: dry MM CV: tachy, regular Lungs: clear anteriorly GI: distended, soft, no TTP Neuro: 2-12 intact, mentating #Tachycardia -now 140s, repeat EKG -appears dry. Bolus 500cc. Does adenosine -repeat H/H stable. Afebrile, but white count up. UA and CXR pending. Stat lactate Query underlying infection? Change to Zosyn for broader SBP coverage #Goals -discussed escalation of cares. He is ok with pressors if needed Critical care time spent 50 min bedside with patient, reviewing EKG, labs and transfer to ICU Objective: Vital Signs Temp Pulse Resp BP Pulse Ox 37.1 C 148 H 12 81/59 L 95 10/11/17 16:00 10/11/17 16:00 10/11/17 16:00 10/11/17 16:00 10/11/17 16:00 Laboratory Results 10/11/17 16:35 10/11/17 05:45 10/10/17 10/11/17 10/12/17 05:59 05:59 05:59 Intake Total 242 Balance 242 PT 16.0 SEC (12.0-15.0) H 10/09/17 05:00 INR 1.26 (0.83-1.16) H 10/09/17 05:00 ICD10 Worksheet Patient Problems: Problems Problem Status Onset Esophageal mass Acute GI bleed Acute Leukocytosis Acute Ascites Acute Bacterial peritonitis Acute Dehydration Acute Hypotension Acute Palliative care encounter Acute Sepsis Acute Syncope Acute
[2017-10-11] MEDS ORDERED: ALBUMIN 25% 100 ML IV ONE (17:07)
--- NOTE | 2017-10-11 17:30 | CPEKG ---
Heart Rate: 148 RR Interval: 405 QRSD Interval: 78 QT Interval: 276 QTC Interval: 434 QRS Rogers: 81 T Wave Rogers: -80 EKG Severity - ABNORMAL ECG - EKG Impression: SUPRAVENTRICULAR TACHYCARDIA Electronically Signed By: Santo Vu 12-Oct-2017 04:32:59
[2017-10-11] MEDS: PIPERACILLIN/TAZO 3.375 GM/DEX 50 ML IV SCH (17:56)
[2017-10-11] MEDS ORDERED: ADENOSINE 6 MG/2 ML VIAL ONE (19:01)
--- NOTE | 2017-10-11 21:33 | HOSPPROG ---
Hospitalist Progress Note Assessment/Plan: transferred to ICU for persistent tachycardia some ekg's suggested sinus but 17:15 ekg w no p waves s/o SVT given 6 mg adenosine w conversion to sinus turns out he has received adenosine multiple times in past, presumably for SVT observe in ICU 35 min crit care ekg's interp by me Objective: Vital Signs Temp Pulse Resp BP Pulse Ox 37 C 104 H 18 88/60 L 94 10/11/17 20:00 10/11/17 20:00 10/11/17 20:00 10/11/17 20:00 10/11/17 20:00 Laboratory Results 10/11/17 16:35 10/11/17 05:45 10/10/17 10/11/17 10/12/17 05:59 05:59 05:59 Intake Total 242 1347 Balance 242 1347 PT 16.0 SEC (12.0-15.0) H 10/09/17 05:00 INR 1.26 (0.83-1.16) H 10/09/17 05:00 ICD10 Worksheet Patient Problems: Problems Problem Status Onset Esophageal mass Acute GI bleed Acute Leukocytosis Acute Ascites Acute Bacterial peritonitis Acute Dehydration Acute Hypotension Acute Palliative care encounter Acute Sepsis Acute Syncope Acute
[2017-10-11] MEDS: PROMETHAZINE HCL 25 MG/ML INJ IVP PRN (21:48)
[2017-10-11] MEDS: PANTOPRAZOLE SODIUM 40 MG TAB PO SCH (21:48)
[2017-10-12] MEDS: PIPERACILLIN/TAZO 3.375 GM/DEX 50 ML IV SCH ×5 (00:31→23:52)
[2017-10-12] MEDS: PANTOPRAZOLE SODIUM 40 MG TAB PO SCH ×2 (08:29→19:40)
[2017-10-12] MEDS ORDERED: ADENOSINE 6 MG/2 ML VIAL IVP ONE (09:41)
[2017-10-12] MEDS ORDERED: ALBUMIN 25% 200 ML IV ONE (09:42)
--- NOTE | 2017-10-12 11:14 | ASMTCMCOM ---
CM Note CM Note Notes: Patient made DNR and he wanted to talk to Palliative Care. He is leaning toward Hospice and reports that he doesn't want to at home. Patient and live in [place], I gave them info re: Hospice at [facility] which would be close to where they live. He asked if I would look into and how his ins might cover expenses. Faxed patient's ins info. Date Signed: 10/12/2017 11:13 AM Electronically Signed By:Megan Carver LCSW
--- NOTE | 2017-10-12 13:49 | SOAPPROG ---
SOAP Progress Note Assessment/Plan: Assessment: - Terminal metastatic esophageal CA - Patient progressed on first line therapy and could not tolerate second line therapy. His ECOG performance status is 4. He is not a candidate for further systemic/cytotoxic chemo. I believe his prognosis is limited to a few weeks at best. We talked about common terminal events including pneumonia, VTE, liver failure, dehydration, and coma. I concur that hospice and best supportive care is most appropriate. He does not wish to at home, so inpatient hospice options are being evaluated. - I would discontinue tele and transfer back to while placement efforts are underway. Plan: - D/C tele - Hospice BS - OK for transfer back to from onc perspective Subjective: He is asking questions about his prognosis and what the likely scenarios might be that would cause related to the progression his underlying disease Objective: Vital Signs Temp Pulse Resp BP Pulse Ox 36.8 C 94 18 89/66 L 98 10/12/17 11:34 10/12/17 11:34 10/12/17 11:34 10/12/17 11:34 10/12/17 11:34 Laboratory Results 10/12/17 04:55 10/12/17 04:55 10/10/17 10/11/17 10/12/17 23:59 23:59 23:59 Intake Total 242 1347 1046 Output Total 400 Balance 242 1347 646 PT 16.0 SEC (12.0-15.0) H 10/09/17 05:00 INR 1.26 (0.83-1.16) H 10/09/17 05:00 Physical Exam - Physical Exam General Appearance: moderate distress, cachetic, thin Skin: pallor Neuro/Psych: alert, oriented x 3 ICD10 Worksheet Patient Problems: Problems Problem Status Onset Esophageal mass Acute GI bleed Acute Leukocytosis Acute Ascites Acute Bacterial peritonitis Acute Dehydration Acute Hypotension Acute Palliative care encounter Acute Sepsis Acute Syncope Acute
--- NOTE | 2017-10-12 14:51 | ASMTCMCOM ---
CM Note CM Note Notes: Patient has an order for Hospice to eval and tx. [facility] room and brd costs: $8,200/mo for semi private room; $10,200/mo for a private room; [employer] would pay for Hospice. [facility] has an in-pt setting for critical needs: getting pain or anxiety under control which usually takes 3-5 days then patient would need to either go home or to LTC in a SNF like [facility] and have hospice in that setting. Gave this info to patient and . [facility] to meet with them Thursday 10AM. Date Signed: 10/12/2017 02:51 PM Electronically Signed By:Megan Carver LCSW
[2017-10-12] MEDS ORDERED: HYDROmorphONE/DILAUDID 2 MG TAB PO PRN (16:18)
[2017-10-12] MEDS ORDERED: LACTULOSE 20 GM/30 ML UDCUP PO PRN (16:19)
[2017-10-12] MEDS ORDERED: MAGNESIUM HYDROXIDE 30 ML UDCUP PO PRN (16:19)
[2017-10-12] MEDS ORDERED: BISACODYL 10 MG SUPP PR PRN (16:19)
[2017-10-12] MEDS ORDERED: POLYETHYLENE GLYCOL 3350 17 GM PKT PO PRN (16:19)
--- NOTE | 2017-10-12 19:01 | HOSPPROG ---
Hospitalist Progress Note Assessment/Plan: Assessment: 57-year-old male sense with recurrent acute upper gastrointestinal hemorrhage, spontaneous bacterial peritonitis, metastatic esophageal malignancy , recurrent SVT Plan: #Acute GIB: No further bleeding o/n, cont PPI - h/o ulcerative esophageal mass. EGD 06/14 showed possible arterial bleed, but not amendable to clipping - holding Lovenox #Recurrent SVT: Likely provoked by acute illness, has had in past and was treated w/ metoprolol 12.5 bid, but had been stopped 2/2 hypotension - experienced repeat episode today, responded well to adenosine 6mg + 200mg albumin - patient gets symptomatic from this, and since he is transitioning to hospice in the next 24hrs, he agrees that staying off tele is reasonable and, if he experiences recurrence tonight, then just get EKG, see if he's back in SVT, give 6mg adenosine #Recurrent SBP: Strep mitis (culture 1/2). IV ceftriaxone 2gm tomorrow, then palliatively discharge w/ levofloxacin to suppress infxn until family in town this weekend - resulting in abd pain, adjusted pain Rx to dilaudid PRN #Hypoglycemia: with NPO status. Advanced diet as kailyn #Hypotension: due to bleed, hypovolemia, responds to albumin boluses #Metastatic esophageal cancer: counseled and coordinated hospice care today, plan for patient to discharge tomorrow w/ hospice to either GIP vs. SNF w/ hospice, depending on whether abd pain requires GIP tx - patient has family coming into town this weekend whom he believes will be good support for his , but he has accepted that he may pass prior to that time #h/o massive PE: IVC filter in place. Hold Lovenox #Malignant ascites: more distended since last hospitalization, no longer leaking , no utility in palliative drain #Hypervolemic hyponatremia: chronic #Transaminitis: chemo-related and metastatic #Diet: regular as kailyn #DVT ppx: SCDs #Code: DNR, going to hospice tomorrow #Dispo: ADD 10/13 Subjective: patient w/ palliative consult this AM, hospice consult thereafter, ongoing R side abd pain, no BMs Objective: Vital Signs Temp Pulse Resp BP Pulse Ox 36.8 C 93 20 91/62 L 96 10/12/17 15:20 10/12/17 15:20 10/12/17 15:20 10/12/17 15:20 10/12/17 15:20 Laboratory Results 10/12/17 04:55 10/12/17 04:55 10/11/17 10/12/17 10/13/17 05:59 05:59 05:59 Intake Total 242 2047 886 Output Total 400 420 Balance 242 1647 466 PT 16.0 SEC (12.0-15.0) H 10/09/17 05:00 INR 1.26 (0.83-1.16) H 10/09/17 05:00 - Time Spent With Patient Time Spent with Patient: greater than 35 minutes Time Spent with Patient: Greater than 35 minutes spent on this patients care, greater than 50% of time spent counseling, educating, and coordinating care regarding the above mentioned plan. - Pending Discharge Pending Discharge Within 24 Hours: Yes Pending Discharge Date: 10/13/17 Pending Discharge Time: 11:00 - Physical Exam Constitutional: no apparent distress, chronically ill appearing, uncomfortable, No not in pain (mild) Cardiovascular: regular rate and rhythym, no murmur, rub, or gallop, edema ( trace bilat LE) Respiratory: reduced air movement (bilat bases), No expiratory wheeze, No inspiratory crackles, No bronchial breath sounds Gastrointestinal: tenderness (mild to mod palpation), distension (moderate), No normoactive bowel sounds (hypoactive), No guarding Neurologic: AAOx3 Psychiatric: not anxious, not encephalopathic, flat affect, No agitated ICD10 Worksheet Patient Problems: Problems Problem Status Onset Esophageal mass Acute Syncope Acute Hypotension Acute Sepsis Acute Dehydration Acute Palliative care encounter Acute Bacterial peritonitis Acute Ascites Acute GI bleed Acute Leukocytosis Acute
[2017-10-12] MEDS: SENNOSIDES/DOCUSATE SODIUM TAB PO SCH (19:40)
[2017-10-12 23:58] VITALS: O2SAT 94
[2017-10-13] MEDS: PIPERACILLIN/TAZO 3.375 GM/DEX 50 ML IV SCH (05:42)
[2017-10-13 07:57] VITALS: BP 100/65; PULSE 98; RESP 18; TEMP 98.7
[2017-10-13] MEDS: PANTOPRAZOLE SODIUM 40 MG TAB PO SCH (09:06)
[2017-10-13] MEDS: SENNOSIDES/DOCUSATE SODIUM TAB PO SCH (09:07)
--- NOTE | 2017-10-13 10:51 | PDIAF ---
- Diagnosis Diagnosis: Recurrent GI bleed, Metastatic Esophageal, Malignant Ascites, SBP Code Status: Do Not Resuscitate - Medication Management Discharge Medications: Medications to Continue on Transfer Pantoprazole Sodium [Protonix 40mg (*)] 40 mg PO BID #60 tab 06/28/17 [Last Taken 10/08/17 21:00] Prochlorperazine Maleate [Compazine 10mg (*)] 10 mg PO Q6H PRN 09/25/17 [Last Taken 09/18/17] HYDROmorphone HCL [Dilaudid 2 mg (*)] 2 - 4 mg PO Q4HRS PRN tab 10/13/17 [Last Taken Unknown] LORazepam [Ativan (*)] 0.5 mg PO Q2 PRN #40 tab 10/13/17 [Last Taken Unknown] Ondansetron Odt [Zofran Odt 4 mg (*)] 4 - 8 mg PO Q4HRS PRN tab 10/13/17 [Last Taken Unknown] Sennosides/Docusate Sodium [Senokot-S] 1 - 2 tab PO BID tab 10/13/17 [Last Taken Unknown] levOFLOXACIN [levAQUIN (*)] 750 mg PO DAILY AT 10AM tab 10/13/17 [Last Taken Unknown] Intermediate Antibiotics: Levofloxacin 750mg PO daily [employer] Antibiotic Stop Date: 10/26/17 Discharge Medications: Refer to the Discharge Home Medication list for PRN reason. PICC Care - Routine: N/A - Orders Services needed: Registered Nurse, Certified Machine Shorthand Reporter Isolation Type: None Oxygen: 2LPM as needed Diet Recommendation: no restrictions on diet [place]: Not applicable Additional: Patient has been enrolled with [facility] - Follow Up Care Current Providers and Referrals: Yoandy Potts MD [Primary Care Provider] - As per Instructions
[2017-10-13 11:33] LABS: INR 1.43 (0.83-1.16); PROTIME(PATIENT) 17.6 SEC (12.0-15.0)
[2017-10-13] MEDS: HYDROmorphONE/DILAUDID 1 MG/ML INJ IVP PRN ×2 (13:51→17:00)
[2017-10-13] MEDS ORDERED: LIDOCAINE 1% 300 MG/30 ML SDV ONE (14:09)
[2017-10-13] MEDS ORDERED: ALBUMIN 5% 250 ML BOTTLE IV ONE (16:11)
[2017-10-13] MEDS ORDERED: ALBUMIN 25% 200 ML IV ONE (16:21)
[2017-10-13] MEDS ORDERED: ALBUMIN 25% 50 ML SOLN IV ONE ×2 (16:25→16:28)
--- NOTE | 2017-10-13 16:45 | PDDCSUM ---
Discharge Summary Discharge Summary: DISCHARGE SUMMARY FOLLOW-UP ITEMS: [facility] DATE OF ADMISSION: 10/09/2017 DATE OF DISCHARGE: 10/13/2017 DISCHARGE DIAGNOSES: 1. Acute upper gastrointestinal hemorrhage 2. Recurrent supraventricular tachycardia 3. Recurrent spontaneous bacterial peritonitis 4. Acute hypoglycemia 5. Acute hypovolemic hypotension 6. Metastatic esophageal cancer 7. History of massive pulmonary embolism 8. Malignant ascites 9. Chronic hypervolemic hyponatremia 10. Transaminitis secondary to chemotherapy metastatic disease CONSULTATIONS: Oncology, Gastroenterology, hospice PROCEDURES / IMAGING: Pubic paracentesis 10/13/2017, 10 L removed CHIEF COMPLAINT: Melena SUBJECTIVE: Patient reports pain is well controlled at time of discharge PHYSICAL EXAM ON DISCHARGE: Systolic blood pressure 90-100, heart rate 90-100, satting well on room air, afebrile overnight, alert awake oriented 3, flat affect, chronically ill- appearing, moderate abdominal distension LABS ON DISCHARGE: None HOSPITAL COURSE BY PROBLEM: 1. Acute upper gastrointestinal hemorrhage. Patient presented with melena secondary to a likely bleeding ulceration of his esophageal mass, he was evaluated by Gastroenterology and was determined that given that the EGD in May of 2017 did not demonstrate any area amenable to clipping, the decision was made not to perform upper endoscopy given that the patient's goals of care were transitioning towards hospice. The patient's therapeutic Lovenox was held, and he stopped having melena prior to discharge. He was not experiencing any upper gastrointestinal hemorrhage that was visible at time of discharge. 2. Metastatic esophageal cancer. The patient has metastatic esophageal cancer and has been unable to undergo chemotherapy in the recent past secondary complications thereof. He has experienced recurrent spontaneous bacterial peritonitis, and has been unable to complete chemotherapy secondary to infection. The patient's overall performance status has been declining over the course of the past several weeks with recurrent hospitalizations, seen in consultation by Oncology who recommended no further chemotherapy. The patient has accepted this course of events in his decided to discharge with hospice. The patient would like to be discharged [place] [facility] where he can receive care, receive hospice services, and he has family there coming to visit him within the week. Given the patient's malignant ascites and significant abdominal discomfort, did receive a 10 L therapeutic paracentesis prior to discharge. We did provide him with 200 mL as of IV albumin following the procedure. We did discuss the possibility of palliative peritoneal drain, the patient will hold off on this at this time, but reassess whether he has significant reaccumulation of the course of the next couple weeks. Is anticipated the patient's life expectancy will be shorter than that, so a peritoneal drain was not recommended at this time. 3. Recurrent spontaneous bacterial peritonitis. Patient's culture from 2017 demonstrated strep Mitis, the patient has been receiving ceftriaxone 2 g IV , under the direction of Infectious Disease. Repeat paracenteses since that time of demonstrated persistent peritonitis, and is suspected that the patient' s infection has been slowed clear in the setting of ongoing intra-abdominal pressure and reaccumulation. Given that the organism is sensitive to levofloxacin, patient was taken off of ceftriaxone and palliatively discharged on levofloxacin to suppress infection until his family is in town this weekend. If the patient does survive next couple weeks, then consideration can be made to further doses levofloxacin palliatively as a suppressive agent. 4. Recurrent supraventricular tachycardia. The patient has a history of SVT, and he experienced recurrence during this hospitalization, likely provoked by acute illness. This occurred in the setting of discontinuing or metoprolol given hypotension. The patient is at ease symptomatic resulting in palpitations , and responds to 6 mg of adenosine. The patient received this treatment a couple times during this hospitalization. Discussed the possibility of discharging on metoprolol with the patient, he elects not to discharge on a given its side effect of hypotension which could further exacerbate his baseline low blood pressures and produce orthostasis. 5. Acute hypoglycemia. Secondary to patient's poor oral intake, patient not currently on any medications that would affect this. 6. Acute hypotension. Secondary to hypovolemia, responded to albumin boluses, received a couple during this hospitalization. 7. History of massive pulmonary embolism. Patient IVC filter in place, is Lovenox has been discontinued secondary to his bleeding and his hospice status. 8. Chronic hypervolemic hyponatremia. Discontinue monitoring given his goals of care. DISCHARGE MEDICATIONS: Please see official discharge medication reconciliation sheet in chart , as needed Dilaudid, as needed Zofran, scheduled levofloxacin 750 mg daily, as needed Ativan, scheduled Senokot S. DISCHARGE INSTRUCTIONS: Please contact [facility] hospice for any ongoing concerns. TIME SPENT: Greater than 30 minutes were spent on direct patient care, as well as discharge planning and preparation.
--- NOTE | 2017-10-13 17:28 | ASDISCHSUM ---
Discharge Information Plan Status:Hospice-SNF Medically Cleared to Leave:10/12/2017 Discharge Date:10/13/2017 05:20 PM CM D/C Disposition:Hospice Facility ADT D/C Disposition:Nursing Home Facility Projected Discharge Date:10/13/2017 04:00 PM Transportation at D/C:ALS/BLS Discharge Delay Reason: Follow-Up Date:10/13/2017 04:00 PM Discharge Slot: Final Diagnosis:Recurrent GIB, Met Esophageal CA, Ascites SBP Placement Information Referral Type:Palliative Care Referral ID:[id number] Provider Name: Address 1: Phone Number: Address 2: Fax Number: City: [facility] Factors: State: Referral Type:*Hospice Referral ID:[id number] Provider Name:[facility] ([facility]) Address 1:[address] Address 2: City:[place] Selection Factors: State:[place] Referral Type:*Correction/SNF Referral ID:[id number] Provider Name:[facility] Address 1:[address] Address 2: City:[place] Selection Factors: State:[place] Patient Contact Information Contact Name:LETICIA Relationship: Address:[address] City:[place] Alternate Phone: State/Zip Code:[place] [address] Email: Financial Information [facility] Primary Plan Desc:[facility] Primary Plan Number:[id number] Secondary Plan Desc: Secondary Plan Number: Assessment Information [facility] Initial CM Assessment Living Arrangements What is your living Answers: With Spouse arrangement? Who do you live with? Type Of Residence What kind of residence do Answers: Apartment you live in? Discharge Plan Comments Coordination Status Comments Notes: Patient is a 57yo male who was admitted for metastatic esophageal cancer and had a recent admission for malignant ascites and SBP presence with melena. No orders for therapy at this time. D/C needs TBD. CM will follow. Date Signed: 10/09/2017 01:05 PM Electronically Signed By:Haleigh Whitehead LCSW [facility] CM Progress Note CM Note CM Note Notes: Per hospitalist note and CM report, patient seems like good candidate for outpatient palliative care. When I spoke with patient and Kate, they were hesitant, citing their small home as an obstacle, but they agreed to an informational meeting with palliative agency while patient is still in hospital. I sent a referral to [facility], they will come to see patient on Thursday 10/12. No set time scheduled, CM will need to coordinate with patient and [facility]. Re: other discharge plans, again, patient is not that interested in having any homecare services d/t living in a small space. He hopes to have enough acute therapy to go home indpendently with . Current CM Discharge plan: [facility] vs Home independent Date Signed: 10/10/2017 11:02 AM Electronically Signed By:Carolyn Ritchie RN [facility] CM Progress Note CM Note CM Note Notes: Patient made DNR and he wanted to talk to Palliative Care. He is leaning toward Hospice and reports that he doesn't want to at home. Patient and live in [place], I gave them info re: Hospice at [facility] which would be close to where they live. He asked if I would look into and how his ins might cover expenses. Faxed patient's ins info. Date Signed: 10/12/2017 11:13 AM Electronically Signed By:Megan Carver LCSW [facility] CM Progress Note CM Note CM Note Notes: Patient has an order for Hospice to eval and me. [facility] room and brd costs: $8,200/mo for semi private room; $10,200/mo for a private room; Ana M would pay for Hospice. [facility] Hospice has an in-pt setting for critical needs: getting pain or anxiety under control which usually takes 3-5 days then patient would need to either go home or to LTC in a SNF like [facility] and have hospice in that setting. Gave this info to patient and . [facility] to meet with them Thursday 10AM. Date Signed: 10/12/2017 02:51 PM Electronically Signed By:Megan Carver LCSW Intervention Information Intervention Type:*Incorrect Registration Date of Service:10/09/2017 09:23 AM Patient Type:Inpatient Staff Member:CORBIN Monteiro Kerry Hours: Discipline: Severity: Comment: Intervention Type:*HANNAH-Signed Date of Service:10/09/2017 03:54 PM Patient Type:Observation Staff Member:Inna Rosario Hours: Discipline: Severity: Comment:
== END 2017-10-13 17:20 | DRG 374 ==
LOC: INTOOBSV 06:50 → OBSVTOIN 06:50 → F2N 08:40 → OBSVTOIN 10-10 10:08 → F3E 10-10 12:07 → F2N 10-11 18:39
PROVIDERS: ADMIT Student in an Organized Health Care Education/Training Program; ATTEND Student in an Organized Health Care Education/Training Program
PROC: 0W9G3ZZ Drainage of Peritoneal Cavity, Percutaneous Approach (ICD-10-PCS; principal; 2017-10-13)
DX: C15.9 Malignant neoplasm of esophagus, unspecified (principal); C78.7 Secondary malignant neoplasm of liver and intrahepatic bile duct; R18.0 Malignant ascites; E87.1 Hypo-osmolality and hyponatremia; I47.1 Supraventricular tachycardia; K65.2 Spontaneous bacterial peritonitis; B95.4 Other streptococcus as the cause of diseases classified elsewhere; R74.0 Nonspecific elevation of levels of transaminase and lactic acid dehydrogenase [LDH]; E16.2 Hypoglycemia, unspecified; E27.40 Unspecified adrenocortical insufficiency; N18.9 Chronic kidney disease, unspecified; Z86.711 Personal history of pulmonary embolism; Z79.01 Long term (current) use of anticoagulants
CPT/HCPCS: 96365; 97116-GP; 97161-GP; G0378; J0153; J0696; J1170; J2405; J2543; J2550; P9041; P9047